=== PATIENT | male | born 1960 | race Caucasian/White ===

== ENCOUNTER 2019-04-17 14:11 | Emergency (ER) | payer OTHER, SELFPAY ==
[2019-04-17 14:11] VITALS: BP 131/91; PULSE 70; RESP 16; O2SAT 97
[2019-04-17 14:12] VITALS: BP 131/91; PULSE 76; RESP 16; TEMP 36.8; O2SAT 99
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
[2019-04-17 15:11] VITALS: BP 135/94; PULSE 60; RESP 16; O2SAT 96
== END 2019-04-17 15:19 | disposition home or self-care (01) ==
PROVIDERS: Emergency Provider Physician Assistant Medical; Family Provider Internal Medicine; PCP Internal Medicine
DX: T67.5XXA Heat exhaustion, unspecified, initial encounter (principal); X58.XXXA Exposure to other specified factors, initial encounter; Y93.89 Activity, other specified; Y92.71 Barn as the place of occurrence of the external cause; Y99.9 Unspecified external cause status
CPT/HCPCS: 99284

== ENCOUNTER → 2019-11-04 10:32 | Outpatient (CLI) | payer OTHER, SELFPAY ==
--- NOTE | 2019-11-04 10:42 | RAD_ITS ---
STUDY: X-RAY CHEST REASON FOR EXAM: Male, 59 years old. PERSISTENT COUGH X 2 WEEKS, HEMOPTYSIS TODAY, -- FEVER EARLIER TECHNIQUE: PA and lateral views of the chest. COMPARISON: Comparison is made with prior chest radiograph dated June 15, 2016. FINDINGS: There is evidence of a infiltration in the right middle lobe. Mild increased markings are seen at the left lung base. Blunting of both costophrenic angles. Healed right-sided rib fractures. Scattered calcified granulomas. Normal size heart. Normal mediastinum and margareth. Normal visualized pulmonary arteries. There is atherosclerotic calcification of the aortic arch with tortuosity. There are diffuse degenerative changes of the visualized thoracic spine. There is degenerative osteoarthritis of the bilateral shoulders. There is no demonstrated abnormality of the visualized soft tissue structures of the upper abdomen. RAD/Chest PA and Lateral IMPRESSION: Focal infiltration in the right middle lobe with blunting of both costophrenic angles. Mild increased markings at the left lung base. Follow-up is recommended. Electronically Signed: Forrest Francois, at 11:09 EDT , Service support ,
== END ==
PROVIDERS: PCP Internal Medicine; Referring Provider Internal Medicine; Visit Provider Internal Medicine
DX: R05 Cough (principal)
CPT/HCPCS: 71046

== ENCOUNTER 2019-11-04 13:31 | Inpatient (IN) | payer OTHER, SELFPAY ==
[2019-11-04] VITALS (9 sets, daily range): BP systolic 110–132; BP diastolic 74–88; PULSE 70–87; RESP 18–24; TEMP 36.6–37.7; O2SAT 92–96; BMI 28.8; BMI 29.0
--- NOTE | 2019-11-04 13:41 | EKG12_ITS ---
Test Reason : COVID Blood Pressure : / mmHG Vent. Rate : 076 BPM Atrial Rate : 076 BPM P-R Int : 168 ms QRS Dur : 104 ms QT Int : 388 ms P-R-T Axes : 029 058 033 degrees QTc Int : 436 ms Normal sinus rhythm Incomplete right bundle branch block Borderline ECG Confirmed by JAMISON RAM, ELIOT ([id number]), art editor TROY MILLIGAN ([id number]) on 11/10/2019 2:04:01 PM Referred By: FABIENNE Confirmed By:MARYANN SWIFT MD
[2019-11-04 14:09] LABS: Absolute Lymphocyte Count 0.69 X10^3/uL (0.83-4.51); Absolute Neutrophil Count 7.3 X10^3/uL (2.0-7.7); Basophil# 0.01 X10^3/uL; Basophil% 0.1 % (0-1); Eosinophil# 0.02 X10^3/uL; Eosinophils% 0.2 % (0-5); Hematocrit 45.8 % (40-54); Hemoglobin 15.9 g/dL (13.0-16.5); Lymphocyte # 0.69 X10^3/ul (4.0); Lymphocyte % 7.5 % (19-41); Mean Corp Hgb Conc 34.7 g/dL (32-36); Mean Corpuscular Hgb 30.2 pg (27.0-32.0); Mean Corpuscular Volume 87.1 fL (80-94); Mean Platelet Vol. 9.3 fl (6.2-12.0); Monocyte# 1.09 X10^3/uL; Monocyte% 11.9 % (0-10); NRBC Flagged by Analyzer 0 % (0-5); Neutrophil # 7.27 X10^3/uL (2.7-7.7); Neutrophil % 79.6 % (47-70); Platelet Count 236 K/mm3 (150-450); RBC Distribution Width CV 12.5 % (11.6-14.6); RBC Distribution Width SD 39.8 fl (35.1-43.9); Red Blood Count 5.26 M/mm3 (4.6-6.2); White Blood Count 9.1 K/mm3 (4.4-11.0)
[2019-11-04] MEDS: 0.9% Normal Saline 1,000 ML 999 ML IV (14:10)
[2019-11-04 14:16] LABS: Anion Gap 7 (5-15); BUN 14 mg/dL (7-18); BUN/Creat Ratio 14.1 RATIO (10-20); Calcium,Total 8.6 mg/dL (8.5-10.1); Chloride 97 mmol/L (98-107); EST Glomerular Filtration Rate 81 mL/min (>60); Est Glom Filt Rate - Afr Amer 98 mL/min (>60); Estimated Creatinine Clearance 85.14 ml/min; Glucose 124 mg/dL (74-106); Potassium 3.7 mmol/L (3.5-5.1); Sodium Level 133 mmol/L (136-145)
[2019-11-04 14:23] LABS: Lactic Acid 1.4 mmol/L (0.4-1.9)
--- NOTE | 2019-11-04 14:26 | ED.DCSUM_ITS ---
History of Present Illness Chief Complaint: Shortness of Breath Informant: Patient Onset: Weeks Narrative: Patient is a 59-year-old male with no known medical history presenting with 2 weeks of flulike symptoms. Patient has had fever for the past 16 days. In the office today his temperature is 100.4. Associated cough, myalgias, chest tightness and diarrhea. He is had nausea but no vomiting. He is not had any rash. Patient started coughing up blood today. The blood is nickel and quarter sized. He was seen by Dr. adam today. She ordered a chest x-ray which showed a right middle lobe infiltrate and questionable infiltrate at the base as well. He was very shallow breathing. He was 94% in the office but with ambulation dropped down to 88%. He was sent to the emergency room for further treatment and evaluation. 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 He had a likely exposure to coronavirus on October 16. He is started getting symptoms 3 days later. Past Medical History - Allergies and Home Meds Allergies/Adverse Reactions: Allergies No Known Allergies Allergy (Verified 11/04/19 13:31) Past Medical History: None Surgical History: no surgical history Lives: Spouse/ Significant Other Smoking Status: Never smoker - Family History Maternal Family History: Family History (Last Reviewed 04/27/19 @ 14:05 by Mayda Gale) Father Arthritis High cholesterol Hypertension Mother Hypertension Family History: Reports: Hypertension Paternal Family History: Family History (Last Reviewed 04/27/19 @ 14:05 by Mayda Gale) Father Arthritis High cholesterol Hypertension Mother Hypertension Family History: Reports: High Cholesterol, Hypertension Review of Systems General: Reports: Chills, Fever, Malaise. Denies: Sweats Eyes: Denies: Visual changes - bilaterally, Diplopia ENT: Denies: Rhinorrhea, Sore throat Cardiovascular: Denies: Chest pain, Palpitations Respiratory: Reports: Dyspnea, Cough, Sputum, Dyspnea on exertion Gastrointestinal: Reports: Nausea. Denies: Abdominal pain, Vomiting, Diarrhea, Melena, Hematochezia Genitourinary: Denies: Dysuria, Hematuria, Frequency Musculoskeletal: Reports: Myalgias. Denies: Back pain, Extremity Pain Skin: Denies: Rash, Wounds Neurological: Denies: Headache, Weakness, Numbness Physical Exam Vital Signs/Narrative: Vital Signs Temp Pulse Resp BP Pulse Ox 11/04/19 14:06 97.8 F 73 19 H 132/88 H 94 11/04/19 13:32 99.0 F 87 22 H 120/85 H 92 Inital Vital Signs reviewed: Yes General: Well nourished, Well developed, No Acute Distress Head: Normocephalic, Atraumatic Eyes: Perrl, EOMI ENT: Moist mucous membranes, No rhinorrhea Neck: Supple, Nontender Cardiovascular: Regular rate, Regular rhythm, No murmurs Respiratory: Chest nontender, Diminished - Right base, Decreased Air Movement, Retractions Abdomen: Soft, Nontender, Nondistended, Normal bowel sounds. Negative for: Guarding, Rebound tenderness Back: Nontender, Normal Inspection Extremities: Nontender, No edema Skin: Normal color, No rash Neurological: Alert, Oriented x3, Cranial nerves II-XII grossly intact, Normal Strength, Normal Sensation Psychological: Normal affect, Normal Mood Diagnostic/Tx/Re-eval Laboratory Data 11/04/19 11/04/19 11/04/19 13:42 13:42 13:42 WBC 9.1 RBC 5.26 Hgb 15.9 Hct 45.8 MCV 87.1 MCH 30.2 MCHC 34.7 RDW Std Deviation 39.8 RDW Coeff of Micki 12.5 Plt Count 236 MPV 9.3 Immature Gran % (Auto) 0.700 Neut % (Auto) 79.6 H Lymph % (Auto) 7.5 L Patrick % (Auto) 11.9 H Eos % (Auto) 0.2 Baso % (Auto) 0.1 Absolute Neuts (auto) 7.3 Absolute Lymphs (auto) 0.69 L Nucleated RBC % 0 Sodium 133 L Potassium 3.7 Chloride 97 L Carbon Dioxide 29.0 Anion Gap 7 BUN 14 Creatinine 1.00 Estim Creat Clear Calc 85.14 Est GFR (MDRD) Af Amer 98 Est GFR (MDRD) Non-Af 81 BUN/Creatinine Ratio 14.1 Glucose 124 H Lactic Acid 1.4 Calcium 8.6 AST ALT Troponin I < 0.015 11/04/19 13:42 WBC RBC Hgb Hct MCV MCH MCHC RDW Std Deviation RDW Coeff of Micki Plt Count MPV Immature Gran % (Auto) Neut % (Auto) Lymph % (Auto) Patrick % (Auto) Eos % (Auto) Baso % (Auto) Absolute Neuts (auto) Absolute Lymphs (auto) Nucleated RBC % Sodium Potassium Chloride Carbon Dioxide Anion Gap BUN Creatinine Estim Creat Clear Calc Est GFR (MDRD) Af Amer Est GFR (MDRD) Non-Af BUN/Creatinine Ratio Glucose Lactic Acid Calcium AST 52 H ALT 89 H Troponin I Chest x-ray performed earlier today shows focal infiltrate of the right middle lobe with blunting of both costophrenic angles. Mild increased markings at the left lung base. - Rhythm Strip Rhythm Strip: Sinus Rhythm Rate: 76 Ectopy: None - EKG Initial EKG Interpretation: Sinus Rhythm, RBBB, - - Normal sinus rhythm at a rate of 76Incomplete right bundle branch blockNormal intervalsNormal ST segmentsNormal axis - Medical Decision Making Patient is evaluated for 16 days of worsening respiratory symptoms as well as fever. Patient was seen at his PCP office today. His chest x-ray is found to be showed a right pneumonia as well as questionable early pneumonia at the left base. Patient was hypoxic down to 80% with ambulation. He has had increased work of breathing. Patient is had a possible exposure to COVID-19. Lab work is significant for lymphopenia but a normal white blood cell count. His sodium was mildly low at 133. Is possible he is a component of dehydration. He has a very mild bump in his liver enzymes but this is nonspecific. His troponin is normal. EKG is unremarkable. Chest x-rays not repeated as I am able to view the chest x-ray from earlier today. Patient is ambulated in the room and he drops down to 89%. He is quite symptomatic. Given the extent of his symptoms as well as worsening respiratory status I do think he would benefit from admission. He is placed on IV antibiotics to cover for pneumonia however I do suspect he has COVID-19, he could have a bacterial superinfection. His lactate was normal. He does not meet criteria for sepsis. Patient did have COVID-19 testing at PCP office today, results are pending. Discussed the case with admitting physician, who agrees to admission to [facility]. Patient stable at time of disposition. At this time he is not requiring supplemental oxygenation however I feel that he might deteriorate over the next 12 to 24 hours. ED Disposition - Plan for ED Patient: Disposition: [facility] Diagnosis: Pneumonia due to SARS-associated coronavirus
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
[2019-11-04] MEDS: Ceftriaxone 1 GM/50 ML BAG IV (15:48)
[2019-11-04 17:34] LABS: AST(SGOT) 52 U/L (15-37); Alanine Aminotransfer ALT/SGPT 89 U/L (16-61)
[2019-11-04] MEDS: Heparin Injection (Vial) 5,000 UNIT/ML VIAL 5000 UNIT SC (21:22)
--- NOTE | 2019-11-04 22:53 | PCM.PN.BLA ---
Progress Note Patient's PCP (Dr. Gold) called. Shared decision with PCP to get D-dimer in patient with hemoptysis; and covid suspected. If D-dimer is elevated proceed with CTPA as there is no kidney injury. Ok to wait for the [facility] in am to make further decisions on suspected covid as patient is stable on 2L nasal cannula oxygen with sat in 96% STROKE Vital Signs/Narrative: Vital Signs Temp Pulse Resp BP Pulse Ox 11/04/19 21:15 99.8 F H 79 18 117/79 92
[2019-11-04 23:58] LABS: D-Dimer Quantitative (DVT/PE) 4.84 FEU/ug/m (0.27-0.49)
--- NOTE | 2019-11-05 00:59 | PN_ITS ---
Progress Note CTPA with multiple PEs and pulmonary infarction/infiltrate. Will give the patient a one-time dose of therapeutic Lovenox. Discontinue heparin pr ophylaxis. Rounding attending physician to manage further. STROKE Vital Signs/Narrative: Vital Signs Temp Pulse Resp BP Pulse Ox 11/04/19 21:15 99.8 F H 79 18 117/79 92
[2019-11-05] MEDS: Enoxaparin 100 MG/ML Syringe SC (01:14)
[2019-11-05 09:01] LABS: ALB/GLOB Ratio 0.5 RATIO (0.9-2.4); AST(SGOT) 84 U/L (15-37); Alanine Aminotransfer ALT/SGPT 115 U/L (16-61); Albumin, Serum 2.2 g/dL (3.2-5.0); Alkaline Phosphatase 64 U/L (45-117); Anion Gap 8 (5-15); BUN 10 mg/dL (7-18); BUN/Creat Ratio 12.5 RATIO (10-20); Chloride 101 mmol/L (98-107); EST Glomerular Filtration Rate 104 mL/min (>60); Est Glom Filt Rate - Afr Amer 126 mL/min (>60); Estimated Creatinine Clearance 106.43 ml/min; Globulin 4.1 g/dL (2.2-4.2); Glucose 103 mg/dL (74-106); Potassium 3.9 mmol/L (3.5-5.1); Protein, Total 6.3 g/dL (6.4-8.2); Sodium Level 135 mmol/L (136-145)
[2019-11-05 10:00] VITALS: BP 108/77; PULSE 70; RESP 16; TEMP 37; O2SAT 92
--- NOTE | 2019-11-05 10:07 | PN_ITS ---
Patient Problems: Active and Suspected Problems (Last Updated 11/05/19 @ 10:[address] Dimas Pinzon MD) Hypoxia (Acute) Suspected COVID-19 (Acute) Viral pneumonia (Acute) Subjective: Chief complaint: Follow-up after admission for hypoxia, viral pneumonia with suspected COVID-19 infection and he was found to have a right multiple pulmonary emboli. Patient seen and examined. No acute events overnight. Today, patient is feeling better although still complaining of right pleuritic chest pain and reported hemoptysis as well. Shortness of breath remains almost the same as yesterday with minimal improvement. He has been afebrile, he is requiring 2 L of oxygen, other vital signs are stable. - Physical Exam Vitals/I&O's: Vital Signs Temp Pulse Resp BP Pulse Ox 99.8 F H 79 18 117/79 92 11/04/19 21:15 11/04/19 21:15 11/04/19 21:15 11/04/19 21:15 11/04/19 21:15 Oxygen Flow Rate (L/min) 2 Oxygen Delivery Method Nasal Cannula Weight: 213 lb 10.047 oz Body Mass Index (BMI) 29.0 Intake and Output for Last 24 Hours 11/03/19 11/04/19 11/05/19 23:59 23:59 23:59 Intake Total 1665 / 1665 Balance 1665 / 1665 General: Alert, Oriented x3, Cooperative, No apparent distress HEENT: Atraumatic, PERRLA, EOMI, Normocephalic Oral: Moist Mucosa, No Gingival or Mucosal Lesions/ Ulcerations Neck: Supple, No JVD, Negative Carotid Bruits, Trachea Midline, Thyroid Normal Size and Texture Lungs: No rhonchi, No wheeze, No rales, Diminished, - - Decreased breath sounds at the bases, otherwise clear. Cardiovascular: Regular rate, Regular Rhythm, Normal S1, Normal S2, PMI Normal Abdomen: Bowel Sounds Present, Soft, Non Tender, Non-Distended, No Hepato-splenomegaly Extremities: No clubbing, No cyanosis, No edema Skin: No rashes, No breakdown Lymphatic: No Cervical, Supraclavicular, or Inguinal Adenopathy Neurological: Cranial nerves II-XII grossly intact, Neuro grossly intact Psych/Mental Status: Normal Affect, Appropriate, Alert and oriented to time, place, person, mood and affect Microbiology Past 72 Hours 11/04/19 13:43 Mucosa - Nose Respiratory Panel (PCR) - Final Laboratory Results 11/04/19 13:42: WBC 9.1, RBC 5.26, Hgb 15.9, Hct 45.8, MCV 87.1, MCH 30.2, MCHC 34.7, RDW Std Deviation 39.8, RDW Coeff of Micki 12.5, Plt Count 236, MPV 9.3, Immature Gran % (Auto) 0.700, Neut % (Auto) 79.6 H, Lymph % (Auto) 7.5 L, Conway % (Auto) 11.9 H, Eos % (Auto) 0.2, Baso % (Auto) 0.1, Absolute Neuts (auto) 7.3, Absolute Lymphs (auto) 0.69 L, Nucleated RBC % 0 11/04/19 13:42: Sodium 133 L, Potassium 3.7, Chloride 97 L, Carbon Dioxide 29.0, Anion Gap 7, BUN 14, Creatinine 1.00, Estim Creat Clear Calc 85.14, Est GFR (MDRD) Af Amer 98, Est GFR (MDRD) Non-Af 81, BUN/Creatinine Ratio 14.1, Glucose 124 H, Calcium 8.6, Troponin I < 0.015 11/04/19 13:42: Lactic Acid 1.4 11/04/19 13:42: AST 52 H, ALT 89 H 11/04/19 23:22: D-Dimer Quant (PE/DVT) 4.84 H* 11/05/19 05:30: WBC Pending, RBC Pending, Hgb Pending, Hct Pending, MCV Pending, MCH Pending, MCHC Pending, RDW Std Deviation Pending, RDW Coeff of Micki Pending, Plt Count Pending, Neut % (Auto) Pending, Absolute Neuts (auto) Pending 11/05/19 05:30: Sodium 135 L, Potassium 3.9, Chloride 101, Carbon Dioxide 26.0, Anion Gap 8, BUN 10, Creatinine 0.80, Estim Creat Clear Calc 106.43, Est GFR (MDRD) Af Amer 126, Est GFR (MDRD) Non-Af 104, BUN/Creatinine Ratio 12.5, Glucose 103, Calcium 8.0 L, Total Bilirubin 0.70, AST 84 H, ALT 115 H, Alkaline Phosphatase 64, Total Protein 6.3 L, Albumin 2.2 L, Globulin 4.1, Al bumin/Globulin Ratio 0.5 L Clinical Impression(s) from Imaging Studies Chest CTA 11/05/19 23:59 IMPRESSION: Multiple pulmonary emboli are present on the right. Pneumonia versus pulmonary infarct in the right lower lobe. Patchy nonspecific groundglass opacities and interlobular septal thickening are present in the peripheries of both lungs. Correlate clinically for the possibility of viral pneumonia. N.B. : The above information has been verbally conveyed by Lukas Kwon MD to Maribel Ball RN, on 11/05/2019 00:50:33 (ET). Electronically Signed: Lukas Kwon MD at 0:51 EDT Tel , Service support , ADDENDUM: 11/05/19 0058 IMPRESSION: Multiple pulmonary emboli are present on the right. Pneumonia versus pulmonary infarct in the right lower lobe. Patchy nonspecific groundglass opacities and interlobular septal thickening are present in the peripheries of both lungs. Correlate clinically for the possibility of viral pneumonia. N.B. : The above information has been verbally conveyed by Lukas Kwon MD to Maribel Ball RN, on 11/05/2019 00:50:33 (ET). Electronically Signed: Lukas Kwon MD at 0:51 EDT Tel , Service support , Current Medications Acetaminophen (Tylenol) 650 mg PO Q6H PRN PRN PRN Reason: Pain Score 1-10/Temp > 100.7 F Al Hydroxide/Mg Hydroxide (Mylanta Ii) 30 ml PO Q6H PRN PRN PRN Reason: Gastric Burning Apixaban (Eliquis) 10 mg PO BID OLGA LIDIA Ceftriaxone Sodium (Rocephin) 1 gm in 50 mls @ 100 mls/hr IV Q24 [facility] Azithromycin 500 mg/ Dextrose 255 mls @ 250 mls/hr IV Q24 [facility]IDIA Sodium Chloride () 250 mls @ 15 mls/hr IV .[id number] PRN PRN Reason: Saline Flush Promethazine HCl (Phenergan) 6.25 mg IV Q6H PRN PRN PRN Reason: NAUSEA/VOMITING Psyllium Hydrophilic Mucilloid (Metamucil) 1 packet PO DAILY PRN PRN PRN Reason: Constipation Sodium Chloride () 10 - 40 ml IV UD PRN PRN Reason: SALINE FLUSH Medical Necessity - Tobacco Use Smoking Status: Current every day smoker Tobacco Use: Cigarettes Assessment/Plan All Active Problems (Last Updated 11/05/19 @ 10:[address] Dimas Pinzon MD) Hypoxia (Acute) Suspected COVID-19 (Acute) Viral pneumonia (Acute) This is a 59 years old male patient presented to the emergency room because of persistent fever for 2 weeks, chest tightness, right lateral chest discomfort with cough and body aches, found to have right lower lobe consolidation as well as groundglass opacities in the peripheries of both lungs which likely due to viral pneumonia with suspected COVID19 and he was found to have multiple right pulmonary emboli. #1 acute bilateral viral pneumonia/suspected COVID19: CTA chest reviewed. Patient is on IV Rocephin and Zithromax. Respiratory panel for viruses were negative. Blood cultures pending. He has been afebrile, blood pressure and heart rate are stable, pulse ox is 95% on 2 L. Routine blood work reviewed, was unremarkable, CBC from today is pending. COVID19 testing was sent from his PCPs office and it is pending at this time. Infectious disease consulted. Plan to continue same treatment. #2 acute right lung multiple pulmonary emboli: This was diagnosed on CTA chest that was done for elevated d-dimer. Patient has no risk factors for PE. He was given 1 dose of subcu therapeutic Lovenox. Plan to start him on Eliquis 10 mg p.o. twice daily. #3 hypoxia: Secondary to both #1 #2. He is requiring oxygen at 2 L. Stable at this time. #4 elevated LFT: Probably due to the viral syndrome. Liver transaminases are minimally elevated. Bilirubin is normal. Patient denied any right upper quadrant abdominal pain. #5 DVT prophylaxis: He will be started on Eliquis for PE treatment. This note was generated with Dragon dictation software. It may contain incorrect words, spelling, and punctuation that were not noted in checking the note before signing. Inpatient E&M: 88661 Subs Hosp L2
[2019-11-05] MEDS: Ceftriaxone 1 GM/50 ML BAG IV (10:30)
[2019-11-05] MEDS: APIXABAN 5 MG TABLET 10 MG PO ×2 (11:03→21:01)
[2019-11-05 11:10] VITALS: BP 103/70; PULSE 72; RESP 18; TEMP 36.7; O2SAT 95
[2019-11-05 11:49] LABS: Absolute Lymphocyte Count 0.95 X10^3/uL (0.83-4.51); Absolute Neutrophil Count 5.8 X10^3/uL (2.0-7.7); Basophil# 0.01 X10^3/uL; Basophil% 0.1 % (0-1); Eosinophil# 0.11 X10^3/uL; Eosinophils% 1.4 % (0-5); Hematocrit 41.6 % (40-54); Hemoglobin 14.2 g/dL (13.0-16.5); Lymphocyte # 0.95 X10^3/ul (4.0); Lymphocyte % 12.1 % (19-41); Mean Corp Hgb Conc 34.1 g/dL (32-36); Mean Corpuscular Hgb 29.9 pg (27.0-32.0); Mean Corpuscular Volume 87.6 fL (80-94); Monocyte# 0.99 X10^3/uL; Monocyte% 12.6 % (0-10); NRBC Flagged by Analyzer 0 % (0-5); Neutrophil # 5.79 X10^3/uL (2.7-7.7); Neutrophil % 73.4 % (47-70); POSITIVE MORPHOLOGY YES; Platelet Count 254 K/mm3 (150-450); RBC Distribution Width CV 12.5 % (11.6-14.6); RBC Distribution Width SD 40.5 fl (35.1-43.9); Red Blood Count 4.75 M/mm3 (4.6-6.2); White Blood Count 7.9 K/mm3 (4.4-11.0)
--- NOTE | 2019-11-05 14:29 | PCM.HP.ID ---
Problem List (1) Suspected COVID-19 Status: Acute Reason for Consult: suspected covid Consulted by: Dr. 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 Had cough, aches, mild fever for past 2 weeks. with similar symptoms, she has overall been improving. He developed new onset dyspnea, R sided chest pain, and hemoptysis. Came to ED, found to be hypoxic. CXR showed R sided infiltrate. CTPE showed ground glass changes and new R sided PE. Admitted on ceftriaxone/azithro, given lovenox. Feeling a little better this AM. Full ROS performed and neg except as noted above. - Medical History Surgical History: reviewed Allergies/Adverse Reactions: Allergies No Known Allergies Allergy (Verified 11/04/19 13:31) Home Medications: Ambulatory Orders Medication Instructions Recorded Acetaminophen [Tylenol Extra 1,000 mg PO DAILY PRN PRN 11/04/19 Strength] - Social History Tobacco Use: cigarettes Vital Signs Temp Pulse Resp BP Pulse Ox 98.1 F 72 18 103/70 95 11/05/19 11:10 11/05/19 11:10 11/05/19 11:10 11/05/19 11:10 11/05/19 11:10 Oxygen Flow Rate (L/min) 2 Oxygen Delivery Method Nasal Cannula Weight: 96.9 kg Body Mass Index (BMI) 29.0 Microbiology Past 72 Hours 11/04/19 13:43 Respiratory Panel (PCR) - Final Mucosa - Nose Laboratory Tests Past 24 Hrs 11/04/19 11/04/19 11/05/19 13:42 23:22 05:30 WBC Pending RBC Pending Hgb Pending Hct Pending MCV Pending MCH Pending MCHC Pending RDW Std Deviation Pending RDW Coeff of Micki Pending Plt Count Pending Neut % (Auto) Pending Absolute Neuts (auto) Pending D-Dimer Quant (PE/DVT) 4.84 H* Sodium Potassium Chloride Carbon Dioxide Anion Gap BUN Creatinine Estim Creat Clear Calc Est GFR (MDRD) Af Amer Est GFR (MDRD) Non-Af BUN/Creatinine Ratio Glucose Calcium Total Bilirubin AST 52 H ALT 89 H Alkaline Phosphatase Total Protein Albumin Globulin Albumin/Globulin Ratio 11/05/19 05:30 WBC RBC Hgb Hct MCV MCH MCHC RDW Std Deviation RDW Coeff of Micki Plt Count Neut % (Auto) Absolute Neuts (auto) D-Dimer Quant (PE/DVT) Sodium 135 L Potassium 3.9 Chloride 101 Carbon Dioxide 26.0 Anion Gap 8 BUN 10 Creatinine 0.80 Estim Creat Clear Calc 106.43 Est GFR (MDRD) Af Amer 126 Est GFR (MDRD) Non-Af 104 BUN/Creatinine Ratio 12.5 Glucose 103 Calcium 8.0 L Total Bilirubin 0.70 AST 84 H ALT 115 H Alkaline Phosphatase 64 Total Protein 6.3 L Albumin 2.2 L Globulin 4.1 Albumin/Globulin Ratio 0.5 L - Other Studies Radiology: [] reviewed CT images, R sided infiltrate, ground glass changes Other Studies: [] Route of nutrition/ use of supplements: [] Nutritional Intake: [] IV Site: [] Conner Catheter: [] - Physical Exam General: Alert, Oriented x3, Cooperative, No apparent distress HEENT: Atraumatic, PERRLA, EOMI Neck: Supple, No Nodes Lungs: Diminished, Rhonchi Cardiovascular: Regular rate, Regular Rhythm Abdomen: Soft, Non Tender, Non-Distended Extremities: No edema Skin: No rashes IV Site: Peripheral, without redness Musculoskeletal: No Tenderness to Palpation of Joints or Extremities Neurological: Cranial nerves II-XII grossly intact - Assessment/Plan Antibiotics: [] Assessment/Plan: [] Active and Suspected Problems (Last Updated 11/05/19 @ 10:[address] Dimas Pinzon MD) Hypoxia (Acute) Suspected COVID-19 (Acute) Viral pneumonia (Acute) suspected COVID, new R sided PEs - will check UAgs, on ceftriaxone and azithro. COVID pending. No fever here, does have some leukopenia. On RA currently. If Uags and other cxs are neg, plan will be to stop ceftriaxone and azithro. Will follow, thank you
--- NOTE | 2019-11-05 14:31 | CASEMGMT ---
"EDDIE CARLIN ASSESSMENT COVID 19 testing sent 11/03 from pt's PCP's office. Results pending. Call placed to pt's room. Introduced self and role of EDDIE CARLIN. Pt agreeable to completing assessment via phone. Pt lives with his at home who has been self-quarantining herself as well. He states has been feeling better and will be able to assist him when he returns home. They have other family members that have been helping with bringing groceries to them and can help with picking up medications and other supplies as needed. PCP: Dr Gold Specialists: Dr Jessica--states needs a knee replacement this fall. Preferred Pharmacy: [facility] in [place]. Pt aware [facility] has a retail pharmacy and new meds ordered @ discharge can be delivered to his room at discharge. States he wants to talk with his first before changing it. Insurance: [employer] | [employer] Prescription Benefit: Yes Living Will/HPOA: [facility] does not have LW or HCPOA . Pt made aware RN will bring in Social Service rac card with number to call if chooses in the future to utilize [facility] social work for advanced directive completion. Pt voices understanding. Rac card given to RNMichael, at this time to give to pt when he goes into his room. LNOK: Elizabeth Living Arrangements: Lives at home with his . Independent prior to recent illness. able to assist if needed. Transportation: can take pt home @ discharge. Denies transportation concerns. DME: Denies using any DME and denies needs. Does not have home O2. May qualify for O2 @ discharge. EDDIE CARLIN reviewed list of local DME companies and he denies preference of DME company. HHC/SNF: No history of either. Pt wishes to return home and states has no concerns with going home at time of discharge. CM to follow for home oxygen needs and any further discharge planning/needs. Pt voices no further concerns/needs at this time. Advised pt to ask for CM if any further questions/concerns/needs arise. Voices understanding. PLAN: Home w/spousal and family support. CM to follow for O2 needs @ discharge. Does not have preference of DME company Pt to go home on Eliquis. Will need Eliquis 30-day savings card. Pt instructed on savings card and use. Card not given to pt at this time d/t may want to switch to [facility]. Pt to talk with his about this first and then to let staff know what they decide. Natan ARANDAN RN CM"
[2019-11-05 14:33] LABS: Differential Indicated SCAN CRITERIA MET
[2019-11-05 14:34] LABS: Differential Comment SCANNED
[2019-11-05 17:00] VITALS: BP 114/79; PULSE 70; RESP 16; TEMP 37; O2SAT 93
[2019-11-05 20:56] VITALS: BP 112/73; PULSE 73; RESP 18; TEMP 37.7; O2SAT 94
--- NOTE | 2019-11-05 23:59 | CT_ITS ---
STUDY: CTA CHEST REASON FOR EXAM: Male, 59 years old. hypoxia, 2 week flu like symptoms, loss of smell, weakness, fever for 16 days, cough, diarrhea, chest tightness, hemoptysis RADIATION DOSAGE (If Supplied By Facility): CTDIvol = ( 17.4 ) mGy, DLP = ( 546.98 ) mGycm TECHNIQUE: The examination was performed with the intravenous administration of IV 100mL Isovue-370. Post-processing of the angiographic images was performed, with multiplanar reformation and 3D reconstruction. Individualized dose optimization techniques were used for this CT. COMPARISON: None. FINDINGS: Multiple pulmonary emboli are present on the right. Normal thoracic aorta and visualized great vessels. There is no demonstrated aortic dissection. Normal heart and pericardium. Normal mediastinum. Normal hilar regions. Normal visualized trachea and bronchi. Calcified granuloma in the right upper lobe. Right lower lobe consolidation and air bronchograms. This could be related to pneumonia and/or pulmonary infarct. Patchy nonspecific groundglass opacities and interlobular septal thickening are present in the peripheries of both lungs. Left lower lobe atelectasis. Normal pleura. Normal chest wall structures. Remote T1 spinous process fracture. Normal visualized upper abdomen. CT/CTA Chest W/WO Contrast IMPRESSION: Multiple pulmonary emboli are present on the right. Pneumonia versus pulmonary infarct in the right lower lobe. Patchy nonspecific groundglass opacities and interlobular septal thickening are present in the peripheries of both lungs. Correlate clinically for the possibility of viral pneumonia. N.B. : The above information has been verbally conveyed by Lukas Kwon MD to Maribel Ball RN, on 11/05/2019 00:50:33 (ET). Electronically Signed: Lukas Kwon MD at 0:51 EDT Tel , Service support ,
[2019-11-06 02:55] VITALS: BP 108/75; PULSE 76; RESP 20; TEMP 37.1; O2SAT 95
[2019-11-06 06:41] VITALS: O2SAT 95
--- NOTE | 2019-11-06 08:50 | PCM.PROGNOTE ---
Patient Problems: Active and Suspected Problems (Last Updated 11/05/19 @ 10:[address] Dimas Pinzon MD) Hypoxia (Acute) Suspected COVID-19 (Acute) Viral pneumonia (Acute) Subjective: Chief complaint: Follow-up after admission for hypoxia, viral pneumonia with suspected COVID-19 infection and he was found to have a right multiple pulmonary emboli. Patient seen and examined. No acute events overnight. He is still complaining of shortness of breath upon ambulation as well as hemoptysis. He mentioned that he gets more short of breath upon going to the bathroom. He has been afebrile, remains on 2 L of oxygen, blood pressure and heart rate are stable. - Physical Exam Vitals/I&O's: Vital Signs Temp Pulse Resp BP Pulse Ox 98.7 F 76 20 H 108/75 95 11/06/19 02:55 11/06/19 02:55 11/06/19 02:55 11/06/19 02:55 11/06/19 06:41 Oxygen Flow Rate (L/min) 2 Oxygen Delivery Method Nasal Cannula Weight: 213 lb 10.047 oz Body Mass Index (BMI) 29.0 Intake and Output for Last 24 Hours 11/04/19 11/05/19 11/06/19 23:59 23:59 23:59 Intake Total 1665 / 1665 905 / 905 Balance 1665 / 1665 905 / 905 General: Alert, Oriented x3, Cooperative, No apparent distress HEENT: Atraumatic, PERRLA, EOMI, Normocephalic Oral: Moist Mucosa, No Gingival or Mucosal Lesions/ Ulcerations Neck: Supple, No JVD, Negative Carotid Bruits, Trachea Midline, Thyroid Normal Size and Texture Lungs: Clear to auscultation, No rhonchi, No wheeze, No rales, Diminished, - - Decreased breath sounds at the bases, otherwise clear. Cardiovascular: Regular rate, Regular Rhythm, Normal S1, Normal S2, PMI Normal Abdomen: Bowel Sounds Present, Soft, Non Tender, Non-Distended, No Hepato-splenomegaly Extremities: No clubbing, No cyanosis, No edema Skin: No rashes, No breakdown Lymphatic: No Cervical, Supraclavicular, or Inguinal Adenopathy Neurological: Cranial nerves II-XII grossly intact, Neuro grossly intact Psych/Mental Status: Normal Affect, Appropriate, Alert and oriented to time, place, person, mood and affect Microbiology Past 72 Hours 11/05/19 13:38 Urine, Clean Catch Streptococcus pneumoniae Antigen (M - Final 11/05/19 13:38 Urine, Clean Catch Legionella Antigen - Final 11/04/19 13:43 Mucosa - Nose Respiratory Panel (PCR) - Final Laboratory Results 11/05/19 05:30: WBC 7.9, RBC 4.75, Hgb 14.2, Hct 41.6, MCV 87.6, MCH 29.9, MCHC 34.1, RDW Std Deviation 40.5, RDW Coeff of Micki 12.5, Plt Count 254, MPV 9.0, Immature Gran % (Auto) 0.400, Neut % (Auto) 73.4 H, Lymph % (Auto) 12.1 L, Bennett % (Auto) 12.6 H, Eos % (Auto) 1.4, Baso % (Auto) 0.1, Absolute Neuts (auto) 5.8, Absolute Lymphs (auto) 0.95, Nucleated RBC % 0, Differential Comment SCANNED 11/05/19 05:30: Sodium 135 L, Potassium 3.9, Chloride 101, Carbon Dioxide 26.0, Anion Gap 8, BUN 10, Creatinine 0.80, Estim Creat Clear Calc 106.43, Est GFR (MDRD) Af Amer 126, Est GFR (MDRD) Non-Af 104, BUN/Creatinine Ratio 12.5, Glucose 103, Calcium 8.0 L, Total Bilirubin 0.70, AST 84 H, ALT 115 H, Alkaline Phosphatase 64, Total Protein 6.3 L, Albumin 2.2 L, Globulin 4.1, Albumin/Globulin Ratio 0.5 L Current Medications Acetaminophen (Tylenol) 650 mg PO Q6H PRN PRN PRN Reason: Pain Score 1-10/Temp > 100.7 F Al Hydroxide/Mg Hydroxide (Mylanta Ii) 30 ml PO Q6H PRN PRN PRN Reason: Gastric Burning Apixaban (Eliquis) 10 mg PO BID [facility] Last Admin: 11/05/19 21:01 Dose: 10 mg Documented by: Ceftriaxone Sodium (Rocephin) 1 gm in 50 mls @ 100 mls/hr IV Q24 [facility] Last Infusion: 11/05/19 11:00 Dose: Infused Documented by: Azithromycin 500 mg/ Dextrose 255 mls @ 250 mls/hr IV Q24 OLGA LIDIA Last Infusion: 11/05/19 12:06 Dose: Infused Documented by: Sodium Chloride () 250 mls @ 15 mls/hr IV .[id number] PRN PRN Reason: Saline Flush Promethazine HCl (Phenergan) 6.25 mg IV Q6H PRN PRN PRN Reason: NAUSEA/VOMITING Psyllium Hydrophilic Mucilloid (Metamucil) 1 packet PO DAILY PRN PRN PRN Reason: Constipation Sodium Chloride () 10 - 40 ml IV UD PRN PRN Reason: SALINE FLUSH Medical Necessity - Tobacco Use Smoking Status: Current every day smoker Tobacco Use: Cigarettes Assessment/Plan All Active Problems (Last Updated 11/05/19 @ 10:[address] Dimas Pinzon MD) Hypoxia (Acute) Suspected COVID-19 (Acute) Viral pneumonia (Acute) This is a 59 years old male patient presented to the emergency room because of persistent fever for 2 weeks, chest tightness, right lateral chest discomfort with cough and body aches, found to have right lower lobe consolidation as well as groundglass opacities in the peripheries of both lungs which likely due to viral pneumonia with suspected COVID19 and he was found to have multiple right pulmonary emboli. #1 acute bilateral viral pneumonia/suspected COVID19: He is on IV Rocephin and Zithromax. Remained afebrile, remains on 2 L of oxygen. Still symptomatic with shortness of breath on activity and hemoptysis. Respiratory panel for viruses were negative. Pneumococcal and Legionella antigen were negative. Blood cultures pending. Liver transaminases are slightly elevated likely because of the viral illness. COVID19 testing was sent from his PCPs office and it is pending at this time. Infectious disease on the case. Plan to continue same treatment. #2 acute right lung multiple pulmonary emboli: Started on loading dose of Eliquis twice daily. This was diagnosed on CTA chest that was done for elevated d-dimer. Patient has no risk factors for PE. Plan to continue same treatment. #3 hypoxia: Secondary to both #1 #2. He remained on 2 L of oxygen but still symptomatic with exertional shortness of breath. Stable at this time. #4 elevated LFT: Probably due to the viral syndrome. Liver transaminases are minimally elevated. Bilirubin is normal. Patient denied any right upper quadrant abdominal pain. #5 DVT prophylaxis: Continue Eliquis. This note was generated with zulily dictation software. It may contain incorrect words, spelling, and punctuation that were not noted in checking the note before signing. Inpatient E&M: 27209 Subs Hosp L2
[2019-11-06 08:55] VITALS: BP 101/63; PULSE 68; RESP 18; TEMP 36.6; O2SAT 95
[2019-11-06] MEDS: Ceftriaxone 1 GM/50 ML BAG IV (09:14)
[2019-11-06] MEDS: APIXABAN 5 MG TABLET 10 MG PO ×2 (09:18→21:15)
--- NOTE | 2019-11-06 12:23 | CASEMGMT ---
EDDIE CARLIN NOTE: COVID-19 Positive. Call placed to pt's room at this time. Pt states he spoke with his re: preferred pharmacy and they prefer to have any new medications sent to [facility] in [place]. Pt aware he will be going home on Eliquis. Instructed on use of Eliquis 30-day savings card and pt informed he would need to activate the card in order for it to be applied. Pt made aware staff will bring in copy of the card with instructions on how to activate the card. Pt voices understanding. Luly, secretary to board of commissioners, and RNMichael, both made aware this information is outside of pt's room and one of them will take this information into pt when going into pt's room next. Call placed to [facility] in [place]. They were given pt's [employer] insurance/prescription card benefit information and also Eliquis 30-day savings card information. They stated they will place this information on pt's file to be applied once card has been activated and prescription has been e-scribed to them when pt is discharged. Pt made aware the card information has been provided to [facility]. Pt also made aware, if cost of Eliquis is not affordable for refills, to discuss this with his PCP. He voices understanding. Natan GUEVARA RN, CM
--- NOTE | 2019-11-06 14:23 | PCM.PN.ID ---
Patient Problems: Active and Suspected Problems (Last Updated 11/05/19 @ 10:[address] Dimas Pinzon MD) Hypoxia (Acute) Suspected COVID-19 (Acute) Viral pneumonia (Acute) Subjective: Feeling better, still some dyspnea and cough with blood. No fever. - Physical Exam Vitals/I&O's: Vital Signs Temp Pulse Resp BP Pulse Ox 97.9 F 68 18 101/63 95 11/06/19 08:55 11/06/19 08:55 11/06/19 08:55 11/06/19 08:55 11/06/19 08:55 Oxygen Flow Rate (L/min) 2 Oxygen Delivery Method Nasal Cannula Weight: 96.9 kg Body Mass Index (BMI) 29.0 Intake and Output for Last 24 Hours 11/04/19 11/05/19 11/06/19 23:59 23:59 23:59 Intake Total 1665 / 1665 905 / 905 545 / 545 Balance 1665 / 1665 905 / 905 545 / 545 General: Alert, Cooperative, No apparent distress Lungs: Clear to auscultation, Normal air movement Cardiovascular: Regular rate, Regular Rhythm Abdomen: Soft, Non Tender, Non-Distended Skin: No rashes Microbiology Past 72 Hours 11/05/19 13:38 Urine, Clean Catch Streptococcus pneumoniae Antigen (M - Final 11/05/19 13:38 Urine, Clean Catch Legionella Antigen - Final 11/04/19 13:43 Mucosa - Nose Respiratory Panel (PCR) - Final Laboratory Results 11/05/19 05:30: WBC 7.9, RBC 4.75, Hgb 14.2, Hct 41.6, MCV 87.6, MCH 29.9, MCHC 34.1, RDW Std Deviation 40.5, RDW Coeff of Micki 12.5, Plt Count 254, MPV 9.0, Immature Gran % (Auto) 0.400, Neut % (Auto) 73.4 H, Lymph % (Auto) 12.1 L, [place] % (Auto) 12.6 H, Eos % (Auto) 1.4, Baso % (Auto) 0.1, Absolute Neuts (auto) 5.8, Absolute Lymphs (auto) 0.95, Nucleated RBC % 0, Differential Comment SCANNED 11/05/19 05:30: Sodium 135 L, Potassium 3.9, Chloride 101, Carbon Dioxide 26.0, Anion Gap 8, BUN 10, Creatinine 0.80, Estim Creat Clear Calc 106.43, Est GFR (MDRD) Af Amer 126, Est GFR (MDRD) Non-Af 104, BUN/Creatinine Ratio 12.5, Glucose 103, Calcium 8.0 L, Total Bilirubin 0.70, AST 84 H, ALT 115 H, Alkaline Phosphatase 64, Total Protein 6.3 L, Albumin 2.2 L, Globulin 4.1, Albumin/Globulin Ratio 0.5 L Current Medications Acetaminophen (Tylenol) 650 mg PO Q6H PRN PRN PRN Reason: Pain Score 1-10/Temp > 100.7 F Al Hydroxide/Mg Hydroxide (Mylanta Ii) 30 ml PO Q6H PRN PRN PRN Reason: Gastric Burning Apixaban (Eliquis) 10 mg PO BID OLGA LIDIA Last Admin: 11/06/19 09:18 Dose: 10 mg Documented by: Sodium Chloride () 250 mls @ 15 mls/hr IV .[id number] PRN PRN Reason: Saline Flush Promethazine HCl (Phenergan) 6.25 mg IV Q6H PRN PRN PRN Reason: NAUSEA/VOMITING Psyllium Hydrophilic Mucilloid (Metamucil) 1 packet PO DAILY PRN PRN PRN Reason: Constipation Sodium Chloride () 10 - 40 ml IV UD PRN PRN Reason: SALINE FLUSH Medical Necessity - Tobacco Use Smoking Status: Current every day smoker Tobacco Use: Cigarettes Route of nutrition/ use of supplements: [] Nutritional Intake: [] IV Site: [] Conner Catheter: [] - Assessment/Plan Antibiotics: [] Assessment/Plan: [] Active and Suspected Problems (Last Updated 11/05/19 @ 10:[address] Dimas Pinzon MD) Hypoxia (Acute) Suspected COVID-19 (Acute) Viral pneumonia (Acute) (+) COVID, new R sided PEs - Neg UAgs. Will stop azithro/ceftriaxone. No fever here, does have some leukopenia. Overall much improved; will not start plaquenil. Ok for d/c home on 1 week quarantine. It sounds like his also has had the virus. Will follow
[2019-11-06 14:55] VITALS: BP 104/73; PULSE 70; RESP 18; TEMP 36.8; O2SAT 96
[2019-11-06 21:10] VITALS: BP 117/76; PULSE 73; RESP 18; TEMP 37.1; O2SAT 94
[2019-11-07 03:00] VITALS: BP 100/67; PULSE 65; RESP 16; TEMP 36.7; O2SAT 92
[2019-11-07 05:00] VITALS: BP 97/69; PULSE 64; RESP 18; TEMP 36.6; O2SAT 94
[2019-11-07 06:20] VITALS: BP 101/70; PULSE 69; RESP 17; TEMP 36.8; O2SAT 95
[2019-11-07 08:07] VITALS: BP 102/68; PULSE 68; RESP 18; TEMP 37; O2SAT 92
[2019-11-07] MEDS: APIXABAN 5 MG TABLET PO (09:11)
[2019-11-07 10:10] LABS: Hemoglobin 13.2 g/dL (13.0-16.5)
[2019-11-07 10:20] LABS: International Normalized Ratio 1.2; Prothrombin Time (Protime)PT. 15.5 SECONDS (11.7-14.9)
[2019-11-07 11:30] VITALS: O2SAT 96
--- NOTE | 2019-11-07 11:43 | PCM.DC ---
- Discharge Diagnoses Current Active Problems: Current Active and Chronic Problems (Last Updated 11/05/19 @ 10:[address] Dimas Pinzon MD) Hypoxia (Acute) Suspected COVID-19 (Acute) Viral pneumonia (Acute) You will use the following diet at home:: Regular Your food should be the consistency of: Regular Discharge Activity: Return to Normal Activity Weight Bearing Status: Weight bearing as tolerated Call your doctor if you observe: Fever of 101 or Higher, Shortness of breath, Dizziness, Swelling in the ankles, Chest pain, Increased palpitations (irregular heartbeat), Uncontrolled pain Additional Instructions: Quarantine for 1 week, wear the mask at all times. Isolate ur self at home, use separate bedroom and bathroom. Allergies/Adverse Reactions: Allergies No Known Allergies Allergy (Verified 11/04/19 13:31) Medications to take at Discharge Acetaminophen [Tylenol Extra Strength] 1,000 mg PO DAILY PRN PRN 11/04/19 Apixaban [Eliquis] 5 mg PO BID #90 tab 11/07/19 The following prescriptions were given: Apixaban [Eliquis] 5 mg PO BID #90 tab Transmission Status: Pending to [id number] Primary Care Physician: Michelle Gold MD [Primary Care Provider] - Please follow up with your Primary Care Physician in: 1 week. Test Results: Test results from this visit will be discussed in further detail at your follow-up appointment, if applicable.
[2019-11-07 13:00] VITALS: RESP 18; O2SAT 94
--- NOTE | 2019-11-07 14:28 | DS.PCM_ITS ---
Discharge Date and Diagnosis - Problem List Patient Problems: Active and Suspected Problems (Last Updated 11/05/19 @ 10:[address] Dimas Pinzon MD) COVID-19 (Acute) Hypoxia (Acute) Viral pneumonia (Acute) Date of Admission: 11/04/19 Date of Discharge: 11/07/19 - Primary Discharge Diagnosis Active and Suspected Problems (Last Updated 11/05/19 @ 10:[address] Dimas Pinzon MD) #1 acute bilateral viral pneumonia due to COVID19. #2 hemoptysis, attributed to pulmonary infarct. #3 multiple right lung pulmonary emboli. #4 hypoxia, resolved. Hospital Course and Treatment Imaging Results: Clinical Impression(s) from Imaging Studies Chest CTA 11/05/19 23:59 IMPRESSION: Multiple pulmonary emboli are present on the right. Pneumonia versus pulmonary infarct in the right lower lobe. Patchy nonspecific groundglass opacities and interlobular septal thickening are present in the peripheries of both lungs. Correlate clinically for the possibility of viral pneumonia. N.B. : The above information has been verbally conveyed by Lukas Kwon MD to Maribel Ball RN, on 11/05/2019 00:50:33 (ET). Electronically Signed: Lukas Kwon MD at 0:51 EDT Tel , Service support , ADDENDUM: 11/05/19 0058 IMPRESSION: Multiple pulmonary emboli are present on the right. Pneumonia versus pulmonary infarct in the right lower lobe. Patchy nonspecific groundglass opacities and interlobular septal thickening are present in the peripheries of both lungs. Correlate clinically for the possibility of viral pneumonia. N.B. : The above information has been verbally conveyed by Lukas Kwon MD to Maribel Ball RN, on 11/05/2019 00:50:33 (ET). Electronically Signed: Lukas Kwon MD at 0:51 EDT Tel , Service support , Dr. Walsh, infectious disease. Operations: None Procedures: None Summary of Care Provided: Patient seen and examined on the day of discharge and appeared to be stable to be discharged home. He continued to have hemoptysis. Shortness of breath improved. He was taken off oxygen and his pulse ox remained around 93% on room air on continuous pulse oximeter monitoring. Other vital signs are stable. He remained afebrile. The patient is a 59 year old M presented to the emergency room because of persistent fever 2 weeks with chest tightness, right lateral chest discomfort and cough and he was found to have right lower lobe consolidation and groundglass opacities in the peripheries of both lungs consistent with viral pneumonia. Patient had COVID19 testing which was sent from his PCPs office and came back positive. He was treated with IV Rocephin and Zithromax. Infectious disease consulted and recommended that there is no indication to start patient on hydroxychloroquine. CTA chest also revealed multiple right lung pulmonary emboli versus lung infarct. Patient received therapeutic Lovenox twice daily and then switched to loading dose of Eliquis. Initially, patient required oxygen up to 3 L. He remained afebrile throughout admission. His routine blood work was unremarkable. He had no leukocytosis. LFT revealed slightly elevated liver transaminases which is attributed to the viral illness. Patient continued to have hemoptysis. Eliquis was switched down to 5 mg p.o. twice daily. His hemoglobin and hematocrit remained stable. His INR was 1.2. Patient symptoms improved very slowly. On the day of discharge, he was taken off oxygen and remained on continuous pulse oximeter monitoring. His pulse ox remained at 93% on room air. Patient discharged home in a stable condition, discharged on Eliquis 5 mg p.o. twice daily, instructed to stay in quarantine for 1 week more according to infectious disease recommendations, patient instructed to wear the mask at all times, use separate bedroom and bathroom at home, recommended to follow-up with PCP in 1 week. Patient Problems: Active and Suspected Problems (Last Updated 11/05/19 @ 10:[address] Dimas Pinzon MD) COVID-19 (Acute) Hypoxia (Acute) Viral pneumonia (Acute) - Physical Exam Vitals/I&O's: Vital Signs Temp Pulse Resp BP Pulse Ox 98.6 F 68 18 102/68 94 11/07/19 08:07 11/07/19 08:07 11/07/19 13:00 11/07/19 08:07 11/07/19 13:00 Oxygen Flow Rate (L/min) 92 Oxygen Delivery Method Room Air Weight: 213 lb 10.047 oz Body Mass Index (BMI) 29.0 Intake and Output for Last 24 Hours 11/05/19 11/06/19 11/07/19 23:59 23:59 23:59 Intake Total 905 / 905 1105 / 1105 300 / 300 Balance 905 / 905 1105 / 1105 300 / 300 General: Alert, Oriented x3, Cooperative, No apparent distress HEENT: Atraumatic, PERRLA, EOMI, Normocephalic Oral: Moist Mucosa, No Gingival or Mucosal Lesions/ Ulcerations Neck: Supple, No JVD, Negative Carotid Bruits, Trachea Midline, Thyroid Normal Size and Texture Lungs: Clear to auscultation, No rhonchi, No wheeze, No rales, Diminished Cardiovascular: Regular rate, Regular Rhythm, Normal S1, Normal S2, PMI Normal Abdomen: Bowel Sounds Present, Soft, Non Tender, Non-Distended, No Hepato- splenomegaly Extremities: No clubbing, No cyanosis, No edema Skin: No rashes, No breakdown Lymphatic: No Cervical, Supraclavicular, or Inguinal Adenopathy Neurological: Cranial nerves II-XII grossly intact, Neuro grossly intact Psych/Mental Status: Normal Affect, Appropriate Microbiology Past 72 Hours 11/05/19 13:38 Urine, Clean Catch Streptococcus pneumoniae Antigen (M - Final 11/05/19 13:38 Urine, Clean Catch Legionella Antigen - Final 11/04/19 13:43 Mucosa - Nose Respiratory Panel (PCR) - Final Laboratory Results 11/07/19 09:59: Hgb 13.2, Hct 39.0 L 11/07/19 09:59: PT 15.5 H, INR 1.2 Discharge Activity: Return to Normal Activity Weight Bearing Status: Weight bearing as tolerated Call your doctor if you observe: Fever of 101 or Higher, Shortness of breath, Dizziness, Swelling in the ankles, Chest pain, Increased palpitations (irregular heartbeat), Uncontrolled pain Home Medications: Medications to take at Discharge Acetaminophen [Tylenol Extra Strength] 1,000 mg PO DAILY PRN PRN 11/04/19 Apixaban [Eliquis] 5 mg PO BID #90 tab 11/07/19 Following Prescrptions Were Given to Patient: Apixaban [Eliquis] 5 mg PO BID #90 tab Transmission Status: Received by [facility] Primary Care Physician: Michelle Gold MD [Primary Care Provider] - Please follow up with your Primary Care Physician in: 1 week. Disposition: Home Patient Condition:: Stable Medical Necessity - Tobacco Use Smoking Status: Current every day smoker Tobacco Use: Cigarettes Meaningful Use Info Meaningful Use Diagnoses (Choose all that apply): None applicable Inpatient E&M: 60586 Disch Hosp
--- NOTE | 2019-11-10 14:04 | CASEMGMT ---
EDDIE CARLIN DC PHONE CALL DC DATE: 11.07.2019 DC DISPOSITION: Home DC DIAGNOSIS: SARS COVID 2 Intro role of CM to patient at home. Pt states he does not have questions re: dc instructions. Pt states he had video visit with his PCP today, reviewed his medications and physician stated pt is to stay isolated for 7 more days. Pt is compliant with home isolation, has his medications and states he is feeling improved. Darius GUEVARA RN ACM
== END 2019-11-07 13:25 | disposition home or self-care (01) | DRG 177 ==
LOC: ED 13:55 → MS2 11-05 09:56
PROVIDERS: Hospitalist; Admitting Provider Internal Medicine; Emergency Provider Emergency Medicine; PCP Internal Medicine; Visit Provider Hospitalist
DX: U07.1 COVID-19 (principal); J12.89 Other viral pneumonia; I26.99 Other pulmonary embolism without acute cor pulmonale; R04.2 Hemoptysis; R09.02 Hypoxemia; E87.1 Hypo-osmolality and hyponatremia; E86.0 Dehydration; F17.210 Nicotine dependence, cigarettes, uncomplicated
CPT/HCPCS: 36415; 71275; 80048; 80053; 83605; 84450; 84460; 84484; 85014; 85018; 85025; 85379; 85610; 87040; 87449; 87633; 93005; 99285; J7030; Q9967; A4216

== ENCOUNTER 2020-03-14 14:00 | Outpatient (RCR) | payer OTHER, SELFPAY ==
[2019-11-04 16:56] VITALS: BMI 29.0
--- NOTE | 2020-02-26 13:58 | HP.PTEVAL ---
Patient's Visit Information LUCIANO SHELTON is a 59 year old M referred to Physical Therapy by Dr. Michelle Gold MD with a diagnosis of DDD. Date of Evaluation: 02/26/20 Physical Therapist: Aleks Lanier, DPT, OCS, CSCS - Visit Plan Frequency: 2-3x /Week Duration: 4-6 Weeks Plan: 2-3x/week for LB ext exercises adn mobs as needed.LB AROM. Postural correction and core exercise. HS and quad stretches. Progress allt o I. ES and STM may be used if painful at rest. - Subjective HNP L45 [address] Sevilla wanted to operate but did not. He worked through it. 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 In August he lifted his 91 yo father at 240 # and slowly got worse over the next 6 weeks adn it has not eased up. Iti is sciatica down back of both legs. R foot is numb from 16 yrs ago but doesn't bother him. currently am is worse and is hard to sit in chair, hard to stretch back. gets better as he is up and going. Some days he cannot bend. did get injection in L knee from [facility] adn needs L TKA(will wait til June. Had covid in October and was quarantined for 45 days and was on pain meds. Cannot take pain meds on elaquist. LBP to 10/10 bending. Also leg pain with bending and in am and if overdoes it. 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 Sleep is not a problem but painful getting up. Sleeps in a recliner comfortably. Basic ADLs are getting done. - Pain LBP and sciatica Pain Intensity (Out of 10): 0 Pain Intensity Range: 0, 10 - Objective Walks slightly hunched over but no pain today. Trasnfers, steps adn walk normal today. Good balance. LB is stiff adn moderate deficits in ext with pain central LB., SB min stiff adn no pain, flexion is good and no pain. reflexes 2/3 in patella and achilles. Sensation R foot at deficit but otherwise WNL. Strength LE 5/5 withouot myotomal abnormalities. HS adn quad min tight. Most notably stiff in LB ext. - Goals Goal 1:: Pain in am abolished Goal Time Frame: 4-6 Weeks Goal 2:: Pt have only min deficits in L/S ext adn no pain sitting up tall. Goal Time Frame: 4-6 Weeks Goal 3:: Pt feel 75% better overall with pain <2/10 at all times. Goal Time Frame: 4-6 Weeks Goal 4:: Oswestry score <5 Goal Time Frame: 4-6 Weeks - Rehabilitation Potential Physical Therapy Diagnosis: DDD and degeneration in Low back causing pain. Rehabilitation Potential: Fair - Anticipated Interventions Patient/Client Instruction: Educate patient on: Condition, Plan of Care For the Purpose of:: To decrease pain, To increase ROM, To improve muscle performance and motor function, To increase tolerance to activity/condition/position Therapeutic Exercise to Include: Strength training, Postural training, Flexibilty training, Passive ROM, Active ROM, Dynamic Lumbar Stabilization, Laure Exercises For the Purpose of:: To decrease pain, To increase ROM, To improve muscle performance and motor function, To increase tolerance to activity/condition/position, To improve ability of physical actions for home/community/work/leisure Manual Therapy Techniques to Include: Mobilization, Soft tissue mobilization For the Purpose of:: To decrease pain, To increase ROM TENS: Yes For the Purpose of:: To decrease pain Thank you for the opportunity to evaluate your patient. For Medicare and Medicare HMO plans, please review the plan of care and approve it. It will need to be FAXED BACK to us at [phone] for Medicare purposes. For Medicare only, by signing this I certify the plan of care. Please let me know if there are questions or concerns regarding this plan of care. Physician Signature: Date:
--- NOTE | 2020-03-14 14:28 | HP.PTREVAL ---
Dr. Michelle Gold MD, It has been my pleasure to treat LUCIANO SHELTON over the last 5 visits for DDD. Please see the progress note below for an update on the physical therapy plan of care! Subjective: Hurt R shoulder adn wrist adn will get an MRI for possible RCT. Tripped and fell on hose at work. Doing flexion stretch makes him worse sitting up at home. Objective/Function: Pt without significant differences in ROM or pain or function since day one. If this is going to help it will take a while and I have recommended that he contact doctor for next appropriate step(MRI) due to lack of progress despite compliance with physical therapy. Plan Plan: f/u 3 weeks to progress HEP to stadning band or d/c if not improved adn have MRI. Goals Goal 1:: Pain in am abolished Goal Time Frame: 4-6 Weeks Goal 2:: Pt have only min deficits in L/S ext adn no pain sitting up tall. Goal Time Frame: 4-6 Weeks Goal 3:: Pt feel 75% better overall with pain <2/10 at all times. Goal Time Frame: 4-6 Weeks Goal 4:: Oswestry score <5 Goal Time Frame: 4-6 Weeks Anticipated Interventions Patient/Client Instruction: Educate patient on: Condition, Plan of Care For the Purpose of:: To decrease pain, To increase ROM, To improve muscle performance and motor function, To increase tolerance to activity/condition/position Therapeutic Exercise to Include: Strength training, Postural training, Flexibilty training, Passive ROM, Active ROM, Dynamic Lumbar Stabilization, Laure Exercises For the Purpose of:: To decrease pain, To increase ROM, To improve muscle performance and motor function, To increase tolerance to activity/condition/position, To improve ability of physical actions for home/community/work/leisure Manual Therapy Techniques to Include: Mobilization, Soft tissue mobilization For the Purpose of:: To decrease pain, To increase ROM TENS: Yes For the Purpose of:: To decrease pain Please do not hesitate to contact me at [phone] by phone or if you have questions or concerns regarding this new plan of care! Sincerely, Aleks Lanier, DPT, OCS, CSCS
--- NOTE | 2020-05-12 10:04 | HP.PT.NRP ---
LUCIANO SHELTON was seen in my office for initial evaluation on 02/26/20. The following Plan of Care was established for this patient: Initial Frequency: 2-3x /Week Initial Duration: 4-6 Weeks Patient/Client Instruction: Educate patient on: Condition, Plan of Care For the Purpose of:: To decrease pain, To increase ROM, To improve muscle performance and motor function, To increase tolerance to activity/condition/position Therapeutic Exercise to Include: Strength training, Postural training, Flexibilty training, Passive ROM, Active ROM, Dynamic Lumbar Stabilization, Laure Exercises For the Purpose of:: To decrease pain, To increase ROM, To improve muscle performance and motor function, To increase tolerance to activity/condition/position, To improve ability of physical actions for home/community/work/leisure Manual Therapy Techniques to Include: Mobilization, Soft tissue mobilization For the Purpose of:: To decrease pain, To increase ROM TENS: Yes For the Purpose of:: To decrease pain This patient was last seen in our office 03/14/20. Pertinent comments regarding their Physical therapy will appear below: Pt seen 5 visits of POC and was not improving. She was to continue HEP and f/u 3 weeks later but cancelled that visit without rescheduling. at this point, it has been two months and I will discontinue due to nonattendance. At this point I will be discontinuing this patient from physical therapy. I would be happy to see this patient again in the future if found appropriate by the physician. Thank you! Aleks Lanier, DPT, OCS, CSCS
== END 2020-03-14 19:00 | disposition home or self-care (01) ==
LOC: PT 14:00
PROVIDERS: PCP Internal Medicine; Visit Provider Internal Medicine
DX: M51.36 Other intervertebral disc degeneration, lumbar region (principal)
CPT/HCPCS: 97110; 97140; 97162

== ENCOUNTER → 2020-04-06 15:33 | Outpatient (CLI) | payer OTHER, SELFPAY ==
[2019-11-04 16:56] VITALS: BMI 29.0
--- NOTE | 2020-04-06 15:42 | MRI_ITS ---
STUDY: MRI LUMBAR SPINE WITHOUT CONTRAST REASON FOR EXAM: Male, 59 years old. DDD, LOW BACK PAIN RADIATING DOWN LEGS X 9 MONTHS TECHNIQUE: Standardized fat and water weighted pulse sequences were obtained in the sagittal and axial planes. COMPARISON: None FINDINGS: T12-L1: Normal endplates. Normal disc height, hydration and morphology. Normal bilateral facet joints. Normal central canal and bilateral lateral recesses. Normal bilateral intervertebral neural foramina. Normal lumbar lordosis. Mild dextroscoliosis centered at L4. Normal conus medullaris that terminates at the L1. L1-2: Normal endplates. Normal disc height, hydration and morphology. Normal bilateral facet joints. Normal central canal and bilateral lateral recesses. Normal bilateral intervertebral neural foramina. L2-3: Moderate bilateral facet hypertrophy and ligament flavum hypertrophy. Mild broad disc protrusion produces moderate spinal stenosis with moderate bilateral lateral recess stenosis with abutment of the L3 nerve roots bilaterally and mild bilateral neural foraminal stenosis. L3-4: Moderate bilateral facet hypertrophy and ligament flavum hypertrophy. Moderate broad disc protrusion produces severe spinal stenosis with severe bilateral lateral recess stenosis with effacement of the L4 nerve roots bilaterally and moderate bilateral neural foraminal stenosis with abutment of the exiting L3 nerve roots bilaterally. L4-5: Mild bilateral facet hypertrophy and moderate ligament flavum hypertrophy. Moderate broad disc protrusion produces severe spinal stenosis with severe bilateral lateral recess stenosis with effacement of the L5 nerve roots bilaterally and moderate bilateral neural foraminal stenosis with abutment of the exiting L4 nerve roots bilaterally. L5-S1: Mild bilateral facet hypertrophy. 2 mm retrolisthesis of L5 on S1 with a mild broad disc protrusion produces mild spinal stenosis and mild bilateral neural foraminal stenosis. Normal visualized sacral ala. Normal visualized paraspinous soft tissue structures. MRI/Spine Lumbar (Routine) IMPRESSION: Mild dextro scoliosis and degenerative disc disease as described above. Electronically Signed: Timur Posey MD at 17:22 EDT Tel , Service support ,
== END ==
PROVIDERS: PCP Internal Medicine; Visit Provider Internal Medicine
DX: M51.36 Other intervertebral disc degeneration, lumbar region (principal)
CPT/HCPCS: 72148

== ENCOUNTER → 2020-06-10 13:49 | Outpatient (CLI) | payer OTHER, SELFPAY ==
[2020-06-08 13:31] VITALS: BMI 28.6
--- NOTE | 2020-06-10 13:50 | VDLE_ITS ---
Reason For Study: LLE PAIN RIGHT LEFT CFV is compressible, spontaneous, phasic, GSV is normal. competent and demonstrates normal CFV is compressible, spontaneous, phasic, augmentation. competent, and demonstrates normal Procedure augmentation. This is a venous duplex using B-mode, color FV is compressible, spontaneous, phasic, flow and spectral Doppler. competent and demonstrates normal Exam performed in department. augmentation. The exam was diagnostic. POP V is compressible, spontaneous, phasic, A preliminary report was called and/or faxed competent and demonstrates normal to Dr. Gonzales. augmentation. T/P Trunk is compressible. PTV is compressible. LT PerV is compressible. SSV is compressible. NON-vascular structure noted in pop fossa space measuring 1.69 x 1.61 cm. Interpretation Summary There is no evidence of left lower extremity deep vein thrombosis. Left great saphenous vein appears patent and compressible segmentally. Nonvascular left popliteal space 1.69 x 1.61 cm structure. Location keith suspicious for a Moses's cyst. Clinical correlation would be appropriate. Patent and compressible right common femoral vein Ordering Physician: Eugene Gonzales Referring Physician: Michelle Gold Performed By: Elin Shannon RDCS, RVT
== END ==
PROVIDERS: PCP Internal Medicine; Referring Provider Surgery; Visit Provider Surgery
DX: M79.605 Pain in left leg (principal)
CPT/HCPCS: 93971

== ENCOUNTER 2020-06-14 09:48 | Emergency (ER) | payer OTHER, SELFPAY ==
[2020-06-08 13:31] VITALS: BMI 28.6
[2020-06-14 09:49] VITALS: BP 149/94; PULSE 67; RESP 14; TEMP 36.5; O2SAT 97; BMI 29.2
--- NOTE | 2020-06-14 10:00 | ED.VISSUMM ---
- ER Visit Summary Date of Service: 06/14/20 Chief Complaint: Right index finger laceration History of Present Illness: The patient is a 60 M who presents with laceration to his right index finger that occurred this morning. Patient states he closed it in a car door. Patient describes the pain is dull. Patient states the pain and bleeding improved with pressure. Patient denies any paresthesias or weakness. Patient is right-hand dominant. Patient states his last tetanus was within the last year. Physical Examination: Vital signs are stable. Patient is afebrile. Patient is in no acute distress. Skin is warm and dry. There is a 2 cm full-thickness linear laceration over the dorsal aspect of the right index finger near the DIP joint and a 2.5 cm full-thickness linear laceration over the palmar aspect of the distal phalanx of the right index finger. There is moderate gapping of the wound margins. There are no foreign bodies visualized. There is no bony crepitance or step-off. There is full range of motion of the DIP, PIP, and MP joints of the right index finger. Sensation was intact to light touch in all digits. Capillary refill is less than 2 seconds in all digits. Emergency Department Course and Treatment: The wound was cleaned and irrigated with copious amounts of normal saline. The right index finger was anesthetized with 1% plain lidocaine via digital block. The wound on the dorsal aspect of the right index finger was closed with 2 simple interrupted #4-0 nylon sutures under sterile technique. The wound on the volar aspect of the right index finger was closed with 5 simple interrupted #4-0 nylon sutures under sterile technique. Patient tolerated the procedure well. Bacitracin dressing was applied. Patient was instructed to keep the wound clean and dry. Patient was instructed to follow-up with his primary care physician in 5 days for wound recheck and suture removal. Patient understood and was agreeable with the plan. All questions were answered. Disposition: Discharge home Impression: 1. Right index finger laceration This note was generated with [employer] dictation software. It may contain incorrect words, spelling, and punctuation that were not noted in review of the chart prior to signing ED Disposition - Plan for ED Patient: Disposition: Home or Assisted Living Diagnosis: Laceration of right index finger w/o foreign body w/o damage to nail Instructions: ED Laceration Hand Prescriptions: Cephalexin [Keflex] 500 mg PO Q6 #40 cap Transmission Status: Pending to [id number] Referrals: Michelle Gold MD [Primary Care Provider] - 5 Days for suture removal
[2020-06-14 10:07] VITALS: RESP 16
[2020-06-14] MEDS: Cephalexin 250 MG Capsule 500 MG PO (10:38)
[2020-06-14] MEDS: BACITRACIN 15 GM Tube 1 APPLIC TOPICAL (10:38)
[2020-06-14 10:45] VITALS: BP 120/67; PULSE 71; RESP 15; O2SAT 98
== END 2020-06-14 10:46 | disposition home or self-care (01) ==
LOC: ED 10:29
PROVIDERS: Emergency Provider Emergency Medicine; PCP Internal Medicine
DX: S61.210A Laceration without foreign body of right index finger without damage to nail, initial encounter (principal); W23.0XXA Caught, crushed, jammed, or pinched between moving objects, initial encounter; Y93.9 Activity, unspecified; Y92.9 Unspecified place or not applicable; Y99.9 Unspecified external cause status
CPT/HCPCS: 12002; 99284

== ENCOUNTER → 2020-06-24 14:27 | Outpatient (CLI) | payer OTHER, SELFPAY ==
[2020-06-14 09:49] VITALS: BMI 29.2
[2020-06-24 16:08] LABS: Albumin, Serum 3.4 g/dL (3.2-5.0)
== END ==
PROVIDERS: PCP Internal Medicine; Visit Provider Specialist
DX: Z01.812 Encounter for preprocedural laboratory examination (principal)
CPT/HCPCS: 36415; 82040

== ENCOUNTER 2021-04-28 06:28 | Day surgery (SDC) | payer OTHER, SELFPAY ==
[2021-04-28] VITALS (11 sets, daily range): BP systolic 96–131; BP diastolic 68–88; PULSE 51–64; RESP 16; TEMP 35.8–36.7; O2SAT 98–100; BMI 24.2
--- NOTE | 2021-04-28 | COLBX_PTH ---
PATIENT: LUCIANO SHELTON LOC: EN U#:[id number] AGE/SX: 60/M ROOM: RE04/28/[address]: Dr. Eugene Gonzales MD : 1960 BED: DIS: 04/28/2021 SPEC #: [id number] RECD: 04/28/21 13:11 STATUS: YANDY BRIGHTRicki #: [id number] JAYSON: 04/28/21 00:[address]: Eugene Gonzales DEPT: SURGICAL PATHOLOGY RECD BY: Jeff Valdes ENTERED: 04/28/21 13:11 SP TYPE: COLON BX OTHR DR: Dr. Michelle Gold MD Tissues: Transverse colon Procedures: Surgery Specimen Level IV HEADER OPERATION: Colonoscopy (MOD) PRE-OP DIAGNOSIS: Screening for intestinal cancer TISSUE SUBMITTED: Mid transverse polyps x2 snare and biopsy MICROSCOPIC DIAGNOSIS Mid transverse colon polyps x2, biopsy: Fragments of tubular adenoma. SJ:rizwana 05/01/2021 MICROSCOPIC DESCRIPTION Slides are reviewed. GROSS DESCRIPTION Received in fixative is one container labeled with the patient's name and designated mid transverse polyp x2. The specimen consists of multiple irregular fragments of light de souza soft tissue mixed with fecal material that in aggregate measure 1.5 x 0.5 x 0.1 cm. The specimen is totally submitted in one cassette. / SJ:rg 04/28/21 TC:1 CPT: 21633
--- NOTE | 2021-04-28 06:47 | HP.PCM_ITS ---
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 Is patient in pain?: No Allergies No Known Allergies Allergy (Verified 04/14/21 13:53) Medications saw palmetto 80 mg capsule 320 mg PO DAILY 04/14/21 [History Confirmed 04/14/21] [facility] Medical History Arthritis Back problem Gout History of pulmonary embolism Pulmonary embolism Sleep apnea Vertigo Surgical History Appendicitis DOUBLE CARPEL TUNNEL DOUBLE HERNIA History of appendectomy History of bilateral carpal tunnel release History of bilateral inguinal hernia repair Family History (Updated 04/14/21 @ 13:52 by Elin Story) Father Arthritis High cholesterol Hypertension Mother Hypertension Sister Arthritis Daughter Arthritis Thyroid disorder Social History current occupational status: employed current occupational exposures/hazards: Yes (Exposed to smoke, abestos, chemicals, and fumes.) Smoking Status: Former smoker second hand exposure: No alcohol intake: current details: WILL SOMETIMES HAVE A BEER BUT NOT OFTEN substance use type: does not use what type of physical activity do you participate in: other frequency: daily seatbelt use: always do you feel safe at home: Yes HPI HPI HPI: LUCIANO SHELTON, is a 60 M who presents to the office today for surgical consultation regarding a right inguinal hernia. The patient is referred by Dr. Michelle Gold. A written copy my surgical consult recommendations will return to her. He has a history of COVID-19 with pneumonia and pulmonary embolism November 2019. The patient was on anticoagulation for 6 months subsequent to his pulmonary embolism. He is not had any consequence. He states that he does not feel that he has any lingering effects from his COVID-19. He does not quite have the stamina however that he used to have. Over at least the past 6 weeks he has developed a right inguinal hernia. He is actually had to purchase a hernia belt to assist because of the discomfort. He has had an intentional 40 pound weight loss over the past months and feels overall much improved. 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 He has future upcoming back surgery scheduled Additionally patient notes that he has never had a screening colonoscopy. He does not claim any acute GI symptoms currently. In addition he commented to Dr. Gold that he has nocturia 3-4 times nightly. He was initiated just recently on saw palmetto. ROS General General: No weight change, appetite, fatigue, colon cancer, breast cancer or weakness HEENT HEENT: No difficulty swallowing, eye injury, eye surgery, swollen glands or hoarseness Endo Endocrine: No thyroid disease, diabetes mellitus, thyroid cancer, Hair loss, heat intolerance or cold intolerance Skin Skin: No rash or changing moles Breast Breast: No left breast lump, right breast lump, nipple discharge, breast pain, abnormal mammogram, abnormal US or breast enlargement Musc Musculoskeletal: Yes back problems and arthritis; No rheumatoid arthritis, gout or joint pain Cardio Cardiovascular: No murmur, pacemaker, heart disease, atrial fibrillation, high blood pressure, heart attack, heart stent, palpitations, shortness of breat with exertion or chest pain Psych Psychiatric: No depression, anxiety or hearing voices Resp Respiratory: No shortness of breath, No sleep apnea, No cough, No COPD, No asthma, No emphysema and No wheezing Gastro Gastrointestinal: No abdominal pain, No nausea or vomiting, No diarrhea, No constipation, No blood in stool, No acid reflux, No hemorrhoids, No ulcers, No gallbladder problem and No black,tarry stools Jossue Hematologic: No blood thinners, No blood disorders, No bleeding, No anemia and Yes blood clots Neuro Neurologic: No system reviewed and no additional complaints, except as documented, No as per HPI, No abnormal gait, No abnormal hearing, No abnormal movements, No abnormal speech, No behavioral changes, No burning sensations, No confusion, No convulsions, No disequilibrium, No dizziness, No localized weakness, No frequent falls, No headache(s), No lack of coordination, No loss of vision, No memory loss, Yes numbness, No other visual disturbances, No radicular pain, No restless legs, No sensory deficit, No syncope, Yes tingling, No tremor(s), No weakness and No other Exam Const General: cooperative, healthy appearing, comfortable and no acute distress Nutritional Appearance: average body habitus Orientation: alert and awake [facility] Head: normal to inspection Eyes General: appearance normal, both eyes and all related structures Neck Neck: normal visual inspection Chest Chest palpation & inspection: normal inspection of the chest Resp Effort & Inspection: normal respiratory effort Auscultation: clear to auscultation bilaterally Cardio Rate: regular rate Rhythm: regular rhythm GI Palpation: soft and no hepatosplenomegaly Auscultation: normal bowel sounds Other: Left groin appears solid. There is fibrofatty tissue of the inguinal cord but I do not demonstrate a recurrent inguinal defect. Both testicles are descended though relatively atrophic Obvious right inguinal defect this would seem to be direct. It is reducible. Musc Cervical Spine: normal cervical lordosis Skin General: no rashes or lesions noted Neuro General: patient alert and patient awake Extrem General: no calf tenderness Psych Affect: normal affect COVID (Procedure Consent) Procedure Criteria Procedure Criteria: Yes Elective The surgeon/proceduralist and patient have discussed in detail the risk of exposure to and/or potential harm posed by the COVID-19 virus with having a surgery/procedure at this time versus the risk of delaying the surgery/procedure. It is not possible to know either the risk of delaying the surgery or procedure or chance of getting an infection with perfect accuracy, but a joint decision was made between the patient and the surgeon/proceduralist to proceed at this time with the scheduled surgery/procedure as indicated on the consent form. Assessment and Plan Assessment and Plan (1) Nocturia: Status: Acute (2) Inguinal hernia of right side without obstruction or gangrene: Status: Acute (3) Screening for intestinal cancer: Status: Acute Plan - Dr. Eugene Gonzales MD: I recommended the patient a screening colonoscopy with possible biopsy or polypectomy as indicated. He is aware of the technique, benefit, risk of alternatives. As noted he has never had a screening exam. We will schedule procedure at his discretion. Regarding the patient's nocturia he has been initiated on saw palmetto. According to local pharmacy this would increase risk of postoperative bleeding. We will ask him to temporarily hold that and we will initiate him on Flomax 0.4 mg nightly Finally regarding his symptomatic right inguinal hernia. He is still very active. Hospital records revealed that Dr. Deandre Malave in 1998 had performed a laparoscopic left inguinal hernia repair. Although the patient thought he had a bilateral inguinal hernia repair I do not have dictated evidence of that. There actually 2 operative notes provided to me from that date. The surgery was performed January 13, 1999. The operative note that was dictated on that day talks about incarcerated left indirect inguinal hernia and a laparoscopic left inguinal hernia repair. Then 2 days later on January 15, 1999 Dr. Deandre Malave dictates a separate operative note suggesting exploratory laparoscopy with release of incarcerated bowel contents and laparoscopic repair of a left indirect inguinal hernia. The remainder of the dictation appears very similar. There is no evidence in either dictation of repair on the right. The right groin was inspected and was felt to be intact. He obviously has had an incision at the umbilical area. Careful entrance to the abdomen will be anticipated possibly with us on approach. He is aware of the technique, benefit, risk, alternatives. He is aware that if indeed a laparoscopic intervention of the right groin has previously been performed and I am not able to mobilize the peritoneum I would then convert to an open approach on the right at the same setting. He is understanding of this and is in agreement if this is indicated. He is aware that I would utilize a Car type repair with mesh placed externally. I very much appreciate the kind opportunity of assisting with his surgical care Copy: Dr. Michelle Gonzales M.D., F.A.C.S. Plan Details Other Medications: New: radha harrisrajivrangel give with food (meal/snack) 320 mg PO DAILY I have re-examined the patient. There are no clinical changes since date of exam. Eugene Gonzales M.D., F.A.C.S.
[2021-04-28] MEDS: Lactated Ringers 1,000 ML 100 ML IV (07:11)
[2021-04-28] MEDS: Midazolam 5 MG/ML Syringe (07:22)
--- NOTE | 2021-04-28 07:53 | OP.COLON_ITS ---
Patient Name: Paul Wellington Procedure Date: 04/28/2021 7:24 AM Date of : 1960 Age: 60 Procedure: Colonoscopy Indications: Screening for colorectal malignant neoplasm Providers: Eugene Gonzales MD Medicines: Midazolam 3.5 mg IV, Meperidine 100 mg IV Patient Profile: Last Colonoscopy: none. The patient's first colonoscopy is today. Complications: No immediate complications. Procedure: Pre-Anesthesia Assessment: - Prior to the procedure, a History and Physical was performed, and patient medications and allergies were reviewed. The patient's tolerance of previous anesthesia was also reviewed. The risks and benefits of the procedure and the sedation options and risks were discussed with the patient. All questions were answered, and informed consent was obtained. Prior Anticoagulants: The patient has taken no previous anticoagulant or antiplatelet agents. ASA Grade Assessment: II - A patient with mild systemic disease. After reviewing the risks and benefits, the patient was deemed in satisfactory condition to undergo the procedure. After I obtained informed consent, the scope was passed under direct vision. Throughout the procedure, the patient's blood pressure, pulse, and oxygen saturations were monitored continuously. The Colonoscope was introduced through the anus and advanced to the cecum, identified by appendiceal orifice and ileocecal valve. The colonoscopy was performed without difficulty. The patient tolerated the procedure well. The quality of the bowel preparation was good. The ileocecal valve and the appendiceal orifice were photographed. Moderate Sedation: Moderate (conscious) sedation was administered by the endoscopy nurse and supervised by the endoscopist. The following parameters were monitored: oxygen saturation, heart rate, blood pressure, and response to care. Total physician intraservice time was 15 minutes. Scope In: 7:31:35 AM Scope Withdrawal Time 0 hours 12 minutes 22 seconds Scope Out: 7:46:26 AM Total Procedure Duration Time 0 hours 14 minutes 51 seconds Findings: The digital rectal exam findings include non-thrombosed internal hemorrhoids, internal hemorrhoids that prolapse with straining, but spontaneously regress to the resting position (Grade II) and enlarged prostate. A 9 mm polyp was found in the mid transverse colon. The polyp was sessile. The polyp was removed with a hot snare. Resection and retrieval were complete. A 4 mm polyp was found in the mid transverse colon. The polyp was sessile. The polyp was removed with a cold biopsy forceps. Resection and retrieval were complete. Multiple diverticula were found in the sigmoid colon. Impression: - Non-thrombosed internal hemorrhoids, internal hemorrhoids that prolapse with straining, but spontaneously regress to the resting position (Grade II) and enlarged prostate found on digital rectal exam. - One 9 mm polyp in the mid transverse colon, removed with a hot snare. Resected and retrieved. - One 4 mm polyp in the mid transverse colon, removed with a cold biopsy forceps. Resected and retrieved. - Diverticulosis in the sigmoid colon. Recommendation: - Discharge patient to home. - Resume previous diet. - Continue present medications. - Repeat colonoscopy in 5 years for surveillance based on pathology results. - Telephone my office for pathology results in 1 week. Procedure Code(s): --- Professional --- 46902, Colonoscopy, flexible; with removal of tumor(s), polyp(s), or other lesion(s) by snare technique 84353, 59, Colonoscopy, flexible; with biopsy, single or multiple 79569, 59, Moderate sedation services provided by the same physician or other qualified health direct care counselor performing the diagnostic or therapeutic service that the sedation supports, requiring the presence of an independent trained observer to assist in the monitoring of the patient's level of consciousness and physiological status; initial 15 minutes of intraservice time, patient age 5 years or older Diagnosis Code(s): --- Professional --- Z12.11, Encounter for screening for malignant neoplasm of colon D12.3, Benign neoplasm of transverse colon (hepatic flexure or splenic flexure) K64.1, Second degree hemorrhoids N40.0, Benign prostatic hyperplasia without lower urinary tract symptoms K57.30, Diverticulosis of large intestine without perforation or abscess without bleeding CPT copyright 2017 [employer]. All rights reserved. The codes documented in this report are preliminary and upon business systems consultant review may be revised to meet current compliance requirements. Eugene Gonzales MD 04/28/2021 7:52:51 AM This report has been signed electronically. Number of Addenda: 0 Note Initiated On: 04/28/2021 7:24 AM
--- NOTE | 2021-04-28 07:53 | OP.CCLET_ITS ---
04/28/2021 Michelle Gold Re : Colonoscopy procedure for Paul Calderón Asif This procedure was performed on Wednesday, April 28, 2021. My impressions and recommendations are as follows: Impressions : - Non-thrombosed internal hemorrhoids, internal hemorrhoids that prolapse with straining, but spontaneously regress to the resting position (Grade II) and enlarged prostate found on digital rectal exam. - One 9 mm polyp in the mid transverse colon, removed with a hot snare. Resected and retrieved. - One 4 mm polyp in the mid transverse colon, removed with a cold biopsy forceps. Resected and retrieved. - Diverticulosis in the sigmoid colon. Recommendations : - Discharge patient to home. - Resume previous diet. - Continue present medications. - Repeat colonoscopy in 5 years for surveillance based on pathology results. - Telephone my office for pathology results in 1 week. My findings are described in the full procedure note, which is enclosed. If I can be of further assistance, please feel free to contact me at Doctor phone number(s): Work: . Sincerely, Eugene Gonzales MD 04/28/2021 7:52:51 AM This report has been signed electronically.
== END 2021-04-28 08:39 ==
LOC: EN 06:29 → AC 06:30
PROVIDERS: PCP Internal Medicine; Referring Provider Internal Medicine; Visit Provider Surgery
PROC: 0DJD8ZZ Inspection of Lower Intestinal Tract, Via Natural or Artificial Opening Endoscopic (ICD-10-PCS; CPT 45378; principal; 2021-04-28 07:25)
DX: Z12.11 Encounter for screening for malignant neoplasm of colon (principal); D12.3 Benign neoplasm of transverse colon; K57.30 Diverticulosis of large intestine without perforation or abscess without bleeding; K64.1 Second degree hemorrhoids; M10.9 Gout, unspecified; M19.90 Unspecified osteoarthritis, unspecified site; G47.30 Sleep apnea, unspecified; N40.1 Benign prostatic hyperplasia with lower urinary tract symptoms; R35.1 Nocturia; Z86.711 Personal history of pulmonary embolism; Z87.891 Personal history of nicotine dependence; Z86.16 Personal history of COVID-19
CPT/HCPCS: 45380; 45385; 88305; 99152; 99153; J7120

== ENCOUNTER 2021-05-03 06:05 | Day surgery (SDC) | payer OTHER, SELFPAY ==
--- NOTE | 2021-05-02 13:03 | EKG12_ITS ---
Test Reason : PREOP Blood Pressure : / mmHG Vent. Rate : 062 BPM Atrial Rate : 062 BPM P-R Int : 182 ms QRS Dur : 110 ms QT Int : 416 ms P-R-T Axes : 059 061 064 degrees QTc Int : 422 ms Normal sinus rhythm Normal ECG Confirmed by ASHANTI RAM, ALEM ([id number]), video tape editor DIXON VALDES ([id number]) on 05/03/2021 1:05:22 PM Referred By: Eugene Gonzales Confirmed By:ALEM BURRELL MD
[2021-05-02 14:57] LABS: Hematocrit 41.3 % (40-54); Hemoglobin 13.8 g/dL (13.0-16.5); Mean Corp Hgb Conc 33.4 g/dL (32-36); Mean Corpuscular Hgb 31.2 pg (27.0-32.0); Mean Corpuscular Volume 93.4 fL (80-94); Mean Platelet Vol. 10.4 fl (6.2-12.0); Platelet Count 216 K/mm3 (150-450); RBC Distribution Width CV 12.3 % (11.6-14.6); RBC Distribution Width SD 42.8 fl (35.1-43.9); Red Blood Count 4.42 M/mm3 (4.6-6.2); White Blood Count 4.5 K/mm3 (4.4-11.0)
[2021-05-02 15:10] LABS: Anion Gap 7 (5-15); BUN 17 mg/dL (7-18); BUN/Creat Ratio 11.8 RATIO (10-20); Calcium,Total 8.7 mg/dL (8.5-10.1); Chloride 105 mmol/L (98-107); Creatinine, Serum 1.44 mg/dL (0.70-1.30); EST Glomerular Filtration Rate 53 mL/min (>60); Est Glom Filt Rate - Afr Amer 64 mL/min (>60); Glucose 92 mg/dL (74-106); Sodium Level 141 mmol/L (136-145)
[2021-05-03] VITALS (11 sets, daily range): BP systolic 103–132; BP diastolic 62–84; PULSE 52–63; RESP 16; TEMP 36.1–36.6; O2SAT 96–100; BMI 24.6
--- NOTE | 2021-05-03 06:20 | PCM.HP.BLA ---
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 Is patient in pain?: No Allergies No Known Allergies Allergy (Verified 04/14/21 13:53) Medications saw palmetto 80 mg capsule 320 mg PO DAILY 04/14/21 [History Confirmed 04/14/21] [facility] Medical History Arthritis Back problem Gout History of pulmonary embolism Pulmonary embolism Sleep apnea Vertigo Surgical History Appendicitis DOUBLE CARPEL TUNNEL DOUBLE HERNIA History of appendectomy History of bilateral carpal tunnel release History of bilateral inguinal hernia repair Family History (Updated 04/14/21 @ 13:52 by Elin Story) Father Arthritis High cholesterol Hypertension Mother Hypertension Sister Arthritis Daughter Arthritis Thyroid disorder Social History current occupational status: employed current occupational exposures/hazards: Yes (Exposed to smoke, abestos, chemicals, and fumes.) Smoking Status: Former smoker second hand exposure: No alcohol intake: current details: WILL SOMETIMES HAVE A BEER BUT NOT OFTEN substance use type: does not use what type of physical activity do you participate in: other frequency: daily seatbelt use: always do you feel safe at home: Yes HPI HPI HPI: LUCIANO SHELTON, is a 60 M who presents to the office today for surgical consultation regarding a right inguinal hernia. The patient is referred by Dr. Michelle Gold. A written copy my surgical consult recommendations will return to her. He has a history of COVID-19 with pneumonia and pulmonary embolism November 2019. The patient was on anticoagulation for 6 months subsequent to his pulmonary embolism. He is not had any consequence. He states that he does not feel that he has any lingering effects from his COVID-19. He does not quite have the stamina however that he used to have. Over at least the past 6 weeks he has developed a right inguinal hernia. He is actually had to purchase a hernia belt to assist because of the discomfort. He has had an intentional 40 pound weight loss over the past months and feels overall much improved. 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 He has future upcoming back surgery scheduled Additionally patient notes that he has never had a screening colonoscopy. He does not claim any acute GI symptoms currently. In addition he commented to Dr. Gold that he has nocturia 3-4 times nightly. He was initiated just recently on saw palmetto. ROS General General: No weight change, appetite, fatigue, colon cancer, breast cancer or weakness HEENT HEENT: No difficulty swallowing, eye injury, eye surgery, swollen glands or hoarseness Endo Endocrine: No thyroid disease, diabetes mellitus, thyroid cancer, Hair loss, heat intolerance or cold intolerance Skin Skin: No rash or changing moles Breast Breast: No left breast lump, right breast lump, nipple discharge, breast pain, abnormal mammogram, abnormal US or breast enlargement Musc Musculoskeletal: Yes back problems and arthritis; No rheumatoid arthritis, gout or joint pain Cardio Cardiovascular: No murmur, pacemaker, heart disease, atrial fibrillation, high blood pressure, heart attack, heart stent, palpitations, shortness of breat with exertion or chest pain Psych Psychiatric: No depression, anxiety or hearing voices Resp Respiratory: No shortness of breath, No sleep apnea, No cough, No COPD, No asthma, No emphysema and No wheezing Gastro Gastrointestinal: No abdominal pain, No nausea or vomiting, No diarrhea, No constipation, No blood in stool, No acid reflux, No hemorrhoids, No ulcers, No gallbladder problem and No black,tarry stools Jossue Hematologic: No blood thinners, No blood disorders, No bleeding, No anemia and Yes blood clots Neuro Neurologic: No system reviewed and no additional complaints, except as documented, No as per HPI, No abnormal gait, No abnormal hearing, No abnormal movements, No abnormal speech, No behavioral changes, No burning sensations, No confusion, No convulsions, No disequilibrium, No dizziness, No localized weakness, No frequent falls, No headache(s), No lack of coordination, No loss of vision, No memory loss, Yes numbness, No other visual disturbances, No radicular pain, No restless legs, No sensory deficit, No syncope, Yes tingling, No tremor(s), No weakness and No other Exam Const General: cooperative, healthy appearing, comfortable and no acute distress Nutritional Appearance: average body habitus Orientation: alert and awake [facility] Head: normal to inspection Eyes General: appearance normal, both eyes and all related structures Neck Neck: normal visual inspection Chest Chest palpation & inspection: normal inspection of the chest Resp Effort & Inspection: normal respiratory effort Auscultation: clear to auscultation bilaterally Cardio Rate: regular rate Rhythm: regular rhythm GI Palpation: soft and no hepatosplenomegaly Auscultation: normal bowel sounds Other: Left groin appears solid. There is fibrofatty tissue of the inguinal cord but I do not demonstrate a recurrent inguinal defect. Both testicles are descended though relatively atrophic Obvious right inguinal defect this would seem to be direct. It is reducible. Musc Cervical Spine: normal cervical lordosis Skin General: no rashes or lesions noted Neuro General: patient alert and patient awake Extrem General: no calf tenderness Psych Affect: normal affect COVID (Procedure Consent) Procedure Criteria Procedure Criteria: Yes Elective The surgeon/proceduralist and patient have discussed in detail the risk of exposure to and/or potential harm posed by the COVID-19 virus with having a surgery/procedure at this time versus the risk of delaying the surgery/procedure. It is not possible to know either the risk of delaying the surgery or procedure or chance of getting an infection with perfect accuracy, but a joint decision was made between the patient and the surgeon/proceduralist to proceed at this time with the scheduled surgery/procedure as indicated on the consent form. Assessment and Plan Assessment and Plan (1) Nocturia: Status: Acute (2) Inguinal hernia of right side without obstruction or gangrene: Status: Acute (3) Screening for intestinal cancer: Status: Acute Plan - Dr. Eugene Gonzales MD: I recommended the patient a screening colonoscopy with possible biopsy or polypectomy as indicated. He is aware of the technique, benefit, risk of alternatives. As noted he has never had a screening exam. We will schedule procedure at his discretion. Regarding the patient's nocturia he has been initiated on saw palmetto. According to local pharmacy this would increase risk of postoperative bleeding. We will ask him to temporarily hold that and we will initiate him on Flomax 0.4 mg nightly Finally regarding his symptomatic right inguinal hernia. He is still very active. Hospital records revealed that Dr. Deandre Malave in 1998 had performed a laparoscopic left inguinal hernia repair. Although the patient thought he had a bilateral inguinal hernia repair I do not have dictated evidence of that. There actually 2 operative notes provided to me from that date. The surgery was performed January 13, 1999. The operative note that was dictated on that day talks about incarcerated left indirect inguinal hernia and a laparoscopic left inguinal hernia repair. Then 2 days later on January 15, 1999 Dr. Deandre Malave dictates a separate operative note suggesting exploratory laparoscopy with release of incarcerated bowel contents and laparoscopic repair of a left indirect inguinal hernia. The remainder of the dictation appears very similar. There is no evidence in either dictation of repair on the right. The right groin was inspected and was felt to be intact. He obviously has had an incision at the umbilical area. Careful entrance to the abdomen will be anticipated possibly with us on approach. He is aware of the technique, benefit, risk, alternatives. He is aware that if indeed a laparoscopic intervention of the right groin has previously been performed and I am not able to mobilize the peritoneum I would then convert to an open approach on the right at the same setting. He is understanding of this and is in agreement if this is indicated. He is aware that I would utilize a Car type repair with mesh placed externally. I very much appreciate the kind opportunity of assisting with his surgical care Copy: Dr. Michelle Gonzales M.D., F.A.C.S I have re-examined the patient. There are no clinical changes since date of exam. Eugene Gonzales M.D., F.A.C.S.
[2021-05-03] MEDS: Lactated Ringers 1,000 ML 100 ML IV ×4 (06:52→11:03)
--- NOTE | 2021-05-03 07:20 | EX.PCM.DISCH ---
Discharge Instructions Procedure General Surgery Diet Discharge Diet: Light diet - advance as tolerated (if you have questions about your diet instructions, please talk to you doctor.) Activity Discharge Activity: May Not Drive (for 3-5 days or while taking narcotic pain medicine.) May shower in (days): 1 Lifting Restrictions: 10 pounds Dressing / Incision Call your doctor if your incision/area has: Continuous Slow Oozing, Sudden Increased Bleeding, Increased Pain/ Swelling, Increased Redness and Foul Smelling Discharge Call your doctor if you observe: Fever of 101 or Higher Suture Line Care: Avoid Pulling/Pushing and Avoid Pinching/Bending Additional Dressing/Incision Instructions:: Change or remove dressing in 4 days. Leave steri-strips in place for 1 week. Follow Up Care Please Follow Up With: Eugene Gonzales MD When: Call [phone] to make an appointment to be seen in about 10 days. Test Results: Test results from this visit will be discussed in further detail at your follow-up appointment, if applicable. Discharge Plan Admission Attending Provider: Eugene Gonzales Primary Care Provider: Michelle Gold Discharge Orders/Prescriptions Prescriptions: No Action tamsulosin [Flomax] 0.4 mg capsule 0.4 mg PO QHS Qty: 30 RF: 0 Other Ambulatory Orders: 12 Lead EKG (Routine) Timeframe: [id number] Location: None Selected Ordered By: Dr. Eugene Gonzales
--- NOTE | 2021-05-03 07:30 | HERN_PTH ---
PATIENT: LUCIANO SHELTON [place] [facility] [place][id number] AGE/SX: 61/M ROOM: RE05/03/[address]: Dr. Eugene Gonzales MD : 1960 BED: DIS: 05/03/2021 SPEC #: [id number] RECD: 05/03/21 13:30 STATUS: YANDY DRE #: [id number] JAYSON: 05/03/21 07:[address]: Eugene Gonzales DEPT: SURGICAL PATHOLOGY RECD BY: Megha Moulton ENTERED: 05/03/21 14:24 SP TYPE: Hernia OTHR DR: Dr. Michelle Gold MD Tissues: HERNIA Procedures: Surgery Specimen Level II HEADER OPERATION: Laparoscopic inguinal hernia repair, umbilical hernia repair PRE-OP DIAGNOSIS: Right inguinal hernia TISSUE SUBMITTED: Umbilical hernia sac and contents MICROSCOPIC DIAGNOSIS Umbilical hernia sac and contents: A piece of mature adipose tissue, clinically umbilical hernia sac and contents. SJ:rizwana 05/04/2021 MICROSCOPIC DESCRIPTION Slides are reviewed. GROSS DESCRIPTION Received in fixative is one container labeled with the patient's name and designated umbilical hernia sac and contents. The specimen consists of an irregular piece of soft tissue measuring 2 x 1 x 0.5 cm. The specimen is bisected and submitted entirely in one cassette. / YESI:rizwana 05/03/21 TC:5 [facility]: [id number]
[2021-05-03] MEDS: Cefazolin 2 GM in 0.9% Normal Saline 100 ML IV (07:31)
--- NOTE | 2021-05-03 08:44 | OP.PCM_ITS ---
Problems Associated Problem List Diagnoses (1) Inguinal hernia of right side without obstruction or gangrene: (2) Umbilical hernia without obstruction or gangrene: Report of Operation Date of Procedure: 05/03/21 Pre-Operative Diagnosis: Indirect right inguinal hernia Post-Operative Diagnosis: Indirect right inguinal hernia, umbilical hernia Surgery/Procedure Performed:: Umbilical herniorrhaphy, laparoscopic right inguin al herniorrhaphy Bard 3D max extra-large right mesh. Lot number [id number],Reference #[id number] expiry date 10/30/2025 Secure strap Lot [id number], expiry date December 2021 Description of Surgical Findings:: Timeout and informed consent was obtained. 61-year-old gentleman was taken to the operating placed on the table underwent general endotracheal intubation anesthesia. Ancef 2 g were given intermittently. The abdomen sterilely prepped and draped. 0.5% Marcaine was used as a local anesthetic. Upon the procedure a total of 30 cc was used. Skin sites were preanesthetized. A supraumbilical vertical incision was created and so doing an umbilical hernia was identified. The preperitoneal tissue and sac was dissected free and a varies needle was used to gain access the abdomen was insufflated with CO2 to a pressure of 10 mmHg pressure. 10 mm trocar inserted. 10 mm laparoscope inserted. No evidence of any trocar injuries. 5 mm trochars were placed in the right left lower quadrants. Under laparoscopic guidance a ilioinguinal nerve block was performed on the right with a local anesthetic. The left groin was inspected there was adherence of the sigmoid colon to the previous remote laparoscopic left inguinal hernia repair which appeared to be intact. The peritoneum superior lateral to the internal ring on the right was incised and carried medially. The sizable indirect hernia sac was carefully dissected free. Where needed hemostasis was obtained with Hem-o-peggy clips. The sac was completely inverted. The direct indirect and femoral space identified. I then selected an extra-large right Bard 3D max mesh. The mesh was placed so as to cover the medial femoral and indirect defect. It was secured medially superiorly and laterally with secure strap. Excellent positioning was felt to been achieved. The peritoneum was then reapproximated with secure strap. Complete obliteration of the mesh was achieved. Inspection of the sac revealed that it appeared to be completely reduced peritoneum appeared to be intact repair is solid. Trochars were removed after the abdomen was allowed to deflate through the antiviral valve. Because of the umbilical hernia the umbilicus was repaired with simple sutures of 0 Nurolon. Skin edges were approximated opted for Monocryl subdermal stitches. Steri-Strips Telfa OpSite dressings applied. Spo nge and instrument and needle counts were reported to certainly be correct. Blood loss minimal. Specimens umbilical hernia sac contents. Drains none. Blood loss minimal. The patient was taken to the recovery area in satisfactory addition without apparent complication Eugene Gonzales M.D., F.A.C.S. Surgeon: Eugene Gonzales Type of Anesthesia: General
[2021-05-03] MEDS: Bupivacaine Mpf 0.5% 30 ML VIAL (09:04)
[2021-05-03] MEDS: Acetaminophen 325 MG Tablet 650 MG PO (11:01)
--- NOTE | 2021-05-03 13:48 | SUR.PHASEII ---
Dr. Gonzales updated; requests (1) to make sure patient feels comfortable with going home. Patient agrees that he does. (2) see if patient required PO nausea medication PRN at home, patient requests. This nurse called Maribel at [facility] for nausea medication to be sent to pharmacy and that to update office that patient feels ready to go home. Patient voided and VSS. Patient dealt with nausea and vomiting but after Benadryl/ Reglan patient feels much better (observation after IV meds).
== END 2021-05-03 13:59 | disposition home or self-care (01) ==
LOC: SDC 06:06 → AC 06:06
PROVIDERS: PCP Internal Medicine; Referring Provider Surgery; Visit Provider Surgery
PROC: (CPT 49650; principal; 2021-05-03 07:10)
DX: K40.90 Unilateral inguinal hernia, without obstruction or gangrene, not specified as recurrent (principal); K42.9 Umbilical hernia without obstruction or gangrene; R35.1 Nocturia; M10.9 Gout, unspecified; M19.90 Unspecified osteoarthritis, unspecified site; G47.30 Sleep apnea, unspecified; Z86.711 Personal history of pulmonary embolism; Z86.16 Personal history of COVID-19; Z87.01 Personal history of pneumonia (recurrent); Z87.891 Personal history of nicotine dependence
CPT/HCPCS: 00840; 49585; 49650; 36415; 80048; 85027; 88302; 93005; J7120; C1781; J2405

== ENCOUNTER → 2021-06-27 06:30 | Outpatient (CLI) | payer OTHER, SELFPAY ==
--- NOTE | 2021-06-27 17:53 | STRESSREP ---
Stress Test Report Exercise myocardial perfusion stress test. 61-year-old man with a history of preoperative evaluation for abnormal EKG. Resting EKG demonstrates normal sinus rhythm with a rate of 56 bpm T wave inversions noted in aVL resting blood pressure is 110/72 mmHg. The patient exercised according to regular Marek protocol for total duration of 10 minutes completing 1 minute into stage IV of the Marek protocol. The maximum heart rate attained was 125 bpm which was 79% of maximum predicted heart rate the maximum workload was 13.4 metabolic equivalents. At rest there were no ST or T wave changes noted to suggest ischemia and at peak exercise upsloping ST changes were noted with did not meet the criteria for ischemia. No clinical angina was noted the test was terminated due to leg discomfort. The peak blood pressure is 140/64 mmHg. Myocardial perfusion protocol. 11.9 mCi of technetium 99m sestamibi was injected at rest. The patient exercised according to regular Marek protocol for total duration of 10 minutes. At peak exercise 34.1 mCi of technetium 99m sestamibi was injected stress images were obtained stress and rest images were reconstructed and compared in the short axis vertical long and horizontal long axis. Gated images were also obtained per Perfusion SPECT analysis: Review of the stress images demonstrate normal uptake of tracer noted in all areas of the myocardium. The resting images similarly demonstrate normal uptake of tracer noted in all areas of the myocardium. No areas of reversibility were noted suggest ischemia and no previous infarct is noted. Gated SPECT analysis: The gated ejection fraction is noted to be 47%. Conclusion: Normal exercise myocardial perfusion stress test high workload. Low normal ejection fraction. Excellent functional capacity.
== END ==
PROVIDERS: PCP Internal Medicine; Referring Provider Internal Medicine; Visit Provider Internal Medicine
DX: R94.31 Abnormal electrocardiogram [ECG] [EKG] (principal)
CPT/HCPCS: 78452; 93017; A9500; A4216

== ENCOUNTER 2021-07-06 11:26 | Day surgery (SDC) | payer OTHER, SELFPAY ==
--- NOTE | 2021-06-21 10:54 | RAD_ITS ---
STUDY: X-RAY CHEST REASON FOR EXAM: Male, 61 years old. Preop for pelvic surgery TECHNIQUE: PA and lateral views of the chest. COMPARISON: 11/04/2019 FINDINGS: The lungs are mildly hyperexpanded with chronic interstitial changes but no superimposed acute pulmonary process. There is no demonstrated pleural abnormality. Normal size heart. Normal mediastinum and margareth. Normal visualized pulmonary arteries. Normal visualized aortic arch and descending thoracic aorta. There are diffuse degenerative changes of the visualized thoracic spine. There is degenerative osteoarthritis of the bilateral shoulders. There is no demonstrated abnormality of the visualized soft tissue structures of the upper abdomen. RAD/Chest PA and Lateral IMPRESSION: Hyperexpanded lungs without a superimposed acute pulmonary process Electronically Signed: Dayne Morrell MD at 13:15 EST , Service support ,
[2021-07-06] VITALS (7 sets, daily range): BP systolic 112–129; BP diastolic 69–86; PULSE 52–62; RESP 16–18; TEMP 35.6–36.6; O2SAT 99–100; BMI 24.5
[2021-07-06] MEDS: Lactated Ringers 1,000 ML 15 ML IV ×3 (11:40→17:45)
--- NOTE | 2021-07-06 12:38 | PCM.OPRPT ---
Problems Associated Problem List Diagnoses (1) Lumbar stenosis: Report of Operation Date of Procedure: 07/06/21 Pre-Operative Diagnosis: 1. Lumbar stenosis L3-4 with spondylosis 2. Lumbar degenerative disc disease L3-4 Post-Operative Diagnosis: 1. Lumbar stenosis L3-4 with spondylosis 2. Lumbar degenerative disc disease L3-4 Surgery/Procedure Performed:: 1. L3 bilateral laminectomies, foraminotomies, decompression of bilateral nerve roots Description of Surgical Findings:: The patient is a 61-year-old male with intractable back and leg pain. Image studies confirm the above diagnosis. He has failed conservative treatments to include medication, physical therapy, and injections. The patient opted for operative intervention understanding the risks to include, but not limited to infection, bleeding, damage to nerves arteries and veins, possibility of spinal fluid leak, continued pain, need for further surgery, deep vein thrombosis, pulmonary embolism, heart attack, risk of stroke or The patient was identified in the preoperative holding area. There he received preoperative IV antibiotics, Ancef, and was transferred to the operative suite. Once in the operative suite, after general endotracheal anesthesia was established, the patient was transferred prone on the [facility] operating table. The arms and all bony prominences were well-padded. The lumbar spine was prepped and draped in a standard fashion. Bear hugger's were not turned on until drapes were placed and sealed with Ioban. A midline incision was made and taken down to the level of the lumbodorsal fascia. The fascia was divided and subperiosteal dissection was taken down to the level of the bilateral L3-4 facet joints. Deep retractors were placed. A bone scalpel was used to perform laminectomy cuts and then a series of rongeurs and Kerrisons was used removing the spinous process and lamina of L3. Bilateral foraminotomies were performed decompressing the bilateral nerve roots. The incision was then thoroughly irrigated. Tisseel was placed over the dura as a hemostatic agent. The fascia was closed with #1 Vicryl, subcutaneous with 2-0 Vicryl, and skin with 2-0 nylon. A sterile dressing was applied with 4 x 4's, ABD and tape. Sponge instrument needle counts were correct at the end of the case. The patient was extubated and taken to the PACU without incident. RAJ Interiano was present during the duration of the case and necessary for critical parts of the case including retraction and closure Surgeon: Keven Courtney clinical research technician: None (Shawanda Barreto PA-C) Type of Anesthesia: General Estimated Blood Loss (mL): 25 Fluids Replaced: 1700 Complications none Admit VTE Documentation VTE Present on Admission: No
--- NOTE | 2021-07-06 12:39 | PCM.PN.ORT ---
Subjective Subjective The patient was seen and examined postoperatively in the PACU. He is resting comfortably. His pain is controlled. He denies any complaints including numbness tingling or weakness. Objective Data Objective Data Vital Signs: Vital Signs Temp Pulse Resp BP Pulse Ox 97.8 F 56 L 16 112/69 99 07/06/21 12:15 07/06/21 12:15 07/06/21 12:15 07/06/21 12:15 07/06/21 12:15 Oxygen Delivery Method Room Air Weight: 180 lb 12.465 oz Body Mass Index (BMI) 24.5 Physical Exam Const alert, oriented x3 and no apparent distress General Appearance: cooperative and comfortable HEENT head/scalp atraumatic Eyes EOMs intact bilaterally and conjunctivae normal Neck full ROM General: normal visual inspection Resp normal respiratory effort and normal air movement Effort and Inspection: able to speak in complete sentences Cardio regular rate and regular rhythm Peripheral Pulses: pulses 2+ throughout GI soft to palpation, non-tender and non-distended Back/Spine Back/Spine Narrative: Dressing clean dry and intact Cervical Spine: cervical ROM normal Thoracic Spine / Upper Back: normal to inspection Lumbar Spine / Lower Back: normal to inspection Extremity normal to inspection, full ROM, normal capillary refill, no clubbing, cyanosis or edema and no calf tenderness Peripheral Pulses: Yes pulses 2+ throughout Skin no rashes or lesions noted General Skin Exam: no breakdown Neuro oriented x3, CN's II-XII intact bilaterally, moves all extremities, no focal motor deficits, no sensory deficits noted and deep tendon reflexes 2+ bilaterally Motor Exam: strength 5/5 throughout and muscle tone normal throughout Assessment & Plan Assessment/Plan (1) Lumbar stenosis: PLAN: Okay to discharge home Pain medication prescription sent to pharmacy See discharge instructions Follow-up with Dr. Courtney in 3 weeks
[2021-07-06 12:56] LABS: Magnesium 2.2 mg/dL (1.6-2.6)
[2021-07-06 13:21] LABS: Bedside Glucose 90 mg/dL (70-110)
[2021-07-06] MEDS: Cefazolin 2 GM in 0.9% Normal Saline 100 ML IV (13:36)
--- NOTE | 2021-07-06 13:57 | RAD_ITS ---
STUDY: INTRAOPERATIVE FLUOROSCOPY TECHNIQUE: The examination was performed with referring physician in attendance. Under fluoroscopic observation, fluoroscopic images were obtained. Radiologist was not present for the study. Radiologist did not perform the procedure. This dictation is for documentation of the radiation dosage only. There is no interpretation of the images. TOTAL NUMBER OF IMAGES: 1 COMPARISON: None RADIATION DOSE: 18.6 mGy FLUOROSCOPY TIME: 39.3 seconds REASON FOR EXAM: L3 LAMINECTOMY DECOMPRESSSION Male, 61 years old. FINDINGS: Images of the lumbar spine. Surgical instrument pointing at the level of L4-5. RAD/Lumbar Spine 2 or 3 Views IMPRESSION: Fluoroscopic assistance images were obtained. Dictation for documentation purposes only. Electronically Signed: Romario Rivera MD at 15:11 EST , Service support ,
[2021-07-06] MEDS: THROMBIN (RECOMBINANT) 20,000 UNIT VIAL 20000 UNIT TOPICAL (14:33)
[2021-07-06] MEDS: Bupivacaine 0.25% 30 ML Vial (15:29)
== END 2021-07-06 19:17 | disposition home or self-care (01) ==
LOC: SDC 11:26 → AC 11:27
PROVIDERS: Anesthesiology; PCP Internal Medicine; Referring Provider Orthopaedic Surgery; Visit Provider Orthopaedic Surgery
PROC: (CPT 63030; principal; 2021-07-06 12:30)
DX: M48.061 Spinal stenosis, lumbar region without neurogenic claudication (principal); M47.26 Other spondylosis with radiculopathy, lumbar region; M46.96 Unspecified inflammatory spondylopathy, lumbar region; M51.36 Other intervertebral disc degeneration, lumbar region; M19.90 Unspecified osteoarthritis, unspecified site; M10.9 Gout, unspecified; G47.30 Sleep apnea, unspecified; Z86.16 Personal history of COVID-19; Z86.711 Personal history of pulmonary embolism; Z87.01 Personal history of pneumonia (recurrent); Z87.891 Personal history of nicotine dependence; Z96.652 Presence of left artificial knee joint
CPT/HCPCS: 00630; 63047; 71046; 72100; 76000; 82962; 83735; J7120; J2405

== ENCOUNTER → 2024-12-25 | Outpatient (CLI) | payer MEDICARE, SELFPAY ==
--- NOTE | 2024-12-25 17:35 | CT_ITS ---
PROCEDURE: CHEST WITHOUT CONTRAST 12/25/2024 REASON FOR EXAM: CT, THORAX; W/O CONTRAST MATERIAL; ABNORMAL XRAY, LUNG NODULE >= TECHNIQUE: Chest CT without contrast. Coronal and Sagittal reconstruction series were provided. One or more dose reduction techniques were used (e.g., Automated exposure control, adjustment of the mA and/or kV according to patient size, use of iterative reconstruction technique RADIATION DOSE SUMMARY: CTDlvol: 13.68 mGy DLP: 570.94 mGycm COMPARISON: None available FINDINGS: The central airways appear patent. Sequela of previous granulomatous disease with calcified granulomas right upper lobe for example axial 52 and 57 with calcified right hilar and mediastinal nodes. A couple of adjacent noncalcified subpleural, juxtapleural nodular densities at the minor fissure axial 75 and 74. Platelike area of scar or atelectasis posterior right lower lobe. The lungs otherwise appear clear. Thoracic aorta appears within limits on noncontrast imaging. Mild proximal LAD coronary calcification noted. No pericardial or pleural effusion. No axillary, mediastinal, hilar or subcarinal adenopathy identified. Limited images of the upper abdomen appear within limits on noncontrast imaging. Bilateral severe appearing shoulder osteoarthrosis partially imaged. Old T1 spinous process fracture. CT/Chest without Contrast IMPRESSION: Sequela of previous granulomatous disease Mild proximal LAD coronary calcification noted. Reading Location: [id number]
== END | disposition home or self-care (01) ==
LOC: CT 17:35
PROVIDERS: PCP Internal Medicine; Referring Provider Internal Medicine; Visit Provider Internal Medicine
DX: R91.1 Solitary pulmonary nodule (principal)
CPT/HCPCS: 71250

== ENCOUNTER → 2025-03-03 | Outpatient (CLI) | payer MEDICARE, SELFPAY ==
[2025-03-03 16:46] LABS: D-Dimer Quantitative (DVT/PE) 0.88 FEU/ug/m (0.27-0.49)
== END | disposition home or self-care (01) ==
LOC: LAB 14:52
PROVIDERS: PCP Internal Medicine; Referring Provider Internal Medicine; Visit Provider Internal Medicine
DX: R07.81 Pleurodynia (principal)
CPT/HCPCS: 36415; 85379

== ENCOUNTER → 2025-03-04 | Outpatient (CLI) | payer MEDICARE, SELFPAY ==
--- OUTSIDE RECORDS SUMMARY | 2025-03-03 07:02 | XMS RPT_ITS | CCD ---
Author Organization [facility] Care Team Providers Care Investment Specialist Name Role Phone Kathy Hare Unavailable GENOVEVA Torres Unavailable Unavailable GENOVEVA Torres Unavailable Unavailable Unavailable Unavailable Pancho Farias Unavailable Richard Servin Unavailable Cheryl Barnhart Unavailable Unavailable Unavailable Unavailable Frankie Calvert Unavailable [phone] Kathy Hare Primary Care Provider [phone] Eugene Gonzales Unavailable Luly Banerjee Unavailable Unavailable Tera Malave Unavailable Unavailable Sean Marina Unavailable Unavailable Kathy Hare MD Unavailable Richard Servin Unavailable Pancho Farias Unavailable Luly Banerjee LPN Unavailable Unavailable GENOVEVA Torres LPN Unavailable Unavailable Unavailable Unavailable Dr. Mino Godoy Unavailable Christian RAM , Eugene Escobedo Unavailable Frankie Calvert MD Unavailable [phone] Cheryl Barnhart Unavailable Unavailable Kathy Hare MD Unavailable Tera Malave LPN Unavailable Unavailable Leona COMMUNITY RELATIONS COORDINATOR, Kayela Unavailable Unavailable Mancobyk OSCAR, Alyx Unavailable Unavailable Kathy Hare MD Attending Unavailable Kathy Hare MD Consulting Unavailable Heather Storm LPN Unavailable Unavailable KATHY HARE Attending Unavailable KATHY HARE Primary Care Unavailable KATHY HARE Primary Care Unavailable DENNY RAI Attending Unavailable Dr. Kathy Hare MD Primary Care Provider Asif RAM, Dr. Martinez Attending Provider Asif RAM, Dr. Martinez Referring Provider Kathy Hare Referring Unavailable Kathy Hare Attending Unavailable Kathy Hare Primary Care Unavailable Medications Current Medications Medication Drug Class(es) Dates Sig (Normalized) Sig (Original) cholecalciferol 0.025 mg oral capsule (1 source) Vitamin D Start: 06-22-2021 take 1 capsule by mouth once daily Cholecalciferol (Vitamin D3) (Vitamin D3) 25 mcg (1,000 unit) Capsule Active 25 ug PO DAILY June 22, 2021 1:00am L. Acidophilus/Bifid. Animalis (Probiotic) 5 billion cell Capsule, Sprinkle (1 source) Start: 06-22-2021 take 5 capsules by mouth once daily L. Acidophilus/Bifid. Animalis (Probiotic) 5 billion cell Capsule, Sprinkle Active 1 NMA PO DAILY June 22, 2021 1:00am traMADol hydrochloride 50 mg oral tablet (1 source) Opioid Agonist Start: 07-06-2021 take 1 tablet by mouth every six hours as needed for pain Tramadol 50 mg tablet Active 50 mg PO EVERY 6 HOURS as needed for pain 01 03July 06, 2021 1:00am Completed/Discontinued Medications Medication Drug Class(es) Dates Sig (Normalized) Sig (Original) amoxicillin 500 mg oral capsule (12 sources) Penicillin-class Antibacterial Start: 06-12-2021 End: 05-04-2022 Amoxicillin 500 MG Oral Capsule 4 Capsule prior to dental procedure for 0 days Quantity: 4 {Capsule} Refills: 2 Ordered: 04-May-2022 Chase Delgadillo CMA Start : 12-Jun-2021 End : 04-May-2022 Inactive apixaban 5 mg oral tablet (20 sources) Factor Xa Inhibitor Start: 11-07-2019 End: 06-08-2020 take 1 tablet by mouth twice daily Eliquis 5 MG Oral Tablet 1 (one) Tablet bid for 0 days Quantity: 60 {Tablet} Refills: 6 Ordered: 26-May-2020 Luly Banerjee LPN Start : 24-Nov-2019 End : 26-May-2020 Inactive ascorbic acid 500 mg oral tablet (2 sources) Vitamin C take 1 tablet by mouth once daily ascorbic acid, vitamin C, (VITAMIN C) 500 mg tablet Take 500 mg by mouth once daily. 0 Active Comment on above: Take 500 mg by mouth once daily. calcium phosphate dibas/vit D3 (VITAMIN D, WITH CALCIUM, ORAL) (2 sources) calcium phosphat e dibas/vit D3 (VITAMIN D, WITH CALCIUM, ORAL) Take by mouth. 0 Active Comment on above: Take by mouth. cephalexin 500 mg oral capsule (1 source) Cephalosporin Antibacterial Start: 06-14-2020 End: 04-14-2021 take 1 capsule by mouth every six hours Cephalexin 500 MG capsule Discontinued 500 mg PO EVERY 6 HOURS June 14, 2020 1:00am April 14, 2021 1:53pm ondansetron 4 mg oral tablet (1 source) Serotonin-3 Receptor Antagonist Start: 05-03-2021 End: 05-10-2021 take 2 tablets by mouth every eight hours as needed for nausea and vomiting Ondansetron Hcl (Zofran) 4 mg tablet Discontinued 8 mg PO Q8H as needed for nausea and vomiting May 03, 2021 12:00am May 10, 2021 9:58am promethazine hydrochloride 25 mg oral tablet (20 sources) Phenothiazine Start: 11-04-2019 End: 11-09-2019 take 1 tablet by mouth every four to six hours as needed for nausea Promethazine HCl 25 MG Oral Tablet 1 (one) Tablet q 4-6 hours prn nausea for 0 days Quantity: 20 {Tablet} Refills: 0 Ordered: 09-Nov-2019 GENOVEVA Torres LPN Start : 04-Nov-2019 End : 09-Nov-2019 Inactive Problems Active Problems Problem Classification Problem Date Documented Date Episodic/Chronic Abdominal hernia (20 sources) Right inguinal hernia ; Translations: [Right inguinal hernia] Resolved: 05-04-2022 06-19-2021 Episodic Comment on above: had hernia surgery D kenneth gonzales Acute bronchitis (2 sources) Acute bronchitis, unspecified; Translations: [Acute bronchitis, unspecified] Onset: 12-08-2024 Episodic Anxiety disorders (20 sources) Acute stress disorder; Translations: [Stress reaction (Renamed from Acute reaction to stress)] Resolved: 11-24-2020 02-22-2020 Chronic Comment on above: being peraza and wor ry about rain. 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 Coronary atherosclerosis and other heart disease (2 sources) Coronary arteriosclerosis; Translations: [Coronary artery disease involving tlingit [place] ha[place] coronary artery of tling[place] heart without angina pectoris] 11-06-2022 Chronic Comment on above: recommend diet stati n low dose, asa 81 willtalk with and callCCTA 3-23 LAD 22 Disorders of lipid metabolism (20 sources) Hyperlipidemia; Translations: [Hyperlipidemia, mild] Onset: 11-01-2022 06-19-2021 Chronic Comment on above: LDL shot up. he is n ow eating 3-4 eggs every am. he will go to one yolk. he really changed his diet and now eat breakfast.talk to expert at [facility] Dr. Gonzalez. she thought eggs increased LDL and small LDL good. apo B not as bad as could be. assure no physical labor before testing. willrecheck in few months LP Pla2, hscrp, MPO consider TMAO and ADMA because can eggs increase TMAO LDL shot up. he is n ow eating 1yok and 2 eggs every am. he will go to one yolk. he really changed his diet and now eat breakfast.talk to expert at [facility] Dr. Gonzalez. she thought eggs increased LDL and small LDL good. apo B not as bad as could be. assure no physical labor before testing. willrecheck in few months LP Pla2, hscrp, MPO consider TMAO and ADMA because can eggs increase TMAO will recheck LDL shot up. he is n ow eating 1yok and 2 eggs every am. he will go to one yolk. he really changed his diet and now eat breakfast.right now LDL went down from 178 to 102 on diet alone got rid eggs and ham.stress test 06-25 was good right now LDL went d own from 178 to 110's on diet alone got rid eggs and ham.stress test 06-25 was good talk bout CCTA and bv screening Fluid and electrolyte disorders (20 sources) Dehydration; Translations: [Dehydration] Resolved: 06-15-2020 05-07-2017 Episodic Genitourinary symptoms and ill-defined conditions (1 source) Nocturia; Translations: [Nocturia] 04-14-2021 Episodic Headache; including migraine (20 sources) Tension-type headache; Translations: [Acute non intractable tension-type headache] Resolved: 10-17-2021 11-24-2020 Chronic Headache; including migraine (20 sources) Tension-type headache; Translations: [Acute non intractable tension-type headache] 05-07-2017 Episodic Headache; including migraine (20 sources) Headache; including migraine Immunizations and screening for infectious disease (20 sources) Contact with and (suspected) exposure to other viral communicable diseases; Translations: [Patient encounter status] Resolved: 10-17-2021 06-20-2020 Episodic Nausea and vomiting (20 sources) Nausea; Translations: [Nausea] Resolved: 11-24-2020 11-04-2019 Episodic Open wounds of extremities (20 sources) Laceration of finger; Translations: [Finger laceration] Resolved: 11-24-2020 06-20-2020 Episodic Osteoarthritis (20 sources) Osteoarthritis of knee; Translations: [Knee osteoarthritis] 11-10-2019 Chronic Comment on above: planning for TKA in winter. willneed IVC filter placed before. had done 06-24 he we nt back in under anesthesia to go under manipulation to get scar. had done left TKA Dr. sparrow still all the time knee cap not tract right post surgery at this point he does not want to do surgery. he can deal with it right now. Other aftercare (20 sources) Drug therapy finding; Translations: [Anticoagulated] Resolved: 11-24-2020 11-24-2020 Episodic Other aftercare (20 sources) Post-discharge follow-up; Translations: [Hospital discharge follow-up] Resolved: 11-24-2020 11-24-2020 Episodic Comment on above: 11-04-19 multiple pe's (right) bilateral pneumonia and positive Covid-19 Other aftercare (20 sources) Antibiotic prophylaxis indicated; Translations: [Prophylactic antibiotic] Resolved: 10-17-2021 06-19-2021 Episodic Other circulatory disease (20 sources) Elevated blood pressure; Translations: [Elevated blood pressure reading] Resolved: 05-04-2022 10-17-2021 Episodic Other injuries and conditions due to external causes (20 sources) Unspecified injury of muscle(s) and tendon(s) of the rotator cuff of right shoulder, subsequent encounter; Translations: [Injury of right rotator cuff] Resolved: 10-17-2021 05-26-2020 Episodic Comment on above: from fall at work. w ill need shoulder replacment at some point. from fall at work. w ill need shoulder replacment at some point. had couple injections doing okay and functioning Other injuries and conditions due to external causes (1 source) Heat exhaustion; Translations: [Heat exhaustion, unspecified, initial encounter] 04-18-2019 Episodic Other liver diseases (20 sources) Elevated liver enzymes level; Translations: [Elevated liver enzymes] Resolved: 03-28-2021 11-10-2019 Episodic Comment on above: related to covid Other lower respiratory disease (20 sources) Cough; Translations: [Cough] Resolved: 06-15-2020 11-10-2019 Episodic Other lower respiratory disease (20 sources) H/O: respiratory disease; Translations: [History of severe acute respiratory syndrome (SARS)] Resolved: 10-17-2021 05-26-2020 Episodic Comment on above: covid 4-20 Other lower respiratory disease (3 sources) Solitary pulmonary nodule; Translations: [Solitary pulmonary nodule] Onset: 12-08-2024 Episodic Other lower respiratory disease (1 source) Hypoxia; Translations: [Hypoxemia] 11-05-2019 Episodic Other male genital disorders (20 sources) Induratio penis plastica; Translations: [Peyronie disease] Resolved: 11-24-2020 02-24-2020 Chronic Other nervous system disorders (20 sources) Neuropathy; Translations: [Neuropathy] 02-22-2020 Chronic Comment on above: from disc herniation years ago. Other non-traumatic joint disorders (20 sources) Pain in unspecified joint; Translations: [Joint pain] Resolved: 10-17-2021 02-22-2020 Episodic Other non-traumatic joint disorders (20 sources) Pain of right wrist; Translations: [Right wrist pain] Resolved: 10-17-2021 11-24-2020 Episodic Comment on above: related to fall at w ork and will need surgery ligaments all toren Other nutritional; endocrine; and metabolic disorders (20 sources) Body mass index 25-29 - overweight; Translations: [BMI 29.0-29.9,adult] Resolved: 06-15-2020 11-10-2019 Chronic Other nutritional; endocrine; and metabolic disorders (20 sources) Body mass index 25-29 - overweight; Translations: [BMI 26.0-26.9,adult] Resolved: 11-24-2020 11-24-2020 Episodic Other nutritional; endocrine; and metabolic disorders (20 sources) Overweight in adulthood with body mass index of 25 or more but less than 30; Translations: [BMI 25.0-25.9,adult] Resolved: 11-24-2020 05-04-2022 Episodic Other screening for suspected conditions (not mental disorders or infectious disease) (20 sources) Imaging of thorax abnormal; Translations: [Abnormal chest xray] Resolved: 06-15-2020 06-15-2020 Chronic Comment on above: 11-04-19 focal infiltr ation in right middle lobe with blunting of both costophrenic angles. mild increased markings at lung base will need follow up Other screening for suspected conditions (not mental disorders or infectious disease) (20 sources) Laboratory test result abnormal; Translations: [Patient encounter status] Onset: 11-01-2022 Resolved: 05-04-2022 06-07-2020 Episodic Comment on above: the anticardiolipin IGM is 31. usually like to see over 40 and need two 12 weeks apart to say could have antiphospholipid syndrome willrecheck along with lupus anticoag t waves invert V1 nd V2 even with R pprogressing Pneumonia (except that caused by tuberculosis or sexually transmitted disease) (20 sources) Bilateral pneumonia; Translations: [Pneumonia caused by Human coronavirus] Resolved: 11-24-2020 11-10-2019 Episodic Comment on above: I discussed with Er doc ponce Painting- attempting to understand threshold for admission as I believe this gentleman has Covid-19 and feel he is high risk for respiratory compromise- she suggested exertional pulse ox which we performed and he quickly dropped to 88 percent which is one of their criteria for admission- so i called her back and she agreed should admit- so they aware he is coming- and he is already masked with n95- discussed with patient in detail and he agreed he is not RADHA negati ve no virus detecgted no more prolonged shedding. he is not free for patient contact. he know to still wear PPE as usual. cannot tell him at this point. in fall would like to do quantitative titers once have to see if sustain immunity Pulmonary heart disease (20 sources) Pulmonary embolism; Translations: [Multiple pulmonary emboli] Resolved: 03-28-2021 11-24-2019 Episodic Comment on above: 11-04-2019 multiple ad mitted [facility] positive Covid-19 father had DVT willneed hypercog after. done with [facility] 05-24 Dr. gonzales not recomm end filter before surgery. he had covid at time Residual codes; unclassified (1 source) Increased body mass index; Translations: [BMI 29.0-29.9,adult] 05-07-2017 Episodic Residual codes; unclassified (20 sources) Influenza-like symptoms; Translations: [Flu-like symptoms] Resolved: 06-15-2020 01-15-2020 Episodic Spondylosis; intervertebral disc disorders; other back problems (20 sources) Degeneration of lumbar or lumbosacral intervertebral disc; Translations: [Degeneration of lumbar intervertebral disc] Resolved: 11-24-2020 02-22-2020 Chronic Comment on above: disc herniation 2003 , refuse sx because of need 6 mos off. chiropactor and long time to come backreinflamed 08-24 picking dad up after fall. worse in last few months. 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 pain in legs. pain most with sit. disc herniation 2003 , refuse sx because of need 6 mos off. chiropactor and long time to come backneeds surgery from Dr. lema disc herniation 2003 , refuse sx because of need 6 mos off. chiropactor and long time to come backneeds surgery from Dr. lema plan 06-25 disc herniation 2003 , refuse sx because of need 6 mos off. chiropactor and long time to come backgreat after surgeryDr conway laminectomy 07-25 Spondylosis; intervertebral disc disorders; other back problems (1 source) Spinal stenosis of lumbar region; Translations: [Spinal stenosis, lumbar region without neurogenic claudication] 07-06-2021 Episodic Substance-related disorders (20 sources) Smoker; Translations: [Current smoker (Renamed from Smoker)] 05-07-2017 Chronic Unclassified (20 sources) Unclassified (20 sources) Current smoker (Renamed from Smoker) Unclassified (20 sources) Anticoagulated; Translations: [Drug therapy finding] Resolved: 06-07-2020 11-24-2019 Unclassified (20 sources) Multiple pulmonary emboli Unclassified (20 sources) Knee osteoarthritis Unclassified (20 sources) Elevated liver enzymes Unclassified (20 sources) Immunity status testing Unclassified (20 sources) Peyronie disease Unclassified (20 sources) Stress reaction (Renamed from Acute reaction to stress) Unclassified (20 sources) Degenerative disc disease, lumbar Unclassified (20 sources) Preprocedural examination done; Translations: [Preop examination] 05-26-2020 Comment on above: having left knee morris shayy 06-28. Unclassified (20 sources) BMI 28.0-28.9,adult Unclassified (20 sources) History of severe acute respiratory syndrome (SARS) Unclassified (20 sources) Injury of right rotator cuff, subsequent encounter Unclassified (20 sources) Right wrist pain Unclassified (20 sources) Abnormal laboratory test Unclassified (20 sources) Exposure to SARS virus Unclassified (16 sources) BMI 26.0-26.9,adult Unclassified (20 sources) BPV (benign positional vertigo), unspecified laterality Past or Other Problems Problem Classification Problem Date Documented Date Episodic/Chronic Conditions associated with dizziness or vertigo (20 sources) Conditions associated with dizziness or vertigo Coronary atherosclerosis and other heart disease (14 sources) Coronary atherosclerosis and other heart disease Other aftercare (20 sources) Post-discharge follow-up; Translations: [Hospital discharge follow-up] Resolved: 01-15-2020 01-15-2020 Comment on above: 20 multiple pe's (right) bilateral pneumonia and positive Covid-19 Other connective tissue disease (20 sources) Imaging of thorax abnormal; Translations: [Abnormal chest xray] Resolved: 06-15-2020 11-10-2019 Episodic Comment on above: 11-03-20 focal infiltr ation in right middle lobe with blunting of both costophrenic angles. mild increased markings at lung base will need follow up Other non-traumatic joint disorders (16 sources) Pain of right wrist; Translations: [Right wrist pain] 05-26-2020 Comment on above: related to fall at w ork and will need surgery ligaments all toren Pneumonia (except that caused by tuberculosis or sexually transmitted disease) (20 sources) Pneumonia (except that caused by tuberculosis or sexually transmitted disease) Unclassified (20 sources) BMI 29.0-29.9,adult Unclassified (20 sources) Hospital discharge follow-up Unclassified (20 sources) Patient encounter status; Translations: [Encounter for hepatitis C virus screening test for high risk patient] Resolved: 06-15-2020 01-15-2020 Comment on above: 02-22-20 [facility]: MOCA , Hep C negative, PSA 0.4 (01-15-20), positive antibodies to covid. needs to get colonscopy after off eliquis. Unclassified (20 sources) Abnormal chest xray Unclassified (20 sources) Flu-like symptoms Unclassified (20 sources) Screening for prostate cancer; Translations: [Screening status] Resolved: 02-22-2020 01-15-2020 Unclassified (20 sources) Annual visit for general adult medical examination without abnormal findings Unclassified (20 sources) Degenerative Disc Disease - Lumbar (722.52) Unclassified (20 sources) Colon cancer screening Unclassified (20 sources) DDD (degenerative disc disease), lumbar Unclassified (7 sources) BMI 25.0-25.9,adult Unclassified (17 sources) History of pulmonary embolism Unclassified (7 sources) Encounter for observation for suspected exposure to other biological agents ruled out (Renamed from Encounter for observation for suspected exposure to other biological agent, ruled out) Unclassified (7 sources) Abnormal EKG Unclassified (7 sources) Prophylactic antibiotic Unclassified (2 sources) Elevated blood pressure reading Unclassified (1 source) COVID-19 04-23-2022 Unclassified (1 source) DOUBLE CARPEL TUNNEL 02-24-2022 Viral infection (16 sources) Disease caused by 2019-nCoV Results Test Name Value Interpretation Reference Range Facility Chest without Contraston Chest without Contrast [facility] [address] [place], [place] [address] Chest without Contrast MR#: [id number] Acct: [id number] Name: PAUL SHELTON Rep #: [id number] : 1960 M 64 From: Eugene Adame MD PCP: Dr. Kathy Hare MD Status: REG CLI Study: Chest without Contrast Date of Exam: 12/25/24 Exam# [id number] Ordering Dr: Kathy Hare MD PROCEDURE: CHEST WITHOUT CONTRAST 12/25/2024 REASON FOR EXAM: CT, THORAX; W/O CONTRAST MATERIAL; ABNORMAL XRAY, LUNG NODULE >= TECHNIQUE: Chest CT without contrast. Coronal and Sagittal reconstruction series were provided. One or more dose reduction techniques were used (e.g., Automated exposure control, adjustment of the mA and/or kV according to patient size, use of iterative reconstruction technique RADIATION DOSE SUMMARY: CTDlvol: 13.68 mGy DLP: 570.94 mGycm COMPARISON: None available FINDINGS: The central airways appear patent. Sequela of previous granulomatous disease with calcified granulomas right upper lobe for example axial 52 and 57 with calcified right hilar and mediastinal nodes. A couple of adjacent noncalcified subpleural, juxtapleural nodular densities at the minor fissure axial 75 and 74. Platelike area of scar or atelectasis posterior right lower lobe. The lungs otherwise appear clear. Thoracic aorta appears within limits on noncontrast imaging. Mild proximal LAD coronary calcification noted. No pericardial or pleural effusion. No axillary, mediastinal, hilar or subcarinal adenopathy identified. Limited images of the upper abdomen appear within limits on noncontrast imaging. Bilateral severe appearing shoulder osteoarthrosis partially imaged. Old T1 spinous process fracture. CT/Chest without Contrast IMPRESSION: Sequela of previous granulomatous disease Mild proximal LAD coronary calcification noted. Reading Location: [facility] CC: Dr. Kathy Hare MD Shovel Engineer: Signed Normal [facility] ED Prov Noteon 12-08-2024 ED Prov Note HPI: 12/08/2024, Time: @NOWNR@ Paul Ion Shelton is a 64 y.o. male presenting to the ED for gradual onset of productive cough of green sputum, beginning last 4 days ago. The complaint has been constant, moderate in severity, and worsened by nothing. No alleviating factors. No fever chills or fatigue. No difficulty breathing ROS: Pertinent positives and negatives are stated within HPI, all other systems reviewed and are negative. PAST HISTORY Past Medical History: @[facility]@ Past Surgical History: has a past surgical history that includes Knee Replacement Partial (Unicompartmental Knee); Appendectomy; Hernia repair; and Carpal tunnel release (Bilateral). Social History: reports that he has never smoked. He has never used smokeless tobacco. He reports that he does not drink alcohol and does not use drugs. Family History: family history is not on file. The patient's home medications have been reviewed. Allergies: Patient has no known allergies. RESULTS All laboratory and radiology results have been personally reviewed by myself LABS: No results found for this or any previous visit. RADIOLOGY: Interpreted by Radiologist. XR Chest 1 View Preliminary Result No focal airspace consolidation. Indeterminate 8 mm nodularity projects over the right upper lobe. Recommend nonemergent enhanced chest CT evaluation. [employer] Workstation ID: [id number] NURSING NOTES AND VITALS REVIEWED - The nursing notes within the ED encounter and vital signs as below have been reviewed. BP 136/86 Pulse 69 Temp 99 degrees F (37.2 degrees C) (Oral) Resp 14 Ht 6' Wt 102.1 kg (225 lb) SpO2 94% BMI 30.52 kg/m Oxygen Saturation Interpretation: Normal P HYSICAL EXAM Constitutional/General: Alert and oriented x3, well appearing, non toxic in NAD Head: NC/AT Eyes: PERRL, EOMI Mouth: Oropharynx clear, handling secretions, no trismus Neck: Supple, full ROM, no meningeal signs Pulmonary: Lungs clear to auscultation bilaterally, no wheezes, rales, or rhonchi. Not in respiratory distress Cardiovascular: Regular rate and rhythm, no murmurs, gallops, or rubs. 2+ distal pulses Abdomen: Soft, non tender, non distended, Extremities: Moves all extremities x 4. Warm and well perfused Skin: warm and dry without rash Neurologic: GCS 15, Psych: Normal Affect ---- ED COURSE/MEDICAL DECISION MAKING -- Medications - No data to display Medical Decision Making: X-ray shows no evidence of pneumonia however there is a nodular density right upper lobe with recommendation to obtain nonemergent CT scan of the chest Counseling: The emergency provider has spoken with the patient and discussed today's results, in addition to providing specific details for the plan of care and counseling regarding the diagnosis and prognosis. Questions are answered at this time and they are agreeable with the plan. ------- IMPRESSION AND DISPOSITION ------- IMPRESSION 1. Acute bronchitis, unspecified organism 2. Pulmonary nodule 1 cm or greater in diameter DISPOSITION Disposition: discharged to home Patient condition is stable Summation Patient Course: Stable ED Medications administered this visit: Medications - No data to display New Prescriptions from this visit: New Prescriptions brompheniramine-pseudoePHE ine-DM 2-30-10 mg/5 mL syrup Take 5 mL by mouth 4 (four) times a day as needed . albuterol 90 mcg/actuation inhaler Inhale 2 (two) puffs every 6 (six) hours as needed for wheezing . Follow-up: Kathy Hare MD [facility] [address] In 1 week Final Impression: 1. Acute bronchitis, unspecified organism 2. Pulmonary nodule 1 cm or greater in diameter (Please note that portions of this note were completed with a voice recognition program. Efforts were made to edit the dictations but occasionally words are mis-transcribed.) Denny Rai MD 12/08/24 0959 AUTHENTICATED BY DENNY RAI, ON 12/08/2024 09:59:51 [facility] XR CHEST PA/APon 12-08-2024 XR CHEST PA/AP EXAMINATION: XR CHEST PA/AP HISTORY: ORDERING SYSTEM PROVIDED HISTORY: Cough x4 days. Hx of pneumonia. TECHNOLOGIST PROVIDED HISTORY: Illness/Other. Reason for exam: Cough x4 days. Encounter Type: Initial. Additional signs and symptoms: Hx of pneumonia. COMPARISON: None. FINDINGS: One-view chest x-ray. Mild left basilar atelectasis. 8 mm nodular density projects over the right upper lobe. No significant pleural effusions. Normal heart size. IMPRESSION: No focal airspace consolidation. Indeterminate 8 mm nodularity projects over the right upper lobe. Recommend nonemergent enhanced chest CT evaluation. /MyTime Workstation ID: [id number] Dictated by: JEANNE SHEN on SatDecember 08, 2024 9:35:43 AM EDT Transcribed by: JOHN SELF on SatDecember 08, 2024 9:41:37 AM EDT Finalized by: JEANNE SHEN on SatDecember 08, 2024 11:44:44 PM EDT [facility] Comment on above: Order Comment: Injur y/Trauma or Illness?:Illness/Other How long have you had these symptoms (acute/chronic)?:Acute Reason for exam?:cough x4 days History of cancer?:. Surgeries, chemotherapy, or radiation?:. Type of Exam?:Initial Additional signs and symptoms?:hx of pneumonia CT CARDIAC SCORINGon 023 CT CARDIAC SCORING Patient Name: PAUL SHELTON STUDY: CT CARDIAC SCORING; 11/01/2022 7:34 am INDICATION: Hyperlipidemia, unspecified. COMPARISON: None. ACCESSION NUMBER(S): [id number] ORDERING CLINICIAN: KATHY HARE TECHNIQUE: Using prospective ECG gating, CT scan of the coronary arteries was performed without intravenous contrast. Coronary calcium scoring was performed according to the method of Agatston. FINDINGS: The score and distribution of calcium in the coronary arteries is as follows: LM: 0. LAD: 22. LCx: 0. RCA: 0. Total: 22. The visualized segments of the lungs are normally expanded. The visualized mid/lower ascending thoracic aorta measures 3.4 cm in diameter. The heart is normal in size. No pericardial effusion is present. Calcified right hilar lymph nodes related to granulomatous disease. Small lipoma suspected in the left hepatic lobe. IMPRESSION: 1. Coronary artery calcium score of 22*. *Coronary artery calcium scoring may be helpful in predicting the risk for future coronary heart disease events. According to the [place] [employer] Clinical Expert Consensus Task Force, such testing provides important prognostic information in patients with more than one coronary heart disease risk factor. The coronary artery calcium score correlates with the annual risk of a non-fatal myocardial infarction or coronary heart disease . Coronary artery score Annual Risk 0-99 0.4% 100-399 1.3% >400 2.4% These three breakpoints correspond to lower, intermediate and high risk states for future coronary events. Such information should be used, along with appropriate clinical judgment, to make decisions regarding the intensity of risk factor management strategies to treat blood lipids and to modify other non-lipid coronary risk factors. Reference: [place] P et al. Circulation. 2007; 115:402-426 Electronically signed by: RIGOBERTO BHAGAT MD [facility] CBC, PLATELETS & MANUAL DIFF ([id number])Ordered By: Wind Turbine Machinist on 10-16-2022 Basophils (Bld) [#/Vol] 0.0 10*3/uL Normal 0.0-0.2 [facility]; [facility] Work Phone: Comment on above: PATIENT WAS FASTINGP ERFORMED BY: [facility] MonmouthUflxzk[address] [facility] [address] [facility] [id number] Basophils/100 WBC (Bld) 1 % Normal [facility]; [facility] Work Phone: Comment on above: PATIENT WAS FASTINGP ERFORMED BY: EDSON [facility] Jdvfrk3[address] RoadD[address] [place] [id number] Eosinophils (Bld) [#/Vol] 0.2 10*3/uL Normal 0.0-0.4 [facility]; [facility] Work Phone: Comment on above: PATIENT WAS FASTINGP ERFORMED BY: [facility] Jexhed4[address] RoadDublin [place] [id number] Eosinophils/100 WBC (Bld) 5 % Normal [facility]; [facility] Work Phone: Comment on above: PATIENT WAS FASTINGP ERFORMED BY: [facility] Qmywan25[address] RoadDublin [place] [id number] Erythrocyte distribution width (RBC) [Ratio] 12.2 % Normal 11.6-15.4 [facility]; [facility] Work Phone: Comment on above: PATIENT WAS FASTINGP ERFORMED BY: [facility] Idqtom4086 [address] RoadDublin [place] [id number] Hematocrit (Bld) [Volume fraction] 44.5 % Normal 37.5-51.0 [facility]; [facility] Work Phone: Comment on above: PATIENT WAS FASTINGP ERFORMED BY: [facility] Fzdnnl4461 [address] RoadD[address] [place] [id number] Hemoglobin (Bld) [Mass/Vol] 15.4 g/dL Normal 13.0-17.7 [facility]; [facility] Work Phone: Comment on above: PATIENT WAS FASTINGP ERFORMED BY: CB [facility] Wsshhe6495 [address] RoadD[address] [place] [id number] Immature granulocytes (Bld) [#/Vol] 0.0 10*3/uL Normal 0.0-0.1 [facility]; [facility] Work Phone: Comment on above: PATIENT WAS FASTINGP ERFORMED BY: CB [facility] Hblhke450[address] RoadDublin [place] [id number] Immature granulocytes/100 WBC (Bld) 0 % Normal [facility]; [facility] Work Phone: Comment on above: PATIENT WAS FASTINGP ERFORMED BY: [facility] Tuwunk80[address] [place] [id number] Lymphocytes (Bld) [#/Vol] 0.9 10*3/uL Normal 0.7-3.1 [facility]; [facility] Work Phone: Comment on above: PATIENT WAS FASTINGP ERFORMED BY: CB [facility] Vzwsjm9008 [address] RoadD[address] [place] [id number] Lymphocytes/100 WBC (Bld) 28 % Normal [facility]; [facility] Work Phone: Comment on above: PATIENT WAS FASTINGP ERFORMED BY: [facility] Mfzzjk7023 [address] RoadD[address] [place] [id number] MCH (RBC) [Entitic mass] 30.7 pg Normal 26.6-33.0 [facility]; [facility] Work Phone: Comment on above: PATIENT WAS FASTINGP ERFORMED BY: [facility] Bykgqc4548 [address] RoadD[address] [place] [id number] MCHC (RBC) [Mass/Vol] 34.6 g/dL Normal 31.5-35.7 [facility]; [facility] Work Phone: Comment on above: PATIENT WAS FASTINGP ERFORMED BY: [facility] Zombnz4148 [address] RoadD[address] [place] [id number] MCV (RBC) [Entitic vol] 89 fL Normal 79-97 [facility]; [facility] Work Phone: Comment on above: PATIENT WAS FASTINGP ERFORMED BY: [facility] Tctfez4694 [address] RoadD[address] [place] [id number] Monocytes (Bld) [#/Vol] 0.4 10*3/uL Normal 0.1-0.9 [facility]; [facility] Work Phone: Comment on above: PATIENT WAS FASTINGP ERFORMED BY: [facility] Bnxpzq0377 [address] RoadD[address] [place] [id number] Monocytes/100 WBC (Bld) 11 % Normal [facility]; [facility] Work Phone: Comment on above: PATIENT WAS FASTINGP ERFORMED BY: EDSON Lab[facility] Fumfpt50[address] RoadDublin [place] [id number] Neutrophils (Bld) [#/Vol] 1.8 10*3/uL Normal 1.4-7.0 [facility]; [facility] Work Phone: Comment on above: PATIENT WAS FASTINGP ERFORMED BY: EDSON [facility] Iwgkfm1809 [address] RoadD[address] [place] [id number] Neutrophils/100 WBC (Bld) 55 % Normal [facility]; [facility] Work Phone: Comment on above: PATIENT WAS FASTINGP ERFORMED BY: EDSON Lab[facility] Xiaroc3490 [address] RoadD[address] [place] [id number] Platelets (Bld) [#/Vol] 210 10*3/uL Normal 150-450 [facility]; [facility] Work Phone: Comment on above: PATIENT WAS FASTINGP ERFORMED BY: EDSON [facility] Fdupeo37[address] RoadD[address] [place] [id number] RBC (Bld) [#/Vol] 5.01 10*6/uL Normal 4.14-5.80 [facility]; [facility] Work Phone: Comment on above: PATIENT WAS FASTINGP ERFORMED BY: EDSON Labcotoot[facility] Vqziph0841 [address] RoadDublin [place] [id number] WBC (Bld) [#/Vol] 3.3 10*3/uL Abnormal 3.4-10.8 [facility]; [facility] Work Phone: Comment on above: PATIENT WAS FASTINGP ERFORMED BY: EDSON [facility] Gobesg7655 [address] RoadDublin [place] [id number] HEPATIC FUNCTION PANEL (8007 6)Ordered By: Wind Turbine Machinist on 10-16-2022 Bilirubin.direct [Mass/Vol] 0.20 mg/dL Normal 0.00-0.40 [facility]; [facility] Work Phone: Comment on above: PATIENT WAS FASTINGP ERFORMED BY: EDSON [facility] Vnufde5[address] RoadDublin [place] [id number] LIPID PANEL (45988)Ordered B y: Wind Turbine Machinist on 10-16-2022 Cholesterol [Mass/Vol] 193 mg/dL Normal 100-199 [facility]; [facility] Work Phone: Comment on above: PATIENT WAS FASTINGP ERFORMED BY: EDSON Labcot[facility] MasseyBnhbbv5534 [address] Roadblin [place] [id number] Cholesterol in HDL [Mass/Vol] 70 mg/dL Normal [facility]; [facility] Work Phone: Comment on above: PATIENT WAS FASTINGP ERFORMED BY: EDSON Labcot[facility] MasseyDwgbtn5904 [address] Roadblin [place] [id number] Triglyceride [Mass/Vol] 44 mg/dL Normal 0-149 [facility]; [facility] Work Phone: Comment on above: PATIENT WAS FASTINGP ERFORMED BY: EDSON Labamelie MasseyTkxerx7638 Up [facility] [place] [id number] LIPID PANEL (61659) 8 mg/dL Normal 5-40 Compr ehensive Internal Medicine; [facility] Work Phone: Comment on above: PATIENT WAS FASTINGP ERFORMED BY: EDSON [facility] Ylkwao0053 [address] RoadD[address] [place] [id number] LIPID PANEL (84841) 115 mg/dL Abnormal 0-99 Compr ehensive [facility]; [facility] Work Phone: Comment on above: PATIENT WAS FASTINGP ERFORMED BY: EDSON Lab[facility] Czxpin0362 Up [facility]bl[facility] [place] [id number] LIPID PANEL (98223) 1.6 {ratio} Normal 0.0-3.6 Comp [facility]erensive [facility]; [facility] Work Phone: Comment on above: LDL/HDL Ratio Men Wo men 1/2 Avg.Risk 1.0 1.5 Avg.Risk 3.6 3.2 2X Avg.Risk 6.2 5.0 3X Avg.Risk 8.0 6.1 PATIENT WAS FASTINGP ERFORMED BY: EDSON [facility] Hbccfl1525 Up [facility] [id number] METABOLIC PANEL, COMPREHENSI VE (25403)Ordered By: Wind Turbine Machinist on 10-16-2022 Albumin [Mass/Vol] 4.2 g/dL Normal 3.8-4.8 [facility]; [facility] Work Phone: Comment on above: PATIENT WAS FASTINGP ERFORMED BY: [facility] Yargch3884 Up [facility] [place] [id number] Albumin/Globulin [Mass ratio] 1.5 {ratio} Normal 1.2-2.2 [facility]; [facility] Work Phone: Comment on above: PATIENT WAS FASTINGP ERFORMED BY: EDSON [facility] Icrtre6712 Up [facility] [place] [id number] ALP [Catalytic activity/Vol] 85 U/L Normal 44-121 [facility]; [facility] Work Phone: Comment on above: PATIENT WAS FASTINGP ERFORMED BY: [facility]UP [facility]6370 Up [facility] [id number] ALT [Catalytic activity/Vol] 11 U/L Normal 0-44 [facility]; [facility] Work Phone: Comment on above: PATIENT WAS FASTINGP ERFORMED BY: Labdanelle Fkyxkb2263 Up [facility] [place] [id number] AST [Catalytic activity/Vol] 18 U/L Normal 0-40 [facility]; [facility] Work Phone: Comment on above: PATIENT WAS FASTINGP ERFORMED BY: [facility] Amhocf6520 Up [facility] [place] [id number] Bilirubin [Mass/Vol] 0.7 mg/dL Normal 0.0-1.2 [facility]; [facility] Work Phone: Comment on above: PATIENT WAS FASTINGP ERFORMED BY: [facility] Zcrtvq6128 Up [facility] [place] [id number] Calcium [Mass/Vol] 9.4 mg/dL Normal 8.6-10.2 [facility]; [facility] Work Phone: Comment on above: PATIENT WAS FASTINGP ERFORMED BY: EDSON [facility] Ipcmjv4641 [address] RoadDublin [place] [id number] Chloride [Moles/Vol] 100 mmol/L Normal 96-106 Comp rehensive Internal Medicine; [facility] Work Phone: Comment on above: PATIENT WAS FASTINGP ERFORMED BY: CB [facility] Ggwuoh7800 [address] RoadDublin [place] [id number] CO2 [Moles/Vol] 26 mmol/L Normal 20-29 Comprehen [facility]; [facility] Work Phone: Comment on above: PATIENT WAS FASTINGP ERFORMED BY: EDSON [facility] Npqjzx2750 [address] RoadDublin [place] [id number] Creatinine [Mass/Vol] 1.12 mg/dL Normal 0.76-1.27 [facility]; [facility] Work Phone: Comment on above: PATIENT WAS FASTINGP ERFORMED BY: EDSON [facility] Zigdko4573 [address]bl[address] [place] [id number] GFR/1.73 sq M.predicted among non-blacks MDRD (S/P/Bld) [Vol rate/Area] 73 mL/min/{1.73_m2} Normal Comprehensiv e [facility]; [facility] Work Phone: Comment on above: PATIENT WAS FASTINGP ERFORMED BY: EDSON [facility] Ntzmfl1555 [address] RoadDuin [place] [id number] Globulin (S) [Mass/Vol] 2.8 g/dL Normal 1.5-4.5 [facility]; [facility] Work Phone: Comment on above: PATIENT WAS FASTINGP ERFORMED BY: CB [facility] Agyaul4334 [address] RoadDublin [place] [id number] Glucose [Mass/Vol] 88 mg/dL Normal 70-99 Compre [facility] Internal [facility]; [facility] Work Phone: Comment on above: PATIENT WAS FASTINGP ERFORMED BY: EDSON [facility] Guhywh0898 [address] RoadD[address] [place] [id number] Potassium [Moles/Vol] 4.5 mmol/L Normal 3.5-5.2 [facility]; [facility] Work Phone: Comment on above: PATIENT WAS FASTINGP ERFORMED BY: EDSON [facility] Gmvmog0231 [address] RoadD[address] [place] [id number] Protein [Mass/Vol] 7.0 g/dL Normal 6.0-8.5 [facility]; [facility] Work Phone: Comment on above: PATIENT WAS FASTINGP ERFORMED BY: CB [facility] Bliolq8453 [address] RoadDublin [place] [id number] Sodium [Moles/Vol] 139 mmol/L Normal 134-144 [facility]; [facility] Work Phone: Comment on above: PATIENT WAS FASTINGP ERFORMED BY: EDSON [facility] Umohci8610 [address] RoadDublin [place] [id number] Urea nitrogen [Mass/Vol] 21 mg/dL Normal 8-27 [facility]; [facility] Work Phone: Comment on above: PATIENT WAS FASTINGP ERFORMED BY: EDSON [facility] Renoah4[address] RoadD[address] [place] [id number] Urea nitrogen/Creatinine [Mass ratio] 19 mg/mg Normal 10-24 [facility]; [facility] Work Phone: Comment on above: PATIENT WAS FASTINGP ERFORMED BY: [facility] Lklccs5254 Up [facility] MichiganD[facility] [place] [id number] MICROALBUMINOrdered By: Syst em Unit Clerk on 10-16-2022 Albumin DL <= 20 mg/L (U) [Mass/Vol] 3.4 ug/mL Normal Comprehensiv e [facility]; [facility] Work Phone: Comment on above: PATIENT WAS FASTINGP ERFORMED BY: [facility] Nnzmch4474 [address] RoadDublin [place] [id number] Albumin/Creatinine (U) [Mass ratio] 3 {mg/g_creat} Normal 0-29 [facility]; [facility] Work Phone: Comment on above: Normal: 0 - 29 Moder ately increased: 30 - 300 Severely increased: >300 PATIENT WAS FASTINGP ERFORMED BY: EDSON [employer] Bkyvvr5877 [facility] [id number] Creatinine (U) [Mass/Vol] 134.2 mg/dL Normal [facility]; [facility] Work Phone: Comment on above: PATIENT WAS FASTINGP ERFORMED BY: [employer] Otzyzy5495 [facility] [id number] PSA (Medicare - G0103) (8415 3)Ordered By: Wind Turbine Machinist on 04-27-2022 Prostate specific Ag [Mass/Vol] 0.5 ng/mL Normal 0.0-4.0 [facility]; [facility] Work Phone: Comment on above: [employer] ECLIA methodol ogy. .According to the [place] [employer], Serum PSA shoulddecrease and remain at undetectable levels after radicalprostatectomy. The AUA defines biochemical recurrence as an initialPSA value 0.2 ng/mL or greater followed by a subsequent confirmatoryPSA value 0.2 ng/mL or greater.Values obtained with different assay methods or kits cannot be usedinterchangeably. Results cannot be interpreted as absolute evidenceof the presence or absence of malignant disease. PATIENT NOT FASTINGP ERFORMED BY: EDSON [employer] Sroxqj8463 [facility] [id number] Information: NURSE DRAW MICROALBUMINOrdered By: Syst em Unit Clerk on 10-17-2021 Albumin DL <= 20 mg/L (U) [Mass/Vol] mg/dL Normal Comprehensiv e [facility]; [facility] Work Phone: Comment on above: Verified by repeat analysis PATIENT NOT FASTINGP ERFORMED BY: [employer] Tkgohv9102 [facility] [id number] Albumin/Creatinine (U) [Mass ratio] <3 Normal 0-29 [facility]; [facility] Work Phone: Comment on above: Normal: 0 - 29 Moder ately increased: 30 - 300 Severely increased: >300 PATIENT NOT FASTINGP ERFORMED BY: [employer] Oxqjhe3892 Up [facility] [id number] Creatinine (U) [Mass/Vol] 102.4 mg/dL Normal [facility]; [facility] Work Phone: Comment on above: PATIENT NOT FASTINGP ERFORMED BY: EDSON [facility] Bxhexl[address] [facility] [address] [facility] [id number] LIPID PANEL (27965)Ordered B y: Wind Turbine Machinist on 06-19-2021 Cholesterol [Mass/Vol] 236 mg/dL Abnormal 100-199 [facility]; [facility] Work Phone: Comment on above: Test(s) 990928-VZZA- CoV-2 Semi-Quant Total Ab; 140297-KNNQ-JoD-8 [facility] not been FDA cleared or approved. This test hasbeen authorized by FDA under an Emergency Use Authorization(EUA). This test is only authorized for the duration of thedeclaration that circumstances exist justifying the authorizationof emergency use of in vitro diagnostics for detection and/ordiagnosis of COVID-19 under Section 564(b)(1) of the Act, 21U.S.C. 360bbb-3(b)(1), unless the authorization is terminated orrevoked sooner. This test has been authorized only for detectingthe presence of antibodies against SARS-CoV-2, not for any otherviruses or pathogens.PATIENT WAS FASTINGPERFORMED BY: [facility] Xmbhih[address] [facility] [id number] Cholesterol in HDL [Mass/Vol] 74 mg/dL Normal [facility]; [facility] Work Phone: Comment on above: Test(s) 664743-MYVP- CoV-2 Semi-Quant Total Ab; 385364-ZTOY-PqY-9 [facility] not been FDA cleared or approved. This test hasbeen authorized by FDA under an Emergency Use Authorization(EUA). This test is only authorized for the duration of thedeclaration that circumstances exist justifying the authorizationof emergency use of in vitro diagnostics for detection and/ordiagnosis of COVID-19 under Section 564(b)(1) of the Act, 21U.S.C. 360bbb-3(b)(1), unless the authorization is terminated orrevoked sooner. This test has been authorized only for detectingthe presence of antibodies against SARS-CoV-2, not for any otherviruses or pathogens.PATIENT WAS FASTINGPERFORMED BY: [facility] [id number] Triglyceride [Mass/Vol] 56 mg/dL Normal 0-149 [facility]; [facility] Work Phone: Comment on above: Test(s) 179719-WYMJ- CoV-2 Semi-Quant Total Ab; 633058-CBSK-MnH-8 [facility] [employer] not been FDA cleared or approved. This test hasbeen authorized by FDA under an Emergency Use Authorization(EUA). This test is only authorized for the duration of thedeclaration that circumstances exist justifying the authorizationof emergency use of in vitro diagnostics for detection and/ordiagnosis of COVID-19 under Section 564(b)(1) of the Act, 21U.S.C. 360bbb-3(b)(1), unless the authorization is terminated orrevoked sooner. This test has been authorized only for detectingthe presence of antibodies against SARS-CoV-2, not for any otherviruses or pathogens.PATIENT WAS FASTINGPERFORMED BY: [facility] [id number] LIPID PANEL (77559) 9 mg/dL Normal 5-40 [facility]; [facility] Work Phone: Comment on above: Test(s) 041270-XEVA- CoV-2 Semi-Quant Total Ab; 667888-GVED-EnR-9 [facility] not been FDA cleared or approved. This test hasbeen authorized by FDA under an Emergency Use Authorization(EUA). This test is only authorized for the duration of thedeclaration that circumstances exist justifying the authorizationof emergency use of in vitro diagnostics for detection and/ordiagnosis of COVID-19 under Section 564(b)(1) of the Act, 21U.S.C. 360bbb-3(b)(1), unless the authorization is terminated orrevoked sooner. This test has been authorized only for detectingthe presence of antibodies against SARS-CoV-2, not for any otherviruses or pathogens.PATIENT WAS FASTINGPERFORMED BY: Unitrio TechnologyAleda E. L[facility] [facility] [id number] LIPID PANEL (57509) 153 mg/dL Abnormal 0-99 [facility] ehensive Internal Medicine; [facility] Work Phone: Comment on above: Test(s) 260134-FZFZ- CoV-2 Semi-Quant Total Ab; 345613-IHZR-OjZ-7 [facility] Interphas not been FDA cleared or approved. This test hasbeen authorized by FDA under an Emergency Use Authorization(EUA). This test is only authorized for the duration of thedeclaration that circumstances exist justifying the authorizationof emergency use of in vitro diagnostics for detection and/ordiagnosis of COVID-19 under Section 564(b)(1) of the Act, 21U.S.C. 360bbb-3(b)(1), unless the authorization is terminated orrevoked sooner. This test has been authorized only for detectingthe presence of antibodies against SARS-CoV-2, not for any otherviruses or pathogens.PATIENT WAS FASTINGPERFORMED BY: Unitrio TechnologyAleda E. Lutz [facility] [id number] LIPID PANEL (94444) 2.1 {ratio} Normal 0.0-3.6 [facility]; [facility] Work Phone: Comment on above: LDL/HDL Ratio Men Wo men 1/2 Avg.Risk 1.0 1.5 Avg.Risk 3.6 3.2 2X Avg.Risk 6.2 5.0 3X Avg.Risk 8.0 6.1 Test(s) 072611-JFXR- CoV-2 Semi-Quant Total Ab; 759205-XAVR-PtG-7 [facility] not been FDA cleared or approved. This test hasbeen authorized by FDA under an Emergency Use Authorization(EUA). This test is only authorized for the duration of thedeclaration that circumstances exist justifying the authorizationof emergency use of in vitro diagnostics for detection and/ordiagnosis of COVID-19 under Section 564(b)(1) of the Act, 21U.S.C. 360bbb-3(b)(1), unless the authorization is terminated orrevoked sooner. This test has been authorized only for detectingthe presence of antibodies against SARS-CoV-2, not for any otherviruses or pathogens.PATIENT WAS FASTINGPERFORMED BY: [facility] [id number] METABOLIC PANEL, COMPREHENSI VE (61212)Ordered By: Wind Turbine Machinist on 06-19-2021 Albumin [Mass/Vol] 3.9 g/dL Normal 3.8-4.8 [facility]; [facility] Work Phone: Comment on above: Test(s) 375709-BPVF- CoV-2 Semi-Quant Total Ab; 941979-BSOH-ZjE-8 [facility] not been FDA cleared or approved. This test hasbeen authorized by FDA under an Emergency Use Authorization(EUA). This test is only authorized for the duration of thedeclaration that circumstances exist justifying the authorizationof emergency use of in vitro diagnostics for detection and/ordiagnosis of COVID-19 under Section 564(b)(1) of the Act, 21U.S.C. 360bbb-3(b)(1), unless the authorization is terminated orrevoked sooner. This test has been authorized only for detectingthe presence of antibodies against SARS-CoV-2, not for any otherviruses or pathogens.PATIENT WAS FASTINGPERFORMED BY: [facility] [id number] Albumin/Globulin [Mass ratio] 1.5 {ratio} Normal 1.2-2.2 [facility]; [facility] Work Phone: Comment on above: Test(s) 357098-HBNI- CoV-2 Semi-Quant Total Ab; 667605-HERT-CuZ-5 [facility] not been FDA cleared or approved. This test hasbeen authorized by FDA under an Emergency Use Authorization(EUA). This test is only authorized for the duration of thedeclaration that circumstances exist justifying the authorizationof emergency use of in vitro diagnostics for detection and/ordiagnosis of COVID-19 under Section 564(b)(1) of the Act, 21U.S.C. 360bbb-3(b)(1), unless the authorization is terminated orrevoked sooner. This test has been authorized only for detectingthe presence of antibodies against SARS-CoV-2, not for any otherviruses or pathogens.PATIENT WAS FASTINGPERFORMED BY: [facility] [place] [id number] ALP [Catalytic activity/Vol] 76 U/L Normal 44-121 [facility]; [facility] Work Phone: Comment on above: Please note refere nce interval change Test(s) 211267-UIJH- CoV-2 Semi-Quant Total Ab; 861229-HTBE-IfD-7 [facility] not been FDA cleared or approved. This test hasbeen authorized by FDA under an Emergency Use Authorization(EUA). This test is only authorized for the duration of thedeclaration that circumstances exist justifying the authorizationof emergency use of in vitro diagnostics for detection and/ordiagnosis of COVID-19 under Section 564(b)(1) of the Act, 21U.S.C. 360bbb-3(b)(1), unless the authorization is terminated orrevoked sooner. This test has been authorized only for detectingthe presence of antibodies against SARS-CoV-2, not for any otherviruses or pathogens.PATIENT WAS FASTINGPERFORMED BY: [facility] [id number] ALT [Catalytic activity/Vol] 18 U/L Normal 0-44 [facility]; [facility] Work Phone: Comment on above: Test(s) 401366-FEHA- CoV-2 Semi-Quant Total Ab; 293338-IJHT-KpE-7 [facility] not been FDA cleared or approved. This test hasbeen authorized by FDA under an Emergency Use Authorization(EUA). This test is only authorized for the duration of thedeclaration that circumstances exist justifying the authorizationof emergency use of in vitro diagnostics for detection and/ordiagnosis of COVID-19 under Section 564(b)(1) of the Act, 21U.S.C. 360bbb-3(b)(1), unless the authorization is terminated orrevoked sooner. This test has been authorized only for detectingthe presence of antibodies against SARS-CoV-2, not for any otherviruses or pathogens.PATIENT WAS FASTINGPERFORMED BY: [facility] [id number] AST [Catalytic activity/Vol] 17 U/L Normal 0-40 [facility]; [facility] Work Phone: Comment on above: Test(s) 560568-YYME- CoV-2 Semi-Quant Total Ab; 929873-RLYF-RzR-5 [facility] not been FDA cleared or approved. This test hasbeen authorized by FDA under an Emergency Use Authorization(EUA). This test is only authorized for the duration of thedeclaration that circumstances exist justifying the authorizationof emergency use of in vitro diagnostics for detection and/ordiagnosis of COVID-19 under Section 564(b)(1) of the Act, 21U.S.C. 360bbb-3(b)(1), unless the authorization is terminated orrevoked sooner. This test has been authorized only for detectingthe presence of antibodies against SARS-CoV-2, not for any otherviruses or pathogens.PATIENT WAS FASTINGPERFORMED BY: [facility] [id number] Bilirubin [Mass/Vol] 0.5 mg/dL Normal 0.0-1.2 [facility]; [facility] Work Phone: Comment on above: Test(s) 514349-CBJV- CoV-2 Semi-Quant Total Ab; 876512-GVHW-HuU-7 [facility] not been FDA cleared or approved. This test hasbeen authorized by FDA under an Emergency Use Authorization(EUA). This test is only authorized for the duration of thedeclaration that circumstances exist justifying the authorizationof emergency use of in vitro diagnostics for detection and/ordiagnosis of COVID-19 under Section 564(b)(1) of the Act, 21U.S.C. 360bbb-3(b)(1), unless the authorization is terminated orrevoked sooner. This test has been authorized only for detectingthe presence of antibodies against SARS-CoV-2, not for any otherviruses or pathogens.PATIENT WAS FASTINGPERFORMED BY: [facility] [id number] Calcium [Mass/Vol] 9.3 mg/dL Normal 8.6-10.2 [facility]; [facility] Work Phone: Comment on above: Test(s) 662270-NQWZ- CoV-2 Semi-Quant Total Ab; 877902-URYJ-VuV-8 [facility] not been FDA cleared or approved. This test hasbeen authorized by FDA under an Emergency Use Authorization(EUA). This test is only authorized for the duration of thedeclaration that circumstances exist justifying the authorizationof emergency use of in vitro diagnostics for detection and/ordiagnosis of COVID-19 under Section 564(b)(1) of the Act, 21U.S.C. 360bbb-3(b)(1), unless the authorization is terminated orrevoked sooner. This test has been authorized only for detectingthe presence of antibodies against SARS-CoV-2, not for any otherviruses or pathogens.PATIENT WAS FASTINGPERFORMED BY: [facility] [id number] Chloride [Moles/Vol] 106 mmol/L Normal 96-106 [facility]; [facility] Work Phone: Comment on above: Test(s) 279949-EAWI- CoV-2 Semi-Quant Total Ab; 619124-WYYO-JtF-9 [facility] not been FDA cleared or approved. This test hasbeen authorized by FDA under an Emergency Use Authorization(EUA). This test is only authorized for the duration of thedeclaration that circumstances exist justifying the authorizationof emergency use of in vitro diagnostics for detection and/ordiagnosis of COVID-19 under Section 564(b)(1) of the Act, 21U.S.C. 360bbb-3(b)(1), unless the authorization is terminated orrevoked sooner. This test has been authorized only for detectingthe presence of antibodies against SARS-CoV-2, not for any otherviruses or pathogens.PATIENT WAS FASTINGPERFORMED BY: [facility] TechnologyAled[facility] [id number] CO2 [Moles/Vol] 26 mmol/L Normal 20-29 [facility]; [facility] Work Phone: Comment on above: Test(s) 979991-AHBW- CoV-2 Semi-Quant Total Ab; 515490-JXIY-KoU-6 [facility] not been FDA cleared or approved. This test hasbeen authorized by [facility] under an Emergency Use Authorization(EUA). This test is only authorized for the duration of thedeclaration that circumstances exist justifying the authorizationof emergency use of in vitro diagnostics for detection and/ordiagnosis of COVID-19 under Section 564(b)(1) of the Act, 21U.S.C. 360bbb-3(b)(1), unless the authorization is terminated orrevoked sooner. This test has been authorized only for detectingthe presence of antibodies against SARS-CoV-2, not for any otherviruses or pathogens.PATIENT WAS FASTINGPERFORMED BY: [facility] [id number] Creatinine [Mass/Vol] 1.11 mg/dL Normal 0.76-1.27 [facility]; [facility] Work Phone: Comment on above: Test(s) 126678-CBNW- CoV-2 Semi-Quant Total Ab; 490376-FAIZ-SbP-6 [facility] not been FDA cleared or approved. This test hasbeen authorized by [facility] under an Emergency Use Authorization(EUA). This test is only authorized for the duration of thedeclaration that circumstances exist justifying the authorizationof emergency use of in vitro diagnostics for detection and/ordiagnosis of COVID-19 under Section 564(b)(1) of the Act, 21U.S.C. 360bbb-3(b)(1), unless the authorization is terminated orrevoked sooner. This test has been authorized only for detectingthe presence of antibodies against SARS-CoV-2, not for any otherviruses or pathogens.PATIENT WAS FASTINGPERFORMED BY: [facility] [id number] GFR/1.73 sq M.predicted among blacks CKD-EPI (S/P/Bld) [Vol rate/Area] 81 mL/min/1.73 Normal [facility]; [facility] Work Phone: Comment on above: In accordance with recommendations from the NKF-ASN Task force, [facility] is in the process of updating its eGFR calculation to the 2020 CKD-EPI creatinine equation that estimates kidney function without a race variable. Test(s) 720431-VHLL- CoV-2 Semi-Quant Total Ab; 889954-MYOH-ZbT-1 [facility] not been FDA cleared or approved. This test hasbeen authorized by FDA under an Emergency Use Authorization(EUA). This test is only authorized for the duration of thedeclaration that circumstances exist justifying the authorizationof emergency use of in vitro diagnostics for detection and/ordiagnosis of COVID-19 under Section 564(b)(1) of the Act, 21U.S.C. 360bbb-3(b)(1), unless the authorization is terminated orrevoked sooner. This test has been authorized only for detectingthe presence of antibodies against SARS-CoV-2, not for any otherviruses or pathogens.PATIENT WAS FASTINGPERFORMED BY: [facility] [id number] GFR/1.73 sq M.predicted among non-blacks CKD-EPI (S/P/Bld) [Vol rate/Area] 70 mL/min/1.73 Normal [facility]; [facility] Work Phone: Comment on above: Test(s) 575641-BFJS- CoV-2 Semi-Quant Total Ab; 582677-OVRS-HbY-5 [facility] not been FDA cleared or approved. This test hasbeen authorized by FDA under an Emergency Use Authorization(EUA). This test is only authorized for the duration of thedeclaration that circumstances exist justifying the authorizationof emergency use of in vitro diagnostics for detection and/ordiagnosis of COVID-19 under Section 564(b)(1) of the Act, 21U.S.C. 360bbb-3(b)(1), unless the authorization is terminated orrevoked sooner. This test has been authorized only for detectingthe presence of antibodies against SARS-CoV-2, not for any otherviruses or pathogens.PATIENT WAS FASTINGPERFORMED BY: [facility] [place] [id number] Globulin (S) [Mass/Vol] 2.6 g/dL Normal 1.5-4.5 [facility]; [facility] Work Phone: Comment on above: Test(s) 779559-XWCZ- CoV-2 Semi-Quant Total Ab; 935755-ZAEP-YzY-8 [facility] not been FDA cleared or approved. This test hasbeen authorized by FDA under an Emergency Use Authorization(EUA). This test is only authorized for the duration of thedeclaration that circumstances exist justifying the authorizationof emergency use of in vitro diagnostics for detection and/ordiagnosis of COVID-19 under Section 564(b)(1) of the Act, 21U.S.C. 360bbb-3(b)(1), unless the authorization is terminated orrevoked sooner. This test has been authorized only for detectingthe presence of antibodies against SARS-CoV-2, not for any otherviruses or pathogens.PATIENT WAS FASTINGPERFORMED BY: [facility] [id number] Glucose [Mass/Vol] 98 mg/dL Normal 65-99 [facility]; [facility] Work Phone: Comment on above: Test(s) 412265-YCNR- CoV-2 Semi-Quant Total Ab; 926490-PYKZ-XvT-1 [facility] not been FDA cleared or approved. This test hasbeen authorized by FDA under an Emergency Use Authorization(EUA). This test is only authorized for the duration of thedeclaration that circumstances exist justifying the authorizationof emergency use of in vitro diagnostics for detection and/ordiagnosis of COVID-19 under Section 564(b)(1) of the Act, 21U.S.C. 360bbb-3(b)(1), unless the authorization is terminated orrevoked sooner. This test has been authorized only for detectingthe presence of antibodies against SARS-CoV-2, not for any otherviruses or pathogens.PATIENT WAS FASTINGPERFORMED BY: [facility] [place] [id number] Potassium [Moles/Vol] 4.8 mmol/L Normal 3.5-5.2 [facility]; [facility] Work Phone: Comment on above: Test(s) 076474-KNAP- CoV-2 Semi-Quant Total Ab; 462529-FRJE-SfS-2 [facility] not been FDA cleared or approved. This test hasbeen authorized by FDA under an Emergency Use Authorization(EUA). This test is only authorized for the duration of thedeclaration that circumstances exist justifying the authorizationof emergency use of in vitro diagnostics for detection and/ordiagnosis of COVID-19 under Section 564(b)(1) of the Act, 21U.S.C. 360bbb-3(b)(1), unless the authorization is terminated orrevoked sooner. This test has been authorized only for detectingthe presence of antibodies against SARS-CoV-2, not for any otherviruses or pathogens.PATIENT WAS FASTINGPERFORMED BY: [facility] [id number] Protein [Mass/Vol] 6.5 g/dL Normal 6.0-8.5 [facility]; [facility] Work Phone: Comment on above: Test(s) 748241-DHSF- CoV-2 Semi-Quant Total Ab; 714224-VNLI-UpQ-3 [facility] not been FDA cleared or approved. This test hasbeen authorized by FDA under an Emergency Use Authorization(EUA). This test is only authorized for the duration of thedeclaration that circumstances exist justifying the authorizationof emergency use of in vitro diagnostics for detection and/ordiagnosis of COVID-19 under Section 564(b)(1) of the Act, 21U.S.C. 360bbb-3(b)(1), unless the authorization is terminated orrevoked sooner. This test has been authorized only for detectingthe presence of antibodies against SARS-CoV-2, not for any otherviruses or pathogens.PATIENT WAS FASTINGPERFORMED BY: [facility] [id number] Sodium [Moles/Vol] 141 mmol/L Normal 134-144 [facility]; [facility] Work Phone: Comment on above: Test(s) 494693-GCRK- CoV-2 Semi-Quant Total Ab; 037534-TARY-CfU-3 [facility] not been FDA cleared or approved. This test hasbeen authorized by FDA under an Emergency Use Authorization(EUA). This test is only authorized for the duration of thedeclaration that circumstances exist justifying the authorizationof emergency use of in vitro diagnostics for detection and/ordiagnosis of COVID-19 under Section 564(b)(1) of the Act, 21U.S.C. 360bbb-3(b)(1), unless the authorization is terminated orrevoked sooner. This test has been authorized only for detectingthe presence of antibodies against SARS-CoV-2, not for any otherviruses or pathogens.PATIENT WAS FASTINGPERFORMED BY: [facility] [id number] Urea nitrogen [Mass/Vol] 20 mg/dL Normal 8-27 [facility]; [facility] Work Phone: Comment on above: Test(s) 126548-TGMY- CoV-2 Semi-Quant Total Ab; 662341-OCDV-JhT-5 [facility] not been FDA cleared or approved. This test hasbeen authorized by FDA under an Emergency Use Authorization(EUA). This test is only authorized for the duration of thedeclaration that circumstances exist justifying the authorizationof emergency use of in vitro diagnostics for detection and/ordiagnosis of COVID-19 under Section 564(b)(1) of the Act, 21U.S.C. 360bbb-3(b)(1), unless the authorization is terminated orrevoked sooner. This test has been authorized only for detectingthe presence of antibodies against SARS-CoV-2, not for any otherviruses or pathogens.PATIENT WAS FASTINGPERFORMED BY: [facility] [id number] Urea nitrogen/Creatinine [Mass ratio] 18 mg/mg Normal 10-24 [facility]; [facility] Work Phone: Comment on above: Test(s) 651217-EDVG- CoV-2 Semi-Quant Total Ab; 286829-OYOR-XlE-9 [facility] not been FDA cleared or approved. This test hasbeen authorized by FDA under an Emergency Use Authorization(EUA). This test is only authorized for the duration of thedeclaration that circumstances exist justifying the authorizationof emergency use of in vitro diagnostics for detection and/ordiagnosis of COVID-19 under Section 564(b)(1) of the Act, 21U.S.C. 360bbb-3(b)(1), unless the authorization is terminated orrevoked sooner. This test has been authorized only for detectingthe presence of antibodies against SARS-CoV-2, not for any otherviruses or pathogens.PATIENT WAS FASTINGPERFORMED BY: [facility] [id number] SARS-CoV-2 Semi-Quantitative Total Antibody, Hilton (02292)Ordered By: Wind Turbine Machinist on 06-19-2021 SARS-CoV-2 Semi-Quantitative Total Antibody, Hilton (71667) Positive Normal [facility]; [facility] Work Phone: Comment on above: [employer] Anti-S ARS-CoV-2 S Test(s) 385061-MJJI- CoV-2 Semi-Quant Total Ab; 264308-LCOH-CaB-0 [facility] not been FDA cleared or approved. This test hasbeen authorized by FDA under an Emergency Use Authorization(EUA). This test is only authorized for the duration of thedeclaration that circumstances exist justifying the authorizationof emergency use of in vitro diagnostics for detection and/ordiagnosis of COVID-19 under Section 564(b)(1) of the Act, 21U.S.C. 360bbb-3(b)(1), unless the authorization is terminated orrevoked sooner. This test has been authorized only for detectingthe presence of antibodies against SARS-CoV-2, not for any otherviruses or pathogens.PATIENT WAS FASTINGPERFORMED BY: [facility] [id number] SARS-CoV-2 Semi-Quantitative Total Antibody, Hilton (65047) >2500.0 Normal [facility]; [facility] Work Phone: Comment on above: Antibodies against t he SARS-CoV-2 spike protein receptor bindingdomain (RBD) were detected. It is yet undetermined what level ofantibody to SARS-CoV-2 spike protein correlates to immunity againstdeveloping symptomatic SARS-CoV-2 disease. Studies are underway tomeasure the quantitative levels of specific SARS-CoV-2 antibodiesfollowing vaccination. Such studies will provide valuable insightsinto the correlation between protection from vaccination andantibody levels. Test(s) 879179-WYSO- CoV-2 Semi-Quant Total Ab; 427671-KOGI-GdJ-2 [facility] not been FDA cleared or approved. This test hasbeen authorized by FDA under an Emergency Use Authorization(EUA). This test is only authorized for the duration of thedeclaration that circumstances exist justifying the authorizationof emergency use of in vitro diagnostics for detection and/ordiagnosis of COVID-19 under Section 564(b)(1) of the Act, 21U.S.C. 360bbb-3(b)(1), unless the authorization is terminated orrevoked sooner. This test has been authorized only for detectingthe presence of antibodies against SARS-CoV-2, not for any otherviruses or pathogens.PATIENT WAS FASTINGPERFORMED BY: [facility] [address] [id number] [facility] DAVID Telephone (HEMAWS) -- PAUL SHELTON ([id number]) 1960 Date Time Provider Department 04/27/21 REJIMINO During your visit today, we recorded the following information about you: Mino Godoy DO 04/27/2021 2:21 PM Signed Can let him know the laboratory testing here shows that his risk for DVT is average. Anticardiolipin antibody lower titer than what was previously observed when Dr. Hare ordered the testing. He may proceed with inguinal hernia repair surgery. Please fax a copy of this note and the results of the lupus anticoagulant test to both Drs. Gonzales and Asif. Mino Godoy DO Eulalia Palacio LPN 04/27/2021 2:40 PM Signed Pt notified and lab results faxed. Eulalia Palacio LPN Allergies As of Date: 04/27/2021 (No Known Allergies) Date Reviewed: 04/24/2021 Reviewed by: Saniya Ziegler LPN - Fully Assessed Reason for Visit: Results [95] Prescriptions as of 04/27/2021 - tamsulosin (FLOMAX) 0.4 mg Take 0.4 mg by mouth once daily. - ascorbic acid, vitamin C, (VITAMIN C) 500 mg tablet Take 500 mg by mouth once daily. - calcium phosphate dibas/vit D3 (VITAMIN D, WITH CALCIUM, ORAL) Take by mouth. Problem List As Of Date: 04/27/2021 (None) Encounter Status:Closed by EULALIA PALACIO LPN on 04/27/21 Normal [facility] APTT Incub Mix Ad Onon 04-24 aPTT Coag (Bld) [Time] 32.1 s Normal <33.2 [facility] Comment on above: Performed By: #### P TTADD, LUPUSP #### [facility] [address] [place], [place] [address] aPTT Coag (Bld) [Time] 33.1 s Normal <35.0 [facility] Comment on above: Performed By: #### P TTADD, LUPUSP #### [facility] [address] [place], [place] [address] B2 GPI IgG and IgMon 09-20-2 021 Beta2 Glycoprot IgM 16 [facility] Normal <20 [facility] Comment on above: Result Comment: < 20 [facility] Negative 20-80 [facility] Low Positive > 80 [facility] High Positive These results were obtained with the [employer] QUANTA Lite B2 GPI IgM RAVINDRA. B2 GPI IgM values obtained with different manufacturers' assay methods may not be used interchangeably. The magnitude of the reported IgM levels cannot be correlated to an endpoint titer. Performed By: #### B 2GPGM #### [facility] [address] [place], [place] [address] CNOVSPon 04-24-2021 CNOVSP Visit (SP) Office (H EMAWS) -- PAUL SHELTON ([id number]) 1960 Date Time Provider Department 04/24/21 11:10 AM MINO GODOY During your visit today, we recorded the following information about you: Temperature Pulse Blood pressure Weight 97.6 degrees 62/minute 113/72 83.5 kg Height 1.775 m Saniya Ziegler LPN 04/24/2021 11:44 AM Signed New patient. DX abnormal anticardiolipin level. Saniya Godoy DO 04/24/2021 1:09 PM Signed Patient referred by Dr. Hare for my opinion and recommendations regarding a patient with persistent anticardiolipin antibody and h/o PE. The impression and plan will be communicated by way of the shared electronic record or faxed under separate cover letter. HPI: The patient is a 60 yo male with a PMH signficant for hyperlipidemia, pulmonary emboli, right knee osteoarthritis status post replacement and anticardiolipin antibody. Patient was admitted to [facility] in November 2019 for COVID-19 infection with pneumonia and pulmonary emboli. He was actively smoking up until the time of his admission and evidently smoked for several months afterward. He was discharged on apixaban. Anticoagulation was stopped about 6 months later. At that time he underwent hypercoagulation testing. Beta-2 glycoprotein antibody, IgM was negative. Beta-2 glycoprotein antibody, IgG was negative. Protein S total was 82% protein S free was 144% and protein S functional was 82%. Antithrombin activity was 82%. Antithrombin antigen was 72%. Anticardiolipin antibody IgG was less than 9 but anticardiolipin antibody IgM was 31 indicating low to medium positive titer. Protein C antigen was 91% protein C function was 117%. Factor V Leiden was negative. Prothrombin gene mutation was negative. Patient then underwent left total knee replacement on 06/28/2020 with standard DVT prophylaxis. He has not had lower extremity swelling or edema. He endorses he quit smoking at the time he had Covid in November 2019. He is not short of breath at rest or with exertion. He has been making an effort to lose weight and has lost about 40 pounds since the time of Covid. The only lingering symptom he has is morning cough with some clear sputum production. No unusual bleeding or unexplained bruising. Repeat anticardiolipin antibody testing on 03/28/2021 revealed the IgG titer to be 23 and the IgM titer to be 20. Sex: Male. Smoker: Smoked up until 11/2019 when had Covid. Smoked several cigarettes a week for about 15-20 years previously. BMI: . Family h/o VTE: Father--DVTs when older. Family h/o atherosclerotic disease: PGF--Stroke age 74. Family h/o cancer: None known. Hypercoagulation labs: See above. Up to date on age and gender appropriate cancer screening studies: Hasn't had screening colonosocpy. Has PSA checked. Transient risk factors: Covid pneumonia. PMH, medications and allergies personally reviewed by me today. Any changes documented in appropriate section. ROS: Constitutional: Denies episodes of fever and night sweats. Neuro: Denies KOVACS, vertigo, dizziness and imbalance. HEENT: No recent change in voice, vision or hearing. Resp: Denies wheeze and hemoptysis. CVS: Denies exertional chest pain, PND, orthopnea and LE edema. GI: Denies dysgeusia. Denies symptoms of stomatitis. Denies dysphagia and odynophagia. Denies reflux, n/v, change in bowel habits and abdominal pain. : Denies dysuria or gross hematuria. No symptoms of bladder outlet obstruction. Endo: Denies hot flashes. Denies polyuria and polydipsia. Denies heat and cold intolerance. Musculoskeletal: Lumbar degenerative disease of L2, 3 and 4 with bilateral sciatica. Derm: Denies rash. Denies jaundice and diffuse pruritis. Heme: See above. Psych: Normal mood. PHYSICAL EXAM: Vitals: Blood pressure 113/72, pulse 62, temperature 36.4 ?C (97.6 ?F), temperature source Temporal, height 177.5 cm (5' 9.88), weight 83.5 kg (184 lb). Well-appearing and in no acute distress. EYES: Sclerae are anicteric bilaterally. LYMPHATIC: There is no palpable cervical, supraclavicular or axillary adenopathy. RESPIRATORY: Inspiratory breath sounds are of normal intensity in all arteaga. No rales, wheezes or rhonchi. CARDIOVASCULAR: Rhythm is regular. Mild varicosities. ABDOMEN: The abdomen is nondistended. No organomegaly. No tenderness. Extremities: No swelling or edema. SKIN: No jaundice or rash. No petechiae. NEUROLOGIC: cardiopulmonary technologist II-XII are grossly intact. No focal motor weakness. ASSESSMENT/PLAN: (I26.94) Multiple subsegmental pulmonary emboli without acute cor pulmonale (HCC) (primary encounter diagnosis) (R76.0) Anticardiolipin antibody positive Assessment: -The patient is a 60-year-old male who developed multiple pulmonary emboli in November 2019 when he had COVID-19 infection was hospitalized for Covid p (more content not included)... Normal [facility] Lupus Anticoag Panelon 04-24 aPTT Coag (Bld) [Time] 30.2 s Normal 23.0-32.4 [facility] Comment on above: Result Comment: Unfr actionated Heparin Therapeutic Ranges: Standard Heparin Nomogram: 53 to 78 seconds (anti-Xa level of 0.3 to 0.7 U/ml) Low Dose/ACS Nomogram: 49 to 67 seconds (anti-Xa level of 0.2 to 0.5 U/ml) Stroke Treatment Nomogram: 49 to 67 seconds (anti-Xa level of 0.2 to 0.5 U/ml) Note: The APTT therapeutic range has been determined for the current lot of laboratory APTT reagent in use throughout the [facility]. Performed By: #### P TTADD, LUPUSP #### [place] [id number] [place] [phone] aPTT Coag (Bld) [Time] 36.1 s High 24.0-35.1 [facility] Comment on above: Performed By: #### P TTADD, LUPUSP #### [place] [phone] Beta2 Glycoprot IgG <9 Normal <20 [facility] Comment on above: Result Comment: < 20 SGU Negative 20-80 SGU Low Positive > 80 SGU High Positive These results were obtained with the [email or web address] Lite B2 GPI IgG RAVINDRA. B2 GPI IgG values obtained with different manufacturers' assay methods may not be used interchangeably. The magnitude of the reported IgG levels cannot be correlated to an endpoint titer. Performed By: #### P TTADD, LUPUSP #### [place] [phone] Performed By: #### B 2GPGM #### [phone] Beta2 Glycoprot IgM 17 SMU Normal <20 [facility] Comment on above: Result Comment: < 20 SMU Negative 20-80 SMU Low Positive > 80 SMU High Positive These results were obtained with the [email or web address] Lite B2 GPI IgM RAVINDRA. B2 GPI IgM values obtained with different manufacturers' assay methods may not be used interchangeably. The magnitude of the reported IgM levels cannot be correlated to an endpoint titer. Performed By: #### P TTADD, LUPUSP #### [place] [phone] IgA Cardiolipin Ab. <9.0 Normal <12.0 [facility] Comment on above: Result Comment: Nega tive: <12.0 APL Indeterminate: 12.0-20.0 APL Positive: >20.0 APL The following results were obtained with an Inova QUANTA Lite ANDREI IgA III RAVINDRA. Cardiolipin IgA values obtained with different manufacturers' assay methods may not be used interchangeably. The magnitude of the reported IgA levels cannot be correlated to an endpoint titer. Performed By: #### P TTADD, LUPUSP #### [place] [address] IgG Cardiolipin Ab. <9.0 Normal <15.0 [facility] Comment on above: Result Comment: Nega tive: <15.0 GPL Indeterminate: 15.0-20.0 GPL Positive: >20.0 GP The following results were obtained with the Inova QUANTA Lite ANDREI IgG III RAVINDRA. Cardiolipin IgG values obtained with the different manufacturers' assay methods may not be used interchangeably. The magnitude of the reported IgG levels cannot be correlated to an endpoint titer. Performed By: #### P TTADD, LUPUSP #### [place] [address] IgM Cardiolipin Ab. 19.1 MPL High <12.5 [facility] Comment on above: Result Comment: Nega tive: <12.5 MP Indeterminate: 12.5-20.0 MPL Positive: >20.0 MPL The following results were obtained with the Inova QUANTA Lite ANDREI IgM III RAVINDRA. Cardiolipin IgM values obtained with different manufacturers' assay methods may not be used interchangeably. The magnitude of the reported IgM levels cannot be correlated to an endpoint titer. Performed By: #### P TTADD, LUPUSP #### [place] [address] Interpretation (NOTE) Normal [facility] Comment on above: Result Comment: Perf orming Pathologist: Marcia Mccoy Interpretation: Abnormal - see comment below. SIGNIFICANT FINDINGS: 1. Slightly elevated APTT screen (see interpretation) 2. Lupus anticoagulant: NEGATIVE Laboratory testing was performed to evaluate the presence of a lupus anticoagulant and antiphospholipid antibodies. Both the PT and APTT results are normal. However, the Lupus anticoagulant-sensitive APTT screen was slightly elevated. The etiology for the slightly prolonged APTT screen is not clear based on the results of the assays performed. If further evaluation of the cause of the prolonged APTT screen is desired, suggest ordering factors VIII, IX, XI, XII, von Willebrand antigen and ristocetin cofactor. The thrombin time and anti-Xa screen were normal. No heparin, anti-Xa or direct thrombin inhibitor drug effect is present. LUPUS ANTICOAGULANT STUDIES: There is no evidence for a lupus anticoagulant or other coagulation inhibitor at this time. ANTIPHOSPHOLIPID ANTIBODY STUDIES: One or more of the anticardiolipin antibody titers were minimally elevated. These findings are of doubtful clinical significance. Both the IgG and IgM Beta-2 Glycoprotein I antibody titers were negative. THE FOLLOWING TESTS WERE ADDED AND ARE REPORTED SEPARATELY: APTT mixing study, Hexagonal phase phospholipid neutralization, DRVVT and PNP. Performed By: #### P TTADD, LUPUSP #### [facility] [address] [place], [place] [address] PT INR 1.1 Normal 0.9-1.3 [facility] Comment on above: Result Comment: [place] min K Antagonist (VKA) Therapeutic Range: INR 2 to 3 (Target INR of 2.5) Note: For patients treated with VKA drugs, such as warfarin, the [place] [employer] 2012 Guideline recommends a therapeutic INR range of 2 to 3 (target INR of 2.5). This recommendation includes high-risk patients with antiphospholipid syndrome with previous arterial or venous thromboembolism, current-generation mechanical or bioprosthetic aortic heart valve replacement. Note: Patients with mechanical aortic valve replacement and additional risk factors for thromboembolic events (atrial fibrillation, previous thromboembolism, LV dysfunction, hypercoagulable conditions) or an older generation mechanical AVR (i.e., ball in-Cage) or any mechanical MVR should have a INR therapeutic range of 2.5 to 3.5 (target INR of 3). Ean GH, et al. Chest 2012, 141:7S-47S Lg RA, et al. [facility] 2017, 70: 252-289 Performed By: #### P TTADD, LUPUSP #### [facility] [address] [place], [place] [address] PT Sec 11.5 sec Normal 9.7-13.0 [facility] Comment on above: Performed By: #### P TTADD, LUPUSP #### [facility] [address] [place], [place] [address] Thrombin Time 17.1 sec Normal <18.6 [facility] Comment on above: Performed By: #### P TTADD, LUPUSP #### [facility] [address] [place], [place] [address] CNPCarmina 04-18-2021 CNPN Telephone (HEMAWS) -- PAUL SHELTON ([id number]) 1960 Date Time Provider Department 04/18/21 MINO GODOY During your visit today, we recorded the following information about you: Breanne Kern 04/18/2021 8:43 AM Signed New pt ref received. Dx: Abnormal anticardiolipin level Ref: Dr. Kathy Hare Insurance: [employer] File given to Dr. Godoy for review. Breanne Kern Allergies As of Date: 04/18/2021 (No Known Allergies) Date Reviewed: 05/17/2020 Reviewed by: Cecil Lema - Fully Assessed Reason for Visit: New Patient [172] Prescriptions as of 04/20/2021 - ascorbic acid, vitamin C, (VITAMIN C) 500 mg tablet Take 500 mg by mouth once daily. - calcium phosphate dibas/vit D3 (VITAMIN D, WITH CALCIUM, ORAL) Take by mouth. Problem List As Of Date: 04/18/2021 (None) Encounter Status:Closed by BREANNE KERN on 04/20/21 Normal [facility] ANTICARDIOLIPIN IgG/IgM 1618 02 ([id number])Ordered By: Wind Turbine Machinist on 03-28-2021 Cardiolipin IgG IA Qn (S) 23 {GPL_U/mL} Abnormal 0-14 [facility]; [facility] Work Phone: Comment on above: Negative: <15 Indete rminate: 15 - 20 Low-Med Positive: >20 - 80 High Positive: >80 now; PATIENT NOT FAS TINGPERFORMED BY: E[facility] [place] [id number] Cardiolipin IgM IA Qn (S) 20 {MPL_U/mL} Abnormal 0-12 [facility]; [facility] Work Phone: Comment on above: Negative: <13 Indete rminate: 13 - 20 Low-Med Positive: >20 - 80 High Positive: >80 now; PATIENT NOT FAS TINGPERFORMED BY: [facility] [place] [id number] CBC WITH MANUAL DIFF ([id number]) Ordered By: Wind Turbine Machinist on 03-14-2021 Basophils (Bld) [#/Vol] 0.0 10*3/uL Normal 0.0-0.2 [facility]; [facility] Work Phone: Comment on above: PATIENT WAS FASTINGP ERFORMED BY: [facility] [place] [id number] Information: NURSE DRAW Basophils/100 WBC (Bld) 1 % Normal [facility]; [facility] Work Phone: Comment on above: PATIENT WAS FASTINGP ERFORMED BY: [facility] [place] [id number] Information: NURSE DRAW Eosinophils (Bld) [#/Vol] 0.2 10*3/uL Normal 0.0-0.4 [facility]; [facility] Work Phone: Comment on above: PATIENT WAS FASTINGP ERFORMED BY: [facility] [place] [id number] Information: NURSE DRAW Eosinophils/100 WBC (Bld) 5 % Normal [facility]; [facility] Work Phone: Comment on above: PATIENT WAS FASTINGP ERFORMED BY: [facility] [place] [id number] Information: NURSE DRAW Erythrocyte distribution width (RBC) [Ratio] 12.1 % Normal 11.6-15.4 [facility]; [facility] Work Phone: Comment on above: PATIENT WAS FASTINGP ERFORMED BY: EDSON Masseylin[address] [place] [id number] Information: NURSE DRAW Hematocrit (Bld) [Volume fraction] 45.3 % Normal 37.5-51.0 [facility]; [facility] Work Phone: Comment on above: PATIENT WAS FASTINGP ERFORMED BY: Yamile[address] [id number] Information: NURSE DRAW Hemoglobin (Bld) [Mass/Vol] 15.0 g/dL Normal 13.0-17.7 [facility]; [facility] Work Phone: Comment on above: PATIENT WAS FASTINGP ERFORMED BY: [address] [id number] Information: NURSE DRAW Immature granulocytes (Bld) [#/Vol] 0.0 10*3/uL Normal 0.0-0.1 [facility]; [facility] Work Phone: Comment on above: PATIENT WAS FASTINGP ERFORMED BY: EDSON Ceja N[address] [id number] Information: NURSE DRAW Immature granulocytes/100 WBC (Bld) 0 % Normal [facility]; [facility] Work Phone: Comment on above: PATIENT WAS FASTINGP ERFORMED BY: [address] [id number] Information: NURSE DRAW Lymphocytes (Bld) [#/Vol] 1.1 10*3/uL Normal 0.7-3.1 [facility]; [facility] Work Phone: Comment on above: PATIENT WAS FASTINGP ERFORMED BY: [address] [id number] Information: NURSE DRAW Lymphocytes/100 WBC (Bld) 31 % Normal [facility]; [facility] Work Phone: Comment on above: PATIENT WAS FASTINGP ERFORMED BY: EDSON YamileAmelie [address] [place] [id number] Information: NURSE DRAW MCH (RBC) [Entitic mass] 31.8 pg Normal 26.6-33.0 [facility]; [facility] Work Phone: Comment on above: PATIENT WAS FASTINGP ERFORMED BY: EDSON Ceja Nqbcmc[address] [id number] Information: NURSE DRAW MCHC (RBC) [Mass/Vol] 33.1 g/dL Normal 31.5-35.7 [facility]; [facility] Work Phone: Comment on above: PATIENT WAS FASTINGP ERFORMED BY: EDSON YamileAmelie MasseyBwakec27[address] [id number] Information: NURSE DRAW MCV (RBC) [Entitic vol] 96 fL Normal 79-97 [facility]; [facility] Work Phone: Comment on above: PATIENT WAS FASTINGP ERFORMED BY: EDSON Massey[address] [id number] Information: NURSE DRAW Monocytes (Bld) [#/Vol] 0.4 10*3/uL Normal 0.1-0.9 [facility]; [facility] Work Phone: Comment on above: PATIENT WAS FASTINGP ERFORMED BY: EDSON Massey[address] [id number] Information: NURSE DRAW Monocytes/100 WBC (Bld) 11 % Normal [facility]; [facility] Work Phone: Comment on above: PATIENT WAS FASTINGP ERFORMED BY: EDSON [facility] [address] [id number] Information: NURSE DRAW Neutrophils (Bld) [#/Vol] 1.8 10*3/uL Normal 1.4-7.0 [facility]; [facility] Work Phone: Comment on above: PATIENT WAS FASTINGP ERFORMED BY: CB [facility] D[address]isv[address] [place] [id number] Information: NURSE DRAW Neutrophils/100 WBC (Bld) 52 % Normal [facility]; [facility] Work Phone: Comment on above: PATIENT WAS FASTINGP ERFORMED BY: EDSON Odell[address] [id number] Information: NURSE DRAW Platelets (Bld) [#/Vol] 207 10*3/uL Normal 150-450 [facility]; [facility] Work Phone: Comment on above: PATIENT WAS FASTINGP ERFORMED BY: EDSON Ceja K[address]ncz[address] [id number] Information: NURSE DRAW RBC (Bld) [#/Vol] 4.71 10*6/uL Normal 4.14-5.80 [facility]; [facility] Work Phone: Comment on above: PATIENT WAS FASTINGP ERFORMED BY: EDSON Adan Odell[address] [id number] Information: NURSE DRAW WBC (Bld) [#/Vol] 3.5 10*3/uL Normal 3.4-10.8 [facility]; [facility] Work Phone: Comment on above: PATIENT WAS FASTINGP ERFORMED BY: EDSON Marcialtootie [address] [id number] Information: NURSE DRAW Metabolic Panel, Comprehi charo ([id number])Ordered By: Wind Turbine Machinist on 03-14-2021 Albumin [Mass/Vol] 4.1 g/dL Normal 3.8-4.8 [facility]; [facility] Work Phone: Comment on above: PATIENT WAS FASTINGP ERFORMED BY: EDSON Marcialtootie Nhfciy[address] [place] [id number]; fu 8-24 db Albumin/Globulin [Mass ratio] 1.7 {ratio} Normal 1.2-2.2 [facility]; [facility] Work Phone: Comment on above: PATIENT WAS FASTINGP ERFORMED BY: CB [facility] Odzlsy[address] RoadD[address] [place] [id number]; fu 8-24 db ALP [Catalytic activity/Vol] 73 U/L Normal 48-121 [facility]; [facility] Work Phone: Comment on above: PATIENT WAS FASTINGP ERFORMED BY: CB [facility] Hartjr[address] RoadDublin [place] [id number]; fu 8-24 db ALT [Catalytic activity/Vol] 13 U/L Normal 0-44 [facility]; [facility] Work Phone: Comment on above: PATIENT WAS FASTINGP ERFORMED BY: CB [facility] Cthfin[address] RoadD[address] [place] [id number]; fu 8-24 db AST [Catalytic activity/Vol] 15 U/L Normal 0-40 [facility]; [facility] Work Phone: Comment on above: PATIENT WAS FASTINGP ERFORMED BY: CB [facility] Dtfbvp85[address] RoadD[address] [place] [id number]; fu 8-24 db Bilirubin [Mass/Vol] 0.6 mg/dL Normal 0.0-1.2 [facility]; [facility] Work Phone: Comment on above: PATIENT WAS FASTINGP ERFORMED BY: [facility] Sowugn[address] RoadDublin [place] [id number]; fu 8-24 db Calcium [Mass/Vol] 9.2 mg/dL Normal 8.6-10.2 [facility]; [facility] Work Phone: Comment on above: PATIENT WAS FASTINGP ERFORMED BY: CB [facility] Qjstmn[address] RoadDublin [place] [id number]; fu 8-24 db Chloride [Moles/Vol] 105 mmol/L Normal 96-106 [facility]; [facility] Work Phone: Comment on above: PATIENT WAS FASTINGP ERFORMED BY: CB [facility] Kdwxqs3[address] RoadD[address] [place] [id number]; fu 8-24 db CO2 [Moles/Vol] 25 mmol/L Normal 20-29 [facility]; [facility] Work Phone: Comment on above: PATIENT WAS FASTINGP ERFORMED BY: [facility] Nkecky[address] [facility] [id number]; fu 8-24 db Creatinine [Mass/Vol] 0.98 mg/dL Normal 0.76-1.27 [facility]; [facility] Work Phone: Comment on above: PATIENT WAS FASTINGP ERFORMED BY: [facility] Rvcjib[address] [place] [id number]; fu 8-24 db GFR/1.73 sq M.predicted among blacks CKD-EPI (S/P/Bld) [Vol rate/Area] 95 mL/min/1.73 Normal [facility]; [facility] Work Phone: Comment on above: [facility] currently reports eGFR in compliance with the current recommendations of the National Kidney Foundation. [facility] will update reporting as new guidelines are published from the NKF-ASN Task force. PATIENT WAS FASTINGP ERFORMED BY: [facility] Ffmebg[address] [id number]; fu 8-24 db GFR/1.73 sq M.predicted among non-blacks CKD-EPI (S/P/Bld) [Vol rate/Area] 82 mL/min/1.73 Normal [facility]; [facility] Work Phone: Comment on above: PATIENT WAS FASTINGP ERFORMED BY: [facility] I[address]ptcg[address] [place] [id number]; fu 8-24 db Globulin (S) [Mass/Vol] 2.4 g/dL Normal 1.5-4.5 [facility]; [facility] Work Phone: Comment on above: PATIENT WAS FASTINGP ERFORMED BY: [facility] Keqzhr[address] [facility] [id number]; fu 8-24 db Glucose [Mass/Vol] 97 mg/dL Normal 65-99 [facility]; [facility] Work Phone: Comment on above: PATIENT WAS FASTINGP ERFORMED BY: CB [facility] Tanpzo[address] [place] [id number]; fu 8-24 db Potassium [Moles/Vol] 4.6 mmol/L Normal 3.5-5.2 [facility]; [facility] Work Phone: Comment on above: PATIENT WAS FASTINGP ERFORMED BY: CB [facility] Qjsatr[address] [place] [id number]; fu 8-24 db Protein [Mass/Vol] 6.5 g/dL Normal 6.0-8.5 [facility]; [facility] Work Phone: Comment on above: PATIENT WAS FASTINGP ERFORMED BY: CB [facility] Awbimx[address] Road[address] [place] [id number]; fu 8-24 db Sodium [Moles/Vol] 141 mmol/L Normal 134-144 [facility]; [facility] Work Phone: Comment on above: PATIENT WAS FASTINGP ERFORMED BY: CB [facility] Yehrjg[address] [place] [id number]; fu 8-24 db Urea nitrogen [Mass/Vol] 17 mg/dL Normal 8-27 [facility]; [facility] Work Phone: Comment on above: PATIENT WAS FASTINGP ERFORMED BY: CB [facility] Ptnamv[address] [place] [id number]; fu 8-24 db Urea nitrogen/Creatinine [Mass ratio] 17 mg/mg Normal 10-24 [facility]; [facility] Work Phone: Comment on above: PATIENT WAS FASTINGP ERFORMED BY: CB [facility] Agkfec[address] Road[address] [place] [id number]; fu 8-24 db PSA (Prostate Specific Antig en), Screening ([id number])Ordered By: Wind Turbine Machinist on 03-14-2021 Prostate specific Ag [Mass/Vol] 0.6 ng/mL Normal 0.0-4.0 [facility]; [facility] Work Phone: Comment on above: Velasquez ECLIA methodol ogy. .According to the [place] [employer], Serum PSA shoulddecrease and remain at undetectable levels after radicalprostatectomy. The AUA defines biochemical recurrence as an initialPSA value 0.2 ng/mL or greater followed by a subsequent confirmatoryPSA value 0.2 ng/mL or greater.Values obtained with different assay methods or kits cannot be usedinterchangeably. Results cannot be interpreted as absolute evidenceof the presence or absence of malignant disease. PATIENT WAS FASTINGP ERFORMED BY: CB [facility] [id number] Up RoadDublin [place] [id number] URINALYSIS ([id number])Ordered By : Wind Turbine Machinist on 03-14-2021 Appearance (U) Clear Normal [facility]; [facility] Work Phone: Comment on above: PATIENT WAS FASTINGP ERFORMED BY: CB [facility] [id number] Up RoadDublin [place] [id number] Bilirubin Ql (U) Negative Normal Comprehe [facility]; [facility] Work Phone: Comment on above: PATIENT WAS FASTINGP ERFORMED BY: CB [facility] [id number] Up RoadDublin [place] [id number] Color (U) Yellow Normal [facility]; [facility] Work Phone: Comment on above: PATIENT WAS FASTINGP ERFORMED BY: CB [facility] [id number] Up RoadDublin [place] [id number] Glucose Ql (U) Negative Normal [facility]; [facility] Work Phone: Comment on above: PATIENT WAS FASTINGP ERFORMED BY: CB [facility] Eosqcs2442 Up RoadDublin [place] [id number] Hemoglobin Ql (U) Negative Normal Compreh [facility]; [facility] Work Phone: Comment on above: PATIENT WAS FASTINGP ERFORMED BY: CB [facility] [id number] Up RoadDublin [place] [id number] Ketones Ql (U) Negative Normal [facility]; [facility] Work Phone: Comment on above: PATIENT WAS FASTINGP ERFORMED BY: EDSON Odell6370 Up RoadDublin [place] [id number] Leukocyte esterase Test strip Ql (U) Negative Normal [facility]; [facility] Work Phone: Comment on above: PATIENT WAS FASTINGP ERFORMED BY: EDSON Odell6[address] Up RoadDublin [place] [id number] Microscopic observation LM Nom (Urine sed) MICNIP Normal [facility]; [facility] Work Phone: Comment on above: Microscopic not emeli cated and not performed. PATIENT WAS FASTINGP ERFORMED BY: EDSON LabAmelie MasseyQkqurw8285 Up RoadDublin [place] [id number] Nitrite Ql (U) Negative Normal [facility]; [facility] Work Phone: Comment on above: PATIENT WAS FASTINGP ERFORMED BY: EDSON Odell6[address] Up [facility] [place] [id number] pH (U) 6.0 [pH] Normal 5.0-7.5 [facility]; [facility] Work Phone: Comment on above: PATIENT WAS FASTINGP ERFORMED BY: EDSON Masseylin6370 Up RoadFormerly [facility] Carein [place] [id number] Protein Ql (U) Negative Normal [facility]; [facility] Work Phone: Comment on above: PATIENT WAS FASTINGP ERFORMED BY: EDSON Odell[address] [facility] [id number] Specific gravity (U) [Rel density] 1.016 1 Normal 1.005-1.03 0 [facility]; [facility] Work Phone: Comment on above: PATIENT WAS FASTINGP ERFORMED BY: EDSON Masseylin6370 Up [facility] [id number] Urobilinogen (U) [Mass/Vol] 0.2 mg/dL Normal 0.2-1.0 [facility]; [facility] Work Phone: Comment on above: PATIENT WAS FASTINGP ERFORMED BY: EDSON Masseylin[address] [facility] [id number] .GFRon 06-30-2020 GFR 91 ml/min/1.73sqm Normal [facility] ([place]) Comment on above: Result Comment: GFR Population mean for , Non- Americans Ages 20-29 = 116 mL/min/1.73 sq.m. Ages 30-39 = 107 mL/min/1.73 sq.m. Ages 40-49 = 99 mL/min/1.73 sq.m. Ages 50-59 = 93 mL/min/1.73 sq.m. Ages 60-69 = 85 mL/min/1.73 sq.m. Ages 70+ = 75 mL/min/1.73 sq.m. Chronic Kidney Disease: Less than 60 mL/min/1.73 square meters End Stage Renal Disease: Less than 15 mL/min/1.73 square meters Performed By: #### B MP, GFR #### Aaliyah [address] [address] GFR Non- 75 ml/min/1.73sqm Normal [facility] ([place]) Comment on above: Result Comment: GFR Population mean for , Non- Americans Ages 20-29 = 116 mL/min/1.73 sq.m. Ages 30-39 = 107 mL/min/1.73 sq.m. Ages 40-49 = 99 mL/min/1.73 sq.m. Ages 50-59 = 93 mL/min/1.73 sq.m. Ages 60-69 = 85 mL/min/1.73 sq.m. Ages 70+ = 75 mL/min/1.73 sq.m. Chronic Kidney Disease: Less than 60 mL/min/1.73 square meters End Stage Renal Disease: Less than 15 mL/min/1.73 square meters Performed By: #### B MP, GFR #### Aaliyah [address] [address] BMPon 06-30-2020 Calcium [Mass/Vol] 8.5 mg/dL Normal 8.4-10.2 [facility] ([place]) Comment on above: Performed By: #### B MP, GFR #### [address] [address] Chloride [Moles/Vol] 104 mmol/L Normal 98-107 [facility] ([place]) Comment on above: Performed By: #### B MP, GFR #### [address] [address] CO2 [Moles/Vol] 27 mmol/L Normal 23-31 [facility] ([place]) Comment on above: Performed By: #### B MP, GFR #### [address] [address] Creatinine [Mass/Vol] 1.01 mg/dL Normal 0.70-1.30 [facility] ([place]) Comment on above: Performed By: #### B MP, GFR #### [address] [address] Electrolyte Balance 5.0 mEq/L Normal [facility] ([place]) Comment on above: Performed By: #### B MP, GFR #### [address] [address] Glucose [Mass/Vol] 113 mg/dL Normal 80-115 [facility] ([place]) Comment on above: Performed By: #### B MP, GFR #### [address] [address] Potassium [Moles/Vol] 4.4 mmol/L Normal 3.5-5.1 [facility] ([place]) Comment on above: Performed By: #### B MP, GFR #### [address] [address] Sodium [Moles/Vol] 136 mmol/L Normal 136-145 [facility] ([place]) Comment on above: Performed By: #### B MP, GFR #### [address] [address] Urea nitrogen [Mass/Vol] 24 mg/dL High 7-18 [facility] ([place]) Comment on above: Performed By: #### B MP, GFR #### [address] [address] Urea nitrogen/Creatinine [Mass ratio] 24 ratio Normal 7-27 [facility] ([place]) Comment on above: Performed By: #### B MP, GFR #### [address] [address] .Auto Diffon 06-29-2020 Ammonia (P) [Mass/Vol] 0.80 10 3/mcL Normal 0.15-1.00 [facility] ([place]) Comment on above: Performed By: #### C BC, BMP, ANEU, ADIFF, GFR #### [address] [address] Basophils (Bld) [#/Vol] 0.00 10 3/mcL Normal 0.00-0.19 [facility] ([place]) Comment on above: Performed By: #### C BC, BMP, ANEU, ADIFF, GFR #### [address] [address] Basophils/100 WBC (Bld) 0.1 % Normal 0.0-2.5 [facility] ([place]) Comment on above: Performed By: #### C BC, BMP, ANEU, ADIFF, GFR #### [address] [address] Eosinophils (Bld) [#/Vol] 0.00 10 3/mcL Normal 0.00-0.40 [facility] ([place]) Comment on above: Performed By: #### C BC, BMP, ANEU, ADIFF, GFR #### [address] [address] Eosinophils/100 WBC (Bld) 0.0 % Normal 0.0-7.0 [facility] ([place]) Comment on above: Performed By: #### C BC, BMP, ANEU, ADIFF, GFR #### [address] [address] Lymphocytes (Bld) [#/Vol] 0.90 10 3/mcL Normal 0.77-3.85 [facility] ([place]) Comment on above: Performed By: #### C BC, BMP, ANEU, ADIFF, GFR #### [address] [address] Lymphocytes/100 WBC (Bld) 9.3 % Low 10.0-50.0 [facility] ([place]) Comment on above: Performed By: #### C BC, BMP, ANEU, ADIFF, GFR #### [address] [address] Monocytes/100 WBC (Bld) 8.0 % Normal 1.7-13.0 [facility] ([place]) Comment on above: Performed By: #### C BC, BMP, ANEU, ADIFF, GFR #### [address] [address] Neutrophils/100 WBC (Bld) 82.6 % High 37.0-80.0 [facility] ([place]) Comment on above: Performed By: #### C BC, BMP, ANEU, ADIFF, GFR #### [address] [address] .NEUABSon 06-29-2020 Neutrophils (Bld) [#/Vol] 8.30 10 3/mcL High 2.85-6.16 [facility] ([place]) Comment on above: Performed By: #### C BC, BMP, ANEU, ADIFF, GFR #### [address] [address] CBCon 06-29-2020 Erythrocyte distribution width (RBC) [Ratio] 13.2 % Normal 11.5-14.5 [facility] ([place]) Comment on above: Performed By: #### C BC, BMP, ANEU, ADIFF, GFR #### [address] [address] Hematocrit (Bld) [Volume fraction] 38.5 % Low 42.0-52.0 [facility] ([place]) Comment on above: Performed By: #### C BC, BMP, ANEU, ADIFF, GFR #### [address] [address] Hemoglobin (Bld) [Mass/Vol] 13.2 G/dL Low 14.0-18.0 [facility] ([place]) Comment on above: Performed By: #### C BC, BMP, ANEU, ADIFF, GFR #### [address] [address] MCH (RBC) [Entitic mass] 32.2 pg High 27.0-31.2 [facility] ([place]) Comment on above: Performed By: #### C BC, BMP, ANEU, ADIFF, GFR #### [address] [address] MCHC (RBC) [Mass/Vol] 34.4 G/dL Normal 31.8-35.4 [facility] ([place]) Comment on above: Performed By: #### C BC, BMP, ANEU, ADIFF, GFR #### [address] [address] MCV (RBC) [Entitic vol] 93.6 fL Normal 80.0-94.0 [facility] ([place]) Comment on above: Performed By: #### C BC, BMP, ANEU, ADIFF, GFR #### [address] [address] Platelet mean volume (Bld) [Entitic vol] 8.1 fL Normal 7.4-10.4 [facility] ([place]) Comment on above: Performed By: #### C BC, BMP, ANEU, ADIFF, GFR #### [address] [address] Platelets (Bld) [#/Vol] 165 10 3/mcL Normal 130-400 [facility] ([place]) Comment on above: Performed By: #### C BC, BMP, ANEU, ADIFF, GFR #### [address] [address] RBC (Bld) [#/Vol] 4.11 10 6/mcL Normal 4.04-6.13 [facility] ([place]) Comment on above: Performed By: #### C BC, BMP, ANEU, ADIFF, GFR #### [address] [address] WBC (Bld) [#/Vol] 10.00 10 3/mcL Normal 4.60-10.80 [facility] ([place]) Comment on above: Performed By: #### C BC, BMP, ANEU, ADIFF, GFR #### Aaliy[address] [address] XR KNEE 1 OR 2 VIEWS LEFTon 06-28-2020 XR KNEE 1 OR 2 VIEWS LEFT ORIGINAL XR KNEE 1 OR 2 VIEWS LEFT CLINICAL STATEMENT: Status Post Arthroplasty. COMPARISON: None FINDINGS: There are skin meron at the operative site and there is some soft tissue and joint air from the procedure. The prosthetic components are well seated and there is no adjacent fracture identified. IMPRESSION: Expected postoperative findings. Interpreted By: Jose Ervin MD Preliminary Report By: Jose Ervin MD Electronically Signed By: Jose Ervin MD Dictated Date: 06/28/2020 1:57:58 PM Prelim Date: 06/28/2020 1:57:58 PM Sign Date: 06/28/2020 1:58:28 PM Ordering Provider:Raphael Jessica [facility] ([place]) 2019 Novel Coronavirus (COVI D-19), RADHA ([id number])Ordered By: Wind Turbine Machinist on 06-20-20202018 Novel Coronavirus (COVID-19), RADHA ([id number]) Not Detected Normal [facility] Work Phone: Comment on above: This nucleic acid am plification test was developed and its performancecharacteristics determined by [employer]. Nucleic acidamplification tests include PCR and TMA. This test has not been FDAcleared or approved. This test has been authorized by FDA under anEmergency Use Authorization (EUA). This test is only authorized forthe duration of time the declaration that circumstances existjustifying the authorization of the emergency use of in vitrodiagnostic tests for detection of SARS-CoV-2 virus and/or diagnosisof COVID-19 infection under section 564(b)(1) of the Act, 21 U.S.C.360bbb-3(b) (1), unless the authorization is terminated or revokedsooner.When diagnostic testing is negative, the possibility of a falsenegative result should be considered in the context of a patient'srecent exposures and the presence of clinical signs and symptomsconsistent with COVID-19. An individual without symptoms of COVID-19and who is not shedding SARS-CoV-2 virus would expect to have anegative (not detected) result in this assay. PATIENT NOT FASTINGP ERFORMED BY: [employer]m3595 [facility] [id number] 2018 Novel Coronavirus (COVID-19), RADHA ([id number]) Not detected Normal [facility]; [facility] Work Phone: Comment on above: This nucleic acid am plification test was developed and its performancecharacteristics determined by [employer]. Nucleic acidamplification tests include PCR and TMA. This test has not been FDAcleared or approved. This test has been authorized by FDA under anEmergency Use Authorization (EUA). This test is only authorized forthe duration of time the declaration that circumstances existjustifying the authorization of the emergency use of in vitrodiagnostic tests for detection of SARS-CoV-2 virus and/or diagnosisof COVID-19 infection under section 564(b)(1) of the Act, 21 U.S.C.360bbb-3(b) (1), unless the authorization is terminated or revokedsooner.When diagnostic testing is negative, the possibility of a falsenegative result should be considered in the context of a patient'srecent exposures and the presence of clinical signs and symptomsconsistent with COVID-19. An individual without symptoms of COVID-19and who is not shedding SARS-CoV-2 virus would expect to have anegative (not detected) result in this assay. PATIENT NOT FASTINGP ERFORMED BY: [id number] [facility] [id number] CT KNEE W/O CONTRAST LEFTon 06-14-2020 CT KNEE W/O CONTRAST LEFT ORIGINAL CT of the LEFT knee without contrast Technique: Axial images of the knee are obtained with sagittal and coronal reconstructions. Limited axial imaging is also performed through the ipsilateral hip and ankle joints. This exam was performed according to our departmental dose-optimization program which includes automated exposure control, adjustment of the mA and/or kVp according to patient size and/or use of iterative reconstruction technique where applicable. COMPARISON: None Indication: VARUS DEFORMITY NOT ELSEWHERE CLASSIFIED LEFT KNEE, chronic knee pain Findings: Medial compartment: Moderate marginal spurring, subchondral sclerosis and cystic changes with moderate to severe compartment narrowing. Lateral compartment: Large marginal osteophytes with subchondral sclerosis but no compartment narrowing. Patellofemoral compartment: Patellofemoral marginal spurring and subchondral sclerosis. No obvious high-grade chondromalacia. Other: There is small joint effusion. Small medial popliteal cyst with a 1 cm calcific loose body within it. No other intra-articular loose body is seen. There is a small amount of fluid extending from the inferior aspect of the popliteal cyst and surrounding the anterior medial and posterior aspect of the medial gastrocnemius. This may be related to popliteal cyst rupture. Hip: Limited axial images through the hip joint. Mild osteoarthritis of the hip. Ankle: Limited axial images of the ankle are also obtained. No aggressive lesions are seen at the ankle. IMPRESSION: 1. Tricompartment osteoarthritis. 2. Small joint effusion and small medial popliteal cyst with a 1 cm ossific loose body in the popliteal cyst. Suspect popliteal cyst rupture dissecting into the posterior medial lower leg and around the medial gastrocnemius as described. Interpreted By: Last Go MD Preliminary Report By: Last Go MD Electronically Signed By: Last Go MD Dictated Date: 06/14/2020 3:09:56 PM Prelim Date: 06/14/2020 3:09:56 PM Sign Date: 06/14/2020 3:16:22 PM Ordering Provider:Raphael Scott [facility] ([place]) .Auto Diffon 06-13-2020 Ammonia (P) [Mass/Vol] 0.80 10 3/mcL Normal 0.15-1.00 [facility] ([place]) Comment on above: Performed By: #### A SARAH, CBC, ADIFF #### [address] [address] Basophils (Bld) [#/Vol] 0.00 10 3/mcL Normal 0.00-0.19 [facility] ([place]) Comment on above: Performed By: #### A SARAH, CBC, ADIFF #### [id number] [place], [place] [address] Basophils/100 WBC (Bld) 0.2 % Normal 0.0-2.5 [facility] ([place]) Comment on above: Performed By: #### A SARAH, CBC, ADIFF #### [address] [address] Eosinophils (Bld) [#/Vol] 0.00 10 3/mcL Normal 0.00-0.40 [facility] ([place]) Comment on above: Performed By: #### A SARAH, CBC, ADIFF #### [address] [address] Eosinophils/100 WBC (Bld) 0.6 % Normal 0.0-7.0 [facility] ([place]) Comment on above: Performed By: #### A SARAH, CBC, ADIFF #### [address] [address] Lymphocytes (Bld) [#/Vol] 1.40 10 3/mcL Normal 0.77-3.85 [facility] ([place]) Comment on above: Performed By: #### A SARAH, CBC, ADIFF #### [address] [address] Lymphocytes/100 WBC (Bld) 21.9 % Normal 10.0-50.0 [facility] ([place]) Comment on above: Performed By: #### A SARAH, CBC, ADIFF #### [address] [address] Monocytes/100 WBC (Bld) 12.5 % Normal 1.7-13.0 [facility] ([place]) Comment on above: Performed By: #### A SARAH, CBC, ADIFF #### [address] [address] Neutrophils/100 WBC (Bld) 64.8 % Normal 37.0-80.0 [facility] ([place]) Comment on above: Performed By: #### A SARAH, CBC, ADIFF #### [address] [address] .GFRon 06-13-2020 GFR 105 ml/min/1.73sqm Normal [facility] ([place]) Comment on above: Result Comment: GFR Population mean for , Non- Americans Ages 20-29 = 116 mL/min/1.73 sq.m. Ages 30-39 = 107 mL/min/1.73 sq.m. Ages 40-49 = 99 mL/min/1.73 sq.m. Ages 50-59 = 93 mL/min/1.73 sq.m. Ages 60-69 = 85 mL/min/1.73 sq.m. Ages 70+ = 75 mL/min/1.73 sq.m. Chronic Kidney Disease: Less than 60 mL/min/1.73 square meters End Stage Renal Disease: Less than 15 mL/min/1.73 square meters Performed By: #### B MP, GFR #### [address] [address] GFR Non- 87 ml/min/1.73sqm Normal [facility] ([place]) Comment on above: Result Comment: GFR Population mean for , Non- Americans Ages 20-29 = 116 mL/min/1.73 sq.m. Ages 30-39 = 107 mL/min/1.73 sq.m. Ages 40-49 = 99 mL/min/1.73 sq.m. Ages 50-59 = 93 mL/min/1.73 sq.m. Ages 60-69 = 85 mL/min/1.73 sq.m. Ages 70+ = 75 mL/min/1.73 sq.m. Chronic Kidney Disease: Less than 60 mL/min/1.73 square meters End Stage Renal Disease: Less than 15 mL/min/1.73 square meters Performed By: #### B MP, GFR #### [address] [address] .NEUABSon 06-13-2020 Neutrophils (Bld) [#/Vol] 4.10 10 3/mcL Normal 2.85-6.16 [facility] ([place]) Comment on above: Performed By: #### A SARAH, CBC, ADIFF #### [address] [address] BMPon 06-13-2020 Calcium [Mass/Vol] 8.6 mg/dL Normal 8.4-10.2 [facility] ([place]) Comment on above: Performed By: #### B MP, GFR #### [address] [address] Chloride [Moles/Vol] 104 mmol/L Normal 98-107 [facility] ([place]) Comment on above: Performed By: #### B MP, GFR #### [address] [address] CO2 [Moles/Vol] 25 mmol/L Normal 23-31 [facility] ([place]) Comment on above: Performed By: #### B MP, GFR #### [address] [address] Creatinine [Mass/Vol] 0.89 mg/dL Normal 0.70-1.30 [facility] ([place]) Comment on above: Performed By: #### B MP, GFR #### [address] [address] Electrolyte Balance 10.0 mEq/L Normal [facility] ([place]) Comment on above: Performed By: #### B MP, GFR #### [address] [address] Glucose [Mass/Vol] 75 mg/dL Low 80-115 [facility] ([place]) Comment on above: Performed By: #### B MP, GFR #### [address] [address] Potassium [Moles/Vol] 4.2 mmol/L Normal 3.5-5.1 [facility] ([place]) Comment on above: Performed By: #### B MP, GFR #### [address] [address] Sodium [Moles/Vol] 139 mmol/L Normal 136-145 [facility] ([place]) Comment on above: Performed By: #### B MP, GFR #### [address] [address] Urea nitrogen [Mass/Vol] 25 mg/dL High 7-18 [facility] ([place]) Comment on above: Performed By: #### B MP, GFR #### [address] [address] Urea nitrogen/Creatinine [Mass ratio] 28 ratio High 7-27 [facility] ([place]) Comment on above: Performed By: #### B MP, GFR #### [address] [address] CBCon 06-13-2020 Erythrocyte distribution width (RBC) [Ratio] 13.5 % Normal 11.5-14.5 [facility] ([place]) Comment on above: Performed By: #### A SARAH, CBC, ADIFF #### [address] [address] Hematocrit (Bld) [Volume fraction] 44.5 % Normal 42.0-52.0 [facility] ([place]) Comment on above: Performed By: #### A SARAH, CBC, ADIFF #### [address] [address] Hemoglobin (Bld) [Mass/Vol] 15.2 G/dL Normal 14.0-18.0 [facility] ([place]) Comment on above: Performed By: #### A SARAH, CBC, ADIFF #### [address] [address] MCH (RBC) [Entitic mass] 32.0 pg High 27.0-31.2 [facility] ([place]) Comment on above: Performed By: #### A SARAH, CBC, ADIFF #### [address] [address] MCHC (RBC) [Mass/Vol] 34.2 G/dL Normal 31.8-35.4 [facility] ([place]) Comment on above: Performed By: #### A SARAH, CBC, ADIFF #### [address] [address] MCV (RBC) [Entitic vol] 93.7 fL Normal 80.0-94.0 [facility] ([place]) Comment on above: Performed By: #### A SARAH, CBC, ADIFF #### [address] [address] Platelet mean volume (Bld) [Entitic vol] 8.7 fL Normal 7.4-10.4 [facility] ([place]) Comment on above: Performed By: #### A SARAH, CBC, ADIFF #### [address] [address] Platelets (Bld) [#/Vol] 195 10 3/mcL Normal 130-400 [facility] ([place]) Comment on above: Performed By: #### A SARAH, CBC, ADIFF #### [address] [address] RBC (Bld) [#/Vol] 4.75 10 6/mcL Normal 4.04-6.13 [facility] ([place]) Comment on above: Performed By: #### A SARAH, CBC, ADIFF #### [address] [address] WBC (Bld) [#/Vol] 6.30 10 3/mcL Normal 4.60-10.80 [facility] ([place]) Comment on above: Performed By: #### A SARAH, CBC, ADIFF #### [address] [address] ANTICARDIOLIPIN IgG/IgM 1618 02 ([id number])Ordered By: Wind Turbine Machinist on 05-26-2020 Cardiolipin IgG IA Qn (S) <9 Normal 0-14 [facility] Work Phone: Comment on above: Negative: <15 Indete rminate: 15 - 20 Low-Med Positive: >20 - 80 High Positive: >80 PATIENT NOT FASTINGP ERFORMED BY: BN [facility] [id number] [facility] [id number] BY: CB [facility] [id number] [facility] [id number] BY: TG [facility] [id number] [facility] [id number] Cardiolipin IgM IA Qn (S) 31 {MPL_U/mL} Abnormal 0-12 [facility] Work Phone: Comment on above: Negative: <13 Indete rminate: 13 - 20 Low-Med Positive: >20 - 80 High Positive: >80 PATIENT NOT FASTINGP ERFORMED BY: [employer] [address] [id number] BY: EDSON makemojiSpecialty Hospital at MonmouthYanamf9017 [facility] Mer[facility] Hospitalblin [place] [id number] BY: [employer] [id number] [facility] [id number] ANTITHROMBIN III ACTIVTY ([id number])Ordered By: Wind Turbine Machinist on 05-26-2020 Antithrombin actual/normal Chromogenic method (PPP) [Rel catalytic activity/Vol] 82 % Normal 75-135 [facility] Work Phone: Comment on above: Direct Xa inhibitor anticoagulants such as rivaroxaban, apixaban andedoxaban will lead to spuriously elevated antithrombin activitylevels possibly masking a deficiency. PATIENT NOT FASTINGP ERFORMED BY: [employer] [address] [id number] BY: EDSON [employer] Rfyhng2661 [address] Automation[place] [id number] BY: [employer] [id number] [facility] [id number] Antithrombin Ag IA Qn (PPP) 72 % Normal 72-124 [facility] Work Phone: Comment on above: This test was develo ped and its performance characteristicsdetermined by [employer]. It has not been cleared or approvedby the Food and Drug Administration. PATIENT NOT FASTINGP ERFORMED BY: [employer] [address] [id number] BY: [employer] [id number] Up RoadDublin [place] [id number] BY: [employer] [id number] [facility] [id number] BETA-2 GLYCOPROT I AB [id number] ([id number])Ordered By: Wind Turbine Machinist on 05-26-2020 Beta 2 glycoprotein 1 IgA Qn (S) <9 Normal 0-25 [facility] Work Phone: Comment on above: The reference interv al reflects a 3SD or 99th percentile interval,which is thought to represent a potentially clinically significantresult in accordance with the International Consensus Statement onthe classification criteria for definitive antiphospholipid syndrome(APS). J Thromb Haem 2006;4:295-306. PATIENT NOT FASTINGP ERFORMED BY: BN [facility] Oznswbjqxw6587 [facility] [id number] BY: CB [facility] Wnrrhf7[address] [facility] [id number] BY: TG [facility] RWN4136 Ervin DriveRKALEIDA HEALTH [id number] Beta 2 glycoprotein 1 IgG Qn (S) <9 Normal 0-20 [facility] Work Phone: Comment on above: The reference interv al reflects a 3SD or 99th percentile interval,which is thought to represent a potentially clinically significantresult in accordance with the International Consensus Statement onthe classification criteria for definitive antiphospholipid syndrome(APS). J Thromb Haem 2006;4:295-306. PATIENT NOT FASTINGP ERFORMED BY: [employer] [facility] [address] [place] [address] [id number] BY: CB [facility] Ewbcgm47[address] [facility] [id number] BY: TG [facility] [id number] [facility] [id number] Beta 2 glycoprotein 1 IgM Qn (S) <9 Normal 0-32 [facility] Work Phone: Comment on above: The reference interv al reflects a 3SD or 99th percentile interval,which is thought to represent a potentially clinically significantresult in accordance with the International Consensus Statement onthe classification criteria for definitive antiphospholipid syndrome(APS). J Thromb Haem 2006;4:295-306. PATIENT NOT FASTINGP ERFORMED BY: BN [facility] Uxsutvcwos[address] [place] [address] [id number] BY: CB [facility] Oxqmbl9970 Up [facility] [id number] BY: [facility] HIJ6837 [address] [facility] [id number] Factor 2 (Prothrombin) Gene Mutation (77649)Ordered By: Wind Turbine Machinist on 05-26-2020 F2 gene targeted mutation analysis [employer] Nom (Bld/Tiss) FIING2 Normal [facility] Work Phone: Comment on above: NEGATIVENo mutation identified. .Comment:A point mutation ([id number]) in the factor II (prothrombin) gene is thesecond most common cause of inherited thrombophilia. The incidence ofthis mutation in the [place] population is about 2% and in theAfrican [place] population it is approximately 0.5%. This mutation israre in the and population. Being heterozygousfor a prothrombin mutation increases the risk for developing venousthrombosis about 2 to 3 times above the general population risk. Beinghomozygous for the prothrombin gene mutation increases the relativerisk for venous thrombosis further, although it is not yet known howmuch further the risk is increased. In women heterozygous for theprothrombin gene mutation, the use of estrogen containing oralcontraceptives increases the relative risk of venous thrombosis about16 times and the risk of developing cerebral thrombosis is alsosignificantly increased. In the prothrombin gene mutationincreases risk for venous thrombosis and may increase risk forstillbirth, placental abruption, pre-eclampsia and growthrestriction. If the patient possesses two or more congenital oracquired thrombophilic risk factors, the risk for thrombosis may riseto more than the sum of the risk ratios for the individual mutations.This assay detects only the prothrombin L66750O mutation and doesnot measure genetic abnormalities elsewhere in the genome. Otherthrombotic risk factors may be pursued through systematic clinicallaboratory analysis. These factors include the R506Q (Leiden)mutation in the Factor V gene, plasma homocysteine levels, as wellas testing for deficiencies of antithrombin III, protein C andprotein S.Genetic Counselors are available for health care providersto discuss results at [phone] ([phone]). .Methodology:DNA analysis of the Factor II gene was performed by PCRamplification followed by restriction analysis. Thediagnostic sensitivity is >99% for both. All the tests mustbe combined with clinical information for the most accurateinterpretation. Molecular-based testing is highly accurate,but as in any laboratory test, diagnostic errors may occur. .This test was developed and its performance characteristicsdetermined by [employer]. It has not been cleared or approvedby the Food and Drug Administration. .Fabricet SR, et al. Blood. 1996; 88:4699-4676.Sanjay LEGGETT. Circulation. 2004; 110:e15-e18.Abner I, et al. Arterioscler Thromb Vasc Biol. 1999;19:700-703. .Sean Fisher, PhD, Ramses Rojas, PhD, John Maria M.S., PhD, Jose Giles, PhD, Elvi Kitchen, PhD, Adrian Garcia, PhD, FAC PATIENT NOT FASTINGP ERFORMED BY: BN [facility] Hcmxzdpzxz9123 [facility] [id number] BY: CB [facility] Zegpyb060[address] [facility] [id number] BY: TG [facility] [id number] [facility] [id number] Factor V Leiden (85246)Order ed By: Wind Turbine Machinist on 05-26-2020 F5 gene targeted mutation analysis [employer] Nom (Bld/Tiss) FVNEG3 Normal [facility] Work Phone: Comment on above: Result: Negative (no mutation found) .Factor V Leiden is a specific mutation (R506Q) in the factorV gene that is associated with an increased risk of venousthrombosis. Factor V Leiden is more resistant toinactivation by activated protein C. As a result, factor Vpersists in the circulation leading to a mild hyper-coagulable state. The Leiden mutation accounts for 90% -95% of APC resistance. Factor V Leiden has been reported inpatients with deep vein thrombosis, pulmonary embolus,central retinal vein occlusion, cerebral sinus thrombosisand hepatic vein thrombosis. Other risk factors to beconsidered in the workup for venous thrombosis include btsZ85721V mutation in the factor II (prothrombin) gene,protein S and C deficiency, and antithrombin deficiencies.Anticardiolipin antibody and lupus anticoagulant analysismay be appropriate for certain patients, as well ashomocysteine levels. .Contact your local [facility] for information on how to orderadditional testing if desired. .Genetic counselors are available for health care providers to discuss results at [phone] ([phone]). .Methodology:DNA analysis of the Factor V gene was performed by allele-specificPCR. The diagnostic sensitivity and specificity is >99% for both.Molecular-based testing is highly accurate, but as in any laboratorytest, diagnostic errors may occur. All test results must be combinedwith clinical information for the most accurate interpretation. .This test was developed and its performance characteristics determinedby [employer]. It has not been cleared or approved by the Food and DrugAdministration. .References:Rafa Miller (1995). Clin Lab Med 16:169-186. .Sean Fisher, PhD, Ramses Rojas, PhD, John Maria M.S., PhD, Jose Giles, PhD, Elvi Kitchen, PhD, TOMASAPaul Garcia PhD, [facility] PATIENT NOT FASTINGP ERFORMED BY: mak[employer]ji[address] [id number] BY: Unitrio TechnologyAleda E. Lutz [facility] Center[address] [facility] [id number] BY: makemojiUNM Psychiatric CenterXSX5748 [facility] [id number] Homocysteine, Plasma (41917) Ordered By: Wind Turbine Machinist on 05-26-2020 Homocysteine [Moles/Vol] 10.4 umol/L Normal 0.0-17.2 [facility] Work Phone: Comment on above: PATIENT NOT FASTINGP ERFORMED BY: makemoji[address] [id number] BY: makemojiSpecialty Hospital at MonmouthPxwsuh85[address] [facility] [id number] BY: [employer] BTC2437 [facility] [id number] MTHFR (58796)Ordered By: Layer 4 Communicationss tem Unit Clerk on 05-26-2020 MTHFR gene targeted mutation analysis [employer] Nom (Bld/Tiss) MFRNEG Normal [facility] Work Phone: Comment on above: Result: NEGATIVE (No mutation identified) .Interpretation: .The MTHFR C677T and M8778K variants were not identified. While theindividual does not possess either of these factors, other riskfactors may be detected through systematic clinical laboratoryanalysis. Hyperhomocysteinemia may occur due to mutations in enzymesother than MTHFR that are involved in homocysteine metabolism, orarise due to acquired factors such as folate, vitamin B6 or lzsermeQ07 deficiency. Therefore, this individual's MTHFR result does notguarantee a normal homocysteine level. In the evaluation of vascularand obstetric risk, consider measuring fasting homocysteine. .This test was developed and its performance characteristicsdetermined by [employer]. It has not been cleared or approved bythe Food and Drug Administration. .References:Gissell LD, Jimy Q. Am J Epidemiol 2000; 151(9):862-877.Harsh MM, Nancy BRADLEY. Arch Pathol Lab Med 2007; 131(6):872-884.Frosst P et al. Leila Valentina 1995; 10(1):111-113.Marysolkey SE et al. Valentina Med 2013; 15(2):153-156.Cheli C et al. Obstet Gynecol 2011; 118(3):730-740.Stefano B et al. Eur J Epidemiol 2013; 28(8):621-647. .Sean Fisher, PhD, Ramses Rojas, PhD, [facility]AN[facility]ILLEW. Isabella Gómez, PhD, Jose Giles, PhD, Elvi Kitchen, PhD, Adrian Garcia, PhD, [facility] all these hypercoag labs in may; PATIENT NOT FASTINGPERFORMED BY: [employer] [address] [id number] BY: EDSON [employer] Zdgldk[address] [facility] [id number] BY: [employer] PJC5729 [facility] [id number] Protein C Profile (18870)Ord ered By: Wind Turbine Machinist on 05-26-2020 Protein C actual/normal Coag (PPP) [Relative time] 117 % Normal 73-180 [facility] Work Phone: Comment on above: PATIENT NOT FASTINGP ERFORMED BY: [employer] [address] [id number] BY: [employer] [facility] [id number] BY: MARCELL [facility] 5komoot QSV8999 [address] [id number] Protein C Ag actual/normal IA (PPP) [Relative mass conc] 91 % Normal 60-150 [facility] Work Phone: Comment on above: PATIENT NOT FASTINGP ERFORMED BY: makemoji[address] [id number] BY: EDSON makemojiSpecialty Hospital at MonmouthRjucvr42[address] [facility] [id number] BY: MARCELL [employer] DSG9452 [facility] [id number] Protein S Profile (33456)Ord ered By: Wind Turbine Machinist on 05-26-2020 Protein S actual/normal Coag (PPP) [Relative time] 82 % Normal 63-140 [facility] Work Phone: Comment on above: Protein S activity m ay be falsely increased (masking an abnormal, lowresult) in patients receiving direct Xa inhibitor (e.g., rivaroxaban,apixaban, edoxaban) or a direct thrombin inhibitor (e.g., dabigatran)anticoagulant treatment due to assay interference by these drugs. PATIENT NOT FASTINGP ERFORMED BY: makemoji[address] [id number] BY: EDSON makemojiSpecialty Hospital at MonmouthRvmddx0[address] [facility] [id number] BY: MARCELL [employer] JFJ8423 [facility] [id number] Protein S Ag actual/normal IA (PPP) [Relative mass conc] 82 % Normal 60-150 [facility] Work Phone: Comment on above: This test was develo ped and its performance characteristicsdetermined by [employer]. It has not been cleared or approvedby the Food and Drug Administration. PATIENT NOT FASTINGP ERFORMED BY: makemoji[address] [id number] BY: [employer] Hyvkuu35[address] [facility] [id number] BY: TG [employer] FSE1692 F[facility] ElKALEIDA [facility] [id number] Protein S Free Ag actual/normal IA (PPP) [Relative mass conc] 144 % Normal 57-157 [facility] Work Phone: Comment on above: This test was develo ped and its performance characteristicsdetermined by [employer]. It has not been cleared or approvedby the Food and Drug Administration. PATIENT NOT FASTINGP ERFORMED BY: LabMaria [place] [address] [facility] [id number] BY: LabAleda E. Lutz [facility] Center[address] [facility] [id number] BY: TG Labkomoot BBO0751 [place] [id number] SARS-CoV-2 Antibody, IgGOrde red By: Wind Turbine Machinist on 05-26-2020 SARS-CoV-2 Antibody, IgG Positive Abnormal [facility] Work Phone: Comment on above: Results suggest rece nt or prior infection with SARS-CoV-2. Correlationwith epidemiologic risk factors and other clinical and laboratoryfindings is recommended. Serologic results should not be used as thesole basis to diagnose or exclude recent SARS-CoV-2 infection. Falsepositive results infrequently occur due to prior infection with otherhuman Coronaviruses.This assay was performed using the Knight SARS-CoV-2 IgG assay. today; Test(s) 51433 9-UKRP-EmT-2 Antibody, IgGhas not been FDA cleared or approved. This test hasbeen authorized by FDA under an Emergency Use Authorization(EUA). This test is only authorized for the duration of thedeclaration that circumstances exist justifying the authorizationof emergency use of in vitro diagnostics for detection and/ordiagnosis of COVID-19 under Section 564(b)(1) of the Act, 21U.S.C. 360bbb-3(b)(1), unless the authorization is terminated orrevoked sooner. This test has been authorized only for detectingthe presence of antibodies against SARS-CoV-2, not for any otherviruses or pathogens.PATIENT NOT FASTINGPERFORMED BY: LabAleda E. Lutz [facility] Center[address] [facility] [id number] SARS-CoV-2 Antibody, IgG Positive Abnormal [facility]; [facility] Work Phone: Comment on above: Results suggest rece nt or prior infection with SARS-CoV-2. Correlationwith epidemiologic risk factors and other clinical and laboratoryfindings is recommended. Serologic results should not be used as thesole basis to diagnose or exclude recent SARS-CoV-2 infection. Falsepositive results infrequently occur due to prior infection with otherhuman Coronaviruses.This assay was performed using the Knight SARS-CoV-2 IgG assay. today; Test(s) 37980 5-WDHC-VuA-2 Antibody, IgGhas not been FDA cleared or approved. This test hasbeen authorized by FDA under an Emergency Use Authorization(EUA). This test is only authorized for the duration of thedeclaration that circumstances exist justifying the authorizationof emergency use of in vitro diagnostics for detection and/ordiagnosis of COVID-19 under Section 564(b)(1) of the Act, 21U.S.C. 360bbb-3(b)(1), unless the authorization is terminated orrevoked sooner. This test has been authorized only for detectingthe presence of antibodies against SARS-CoV-2, not for any otherviruses or pathogens.PATIENT NOT FASTINGPERFORMED BY: [facility] [facility] [id number] OVon 05-17-2020 OV Office Visit (KIMBERLEYK ) -- PAUL SHELTON ([id number]) 1960 M Date Time Provider Department 05/17/20 9:45 AM CECIL LEMA During your visit today, we recorded the following information about you: Temperature Pulse Respiration Blood pressure 98.1 degrees 64/minute 16/minute 121/87 Weight Height 95.7 kg 1.829 m Cecil Lema MD 05/17/2020 9:30 AM Signed NEUROSURGERY CONSULT NOTE Cecil Lema MD Date of visit: May 17, 2020 Patient Name: Mr.Joseph Ion Shelton Date of : 1960 Current Age: [age] year old Sex: male MRN/E# [id number] Chief Complaint: Patient presents with: New Patient HISTORY OF PRESENT ILLNESS : The patient is a 60 year old, right handed male who is referred by Dr. Hare for neurosurgical evaluation. Mr. Shelton presents to the office today as a new patient with imaging for evaluation of low back pain. He states that about 15 years ago he was diagnosed with a lumbar disc herniation and disc bulges, however, proceeded conservatively a did well until about 10 months ago. He states he began to experience worsening low back pain after caring for his father and helping to lift him. He describes low back pain into bilateral lower extremities, posteriorly to the mid calf, slightly worse on the left than the right. He states his pain is worse upon waking AND bending, and improves with movement. He has completed a course of physical therapy without significant improvement of his symptoms. Of note, he states he is having his left knee replaced next month in [place]. He presents today for evaluation and plan of care. Symptoms: low back pain into bilateral lower extremities PREVIOUS CONSERVATIVE TREATMENTS: Physical therapy PREVIOUS SURGERY: None PAIN EVALUATION 05/17/2020 0849 Pain Level: 6 Pain Location: Back-Lower lower back and bilateral leg pain Description: Aching;Stabbing;Stabbing/N ot Incision Duration Units: Months Frequency: Intermittent Intervention: Medication PAST MEDICAL HISTORY Diagnosis Date - Blood clot in vein - COVID-22 October 2019- fully recovered - Pulmonary embolism (HCC) October 2019 PAST SURGICAL HISTORY Procedure Laterality Date - APPENDECTOMY - CARPAL TUNNEL - HERNIA REPAIR HX FAMILY HISTORY Problem Relation Age of Onset - Hypertension Mother - Heart disease Father ALLERGIES No Known Allergies Current Outpatient Medications Medication Sig Dispense Refill - ascorbic acid, vitamin C, (VITAMIN C) 500 mg tablet Take 500 mg by mouth once daily. - calcium phosphate dibas/vit D3 (VITAMIN D, WITH CALCIUM, ORAL) Take by mouth. No current facility-administered medications for this visit. REVIEW OF SYSTEMS Review of Systems Constitutional: Negative for chills, diaphoresis and fever. HENT: Negative for congestion, ear pain and sinus pressure. Eyes: Negative for discharge and redness. Respiratory: Negative for cough, shortness of breath and wheezing. Cardiovascular: Negative for chest pain, palpitations and leg swelling. Gastrointestinal: Negative for constipation, diarrhea and nausea. Endocrine: Negative for cold intolerance and heat intolerance. Genitourinary: Negative for difficulty urinating, frequency and urgency. Musculoskeletal: Positive for back pain and gait problem. Negative for neck pain. Skin: Negative for rash and wound. Allergic/Immunologic: Negative for environmental allergies and food allergies. Neurological: Negative for dizziness, weakness and numbness. Hematological: Does not bruise/bleed easily. Psychiatric/Behavioral: Negative for agitation. The patient is not nervous/anxious. OBJECTIVE: BP 121/87 Pulse 64 Temp 98.1 Resp 16 Ht 6' 0 (1.83m) Wt 211 lb (95.7kg) SpO2 97% BMI 28.61 kg/(m2). Physical Exam Constitutional: He is oriented to person, place, and time and well-developed, well-nourished, and in no distress. HENT: Head: Normocephalic and atraumatic. Right Ear: External ear normal. Left Ear: External ear normal. Eyes: Conjunctivae are normal. Neck: Normal range of motion. Pulmonary/Chest: Effort normal. Musculoskeletal: Normal range of motion. Neurological: He is alert and oriented to person, place, and time. Gait normal. Skin: Skin is warm and dry. Psychiatric: Mood and affect normal. Neurological Exam Mental Status Alert. Gait Normal gait. Motor Normal muscle bulk throughout. Normal muscle tone. Right Left Hip flexion 5 5 Knee flexion 5 5 Knee extension 5 5 Plantarflexion 5 5 Dorsiflexion 5 5 Negative bilateral straight leg raise Sensory Sensation is intact to light touch, pinprick, vibration and proprioception in all four extremities. Data Review IMAGING STUDIES: MRI LUMBAR SPINE 04/06/2020 There is widespread degenerative disc disease causing moderate to severe stenosis starting at L2-3 and extending to L5-S1. Personal review of medical records: I reviewed with the patient, history, physical exam, the images and the chart. 1. Lumbar degenerative disc disease The patient is a very pleasant 60-year-old male who presents for evaluation of low back pain and bilateral lower extremity symptoms suggestive of neurogenic claudication. I reviewed a MRI of the lumbar spine and he has definite evidence of moderate to severe stenosis related to degenerative disc disease and spondylosis. I told him he will likely require surgical treatment. He needs to undergo plain radiographs of the lumbar spine with flexion and extension views. He will follow up with me upon completion of these imaging studies. There is also bit of a dilemma with regard to scheduling his surgery as he is also scheduled to have a replacement toward the end of June. I told him to check with his orthopedic surgeon regarding the timing of a second operation pertaining to his lumbar spine. I told him that from my standpoint, if he were to have surgery for his lumbar spine, he would need to wait approximately 6 weeks before he could proceed with a left total knee replacement. All of his questions been addressed in great detail. - XR LUMBAR MOTION 4V AP/LAT/ FLEX/EXT; Future Cecil Lema MD This note was partially generated using [employer] voice recognition system, and there may be some incorrect words, spellings, and punctuation that were not noted in checking the note before saving. Referring Provider: KATHY HARE [[id number]] Allergies As of Date: 05/17/2020 (No Known Allergies) Date Reviewed: 05/17/2020 Reviewed by: Cecil Lema - Fully Assessed Reason for Visit: New Patient [172] Primary Visit Diagnosis:Lumbar degenerative disc disease [M51.36] Order(s):XR LUMBAR MOTION 4V AP/LAT/ FLEX/EXT [[id number]] Order #: [id number] FUTURE Prescriptions as of 05/17/2020 Sig: ASCORBIC ACID (VITAMIN C) 500* Take 500 mg by mouth once trey* VITAMIN D (WITH CALCIUM) ORAL Take by mouth. Problem List As Of Date: 05/17/2020 (None) Letter Text Encounter Status:Closed by CECIL LEMA MD on 05/17/20 [facility] PROGRESSon 05-17-2020 PROGRESS HNO ID: [id number] Author: Cecil Lema Service: ? Author Type: Physician Type: Progress Notes Filed: 05/17/2020 9:30 AM Note Text: NEUROSURGERY CONSULT NOTE Cecil Lema MD Date of visit: May 17, 2020 Patient Name: Mr.Joseph Ion Shelton Date of : 1960 Current Age: [age] year old Sex: male MRN/E# [id number] Chief Complaint: Patient presents with: New Patient HISTORY OF PRESENT ILLNESS : The patient is a 60 year old, right handed male who is referred by Dr. Hare for neurosurgical evaluation. Mr. Shelton presents to the office today as a new patient with imaging for evaluation of low back pain. He states that about 15 years ago he was diagnosed with a lumbar disc herniation and disc bulges, however, proceeded conservatively a did well until about 10 months ago. He states he began to experience worsening low back pain after caring for his father and helping to lift him. He describes low back pain into bilateral lower extremities, posteriorly to the mid calf, slightly worse on the left than the right. He states his pain is worse upon waking AND bending, and improves with movement. He has completed a course of physical therapy without significant improvement of his symptoms. Of note, he states he is having his left knee replaced next month in [place]. He presents today for evaluation and plan of care. Symptoms: low back pain into bilateral lower extremities PREVIOUS CONSERVATIVE TREATMENTS: Physical therapy PREVIOUS SURGERY: None PAIN EVALUATION 05/17/2020 0849 Pain Level: 6 Pain Location: Back-Lower lower back and bilateral leg pain Description: Aching;Stabbing;Stabbing/N ot Incision Duration Units: Months Frequency: Intermittent Intervention: Medication PAST MEDICAL HISTORY Diagnosis Date - Blood clot in vein - COVID-22 October 2019- fully recovered - Pulmonary embolism (HCC) October 2019 PAST SURGICAL HISTORY Procedure Laterality Date - APPENDECTOMY - CARPAL TUNNEL - HERNIA REPAIR HX FAMILY HISTORY Problem Relation Age of Onset - Hypertension Mother - Heart disease Father ALLERGIES No Known Allergies Current Outpatient Medications Medication Sig Dispense Refill - ascorbic acid, vitamin C, (VITAMIN C) 500 mg tablet Take 500 mg by mouth once daily. - calcium phosphate dibas/vit D3 (VITAMIN D, WITH CALCIUM, ORAL) Take by mouth. No current facility-administered medications for this visit. REVIEW OF SYSTEMS Review of Systems Constitutional: Negative for chills, diaphoresis and fever. HENT: Negative for congestion, ear pain and sinus pressure. Eyes: Negative for discharge and redness. Respiratory: Negative for cough, shortness of breath and wheezing. Cardiovascular: Negative for chest pain, palpitations and leg swelling. Gastrointestinal: Negative for constipation, diarrhea and nausea. Endocrine: Negative for cold intolerance and heat intolerance. Genitourinary: Negative for difficulty urinating, frequency and urgency. Musculoskeletal: Positive for back pain and gait problem. Negative for neck pain. Skin: Negative for rash and wound. Allergic/Immunologic: Negative for environmental allergies and food allergies. Neurological: Negative for dizziness, weakness and numbness. Hematological: Does not bruise/bleed easily. Psychiatric/Behavioral: Negative for agitation. The patient is not nervous/anxious. OBJECTIVE: BP 121/87 Pulse 64 Temp 98.1 Resp 16 Ht 6' 0 (1.83m) Wt 211 lb (95.7kg) SpO2 97% BMI 28.61 kg/(m2). Physical Exam Constitutional: He is oriented to person, place, and time and well-developed, well-nourished, and in no distress. HENT: Head: Normocephalic and atraumatic. Right Ear: External ear normal. Left Ear: External ear normal. Eyes: Conjunctivae are normal. Neck: Normal range of motion. Pulmonary/Chest: Effort normal. Musculoskeletal: Normal range of motion. Neurological: He is alert and oriented to person, place, and time. Gait normal. Skin: Skin is warm and dry. Psychiatric: Mood and affect normal. Neurological Exam Mental Status Alert. Gait Normal gait. Motor Normal muscle bulk throughout. Normal muscle tone. Right Left Hip flexion 5 5 Knee flexion 5 5 Knee extension 5 5 Plantarflexion 5 5 Dorsiflexion 5 5 Negative bilateral straight leg raise Sensory Sensation is intact to light touch, pinprick, vibration and proprioception in all four extremities. Data Review IMAGING STUDIES: MRI LUMBAR SPINE 04/06/2020 There is widespread degenerative disc disease causing moderate to severe stenosis starting at L2-3 and extending to L5-S1. Personal review of medical records: I reviewed with the patient, history, physical exam, the images and the chart. 1. Lumbar degenerative disc disease The patient is a very pleasant 60-year-old male who presents for evaluation of low back pain and bilateral lower extremity symptoms suggestive of neurogenic claudication. I reviewed a MRI of the lumbar spine and he has definite evidence of moderate to severe stenosis related to degenerative disc disease and spondylosis. I told him he will likely require surgical treatment. He needs to undergo plain radiographs of the lumbar spine with flexion and extension views. He will follow up with me upon completion of these imaging studies. There is also bit of a dilemma with regard to scheduling his surgery as he is also scheduled to have a replacement toward the end of June. I told him to check with his orthopedic surgeon regarding the timing of a second operation pertaining to his lumbar spine. I told him that from my standpoint, if he were to have surgery for his lumbar spine, he would need to wait approximately 6 weeks before he could proceed with a left total knee replacement. All of his questions been addressed in great detail. - XR LUMBAR MOTION 4V AP/LAT/ FLEX/EXT; Future Cecil Lema MD This note was partially generated using [employer] voice recognition system, and there may be some incorrect words, spellings, and punctuation that were not noted in checking the note before saving. Normal [facility] PROGRESS HNO ID: [id number] Author: aMry (Rt) Harriet Key Service: Radiology Author Type: Nursery Laborer Type: Progress Notes Filed: 05/17/2020 9:39 AM Note Text: Radiology Service Progress Note PATIENT NAME: Paul Shelton DATE OF SERVICE: May 17, 2020 TIME: 9:39 AM PATIENT IDENTITY VERIFICATION COMPLETED USING TWO (2) IDENTIFIERS: Name and Date of confirmed by patient verbally. FALL SCREENING: Has the patient had 2 falls in the last year or 1 fall with injury or currently using an Ambulatory Assistive Device (Walker, Cane, Wheelchair, Crutches, etc.)? No PATIENT GENDER DATA: Male PATIENT RELEVANT IMPLANT DATA REVIEWED: Not Applicable RADIOLOGY DEPARTMENT: General X-ray: Exam(s) Completed: Spine X-Ray(s): Lumbar AP / LAT / L5-S1 / FLEX-EXT PERIPHERAL IV DATA: Not applicable SIGNED BY: RT Melissa May 17, 2020 9:39 AM Normal [facility] XR LUMBAR 4V AP/LAT/ FLEX/EX Ton 05-17-2020 XR LUMBAR 4V AP/LAT/ FLEX/EXT Final Report DATE OF EXAM: May 17 2020 9:41AM A1X 5231 - XR LUMBAR 4V AP/LAT/ FLEX/EXT / PROCEDURE REASON: Lumbar degenerative disc disease Physician Interpretation Clinical information: Lumbar degenerative disc disease AP, lateral, and flexion-extension views of the lumbar spine were obtained. Mild lower lumbar dextroscoliosis. No fracture is identified. Minimal grade 1 anterolisthesis of L2 with respect to L3 and L3 with respect to L4. No instability on flexion and extension views. Vertebral body heights are maintained. Disc space narrowing at L4-5 and L5-S1 with vacuum disc phenomenon. Multilevel spurring. Facet hypertrophy of the lower lumbar spine. No lytic or blastic lesions are seen. IMPRESSION: Degenerative changes with no acute abnormality. Shovel Engineer: NAVI Transcribe Date/Time: May 18 2020 3:26P Dictated by : MIRTHA CARDOZA MD This examination was interpreted and the report reviewed and electronically signed by: MIRTHA CARDOZA MD on May 18 2020 3:27PM [facility] CNPBanner 03-02-2020 CNPN Telephone (AKURFL) -- PAUL SHELTON ([id number]) 1960 M Date Time Provider Department 03/02/20 PANCHO FARIAS During your visit today, we recorded the following information about you: Shannon Bautista 03/02/2020 1:52 PM Signed Faxed referral to Urology From Dr Kathy Hare To Dr Farias Dx Peyronie's disease New pt Paperwork shows [employer] insurance- if this is true, will need to get authorization before scheduling appt. Left voice message @ 1:37pm. Shannon Bautista Allergies As of Date: 03/02/2020 (Not on File) Date Reviewed: Never Reviewed Reason for Visit: Faxed referral to Urology [Other] Problem List As Of Date: 03/02/2020 (None) Encounter Status:Closed by SHANNON BAUTISTA on 03/02/20 Normal [facility] AYANA (ANTINUCLEAR ANTIBODY) ( [id number])Ordered By: Wind Turbine Machinist on 02-22-2020 Nuclear Ab Ql (S) Negative Normal Compre[facility] Internal Medicine Work Phone: Comment on above: all labs sent to Dr Agudelo; PATIENT NOT FASTINGPERFORMED BY: CB [facility] Bmfemd[address] [facility] [id number] BY: BN [facility] [address] [id number] Nuclear Ab Ql (S) Negative Normal Compre[facility] ens[facility] Internal Medicine Work Phone: Comment on above: all labs sent to Dr Agudelo; PATIENT NOT FASTINGPERFORMED BY: [facility] Lsmxac9169 Up [facility] [id number] BY: makemoji[address] [id number] C-REACTIVE PROTEIN ([id number])Or dered By: Wind Turbine Machinist on 02-22-2020 CRP [Mass/Vol] mg/L Normal 0-10 [facility] Work Phone: Comment on above: PATIENT NOT FASTINGP ERFORMED BY: [facility] Lab[facility] Wrazsw[address] [facility] [id number] BY: makemoji[address] [id number] CRP [Mass/Vol] mg/L Normal 0-10 [facility] [place] Work Phone: Comment on above: PATIENT NOT FASTINGP ERFORMED BY: [facility] Iemlur[address] [facility] [id number] BY: makemoji[address] [id number] CCP ANTIBODY ([id number])Ordered By: Wind Turbine Machinist on 02-22-2020 Cyclic citrullinated peptide IgA+IgG IA Qn 12 {units} Normal 0-19 [facility] Work Phone: Comment on above: Negative <20 Weak po sitive 20 - 39 Moderate positive 40 - 59 Strong positive >59 PATIENT NOT FASTINGP ERFORMED BY: [facility] Ppasdx050[address] [facility] [id number] BY: makemoji[address] [id number] Lyme Disease Antibody W/ Ref omero ([id number])Ordered By: Wind Turbine Machinist on 02-22-2020 B. burgdorferi IgG+IgM Qn (S) {index_val} Normal 0.00-0.90 [facility] Work Phone: Comment on above: Negative <0.91 Equiv ocal 0.91 - 1.09 Positive >1.09 PATIENT NOT FASTINGP ERFORMED BY: EDSON [facility] Hsxpaz5428 Up [facility] [id number] BY: makemoji[address] [id number] B. burgdorferi IgG+IgM Qn (S) {index_val} Normal 0.00-0.90 [facility] Internal Medicine Work Phone: Comment on above: Negative <0.91 Equiv ocal 0.91 - 1.09 Positive >1.09 PATIENT NOT FASTINGP ERFORMED BY: EDSON [facility] Upkvuo[address] [facility] [id number] BY: makemoji[address] [id number] RHEUMATOID FACTOR-QUANT (343 44)Ordered By: Wind Turbine Machinist on 02-22-2020 Rheumatoid factor Qn 10.2 {IU/mL} Normal 0.0-13.9 [facility] Internal Medicine Work Phone: Comment on above: PATIENT NOT FASTINGP ERFORMED BY: EDSON [facility] Vdguzz[address] [facility] [id number] BY: makemoji[address] [id number] Rheumatoid factor Qn 10.2 [IU]/mL Normal 0.0-13.9 [facility] Internal Medicine Work Phone: Comment on above: PATIENT NOT FASTINGP ERFORMED BY: [facility] Cfwzdw90[address] [facility] [id number] BY: [address] [id number] SED RATE ERYTHROCYTE ([id number]) Ordered By: Wind Turbine Machinist on 02-22-2020 ESR (Bld) [Velocity] 8 mm/h Normal 0-30 [facility] Work Phone: Comment on above: PATIENT NOT FASTINGP ERFORMED BY: [facility] Igukiv[address] [facility] [id number] BY: BN [facility] [id number] TSH ([id number])Ordered By: wedgiese m Unit Clerk on 02-22-2020 TSH Qn 1.830 {uIU/mL} Normal 0.450-4.50 0 [facility] Work Phone: Comment on above: PATIENT NOT FASTINGP ERFORMED BY: [employer]uvs70 [facility] [id number] BY: [employer] [address] [id number] URIC ACID BLOOD ([id number])Order ed By: Wind Turbine Machinist on 02-22-2020 Urate [Mass/Vol] 5.3 mg/dL Normal 3.7-8.6 Comprehe nsive Internal Medicine Work Phone: Comment on above: Therapeutic target f or gout patients: <6.0 PATIENT NOT FASTINGP ERFORMED BY: [employer]uv[employer]70 [facility] [id number] BY: [employer] [address] [id number] HEPATITIS C ANTIBODY ([id number]) Ordered By: Wind Turbine Machinist on 01-29-2020 HCV Ab Signal/Cutoff IA [Rel units/Vol] 0.1 {s/co_ratio} Normal 0.0-0.9 Comprehensiv e Internal Medicine Work Phone: Comment on above: Negative: < 0.8 Inde terminate: 0.8 - 0.9 Positive: > 0.9 . The CDC recommends that a positive HCV antibody result be followed up with a HCV Nucleic Acid Amplification test (562677). PATIENT NOT FASTINGP ERFORMED BY: ITS KOOL6370 [facility] [id number] PSA (Prostate Specific Antig en), Screening (21215)Ordered By: Wind Turbine Machinist on 01-29-2020 Prostate specific Ag [Mass/Vol] 0.4 ng/mL Normal 0.0-4.0 [facility] Work Phone: Comment on above: Velasquez ECLIA methodol ogy. .According to the [place] [employer], Serum PSA shoulddecrease and remain at undetectable levels after radicalprostatectomy. The AUA defines biochemical recurrence as an initialPSA value 0.2 ng/mL or greater followed by a subsequent confirmatoryPSA value 0.2 ng/mL or greater.Values obtained with different assay methods or kits cannot be usedinterchangeably. Results cannot be interpreted as absolute evidenceof the presence or absence of malignant disease. PATIENT NOT FASTINGP ERFORMED BY: [facility] Blqvot[address] [facility] [id number] SARS-CoV-2 Antibody, IgGOrde red By: Wind Turbine Machinist on 01-29-2020 SARS-CoV-2 Antibody, IgG Positive Abnormal [facility] Work Phone: Comment on above: Results suggest rece nt or prior infection with SARS-CoV-2. Correlationwith epidemiologic risk factors and other clinical and laboratoryfindings is recommended. Serologic results should not be used as thesole basis to diagnose or exclude recent SARS-CoV-2 infection. Falsepositive results infrequently occur due to prior infection with otherhuman Coronaviruses.This assay was performed using the Knight SARS-CoV-2 IgG assay. Test(s) 082670-FLBX- CoV-2 Antibody, IgGhas not been FDA cleared or approved. This test hasbeen authorized by FDA under an Emergency Use Authorization(EUA). This test is only authorized for the duration of thedeclaration that circumstances exist justifying the authorizationof emergency use of in vitro diagnostics for detection and/ordiagnosis of COVID-19 under Section 564(b)(1) of the Act, 21U.S.C. 360bbb-3(b)(1), unless the authorization is terminated orrevoked sooner. This test has been authorized only for detectingthe presence of antibodies against SARS-CoV-2, not for any otherviruses or pathogens.PATIENT NOT FASTINGPERFORMED BY: [facility] Dxokca[address] [facility] [id number] SARS-CoV-2 Antibody, IgG Positive Abnormal [facility] Work Phone: Comment on above: Results suggest rece nt or prior infection with SARS-CoV-2. Correlationwith epidemiologic risk factors and other clinical and laboratoryfindings is recommended. Serologic results should not be used as thesole basis to diagnose or exclude recent SARS-CoV-2 infection. Falsepositive results infrequently occur due to prior infection with otherhuman Coronaviruses.This assay was performed using the Knight SARS-CoV-2 IgG assay. Test(s) 853046-VYDV- CoV-2 Antibody, IgGhas not been FDA cleared or approved. This test hasbeen authorized by FDA under an Emergency Use Authorization(EUA). This test is only authorized for the duration of thedeclaration that circumstances exist justifying the authorizationof emergency use of in vitro diagnostics for detection and/ordiagnosis of COVID-19 under Section 564(b)(1) of the Act, 21U.S.C. 360bbb-3(b)(1), unless the authorization is terminated orrevoked sooner. This test has been authorized only for detectingthe presence of antibodies against SARS-CoV-2, not for any otherviruses or pathogens.PATIENT NOT FASTINGPERFORMED BY: [facility] [facility] [id number] 2018 Novel Coronavirus (COVI D-19), RADHA (48628)Ordered By: Wind Turbine Machinist on 12-11-20192018 Novel Coronavirus (COVID-19), RADHA (62574) Not Detected Normal [facility] Work Phone: Comment on above: This test was develo ped and its performance characteristics determinedby [employer]. This test has not been FDA cleared orapproved. This test has been authorized by FDA under an Emergency UseAuthorization (EUA). This test is only authorized for the duration oftime the declaration that circumstances exist justifying theauthorization of the emergency use of in vitro diagnostic tests fordetection of SARS-CoV-2 virus and/or diagnosis of COVID-19 infectionunder section 564(b)(1) of the Act, 21 U.S.C. 360bbb-3(b)(1), unlessthe authorization is terminated or revoked sooner.When diagnostic testing is negative, the possibility of a falsenegative result should be considered in the context of a patient'srecent exposures and the presence of clinical signs and symptomsconsistent with COVID-19. An individual without symptoms of COVID-19and who is not shedding SARS-CoV-2 virus would expect to have anegative (not detected) result in this assay. in 2 weeks; PATIENT NOT FASTINGPERFORMED BY: [employer] Uoualpznld0785 [place] [id number] 2018 Novel Coronavirus (COVID-19), RADHA (51387) Not detected Normal [facility] Work Phone: Comment on above: This test was develo ped and its performance characteristics determinedby [employer]. This test has not been FDA cleared orapproved. This test has been authorized by FDA under an Emergency UseAuthorization (EUA). This test is only authorized for the duration oftime the declaration that circumstances exist justifying theauthorization of the emergency use of in vitro diagnostic tests fordetection of SARS-CoV-2 virus and/or diagnosis of COVID-19 infectionunder section 564(b)(1) of the Act, 21 U.S.C. 360bbb-3(b)(1), unlessthe authorization is terminated or revoked sooner.When diagnostic testing is negative, the possibility of a falsenegative result should be considered in the context of a patient'srecent exposures and the presence of clinical signs and symptomsconsistent with COVID-19. An individual without symptoms of COVID-19and who is not shedding SARS-CoV-2 virus would expect to have anegative (not detected) result in this assay. in 2 weeks; PATIENT NOT FASTINGPERFORMED BY: [employer] Kezlteelmq5959 [place] [id number] 2018 Novel Coronavirus (COVI D-19), RADHA (76193)Ordered By: Wind Turbine Machinist on 11-27-2019 2019 Novel Coronavirus (COVID-19), RADHA (28971) Detected Abnormal [facility] Work Phone: Comment on above: This test was develo ped and its performance characteristics determinedby [employer]. This test has not been FDA cleared orapproved. This test has been authorized by FDA under an Emergency UseAuthorization (EUA). This test has been validated in accordance withthe FDA's Guidance Document (Policy for Diagnostics Testing inLaboratories Certified to Perform High Complexity Testing under CLIAprior to Emergency Use Authorization for Coronavirus Disease-2019during the Public Health Emergency) issued on October 03, 2019.FDA independent review of this validation is pending. This test isonly authorized for the duration of time the declaration thatcircumstances exist justifying the authorization of the emergency useof in vitro diagnostic tests for detection of SARS-CoV-2 virus and/ordiagnosis of COVID-19 infection under section 564(b)(1) of the Act, 21U.S.C. 360bbb-3(b)(1), unless the authorization is terminated orrevoked sooner. Test(s) SARS-CoV-2, RADHA called to EMELY RENDON on 11/29/2019 at 10:46 ESTPATIENT NOT FASTINGPERFORMED BY: [facility] [place] [id number] Information: NASAL 2019 Novel Coronavirus (COVID-19), RADHA (50027) Detected Abnormal [facility] Work Phone: Comment on above: This test was develo ped and its performance characteristics determinedby [employer]. This test has not been FDA cleared orapproved. This test has been authorized by FDA under an Emergency UseAuthorization (EUA). This test has been validated in accordance withthe FDA's Guidance Document (Policy for Diagnostics Testing inLaboratories Certified to Perform High Complexity Testing under CLIAprior to Emergency Use Authorization for Coronavirus Disease-2019during the Public Health Emergency) issued on October 03, 2019.FDA independent review of this validation is pending. This test isonly authorized for the duration of time the declaration thatcircumstances exist justifying the authorization of the emergency useof in vitro diagnostic tests for detection of SARS-CoV-2 virus and/ordiagnosis of COVID-19 infection under section 564(b)(1) of the Act, 21U.S.C. 360bbb-3(b)(1), unless the authorization is terminated orrevoked sooner. Test(s) SARS-CoV-2, RADHA called to EMELY RENDON on 11/29/2019 at 10:46 ESTPATIENT NOT FASTINGPERFORMED BY: [facility] Mdutdjmzpb6314 Leena MENDOZA [id number] Information: NASAL 2019 Novel Coronavirus (COVI D-19), RADHA ([id number])Ordered By: Wind Turbine Machinist on 11-04-2019 SARS-CoV-2 (COVID-19) Ab IA Ql Detected Abnormal Comprehensiv e Internal Medicine Work Phone: Comment on above: Testing was performe d using the quirino(R) SARS-CoV-2 test.This test was developed and its performance characteristics determinedby [employer]. This test has not been FDA cleared orapproved. This test has been authorized by FDA under an Emergency UseAuthorization (EUA). This test is only authorized for the duration oftime the declaration that circumstances exist justifying theauthorization of the emergency use of in vitro diagnostic tests fordetection of SARS-CoV-2 virus and/or diagnosis of COVID-19 infectionunder section 564(b)(1) of the Act, 21 U.S.C. 360bbb-3(b)(1), unlessthe authorization is terminated or revoked sooner. PATIENT NOT FASTINGP ERFORMED BY: [address] [id number] Information: NASAL 2019 Novel Coronavirus (COVID-19), RADHA (69901) Detected Abnormal [facility] Work Phone: Comment on above: Testing was performe d using the quirino(R) SARS-CoV-2 test.This test was developed and its performance characteristics determinedby [employer]. This test has not been FDA cleared orapproved. This test has been authorized by FDA under an Emergency UseAuthorization (EUA). This test is only authorized for the duration oftime the declaration that circumstances exist justifying theauthorization of the emergency use of in vitro diagnostic tests fordetection of SARS-CoV-2 virus and/or diagnosis of COVID-19 infectionunder section 564(b)(1) of the Act, 21 U.S.C. 360bbb-3(b)(1), unlessthe authorization is terminated or revoked sooner. PATIENT NOT FASTINGP ERFORMED BY: [facility] [facility] [id number] Information: NASAL Inhouse FLU A+B DIRECT AG, ( RAPID) ([id number])Ordered By: Elizabeth Jefferson on 11-04-2019 FLUAV+FLUBV Ag Ql (Unsp spec) Negative Normal [facility] Work Phone: FLUAV+FLUBV Ag Ql (Unsp spec) Negative Normal [facility] Work Phone: Metabolic Panel, Basic (4375 2)Ordered By: Wind Turbine Machinist on 05-07-2017 Calcium [Mass/Vol] 9.5 mg/dL Normal 8.7-10.2 [facility] Internal Medicine Work Phone: Comment on above: PATIENT NOT FASTINGP ERFORMED BY: [facility] TechnologyCoSpecialty Hospital at MonmouthAiyaoj[address] [facility] [id number] Information: [id number], [id number] Chloride [Moles/Vol] 102 mmol/L Normal 96-106 Comp rehensive Internal Medicine Work Phone: Comment on above: PATIENT NOT FASTINGP ERFORMED BY: [facility] Cffktd[address] [facility] [id number] Information: [id number], [id number] CO2 [Moles/Vol] 23 mmol/L Normal 18-29 Com[facility] Internal [facility] Work Phone: Comment on above: PATIENT NOT FASTINGP ERFORMED BY: [facility] Gtkpib[address] [facility] [id number] Information: [id number], [id number] Creatinine [Mass/Vol] 0.97 mg/dL Normal 0.76-1.27 [facility] Work Phone: Comment on above: PATIENT NOT FASTINGP ERFORMED BY: makemoji Nbvhev[address] [facility] [id number] Information: [id number], [id number] GFR/1.73 sq M predicted among blacks CKD-EPI (S/P/Bld) [Vol rate/Area] 98 mL/min/1.73 Normal [facility] Work Phone: Comment on above: PATIENT NOT FASTINGP ERFORMED BY: EDSON [facility] Raikjd[address] [facility] [id number] Information: D06118, 330400 GFR/1.73 sq M predicted among non-blacks CKD-EPI (S/P/Bld) [Vol rate/Area] 85 mL/min/1.73 Normal [facility] Work Phone: Comment on above: PATIENT NOT FASTINGP ERFORMED BY: EDSON [facility] Gvawnp[address] [facility] [id number] Information: R82315, 835349 Glucose [Mass/Vol] 96 mg/dL Normal 65-99 [facility] Internal Medicine Work Phone: Comment on above: PATIENT NOT FASTINGP ERFORMED BY: Marcial Nemmja[address] [facility] [id number] Information: N97056, 267218 Potassium [Moles/Vol] 4.7 mmol/L Normal 3.5-5.2 [facility] Work Phone: Comment on above: PATIENT NOT FASTINGP ERFORMED BY: EDSON Ceja Shpqqa[address] [facility] [id number] Information: D27784, [id number] Sodium [Moles/Vol] 140 mmol/L Normal 134-144 [facility] Internal Medicine Work Phone: Comment on above: PATIENT NOT FASTINGP ERFORMED BY: EDSON [facility] Dckdsm[address] [facility] [id number] Information: Z99557, 113868 Urea nitrogen [Mass/Vol] 17 mg/dL Normal 6-24 [facility] Work Phone: Comment on above: PATIENT NOT FASTINGP ERFORMED BY: EDSON [facility] [id number] [facility] [id number] Information: [id number] Urea nitrogen/Creatinine [Mass ratio] 18 mg/mg Normal 9-20 [facility] Work Phone: Comment on above: PATIENT NOT FASTINGP ERFORMED BY: [id number] [facility] [id number] Information: [id number], [id number] Vital Signs Date Time Vital Sign Value Performing Clinician Facility 10-29-2022 08:04-0400 Body height 182.88 cm Heather Storm LPN [facility]; [facility] Work Phone: 10-29-2022 08:04-0400 Body mass index (BMI) [Ratio] 26.9 kg/m2 Heather Storm LPN [facility]; [facility] Work Phone: 10-29-2022 08:04-0400 Body surface area Derived from formula 2.12 m2 Heather Storm LPN [facility]; [facility] Work Phone: 10-29-2022 08:04-0400 Body temperature 97.6 [degF] Heather Storm LPN [facility]; [facility] Work Phone: 10-29-2022 08:04-0400 Body weight 89.98 kg Heather Storm LPN [facility]; [facility] Work Phone: 10-29-2022 08:04-0400 Diastolic blood pressure 70 mm[Hg] Heather Storm LPN [facility]; [facility] Work Phone: Comment on above: Patient Position: Sitting; Cuff Location : Left Arm; Cuff Size: Standard 10-29-2022 08:04-0400 Heart rate 55 /min Heather Storm LPN [facility]; [facility] Work Phone: Comment on above: Pattern: Regular 10-29-2022 08:04-0400 Respiratory rate 16 /min Heather Storm LPN [facility]; [facility] Work Phone: Comment on above: Pattern: Unlabored 10-29-2022 08:04-0400 SaO2% (BldA) [Mass fraction] 98 % Heather Storm LPN [facility]; [facility] Work Phone: Comment on above: Room air 10-29-2022 08:04-0400 Systolic blood pressure 122 mm[Hg] Heather Storm LPN [facility]; [facility] Work Phone: Comment on above: Patient Position: Sitting; Cuff Location : Left Arm; Cuff Size: Standard 05-04-2022 10:18-0400 Body height 182.88 cm [facility]; [facility] Work Phone: 05-04-2022 10:18-0400 Body mass index (BMI) [Ratio] 26.51 kg/m2 [facility]; [facility] Work Phone: 05-04-2022 10:18-0400 Body surface area Derived from formula 2.11 m2 [facility]; [facility] Work Phone: 05-04-2022 10:18-0400 Body temperature 97.1 [degF] [facility]; [facility] Work Phone: 05-04-2022 10:18-0400 Body weight 88.68 kg [facility]; [facility] Work Phone: 05-04-2022 10:18-0400 Diastolic blood pressure 80 mm[Hg] [facility]; [facility] Work Phone: Comment on above: Patient Position: Sitting; Cuff Location : Left Arm; Cuff Size: Standard 05-04-2022 10:18-0400 Heart rate 56 /min [facility]; [facility] Work Phone: Comment on above: Pattern: Regular 05-04-2022 10:18-0400 Respiratory rate 16 /min [facility]; [facility] Work Phone: Comment on above: Pattern: Unlabored 05-04-2022 10:18-0400 SaO2% (BldA) [Mass fraction] 97 % [facility]; [facility] Work Phone: Comment on above: Room air 05-04-2022 10:18-0400 Systolic blood pressure 116 mm[Hg] Chase Gironoliver MOORE [facility]; [facility] Work Phone: Comment on above: Patient Position: Sitting; Cuff Location : Left Arm; Cuff Size: Standard 06-19-2021 07:35-0500 Body height 182.88 cm GENOVEVA Torres LPN [facility]; [facility] Work Phone: 06-19-2021 07:35-0500 Body mass index (BMI) [Ratio] 24.68 kg/m2 GENOVEVA Torres LPN [facility]; [facility] Work Phone: 06-19-2021 07:35-0500 Body surface area Derived from formula 2.05 m2 GENOVEVA Torres LPN [facility]; [facility] Work Phone: 06-19-2021 07:35-0500 Body temperature 97.9 [degF] GENOVEVA Torres LPN [facility]; [facility] Work Phone: Comment on above: Method: Temporal 06-19-2021 07:35-0500 Body weight 82.56 kg GENOVEVA Torres LPN [facility]; [facility] Work Phone: 06-19-2021 07:35-0500 Diastolic blood pressure 76 mm[Hg] GENOVEVA Torres LPN [facility]; [facility] Work Phone: Comment on above: Patient Position: Sitting; Cuff Location : Left Arm; Cuff Size: Large 06-19-2021 07:35-0500 Heart rate 60 /min GENOVEVA Torres LPN [facility]; [facility] Work Phone: Comment on above: Pattern: Regular 06-19-2021 07:35-0500 Respiratory rate 18 /min GENOVEVA Torres LPN [facility]; [facility] Work Phone: Comment on above: Pattern: Unlabored 06-19-2021 07:35-0500 SaO2% (BldA) [Mass fraction] 100 % GENOVEVA Torres LPN [facility]; [facility] Work Phone: Comment on above: Room air 06-19-2021 07:35-0500 Systolic blood pressure 112 mm[Hg] GENOVEVAMARE Torres ESTRELLITA [facility]; [facility] Work Phone: Comment on above: Patient Position: Sitting; Cuff Location : Left Arm; Cuff Size: Large 03-28-2021 07:52-0400 Body height 182.88 cm GENOVEVA Torres LPN [facility]; [facility] Work Phone: 03-28-2021 07:52-0400 Body mass index (BMI) [Ratio] 24.41 kg/m2 GENOVEVA Torres LPN [facility]; [facility] Work Phone: 03-28-2021 07:52-0400 Body surface area Derived from formula 2.04 m2 GENOVEVA Torres LPN [facility]; [facility] Work Phone: 03-28-2021 07:52-0400 Body temperature 97.9 [degF] GENOVEVA Torres LPN [facility]; [facility] Work Phone: Comment on above: Method: Temporal 03-28-2021 07:52-0400 Body weight 81.65 kg GENOVEVA Torres LPN [facility]; [facility] Work Phone: 03-28-2021 07:52-0400 Diastolic blood pressure 74 mm[Hg] GENOVEVA Torres LPN [facility]; [facility] Work Phone: Comment on above: Patient Position: Sitting; Cuff Location : Left Arm; Cuff Size: Standard 03-28-2021 07:52-0400 Heart rate 70 /min GENOVEVA Torres LPN [facility]; [facility] Work Phone: Comment on above: Pattern: Regular 03-28-2021 07:52-0400 Respiratory rate 18 /min GENOVEVA Torres LPN [facility]; [facility] Work Phone: Comment on above: Pattern: Unlabored 03-28-2021 07:52-0400 SaO2% (BldA) [Mass fraction] 99 % GENOVEVA Torres LPN [facility]; [facility] Work Phone: Comment on above: Room air 03-28-2021 07:52-0400 Systolic blood pressure 114 mm[Hg] GENOVEVA Torres ESTRELLITA [facility]; [facility] Work Phone: Comment on above: Patient Position: Sitting; Cuff Location : Left Arm; Cuff Size: Standard 11-24-2020 08:41-0400 Body height 182.88 cm GENOVEVA Torres ESTRELLITA [facility]; [facility] Work Phone: 11-24-2020 08:41-0400 Body mass index (BMI) [Ratio] 26.45 kg/m2 GENOVEVA Torres ESTRELLITA [facility]; [facility] Work Phone: 11-24-2020 08:41-0400 Body surface area Derived from formula 2.11 m2 GENOVEVAMARE Torres LPN [facility]; [facility] Work Phone: 11-24-2020 08:41-0400 Body temperature 97.9 [degF] GENOVEVA Torres ESTRELLITA [facility]; [facility] Work Phone: Comment on above: Method: Temporal 11-24-2020 08:41-0400 Body weight 88.45 kg GENOVEVA Torres ESTRELLITA [facility]; [facility] Work Phone: 11-24-2020 08:41-0400 Diastolic blood pressure 78 mm[Hg] GENOVEVA Torres ESTRELLITA [facility]; [facility] Work Phone: Comment on above: Patient Position: Sitting; Cuff Location : Left Arm; Cuff Size: Standard 11-24-2020 08:41-0400 Heart rate 74 /min GENOVEVA Torres ESTRELLITA [facility]; [facility] Work Phone: Comment on above: Pattern: Regular 11-24-2020 08:41-0400 Respiratory rate 20 /min GENOVEVA Torres ESTRELLITA [facility]; [facility] Work Phone: Comment on above: Pattern: Unlabored 11-24-2020 08:41-0400 SaO2% (BldA) [Mass fraction] 98 % GENOVEVA Torres [employer] [facility]; [facility] Work Phone: Comment on above: Room air 11-24-2020 08:41-0400 Systolic blood pressure 120 mm[Hg] GENOVEVA Torres [facility]; [facility] Work Phone: Comment on above: Patient Position: Sitting; Cuff Location : Left Arm; Cuff Size: Standard 05-26-2020 08:45-0400 BMI (Body Mass Index) 28.62 kg/m2 Luly Chriss [facility] Work Phone: 05-26-2020 08:45-0400 Body Temperature 97 [degF] [facility] Work Phone: Comment on above: Method: Thermal Scan 05-26-2020 08:45-0400 Body weight 95.73 kg [facility] Work Phone: 05-26-2020 08:45-0400 BP Diastolic 78 mm[Hg] [facility] Work Phone: Comment on above: Patient Position: Sitting; Cuff Location : Left Arm; Cuff Size: Standard 05-26-2020 08:45-0400 BP Systolic 138 mm[Hg] [facility] Work Phone: Comment on above: Patient Position: Sitting; Cuff Location : Left Arm; Cuff Size: Standard 05-26-2020 08:45-0400 BSA (Body Surface Area) 2.18 m2 Luly Chriss [facility] Work Phone: 05-26-2020 08:45-0400 Height 182.88 cm [facility] Work Phone: 05-26-2020 08:45-0400 Pulse (Heart Rate) 99 /min [facility] Work Phone: Comment on above: Pattern: Regular 05-26-2020 08:45-0400 Pulse Oximetry 98 % Kathy Hare [facility] Work Phone: Comment on above: Room air 05-26-2020 08:45-0400 Respiratory Rate 16 /min Luly Banerjee [facility] Work Phone: Comment on above: Pattern: Unlabored 05-26-2020 08:45-0400 SaO2% (BldA) [Mass fraction] 98 % Luly Banerjee [facility]; [facility] Work Phone: Comment on above: Room air 05-17-2020 08:50-0400 Body Temperature 98.1 [degF] [facility] Cli jim 05-17-2020 08:50-0400 Body weight 95.71 kg [facility] Clin ic 05-17-2020 08:50-0400 BP Diastolic 87 mm[Hg] [facility] 05-17-2020 08:50-0400 BP Systolic 121 mm[Hg] [facility] 05-17-2020 08:50-0400 Height 182.9 cm [facility] Clin ic 05-17-2020 08:50-0400 Pulse (Heart Rate) 64 /min [facility] C linic 05-17-2020 08:50-0400 Pulse Oximetry 97 % [facility] Clin ic 05-17-2020 08:50-0400 Respiratory Rate 16 /min [facility] Cli jim 02-22-2020 07:40-0400 BMI (Body Mass Index) 28.62 kg/m2 GENOVEVA Torres [facility] Work Phone: 02-22-2020 07:40-0400 Body weight 95.73 kg GENOVEVA Jay [facility] Work Phone: 02-22-2020 07:40-0400 BSA (Body Surface Area) 2.18 m2 GENOVEVA Torres [facility] Work Phone: 02-22-2020 07:40-0400 Height 182.88 cm GENOVEVAMARE Torres [facility] Work Phone: 11-24-2019 13:55-0400 Pulse (Heart Rate) 82 /min Kathy Hare MD Work Phone: [facility] Work Phone: Comment on above: Pattern: Regular 11-24-2019 13:55-0400 Pulse Oximetry 95 % Kathy Hare [facility] Work Phone: Comment on above: Room air 11-24-2019 13:55-0400 SaO2% (BldA) [Mass fraction] 95 % Kathy Hare MD Work Phone: [facility] Work Phone: Comment on above: Room air 11-04-2019 12:37-0400 BMI (Body Mass Index) 29.16 kg/m2 GENOVEVA Torres LPN [facility] Work Phone: Comment on above: weight was reported per patient did not want to weigh him with covid-19 sx. 11-04-2019 12:37-0400 Body Temperature 100.6 [degF] GENOVEVA Torres LPN [facility] Work Phone: Comment on above: Method: Oral weight was reported per patient did not want to weigh him with covid-19 sx. 11-04-2019 12:37-0400 Body weight 97.52 kg GENOVEVA Torres LPN [facility] Work Phone: Comment on above: weight was reported per patient did not want to weigh him with covid-19 sx. 11-04-2019 12:37-0400 BP Diastolic 95 mm[Hg] GENOVEVA Torres LPN [facility] Work Phone: Comment on above: Patient Position: Sitting; Cuff Location : Left Arm; Cuff Size: Standard weight was reported per patient did not want to weigh him with covid-19 sx. 11-04-2019 12:37-0400 BP Systolic 129 mm[Hg] GENOVEVA Torres LPN [facility] Work Phone: Comment on above: Patient Position: Sitting; Cuff Location : Left Arm; Cuff Size: Standard weight was reported per patient did not want to weigh him with covid-19 sx. 11-04-2019 12:37-0400 BSA (Body Surface Area) 2.2 m2 GENOVEVA Torres LPN [facility] Work Phone: Comment on above: weight was reported per patient did not want to weigh him with covid-19 sx. 11-04-2019 12:37-0400 Height 182.88 cm GENOVEVA Torres LPN [facility] Work Phone: Comment on above: weight was reported per patient did not want to weigh him with covid-19 sx. 11-04-2019 12:37-0400 Pulse (Heart Rate) 102 /min GENOVEVA Torres LPN [facility] Work Phone: Comment on above: Pattern: Regular weight was reported per patient did not want to weigh him with covid-19 sx. 11-04-2019 12:37-0400 Pulse Oximetry 95 % Kathy Hare [facility] Work Phone: Comment on above: Room air weight was reported per patient did not want to weigh him with covid-19 sx. 11-04-2019 12:37-0400 Respiratory Rate 22 /min GENOVEVA Torres LPN [facility] Work Phone: Comment on above: Pattern: Unlabored weight was reported per patient did not want to weigh him with covid-19 sx. 11-04-2019 12:37-0400 SaO2% (BldA) [Mass fraction] 95 % GENOVEVA Torres LPN [facility] Work Phone: Comment on above: Room air weight was reported per patient did not want to weigh him with covid-19 sx. 05-07-2017 12:55-0400 BP Diastolic 70 mm[Hg] GENOVEVA Torres LPN [facility] Work Phone: Comment on above: Patient Position: Standing; Cuff Locatio n: Left Arm; Cuff Size: Standard 05-07-2017 12:55-0400 BP Systolic 104 mm[Hg] GENOVEVA Torres LPN [facility] Work Phone: Comment on above: Patient Position: Standing; Cuff Locatio n: Left Arm; Cuff Size: Standard 05-07-2017 12:55-0400 Pulse (Heart Rate) 74 /min GENOVEVA Torres LPN [facility] Work Phone: Comment on above: Pattern: Regular 05-07-2017 12:55-0400 BP Diastolic 80 mm[Hg] GENOVEVA Torres LPN [facility] Work Phone: Comment on above: Patient Position: Sitting; Cuff Location : Left Arm; Cuff Size: Standard 05-07-2017 12:55-0400 BP Systolic 120 mm[Hg] GENOVEVA Torres LPN [facility] Work Phone: Comment on above: Patient Position: Sitting; Cuff Location : Left Arm; Cuff Size: Standard 05-07-2017 12:55-0400 Pulse (Heart Rate) 72 /min [facility] Work Phone: Comment on above: Pattern: Regular 05-07-2017 12:53-0400 BMI (Body Mass Index) 29.16 kg/m2 GENOVEVA Torres LPN [facility] Work Phone: 05-07-2017 12:53-0400 Body Temperature 97.9 [degF] GENOVEVA Torres LPN [facility] Work Phone: Comment on above: Method: Temporal 05-07-2017 12:53-0400 Body weight 97.52 kg GENOVEVA Torres LPN [facility] Work Phone: 05-07-2017 12:53-0400 BP Diastolic 80 mm[Hg] GENOVEVA Torres LPN [facility] Work Phone: Comment on above: Patient Position: Supine; Cuff Location: Left Arm; Cuff Size: Standard 05-07-2017 12:53-0400 BP Systolic 120 mm[Hg] GENOVEVA Torres LPN [facility] Work Phone: Comment on above: Patient Position: Supine; Cuff Location: Left Arm; Cuff Size: Standard 05-07-2017 12:53-0400 BSA (Body Surface Area) 2.2 m2 GENOVEVA Torres LPN [facility] Work Phone: 05-07-2017 12:53-0400 Height 182.88 cm GENOVEVA Torres LPN [facility] Work Phone: 05-07-2017 12:53-0400 Pulse (Heart Rate) 68 /min GENOVEVA Torres LPN [facility] [place] [facility] Work Phone: Comment on above: Pattern: Regular 05-07-2017 12:53-0400 Pulse Oximetry 98 % Kathy Hare [facility] Work Phone: Comment on above: Room air 05-07-2017 12:53-0400 Respiratory Rate 18 /min GENOVEVA Jay HARO [facility] Work Phone: Comment on above: Pattern: Unlabored 05-07-2017 12:53-0400 SaO2% (BldA) [Mass fraction] 98 % GENOVEVA Torres ESTRELLITA [facility] Work Phone: Comment on above: Room air Encounters Encounter Date Encounter Type Care Provider Facility Start: 12-25-2024 End: 12-25-[address] Kathy Hare MD Work Phone: [facility] Work Phone: Start: 12-25-2024 End: 12-25-[address] Kathy Hare MD -Cat Scan [facility] Work Phone: Start: 12-25-2024 End: 12-25-2024 ambulatory Kathy Hare Facility:[facility] Start: 12-08-2024 End: 12-08-2024 Emergency department patient visit KATHY HARE [facility] Start: 11-06-2022 End: 11-06-2022 Phone Encounter Kathy Hare MD Work Phone: [facility] Start: 11-01-2022 ambulatory KATHY HARE Fac ility:[id number] Start: 10-29-2022 End: 10-29-2022 Office outpatient visit 25 minutes Kathy Hare MD Work Phone: [facility] Start: 10-29-2022 End: 10-29-2022 Patient encounter procedure Kathy Hare MD Work Phone: [facility]; [facility] Work Phone: Comment on above: 03-28-21 [facility] 30 Cogn[facility] 77 Hep C negative, PSA 8-21 positive antibodies to covid. [id number] polyp repeat 5 yearsbike in am to loosen knee. Start: 10-16-2022 ambulatory Kathy Hare MD [facility] Start: 10-16-2022 End: 10-16-2022 Phone Encounter Kathy Hare MD Work Phone: [facility] Start: 05-04-2022 End: 05-06-2022 Patient encounter procedure Kahty Hare MD Work Phone: [facility]; [facility] Work Phone: Comment on above: 03-28-21 [facility]A Cognivue 77 Hep C negative, PSA 8-21 positive antibodies to covid. [id number] polyp repeat 5 years Start: 05-04-2022 Review Kathy Escobedo Work Phone: [facility] Start: 04-17-2022 End: 04-17-2022 Lab Order Kathy Hare MD Work Phone: [facility] Start: 10-17-2021 End: 10-17-2021 Office outpatient visit 15 minutes Kathy Hare MD Work Phone: [facility] Start: 10-17-2021 End: 10-17-2021 Office outpatient visit 10 minutes Kathy Hare MD Work Phone: [facility] Start: 10-17-2021 End: 10-17-2021 Patient encounter procedure Kathy Hare MD Work Phone: [facility]; [facility] Work Phone: Comment on above: 03-28-21 [facility]A Cogn[facility]ue 77 Hep C negative, PSA 8-21 positive antibodies to covid. [id number] polyp repeat 5 years Start: 10-17-2021 End: 10-17-2021 Preprocedural examination done Kathy Hare MD Work Phone: [facility]; [facility] Work Phone: Comment on above: he has tolerate surg elba in recent past.06-19-21 L 3-4 Laminectomy decompression 12- Start: 06-19-2021 End: 06-19-2021 Office outpatient visit 15 minutes Kathy Hare MD Work Phone: [facility] Start: 06-19-2021 End: 06-19-2021 Preprocedural examination done Kathy Hare MD Work Phone: [facility] Start: 06-12-2021 End: 06-12-2021 Phone Encounter Kathy Hare MD Work Phone: [facility] Start: 04-17-2021 End: 04-17-2021 Phone Encounter Kathy Hare MD Work Phone: [facility] Start: 03-28-2021 End: 04-09-2021 Office outpatient visit 10 minutes Kathy Hare MD Work Phone: [facility] Start: 03-28-2021 End: 04-09-2021 Patient encounter procedure Kathy Hare MD Work Phone: [facility] Start: 03-28-2021 End: 04-09-2021 Preprocedural examination done Kathy Hare MD Work Phone: [facility] Start: 03-13-2021 End: 03-13-2021 Lab Order Kathy Hare MD Work Phone: [facility] Start: 11-24-2020 End: 11-28-2020 Periodic preventive med est patient 18-39 yrs Kathy Hare MD Work Phone: [facility] Start: 11-24-2020 End: 11-28-2020 Preprocedural examination done Kathy Hare MD Work Phone: [facility]; [facility] Work Phone: Comment on above: having left knee morris shayy 06-28-20 and plan back surgery 06-25. at this point Dr. gonzales not feel needs filter because PE related to covid. Start: 11-24-2020 Review Kathy Escobedo Work Phone: [facility] Start: 09-21-2020 End: 09-21-2020 Phone Encounter Kathy Hare [facility] Start: 06-27-2020 Review Kathy Hare [facility] Start: 06-20-2020 End: 06-28-2020 Office outpatient visit 15 minutes Kathy Hare [facility] Start: 06-20-2020 Review Kathy Hare [facility] Start: 06-07-2020 End: 07-12-2020 Office outpatient visit 10 minutes Kathy Hare [facility] Start: 06-07-2020 Review Kathy Hare [facility] Start: 05-26-2020 End: 05-26-2020 Office outpatient visit 10 minutes Kathy Hare [facility] Start: 05-26-2020 End: 05-26-2020 Patient encounter status Kathy Hare MD Work Phone: [facility] Start: 05-26-2020 End: 05-26-2020 Preprocedural examination done Kathy Hare MD Work Phone: [facility] Start: 05-17-2020 End: 05-17-2020 Subsequent hospital visit by physician Kemar Person [employer] [facility] Comment on above: Lumbar degenerative disc disease [M51.36] Start: 05-17-2020 End: 05-17-2020 Patient encounter procedure Cecil [place] Work Phone: [facility] Comment on above: Lumbar degenerative disc disease (Primary Dx) Start: 04-29-2020 End: 04-29-2020 Patient encounter procedure External Provider [facility] Start: 04-29-2020 Results Only External Provider [facility] Start: 04-14-2020 End: 04-14-2020 Office outpatient visit 10 minutes Kathy Hare [facility] Start: 03-24-2020 End: 03-24-2020 Phone Encounter Kathy Pulliam [employer] De[employer] Repairer [facility] Start: 03-11-2020 End: 03-16-2020 Periodic preventive med est patient 18-39 yrs Kathy Hare [facility] Start: 02-24-2020 End: 02-24-2020 Office outpatient visit 15 minutes Kathy Hare [facility] Start: 02-22-2020 End: 02-23-2020 Office outpatient visit 15 minutes Kathy Hare [facility] Start: 02-22-2020 End: 02-23-2020 Patient encounter procedure Kathy Hare MD Work Phone: [facility] Start: 02-22-2020 End: 02-23-2020 Patient encounter status Kathy Hare MD Work Phone: [facility] Start: 01-15-2020 End: 01-15-2020 Lab Order Kathy Hare [facility] Start: 01-15-2020 End: 01-15-2020 Patient encounter status Kathy Hare MD Work Phone: [facility] Start: 12-14-2019 End: 12-14-2019 Office outpatient visit 15 minutes Kathy Hare [facility] Start: 12-09-2019 [facility] Start: 11-30-2019 End: 11-30-2019 Periodic preventive med est patient 18-39 yrs Kathy Hare [facility] Start: 11-24-2019 End: 11-24-2019 Periodic preventive med est patient 18-39 yrs Kathy Hare [facility] Start: 11-10-2019 End: 11-10-2019 Office outpatient visit 10 minutes Kathy Hare [facility] Start: 11-09-2019 End: 11-09-2019 Phone Encounter Kathy Hare [facility] Start: 11-04-2019 End: 11-04-2019 Office outpatient visit 15 minutes Kathy Hare [facility] Start: 11-04-2019 End: 11-04-2019 Phone Encounter Kathy Hare [facility] Start: 05-07-2017 End: 05-09-2017 Office outpatient visit 15 minutes Kathy Hare [facility] Patient encounter procedure Luly Banerjee LPN [facility]; [facility] Work Phone: Comment on above: 02-22-20 [facility] , Hep C negative, PSA 0.4 (6), positive antibodies to covid. needs to get colonscopy after off eliquis. Patient encounter procedure GENOVEVA Torres LPN [facility]; [facility] Work Phone: Comment on above: 02-22-20 [facility] /, Hep C negative, PSA 0.4 (01-15-20), positive antibodies to covid. needs to get colonscopy after off eliquis. Patient encounter procedure GENOVEVA Torres SUPERVISOR FRONT [facility]; [facility] Work Phone: Comment on above: 03-28-21 [facility]: MOCA 30 Cogn[facility]ue 77 Hep C negative, PSA 8- positive antibodies to covid. [id number] poylp repeat 5 years Patient encounter procedure Kathy Hare MD Work Phone: [facility] Work Phone: Comment on above: 02-22-20 [facility]: [facility]OC[facility] , Hep C negative, PSA 0.4 (01-15-20), positive antibodies to covid. needs to get colonscopy after off eliquis. End: 11-24-2020 Patient encounter status GENOVEVA Torres SUPERVISOR FRONT [facility]; [facility] Work Phone: Patient encounter status Kathy Hare MD Work Phone: [facility] Work Phone: Preprocedural examination done aKthy Haer MD Work Phone: [facility]; [facility] Work Phone: Comment on above: he has tolerate surg elba in recent past.06-19-21 L 3-4 Laminectomy decompression 12-2 Procedures Date Procedure Procedure Detail Performing Clinician Start: 12-25-2024 CT of chest without contrast Dr. Kathy Hare MD Work Phone: Start: 07-06-2021 End: 07-06-2021 Lumbar Spine 2 or 3 Views Comments: See Note; NOTES: [facility] Imaging Services [address] [place] [address] Lumbar Spine 2 or 3 Views MR#: [id number] Acct: [id number] Name: PAUL SHELTON Rep #: [id number] : 1960 M 61 From: Romario Escobedo PCP: Dr. Kathy Hare MD Status: [facility] Study: Lumbar Spine 2 or 3 Views Date of Exam: Exam# [id number] Ordering Dr: Keven Conway DO STUDY: INTRAOPERATIVE FLUOROSCOPY TECHNIQUE: The examination was performed with referring physician in attendance. Under fluoroscopic observation, fluoroscopic images were obtained. Radiologist was not present for the study. Radiologist did not perform the procedure. This dictation is for documentation of the radiation dosage only. There is no interpretation of the images. TOTAL NUMBER OF IMAGES: 1 COMPARISON: None RADIATION DOSE: 18.6 mGy FLUOROSCOPY TIME: 39.3 seconds REASON FOR EXAM: L3 LAMINECTOMY DECOMPRESSSION Male, 61 years old. FINDINGS: Images of the lumbar spine. Surgical instrument pointing at the level of L4-5. RAD/Lumbar Spine 2 or 3 Views IMPRESSION: Fluoroscopic assistance images were obtained. Dictation for documentation purposes only. Electronically Signed: Romario Rivera MD at 15:11 EST , Service support , CC: Dr. Kathy Hare MD; Dr. Keven Conway DO Shovel Engineer: Signed Kathy Hare MD Work Phone: Start: 07-06-2021 End: 07-06-2021 Operative Report Comments: See Note; NOTES: [facility] Medical Records Department [address] [place] [address] Operative Report 07/06/21 1238 MR#: [id number] Acct: [id number] Name: PAUL SHELTON Rep #: [id number] : 1960 61 From: Keven Conway DO PCP: Dr. Kathy Hare MD Status[place] [place]: [place] [address] Problems Associated Problem List Diagnoses (1) Lumbar stenosis: Report of Operation Date of Procedure: 07/06/21 Pre-Operative Diagnosis: 1. Lumbar stenosis L3-4 with spondylosis 2. Lumbar degenerative disc disease L3-4 Post-Operative Diagnosis: 1. Lumbar stenosis L3-4 with spondylosis 2. Lumbar degenerative disc disease L3-4 Surgery/Procedure Performed:: 1. L3 bilateral laminectomies, foraminotomies, decompression of bilateral nerve roots Description of Surgical Findings:: The patient is a 61-year-old male with intractable back and leg pain. Image studies confirm the above diagnosis. He has failed conservative treatments to include medication, physical therapy, and injections. The patient opted for operative intervention understanding the risks to include, but not limited to infection, bleeding, damage to nerves arteries and veins, possibility of spinal fluid leak, continued pain, need for further surgery, deep vein thrombosis, pulmonary embolism, heart attack, risk of stroke or The patient was identified in the preoperative holding area. There he received preoperative IV antibiotics, Ancef, and was transferred to the operative suite. Once in the operative suite, after general endotracheal anesthesia was established, the patient was transferred prone on the [place] operating table. The arms and all bony prominences were well-padded. The lumbar spine was prepped and draped in a standard fashion. Bear hugger's were not turned on until drapes were placed and sealed with Ioban. A midline incision was made and taken down to the level of the lumbodorsal fascia. The fascia was divided and subperiosteal dissection was taken down to the level of the bilateral L3-4 facet joints. Deep retractors were placed. A bone scalpel was used to perform laminectomy cuts and then a series of rongeurs and Kerrisons was used removing the spinous process and lamina of L3. Bilateral foraminotomies were performed decompressing the bilateral nerve roots. The incision was then thoroughly irrigated. Tisseel was placed over the dura as a hemostatic agent. The fascia was closed with #1 Vicryl, subcutaneous with 2-0 Vicryl, and skin with 2-0 nylon. A sterile dressing was applied with 4 x 4's, ABD and tape. Sponge instrument needle counts were correct at the end of the case. The patient was extubated and taken to the PACU without incident. Shawanda Barreto PAC was present during the duration of the case and necessary for critical parts of the case including retraction and closure Surgeon: Keven Conway clin nurse spec: None (Shawanda Barreto PA-C) Type of Anesthesia: General Estimated Blood Loss (mL): 25 Fluids Replaced: 1700 Complications none Admit VTE Documentation VTE Present on Admission: No 07/06/21 1545 <Electronically signed by Keven Conway DO> Cosigner Signature (if applicable): CC: Dr. Kathy Hare MD; Dr. Keven Conway DO Signed Kathy Hare MD Work Phone: Start: 06-27-2021 End: 06-27-2021 Stress Report Comments: See Note; NOTES: [facility] [address] [place] [address] MR#: [id number] Acct: [id number] Name: PAUL SHELTNO Rep #: [id number] : 1960 61 From: Eder Tucker MD Primary Care: Dr. Kathy Hare MD Status: REG CLI Referring Dr: Kathy Hare MD Sex: M C Stress Test Report Exercise myocardial perfusion stress test. 61-year-old man with a history of preoperative evaluation for abnormal EKG. Resting EKG demonstrates normal sinus rhythm with a rate of 56 bpm T wave inversions noted in aVL resting blood pressure is 110/72 mmHg. The patient exercised according to regular Marek protocol for total duration of 10 minutes completing 1 minute into stage IV of the Marek protocol. The maximum heart rate attained was 125 bpm which was 79% of maximum predicted heart rate the maximum workload was 13.4 metabolic equivalents. At rest there were no ST or T wave changes noted to suggest ischemia and at peak exercise upsloping ST changes were noted with did not meet the criteria for ischemia. No clinical angina was noted the test was terminated due to leg discomfort. The peak blood pressure is 140/64 mmHg. Myocardial perfusion protocol. 11.9 mCi of technetium 99m sestamibi was injected at rest. The patient exercised according to regular Marek protocol for total duration of 10 minutes. At peak exercise 34.1 mCi of technetium 99m sestamibi was injected stress images were obtained stress and rest images were reconstructed and compared in the short axis vertical long and horizontal long axis. Gated images were also obtained per Perfusion SPECT analysis: Review of the stress images demonstrate normal uptake of tracer noted in all areas of the myocardium. The resting images similarly demonstrate normal uptake of tracer noted in all areas of the myocardium. No areas of reversibility were noted suggest ischemia and no previous infarct is noted. Gated SPECT analysis: The gated ejection fraction is noted to be 47%. Conclusion: Normal exercise myocardial perfusion stress test high workload. Low normal ejection fraction. Excellent functional capacity. 06/27/211755 <Electronically signed by Eder Tucker MD> Date Eder Tucker MD CC: Dr. Kathy Hare MD Date Dictated: 06/27/211752 Date Transcribed: 06/27/211752 Shovel Engineer: [place] Signed Kathy Hare MD Work Phone: Start: 06-21-2021 End: 06-21-2021 Chest PA and Lateral Comments: See Note; NOTES: [facility] Imaging Services [address] [place] [address] Chest PA and Lateral MR#: [id number] Acct: [id number] Name: PAUL SHELTON Rep #: [id number] : 1960 M 61 From: Ronny Morrell MD PCP: Dr. Kathy Hare MD Status: [facility] Study: Chest PA and Lateral Date of Exam: 06/21/21 Exam# [id number] Ordering Dr: Keven Conway DO STUDY: X-RAY CHEST REASON FOR EXAM: Male, 61 years old. Preop for pelvic surgery TECHNIQUE: PA and lateral views of the chest. COMPARISON: 11/04/2019 FINDINGS: The lungs are mildly hyperexpanded with chronic interstitial changes but no superimposed acute pulmonary process. There is no demonstrated pleural abnormality. Normal size heart. Normal mediastinum and margareth. Normal visualized pulmonary arteries. Normal visualized aortic arch and descending thoracic aorta. There are diffuse degenerative changes of the visualized thoracic spine. There is degenerative osteoarthritis of the bilateral shoulders. There is no demonstrated abnormality of the visualized soft tissue structures of the upper abdomen. RAD/Chest PA and Lateral IMPRESSION: Hyperexpanded lungs without a superimposed acute pulmonary process Electronically Signed: Dayne Morrell MD at 13:15 EST , Service support , CC: Dr. Kathy Hare MD; Dr. Keven Conway DO Shovel Engineer: Signed Kathy Hare MD Work Phone: Start: 05-10-2021 End: 05-10-2021 Surgery Visit Report Comments: See Note; NOTES: [facility] [address] [place] [address] OFFICE VISIT Date of Service: 05/10/21 MR#: [id number] Acct: [id number] Name: PAUL SHELTON Rep #: [id number] : 1960 Provider: Dr. Eugene castillo MD Age/Sex: 61/M Location: [facility] Status: Signed Intake Intake Visit Reasons: POST OP INGUINAL HERNIA 05/03 Chief Complaint: Possible right inguinal hernia Allergies No Known Allergies Allergy (Verified 05/10/21 09:57) Medications tamsulosin 0.4 mg capsule 0.4 mg PO QHS #30 cap 04/14/21 [Rx Confirmed 05/10/21] Subjective Details: 61-year-old gentleman. He returns status post an umbilical herniorrhaphy and laparoscopic right inguinal herniorrhaphy that I performed for him on May 03, 2021. An extra-large Bard 3D max mesh was used. The umbilicus was repaired with 0 Nurolon. He has a history of COVID-19 with pneumonia and pulmonary embolus November 2019. Because of urinary retention we initiated him on Flomax 0.4 mg nightly. He had had a remote laparoscopic left inguinal hernia repair performed by Dr. Deandre Malave 1998. 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 The patient feels that he is making good progress at this time. He was initiated on Flomax preoperatively as noted. Objective Details: Laparoscopic sites clean dry healing well. Right groin feels solid. There is some soft tissue cord swelling noted. I do not detect a recurrent defect. Mild ecchymosis at the base of the scrotum Coding Level of Care Code Global Post Op Diagnoses Umbilical hernia without obstruction or gangrene K42.9 Inguinal hernia of right side without obstruction or gangrene K40.90 [facility] Medical History (Updated 05/03/21 @ 08:[address] Eugene Gonzales MD) Arthritis Arthritis Back pain Back problem Gout History of edema History of pain when walking History of pulmonary embolism Leg cramps Non-smoker Pulmonary embolism Sleep apnea Vertigo Surgical History (Updated 05/01/21 @ 15:43 by Tish Condon) Appendicitis DOUBLE CARPEL TUNNEL History of appendectomy History of bilateral carpal tunnel release History of left knee replacement Hx of colonoscopy Hx of inguinal hernia surgery Family History (Updated 04/14/21 @ 13:52 by Elin Story) Father Arthritis High cholesterol Hypertension Mother Hypertension Sister Arthritis Daughter Arthritis Thyroid disorder Social History current occupational status: employed current occupational exposures/hazards: Yes (Exposed to smoke, abestos, chemicals, and fumes.) Smoking Status: Never smoker second hand exposure: No alcohol intake: current details: WILL SOMETIMES HAVE A BEER BUT NOT OFTEN substance use type: does not use what type of physical activity do you participate in: other frequency: daily seatbelt use: always do you feel safe at home: Yes Assessment and Plan (No Qualifiers) Assessment and Plan (1) Umbilical hernia without obstruction or gangrene: Status: Acute (2) Inguinal hernia of right side without obstruction or gangrene: Status: Acute Plan - Dr. Eugene Gonzales MD: The patient seems to be doing well from his suture repair of the small umbilical hernia and laparoscopic right inguinal herniorrhaphy with an extra-large Bard 3D max mesh. He does have a slight amount of right groin cord swelling. 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 If his right cord swelling does not resolve within 4 to 6 weeks he is invited to recontact us and return for follow-up appointment. He has been given strict limitation instructions. I appreciate the opportunity of assisting with surgical care Copy: Dr. Kathy Gonzales M.D., F.A.C.S. 05/10/21 1019 <Electronically signed by Eugene Gonzales MD> Date Eugene Gonzales MD Cosigner Signature: Date (if applicable) CC: MD Kathy Cooney MD Work Phone: Start: 05-03-2021 End: 05-03-2021 Operative Report Comments: See Note; NOTES: [facility] Medical Records Department [address] [place] [address] Operative Report 05/03/21 0844 MR#: [id number] Acct: [id number] Name: PAUL SHELTON Rep #: [id number] : 1960 61 From: Eugene Gonzales MD PCP: Dr. Kathy Hare MD Status:[facility] Location: [place] [address] Problems Associated Problem List Diagnoses (1) Inguinal hernia of right side without obstruction or gangrene: (2) Umbilical hernia without obstruction or gangrene: Report of Operation Date of Procedure: 05/03/21 Pre-Operative Diagnosis: Indirect right inguinal hernia Post-Operative Diagnosis: Indirect right inguinal hernia, umbilical hernia Surgery/Procedure Performed:: Umbilical herniorrhaphy, laparoscopic right inguinal herniorrhaphy Bard 3D max extra-large right mesh. Lot number [id number],Reference #[id number] expiry date 10/30/2025 Secure strap Lot [id number], expiry date December 2021 Description of Surgical Findings:: Timeout and informed consent was obtained. 61-year-old gentleman was taken to the operating placed on the table underwent general endotracheal intubation anesthesia. Ancef 2 g were given intermittently. The abdomen sterilely prepped and draped. 0.5% Marcaine was used as a local anesthetic. Upon the procedure a total of 30 cc was used. Skin sites were preanesthetized. A supraumbilical vertical incision was created and so doing an umbilical hernia was identified. The preperitoneal tissue and sac was dissected free and a varies needle was used to gain access the abdomen was insufflated with CO2 to a pressure of 10 mmHg pressure. 10 mm trocar inserted. 10 mm laparoscope inserted. No evidence of any trocar injuries. 5 mm trochars were placed in the right left lower quadrants. Under laparoscopic guidance a ilioinguinal nerve block was performed on the right with a local anesthetic. The left groin was inspected there was adherence of the sigmoid colon to the previous remote laparoscopic left inguinal hernia repair which appeared to be intact. The peritoneum superior lateral to the internal ring on the right was incised and carried medially. The sizable indirect hernia sac was carefully dissected free. Where needed hemostasis was obtained with Hem-o-peggy clips. The sac was completely inverted. The direct indirect and femoral space identified. I then selected an extra-large right Bard 3D max mesh. The mesh was placed so as to cover the medial femoral and indirect defect. It was secured medially superiorly and laterally with secure strap. Excellent positioning was felt to been achieved. The peritoneum was then reapproximated with secure strap. Complete obliteration of the mesh was achieved. Inspection of the sac revealed that it appeared to be completely reduced peritoneum appeared to be intact repair is solid. Trochars were removed after the abdomen was allowed to deflate through the antiviral valve. Because of the umbilical hernia the umbilicus was repaired with simple sutures of 0 Nurolon. Skin edges were approximated opted for Monocryl subdermal stitches. Steri-Strips Telfa OpSite dressings applied. Sponge and instrument and needle counts were reported to certainly be correct. Blood loss minimal. Specimens umbilical hernia sac contents. Drains none. Blood loss minimal. The patient was taken to the recovery area in satisfactory addition without apparent complication Eugene Gonzales M.D., F.A.C.S. Surgeon: Cebul,Eugene D Type of Anesthesia: General 05/03/21 1049 <Electronically signed by Eugene Gonzales MD> Cosigner Signature (if applicable): CC: Dr. Kathy Hare MD; Dr. Eugene Gonzales MD Signed Kathy Hare MD Work Phone: Start: 05-03-2021 End: 05-03-2021 Discharge Instruction Comments: See Note; NOTES: [facility] Medical Records Department [address] [place] [address] Instructions for Home/Discharge Instructions 05/03/21719 MR#: [id number] Acct: [id number] Name: PUAL SHELTON Rep #: [id number] : 1960 61 From: Eugene Gonzales MD PCP: Dr. Kathy Hare MD Status:[facility] Discharge Instructions Procedure General Surgery Diet Discharge Diet: Light diet - advance as tolerated (if you have questions about your diet instructions, please talk to you doctor.) Activity Discharge Activity: May Not Drive (for 3-5 days or while taking narcotic pain medicine.) May shower in (days): 1 Lifting Restrictions: 10 pounds Dressing / Incision Call your doctor if your incision/area has: Continuous Slow Oozing, Sudden Increased Bleeding, Increased Pain/ Swelling, Increased Redness and Foul Smelling Discharge Call your doctor if you observe: Fever of 101 or Higher Suture Line Care: Avoid Pulling/Pushing and Avoid Pinching/Bending Additional Dressing/Incision Instructions:: Change or remove dressing in 4 days. Leave steri-strips in place for 1 week. Follow Up Care Please Follow Up With: Eugene Gonzales MD When: Call [phone] to make an appointment to be seen in about 10 days. Test Results: Test results from this visit will be discussed in further detail at your follow-up appointment, if applicable. Discharge Plan Admission Attending Provider: Eugene Gonzales Primary Care Provider: Kathy Hare Discharge Orders/Prescriptions Prescriptions: No Action tamsulosin [Flomax] 0.4 mg capsule 0.4 mg PO QHS Qty: 30 RF: 0 Other Ambulatory Orders: 12 Lead EKG (Routine) Timeframe: [id number] Location: None Selected Ordered By: Dr. Eugene Gonzales 05/03/21719<Electronically signed by Eugene Goznales MD>Eugene Gonzales MD CC: Dr. Kathy Hare MD Signed Kathy Hare MD Work Phone: Start: 05-03-2021 End: 05-03-2021 History and Physical Exam Comments: See Note; NOTES: [facility] Medical Records Department [address] [place] [address] History Physical Exam 05/03/21619 MR#: [id number] Acct: [id number] Name: PAUL SHELTON Rep #: [id number] : 1960 61 From: Eugene Gonzales MD PCP: Dr. Kathy Hare MD Status:[facility] Location: [place] [address] History and Physical Date of Admission: 05/03/21 Visit Reasons: INGUINAL HERNIA Chief Complaint: Possible right inguinal hernia Career Coordinator Required: No Is patient in pain?: No Allergies No Known Allergies Allergy (Verified 04/14/21 13:53) Medications saw palmetto 80 mg capsule 320 mg PO DAILY 04/14/21 [History Confirmed 04/14/21] PFSH Medical History Arthritis Back problem Gout History of pulmonary embolism Pulmonary embolism Sleep apnea Vertigo Surgical History Appendicitis DOUBLE CARPEL TUNNEL DOUBLE HERNIA History of appendectomy History of bilateral carpal tunnel release History of bilateral inguinal hernia repair Family History (Updated 04/14/21 @ 13:52 by Elin Story) Father Arthritis High cholesterol Hypertension Mother Hypertension Sister Arthritis Daughter Arthritis Thyroid disorder Social History current occupational status: employed current occupational exposures/hazards: Yes (Exposed to smoke, abestos, chemicals, and fumes.) Smoking Status: Former smoker second hand exposure: No alcohol intake: current details: WILL SOMETIMES HAVE A BEER BUT NOT OFTEN substance use type: does not use what type of physical activity do you participate in: other frequency: daily seatbelt use: always do you feel safe at home: Yes HPI HPI HPI: PAUL SHELTON is a 60 M who presents to the office today for surgical consultation regarding a right inguinal hernia. The patient is referred by Dr. Kathy Hare. A written copy my surgical consult recommendations will return to her. He has a history of COVID-19 with pneumonia and pulmonary embolism November 2019. The patient was on anticoagulation for 6 months subsequent to his pulmonary embolism. He is not had any consequence. He states that he does not feel that he has any lingering effects from his COVID-19. He does not quite have the stamina however that he used to have. Over at least the past 6 weeks he has developed a right inguinal hernia. He is actually had to purchase a hernia belt to assist because of the discomfort. He has had an intentional 40 pound weight loss over the past months and feels overall much improved. 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 He has future upcoming back surgery scheduled Additionally patient notes that he has never had a screening colonoscopy. He does not claim any acute GI symptoms currently. In addition he commented to Dr. Hare that he has nocturia 3-4 times nightly. He was initiated just recently on saw palmetto. ROS General General: No weight change, appetite, fatigue, colon cancer, breast cancer or weakness HEENT HEENT: No difficulty swallowing, eye injury, eye surgery, swollen glands or hoarseness Endo Endocrine: No thyroid disease, diabetes mellitus, thyroid cancer, Hair loss, heat intolerance or cold intolerance Skin Skin: No rash or changing moles Breast Breast: No left breast lump, right breast lump, nipple discharge, breast pain, abnormal mammogram, abnormal US or breast enlargement Musc Musculoskeletal: Yes back problems and arthritis; No rheumatoid arthritis, gout or joint pain Cardio Cardiovascular: No murmur, pacemaker, heart disease, atrial fibrillation, high blood pressure, heart attack, heart stent, palpitations, shortness of breat with exertion or chest pain Psych Psychiatric: No depression, anxiety or hearing voices Resp Respiratory: No shortness of breath, No sleep apnea, No cough, No COPD, No asthma, No emphysema and No wheezing Gastro Gastrointestinal: No abdominal pain, No nausea or vomiting, No diarrhea, No constipation, No blood in stool, No acid reflux, No hemorrhoids, No ulcers, No gallbladder problem and No black,tarry stools Jossue Hematologic: No blood thinners, No blood disorders, No bleeding, No anemia and Yes blood clots Neuro Neurologic: No system reviewed and no additional complaints, except as documented, No as per HPI, No abnormal gait, No abnormal hearing, No abnormal movements, No abnormal speech, No behavioral changes, No burning sensations, No confusion, No convulsions, No disequilibrium, No dizziness, No localized weakness, No frequent falls, No headache(s), No lack of coordination, No loss of vision, No memory loss, Yes numbness, No other visual disturbances, No radicular pain, No restless legs, No sensory deficit, No syncope, Yes tingling, No tremor(s), No weakness and No other Exam Const General: cooperative, healthy appearing, comfortable and no acute distress Nutritional Appearance: average body habitus Orientation: alert and awake HENID Head: normal to inspection Eyes General: appearance normal, both eyes and all related structures Neck Neck: normal visual inspection Chest Chest palpation inspection: normal inspection of the chest Resp Effort Inspection: normal respiratory effort Auscultation: clear to auscultation bilaterally Cardio Rate: regular rate Rhythm: regular rhythm GI Palpation: soft and no hepatosplenomegaly Auscultation: normal bowel sounds Other: Left groin appears solid. There is fibrofatty tissue of the inguinal cord but I do not demonstrate a recurrent inguinal defect. Both testicles are descended though relatively atrophic Obvious right inguinal defect this would seem to be direct. It is reducible. Musc Cervical Spine: normal cervical lordosis Skin General: no rashes or lesions noted Neuro General: patient alert and patient awake Extrem General: no calf tenderness Psych Affect: normal affect COVID (Procedure Consent) Procedure Criteria Procedure Criteria: Yes Elective The surgeon/proceduralist and patient have discussed in detail the risk of exposure to and/or potential harm posed by the COVID-19 virus with having a surgery/procedure at this time versus the risk of delaying the surgery/procedure. It is not possible to know either the risk of delaying the surgery or procedure or chance of getting an infection with perfect accuracy, but a joint decision was made between the patient and the surgeon/proceduralist to proceed at this time with the scheduled surgery/procedure as indicated on the consent form. Assessment and Plan Assessment and Plan (1) Nocturia: Status: Acute (2) Inguinal hernia of right side without obstruction or gangrene: Status: Acute (3) Screening for intestinal cancer: Status: Acute Plan - Dr. Eugene Gonzales MD: I recommended the patient a screening colonoscopy with possible biopsy or polypectomy as indicated. He is aware of the technique, benefit, risk of alternatives. As noted he has never had a screening exam. We will schedule procedure at his discretion. Regarding the patient's nocturia he has been initiated on saw palmetto. According to local pharmacy this would increase risk of postoperative bleeding. We will ask him to temporarily hold that and we will initiate him on Flomax 0.4 mg nightly Finally regarding his symptomatic right inguinal hernia. He is still very active. Hospital records revealed that Dr. Deandre Malave in 1998 had performed a laparoscopic left inguinal hernia repair. Although the patient thought he had a bilateral inguinal hernia repair I do not have dictated evidence of that. There actually 2 operative notes provided to me from that date. The surgery was performed January 13, 1999. The operative note that was dictated on that day talks about incarcerated left indirect inguinal hernia and a laparoscopic left inguinal hernia repair. Then 2 days later on January 15, 1999 Dr. Deandre Malave dictates a separate operative note suggesting exploratory laparoscopy with release of incarcerated bowel contents and laparoscopic repair of a left indirect inguinal hernia. The remainder of the dictation appears very similar. There is no evidence in either dictation of repair on the right. The right groin was inspected and was felt to be intact. He obviously has had an incision at the umbilical area. Careful entrance to the abdomen will be anticipated possibly with us on approach. He is aware of the technique, benefit, risk, alternatives. He is aware that if indeed a laparoscopic intervention of the right groin has previously been performed and I am not able to mobilize the peritoneum I would then convert to an open approach on the right at the same setting. He is understanding of this and is in agreement if this is indicated. He is aware that I would utilize a Car type repair with mesh placed externally. I very much appreciate the kind opportunity of assisting with his surgical care Copy: Dr. Kathy Gonzales M.D., F.A.C.S I have re-examined the patient. There are no clinical changes since date of exam. Eugene Gonzales M.D., F.A.C.S. 05/03/21 0620 <Electronically signed by Eugene Gonzales MD> Cosigner Signature (if applicable): CC: Dr. Kathy Hare MD; Dr. Eugene Gonzales MD Signed Kathy Hare MD Work Phone: Start: 05-02-2021 End: 05-03-2021 12 Lead EKG Comments: See Note; NOTES: [facility] Cardiovascular Services [address] [place] [address] 12 Lead EKG 05/02/21 1307 MR#: [id number] Acct: [id number] Name: PAUL SHELTON Rep #: [id number] : 1960 61 From: Mino Bedolla MD Attending Dr: Dr. Eugene Gonzales MD Status: [facility] Ordering Dr: Eugene Gonzales MD Date: 05/02/21 Location: Sex: M C Admitted: Test Reason : PREOP Blood Pressure : / mmHG Vent. Rate : 062 BPM Atrial Rate : 062 BPM P-R Int : 182 ms QRS Dur : 110 ms QT Int : 416 ms P-R-T Axes : 059 061 064 degrees QTc Int : 422 ms Normal sinus rhythm Normal ECG Confirmed by ASHANTI RAM, MINO ([id number]), editor map DIXON VALDES ([id number]) on 05/03/2021 1:05:22 PM Referred By: Eugene Gonzales Confirmed By:MINO BEDOLLA MD 05/03/21 1305 Date Mino Bedolla MD CC: Dr. Kathy Hare MD; Dr. Eugene Gonzales MD Signed Kathy Hare MD Work Phone: Start: 04-28-2021 End: 04-28-2021 Colonoscopy Report Comments: See Note; NOTES: [facility] Medical Records Department [address] [place] [address] Colonoscopy Report MR#: [id number] Acct: [id number] Name: PAUL SHELTON Rep #: [id number] : 1960 60 From: Eugene Gonzales MD PCP: Dr. Kathy Hare MD [place] [place] Patient Name: Paul Shelton Procedure Date: 04/28/2021 7:24 AM Date of : 1960 Age: 60 Procedure: Colonoscopy Indications: Screening for colorectal malignant neoplasm Providers: Eugene Gonzales MD Medicines: Midazolam 3.5 mg IV, Meperidine 100 mg IV Patient Profile: Last Colonoscopy: none. The patient's first colonoscopy is today. Complications: No immediate complications. Procedure: Pre-Anesthesia Assessment: - Prior to the procedure, a History and Physical was performed, and patient medications and allergies were reviewed. The patient's tolerance of previous anesthesia was also reviewed. The risks and benefits of the procedure and the sedation options and risks were discussed with the patient. All questions were answered, and informed consent was obtained. Prior Anticoagulants: The patient has taken no previous anticoagulant or antiplatelet agents. ASA Grade Assessment: II - A patient with mild systemic disease. After reviewing the risks and benefits, the patient was deemed in satisfactory condition to undergo the procedure. After I obtained informed consent, the scope was passed under direct vision. Throughout the procedure, the patient's blood pressure, pulse, and oxygen saturations were monitored continuously. The Colonoscope was introduced through the anus and advanced to the cecum, identified by appendiceal orifice and ileocecal valve. The colonoscopy was performed without difficulty. The patient tolerated the procedure well. The quality of the bowel preparation was good. The ileocecal valve and the appendiceal orifice were photographed. Moderate Sedation: Moderate (conscious) sedation was administered by the endoscopy nurse and supervised by the endoscopist. The following parameters were monitored: oxygen saturation, heart rate, blood pressure, and response to care. Total physician intraservice time was 15 minutes. Scope In: 7:31:35 AM Scope Withdrawal Time 0 hours 12 minutes 22 seconds Scope Out: 7:46:26 AM Total Procedure Duration Time 0 hours 14 minutes 51 seconds Findings: The digital rectal exam findings include non-thrombosed internal hemorrhoids, internal hemorrhoids that prolapse with straining, but spontaneously regress to the resting position (Grade II) and enlarged prostate. A 9 mm polyp was found in the mid transverse colon. The polyp was sessile. The polyp was removed with a hot snare. Resection and retrieval were complete. A 4 mm polyp was found in the mid transverse colon. The polyp was sessile. The polyp was removed with a cold biopsy forceps. Resection and retrieval were complete. Multiple diverticula were found in the sigmoid colon. Impression: - Non-thrombosed internal hemorrhoids, internal hemorrhoids that prolapse with straining, but spontaneously regress to the resting position (Grade II) and enlarged prostate found on digital rectal exam. - One 9 mm polyp in the mid transverse colon, removed with a hot snare. Resected and retrieved. - One 4 mm polyp in the mid transverse colon, removed with a cold biopsy forceps. Resected and retrieved. - Diverticulosis in the sigmoid colon. Recommendation: - Discharge patient to home. - Resume previous diet. - Continue present medications. - Repeat colonoscopy in 5 years for surveillance based on pathology results. - Telephone my office for pathology results in 1 week. Procedure Code(s): --- Professional --- 39651, Colonoscopy, flexible; with removal of tumor(s), polyp(s), or other lesion(s) by snare technique 58319, 59, Colonoscopy, flexible; with biopsy, single or multiple 46003, 59, Moderate sedation services provided by the same physician or other qualified health home health care case manager performing the diagnostic or therapeutic service that the sedation supports, requiring the presence of an independent trained observer to assist in the monitoring of the patient's level of consciousness and physiological status; initial 15 minutes of intraservice time, patient age 5 years or older Diagnosis Code(s): --- Professional --- Z12.11, Encounter for screening for malignant neoplasm of colon D12.3, Benign neoplasm of transverse colon (hepatic flexure or splenic flexure) K64.1, Second degree hemorrhoids N40.0, Benign prostatic hyperplasia without lower urinary tract symptoms K57.30, Diverticulosis of large intestine without perforation or abscess without bleeding CPT copyright 2017 [employer]. All rights reserved. The codes documented in this report are preliminary and upon laborer operator review may be revised to meet current compliance requirements. Eugene Gonzales MD 04/28/2021 7:52:51 AM This report has been signed electronically. Number of Addenda: 0 Note Initiated On: 04/28/2021 7:24 AM 04/28/21 0753 Date Eugene Gonzales MD Cosigner Signature: Date (if indicated) CC: Dr. Kathy Hare MD; Dr. Eugene Gonzales MD Date Dictated: 04/28/21723 Date Transcribed: Shovel Engineer: RDRic Signed Kathy Hare MD Work Phone: Start: 04-28-2021 End: 04-28-2021 History and Physical Exam Comments: See Note; NOTES: [facility] Medical Records Department [address] [place] [address] History Physical Exam 04/28/21 0647 MR#: [id number] Acct: [id number] Name: PAUL SHELTON Rep #: [id number] : 1960 60 From: Eugene Gonzales MD PCP: Dr. Kathy Hare MD Status:[facility] Location: [place] [address] History and Physical Date of Admission: 04/28/21 Intake Visit Reasons: INGUINAL HERNIA Chief Complaint: Possible right inguinal hernia Career Coordinator Required: No Is patient in pain?: No Allergies No Known Allergies Allergy (Verified 04/14/21 13:53) Medications saw palmetto 80 mg capsule 320 mg PO DAILY 04/14/21 [History Confirmed 04/14/21] [facility] Medical History Arthritis Back problem Gout History of pulmonary embolism Pulmonary embolism Sleep apnea Vertigo Surgical History Appendicitis DOUBLE CARPEL TUNNEL DOUBLE HERNIA History of appendectomy History of bilateral carpal tunnel release History of bilateral inguinal hernia repair Family History (Updated 04/14/21 @ 13:52 by Elin Story) Father Arthritis High cholesterol Hypertension Mother Hypertension Sister Arthritis Daughter Arthritis Thyroid disorder Social History current occupational status: employed current occupational exposures/hazards: Yes (Exposed to smoke, abestos, chemicals, and fumes.) Smoking Status: Former smoker second hand exposure: No alcohol intake: current details: WILL SOMETIMES HAVE A BEER BUT NOT OFTEN substance use type: does not use what type of physical activity do you participate in: other frequency: daily seatbelt use: always do you feel safe at home: Yes HPI HPI HPI: PAUL SHELTON, is a 60 M who presents to the office today for surgical consultation regarding a right inguinal hernia. The patient is referred by Dr. Kathy Hare. A written copy my surgical consult recommendations will return to her. He has a history of COVID-19 with pneumonia and pulmonary embolism November 2019. The patient was on anticoagulation for 6 months subsequent to his pulmonary embolism. He is not had any consequence. He states that he does not feel that he has any lingering effects from his COVID-19. He does not quite have the stamina however that he used to have. Over at least the past 6 weeks he has developed a right inguinal hernia. He is actually had to purchase a hernia belt to assist because of the discomfort. He has had an intentional 40 pound weight loss over the past months and feels overall much improved. 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 He has future upcoming back surgery scheduled Additionally patient notes that he has never had a screening colonoscopy. He does not claim any acute GI symptoms currently. In addition he commented to Dr. Hare that he has nocturia 3-4 times nightly. He was initiated just recently on saw palmetto. ROS General General: No weight change, appetite, fatigue, colon cancer, breast cancer or weakness HEENT HEENT: No difficulty swallowing, eye injury, eye surgery, swollen glands or hoarseness Endo Endocrine: No thyroid disease, diabetes mellitus, thyroid cancer, Hair loss, heat intolerance or cold intolerance Skin Skin: No rash or changing moles Breast Breast: No left breast lump, right breast lump, nipple discharge, breast pain, abnormal mammogram, abnormal US or breast enlargement Musc Musculoskeletal: Yes back problems and arthritis; No rheumatoid arthritis, gout or joint pain Cardio Cardiovascular: No murmur, pacemaker, heart disease, atrial fibrillation, high blood pressure, heart attack, heart stent, palpitations, shortness of breat with exertion or chest pain Psych Psychiatric: No depression, anxiety or hearing voices Resp Respiratory: No shortness of breath, No sleep apnea, No cough, No COPD, No asthma, No emphysema and No wheezing Gastro Gastrointestinal: No abdominal pain, No nausea or vomiting, No diarrhea, No constipation, No blood in stool, No acid reflux, No hemorrhoids, No ulcers, No gallbladder problem and No black,tarry stools Jossue Hematologic: No blood thinners, No blood disorders, No bleeding, No anemia and Yes blood clots Neuro Neurologic: No system reviewed and no additional complaints, except as documented, No as per HPI, No abnormal gait, No abnormal hearing, No abnormal movements, No abnormal speech, No behavioral changes, No burning sensations, No confusion, No convulsions, No disequilibrium, No dizziness, No localized weakness, No frequent falls, No headache(s), No lack of coordination, No loss of vision, No memory loss, Yes numbness, No other visual disturbances, No radicular pain, No restless legs, No sensory deficit, No syncope, Yes tingling, No tremor(s), No weakness and No other Exam Const General: cooperative, healthy appearing, comfortable and no acute distress Nutritional Appearance: average body habitus Orientation: alert and awake [facility] Head: normal to inspection Eyes General: appearance normal, both eyes and all related structures Neck Neck: normal visual inspection Chest Chest palpation inspection: normal inspection of the chest Resp Effort Inspection: normal respiratory effort Auscultation: clear to auscultation bilaterally Cardio Rate: regular rate Rhythm: regular rhythm GI Palpation: soft and no hepatosplenomegaly Auscultation: normal bowel sounds Other: Left groin appears solid. There is fibrofatty tissue of the inguinal cord but I do not demonstrate a recurrent inguinal defect. Both testicles are descended though relatively atrophic Obvious right inguinal defect this would seem to be direct. It is reducible. Musc Cervical Spine: normal cervical lordosis Skin General: no rashes or lesions noted Neuro General: patient alert and patient awake Extrem General: no calf tenderness Psych Affect: normal affect COVID (Procedure Consent) Procedure Criteria Procedure Criteria: Yes Elective The surgeon/proceduralist and patient have discussed in detail the risk of exposure to and/or potential harm posed by the COVID-19 virus with having a surgery/procedure at this time versus the risk of delaying the surgery/procedure. It is not possible to know either the risk of delaying the surgery or procedure or chance of getting an infection with perfect accuracy, but a joint decision was made between the patient and the surgeon/proceduralist to proceed at this time with the scheduled surgery/procedure as indicated on the consent form. Assessment and Plan Assessment and Plan (1) Nocturia: Status: Acute (2) Inguinal hernia of right side without obstruction or gangrene: Status: Acute (3) Screening for intestinal cancer: Status: Acute Plan - Dr. Eugene Gonzales MD: I recommended the patient a screening colonoscopy with possible biopsy or polypectomy as indicated. He is aware of the technique, benefit, risk of alternatives. As noted he has never had a screening exam. We will schedule procedure at his discretion. Regarding the patient's nocturia he has been initiated on saw palmetto. According to local pharmacy this would increase risk of postoperative bleeding. We will ask him to temporarily hold that and we will initiate him on Flomax 0.4 mg nightly Finally regarding his symptomatic right inguinal hernia. He is still very active. Hospital records revealed that Dr. Deandre Malave in 1998 had performed a laparoscopic left inguinal hernia repair. Although the patient thought he had a bilateral inguinal hernia repair I do not have dictated evidence of that. There actually 2 operative notes provided to me from that date. The surgery was performed January 13, 1999. The operative note that was dictated on that day talks about incarcerated left indirect inguinal hernia and a laparoscopic left inguinal hernia repair. Then 2 days later on January 15, 1999 Dr. Deandre Malave dictates a separate operative note suggesting exploratory laparoscopy with release of incarcerated bowel contents and laparoscopic repair of a left indirect inguinal hernia. The remainder of the dictation appears very similar. There is no evidence in either dictation of repair on the right. The right groin was inspected and was felt to be intact. He obviously has had an incision at the umbilical area. Careful entrance to the abdomen will be anticipated possibly with us on approach. He is aware of the technique, benefit, risk, alternatives. He is aware that if indeed a laparoscopic intervention of the right groin has previously been performed and I am not able to mobilize the peritoneum I would then convert to an open approach on the right at the same setting. He is understanding of this and is in agreement if this is indicated. He is aware that I would utilize a Car type repair with mesh placed externally. I very much appreciate the kind opportunity of assisting with his surgical care Copy: Dr. Kathy Gonzales M.D., F.A.C.S. Plan Details Other Medications: New: saw palmetto give with food (meal/snack) 320 mg PO DAILY I have re-examined the patient. There are no clinical changes since date of exam. Eugene Gonzales M.D., DipakS. 04/28/21 0648 <Electronically signed by Eugene Gonzales MD> Cosigner Signature (if applicable): CC: Dr. Kathy Hare MD; Dr. Eugene Gonzales MD Signed Kathy Hare MD Work Phone: Start: 04-14-2021 End: 04-14-2021 Surgery Visit Report Comments: See Note; NOTES: [facility] [address] [place] [address]. [address] [place] [address] OFFICE VISIT Date of Service: 04/14/21 MR#: [id number] Acct: [id number] Name: PAUL SHELTON Rep #: [id number] : 1960 Provider: Dr. Eugene castillo MD Age/Sex: 60/M Location: [facility] Status: Signed Intake Vital Signs 04/14/21 13:52 Height 6 ft Weight: 180 lb BMI 24.4 BP 119/78 Blood Pressure Location Rt brachial Position Sitting Respiration 18 Pulse 62 Pulse Source Monitor Temp 97.5 F L Temp Source Temporal Pulse Oximetry (%) 98 Oxygen Delivery Method room air Intake Visit Reasons: INGUINAL HERNIA Chief Complaint: Possible right inguinal hernia Career Coordinator Required: No Is patient in pain?: No Allergies No Known Allergies Allergy (Verified 04/14/21 13:53) Medications saw palmetto 80 mg capsule 320 mg PO DAILY 04/14/21 [History Confirmed 04/14/21] [facility] Medical History Arthritis Back problem Gout History of pulmonary embolism Pulmonary embolism Sleep apnea Vertigo Surgical History Appendicitis DOUBLE CARPEL TUNNEL DOUBLE HERNIA History of appendectomy History of bilateral carpal tunnel release History of bilateral inguinal hernia repair Family History (Updated 04/14/21 @ 13:52 by Elin Story) Father Arthritis High cholesterol Hypertension Mother Hypertension Sister Arthritis Daughter Arthritis Thyroid disorder Social History current occupational status: employed current occupational exposures/hazards: Yes (Exposed to smoke, abestos, chemicals, and fumes.) Smoking Status: Former smoker second hand exposure: No alcohol intake: current details: WILL SOMETIMES HAVE A BEER BUT NOT OFTEN substance use type: does not use what type of physical activity do you participate in: other frequency: daily seatbelt use: always do you feel safe at home: Yes HPI HPI HPI: PAUL SHELTON, is a 60 M who presents to the office today for surgical consultation regarding a right inguinal hernia. The patient is referred by Dr. Kathy Hare. A written copy my surgical consult recommendations will return to her. He has a history of COVID-19 with pneumonia and pulmonary embolism November 2019. The patient was on anticoagulation for 6 months subsequent to his pulmonary embolism. He is not had any consequence. He states that he does not feel that he has any lingering effects from his COVID-19. He does not quite have the stamina however that he used to have. Over at least the past 6 weeks he has developed a right inguinal hernia. He is actually had to purchase a hernia belt to assist because of the discomfort. He has had an intentional 40 pound weight loss over the past months and feels overall much improved. 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 He has future upcoming back surgery scheduled Additionally patient notes that he has never had a screening colonoscopy. He does not claim any acute GI symptoms currently. In addition he commented to Dr. Hare that he has nocturia 3-4 times nightly. He was initiated just recently on saw palmetto. ROS General General: No weight change, appetite, fatigue, colon cancer, breast cancer or weakness HEENT HEENT: No difficulty swallowing, eye injury, eye surgery, swollen glands or hoarseness Endo Endocrine: No thyroid disease, diabetes mellitus, thyroid cancer, Hair loss, heat intolerance or cold intolerance Skin Skin: No rash or changing moles Breast Breast: No left breast lump, right breast lump, nipple discharge, breast pain, abnormal mammogram, abnormal US or breast enlargement Musc Musculoskeletal: Yes back problems and arthritis; No rheumatoid arthritis, gout or joint pain Cardio Cardiovascular: No murmur, pacemaker, heart disease, atrial fibrillation, high blood pressure, heart attack, heart stent, palpitations, shortness of breat with exertion or chest pain Psych Psychiatric: No depression, anxiety or hearing voices Resp Respiratory: No shortness of breath, No sleep apnea, No cough, No COPD, No asthma, No emphysema and No wheezing Gastro Gastrointestinal: No abdominal pain, No nausea or vomiting, No diarrhea, No constipation, No blood in stool, No acid reflux, No hemorrhoids, No ulcers, No gallbladder problem and No black,tarry stools Jossue Hematologic: No blood thinners, No blood disorders, No bleeding, No anemia and Yes blood clots Neuro Neurologic: No system reviewed and no additional complaints, except as documented, No as per HPI, No abnormal gait, No abnormal hearing, No abnormal movements, No abnormal speech, No behavioral changes, No burning sensations, No confusion, No convulsions, No disequilibrium, No dizziness, No localized weakness, No frequent falls, No headache(s), No lack of coordination, No loss of vision, No memory loss, Yes numbness, No other visual disturbances, No radicular pain, No restless legs, No sensory deficit, No syncope, Yes tingling, No tremor(s), No weakness and No other Exam Const General: cooperative, healthy appearing, comfortable and no acute distress Nutritional Appearance: average body habitus Orientation: alert and awake [facility] Head: normal to inspection Eyes General: appearance normal, both eyes and all related structures Neck Neck: normal visual inspection Chest Chest palpation inspection: normal inspection of the chest Resp Effort Inspection: normal respiratory effort Auscultation: clear to auscultation bilaterally Cardio Rate: regular rate Rhythm: regular rhythm GI Palpation: soft and no hepatosplenomegaly Auscultation: normal bowel sounds Other: Left groin appears solid. There is fibrofatty tissue of the inguinal cord but I do not demonstrate a recurrent inguinal defect. Both testicles are descended though relatively atrophic Obvious right inguinal defect this would seem to be direct. It is reducible. Musc Cervical Spine: normal cervical lordosis Skin General: no rashes or lesions noted Neuro General: patient alert and patient awake Extrem General: no calf tenderness Psych Affect: normal affect COVID (Procedure Consent) Procedure Criteria Procedure Criteria: Yes Elective The surgeon/proceduralist and patient have discussed in detail the risk of exposure to and/or potential harm posed by the COVID-19 virus with having a surgery/procedure at this time versus the risk of??? delaying the surgery/procedure. It is not possible to know either the risk of delaying the surgery or procedure or chance of getting an infection with perfect accuracy, but a joint decision was made between the patient and the surgeon/proceduralist ???to proceed at this time with the scheduled surgery/procedure as indicated on the consent form. Assessment and Plan Assessment and Plan (1) Nocturia: Status: Acute (2) Inguinal hernia of right side without obstruction or gangrene: Status: Acute (3) Screening for intestinal cancer: Status: Acute Plan - Dr. Eugene Gonzales MD: I recommended the patient a screening colonoscopy with possible biopsy or polypectomy as indicated. He is aware of the technique, benefit, risk of alternatives. As noted he has never had a screening exam. We will schedule procedure at his discretion. Regarding the patient's nocturia he has been initiated on saw palmetto. According to local pharmacy this would increase risk of postoperative bleeding. We will ask him to temporarily hold that and we will initiate him on Flomax 0.4 mg nightly Finally regarding his symptomatic right inguinal hernia. He is still very active. Hospital records revealed that Dr. Deandre Malave in 1998 had performed a laparoscopic left inguinal hernia repair. Although the patient thought he had a bilateral inguinal hernia repair I do not have dictated evidence of that. There actually 2 operative notes provided to me from that date. The surgery was performed January 13, 1999. The operative note that was dictated on that day talks about incarcerated left indirect inguinal hernia and a laparoscopic left inguinal hernia repair. Then 2 days later on January 15, 1999 Dr. Deandre Malave dictates a separate operative note suggesting exploratory laparoscopy with release of incarcerated bowel contents and laparoscopic repair of a left indirect inguinal hernia. The remainder of the dictation appears very similar. There is no evidence in either dictation of repair on the right. The right groin was inspected and was felt to be intact. He obviously has had an incision at the umbilical area. Careful entrance to the abdomen will be anticipated possibly with us on approach. He is aware of the technique, benefit, risk, alternatives. He is aware that if indeed a laparoscopic intervention of the right groin has previously been performed and I am not able to mobilize the peritoneum I would then convert to an open approach on the right at the same setting. He is understanding of this and is in agreement if this is indicated. He is aware that I would utilize a Car type repair with mesh placed externally. I very much appreciate the kind opportunity of assisting with his surgical care Copy: Dr. Kathy Gonzales M.D., F.A.C.S. Plan Details Other Medications: New: radha paredes give with food (meal/snack) 320 mg PO DAILY Coding Level of Care Code 18441 Diagnoses Nocturia R35.1 Inguinal hernia of right side without obstruction or gangrene K40.90 Screening for intestinal cancer Z12.10 04/14/21 1411 <Electronically signed by Eugene Gonzales MD> Date Eugene Gonzales MD Cosigner Signature: Date (if applicable) CC: MD Kathy Cooney MD Work Phone: Start: 06-14-2020 End: 06-14-2020 Emergency Department Summary Comments: See Note; NOTES: [facility] Medical Records Department [address] [place] [address] Emergency Department Summary 06/14/20 MR#: [id number] Acct: [id number] Name: PAUL SHELTON Rep #: [id number] : 1960 60 From: Aleks Tovar DO PCP: Dr. Kathy Hare MD Status:DEP ER - ER Visit Summary Date of Service: 06/14/20 Chief Complaint: Right index finger laceration History of Present Illness: The patient is a 60 M who presents with laceration to his right index finger that occurred this morning. Patient states he closed it in a car door. Patient describes the pain is dull. Patient states the pain and bleeding improved with pressure. Patient denies any paresthesias or weakness. Patient is right-hand dominant. Patient states his last tetanus was within the last year. Physical Examination: Vital signs are stable. Patient is afebrile. Patient is in no acute distress. Skin is warm and dry. There is a 2 cm full-thickness linear laceration over the dorsal aspect of the right index finger near the DIP joint and a 2.5 cm full-thickness linear laceration over the palmar aspect of the distal phalanx of the right index finger. There is moderate gapping of the wound margins. There are no foreign bodies visualized. There is no bony crepitance or step- off. There is full range of motion of the DIP, PIP, and MP joints of the right index finger. Sensation was intact to light touch in all digits. Capillary refill is less than 2 seconds in all digits. Emergency Department Course and Treatment: The wound was cleaned and irrigated with copious amounts of normal saline. The right index finger was anesthetized with 1% plain lidocaine via digital block. The wound on the dorsal aspect of the right index finger was closed with 2 simple interrupted #4-0 nylon sutures under sterile technique. The wound on the volar aspect of the right index finger was closed with 5 simple interrupted #4-0 nylon sutures under sterile technique. Patient tolerated the procedure well. Bacitracin dressing was applied. Patient was instructed to keep the wound clean and dry. Patient was instructed to follow-up with his primary care physician in 5 days for wound recheck and suture removal. Patient understood and was agreeable with the plan. All questions were answered. Disposition: Discharge home Impression: 1. Right index finger laceration This note was generated with [employer] dictation software. It may contain incorrect words, spelling, and punctuation that were not noted in review of the chart prior to signing ED Disposition - Plan for ED Patient: Disposition: Home or Assisted Living Diagnosis: Laceration of right index finger w/o foreign body w/o damage to nail Instructions: ED Laceration Hand Prescriptions: Cephalexin [Keflex] 500 mg PO Q6 #40 cap Transmission Status: Pending to [facility] Referrals: Kathy Hare MD [Primary Care Provider] - 5 Days for suture removal What to do if you have Problems For any increased pain, shortness of breath, bleeding, nausea or vomiting, chest pain, or any unexpected problems, contact your Primary Care Provider. Call [facility] ([phone]) or report to the closest Emergency Room. Call 911 if necessary. 06/14/20 1740 <Electronically signed by Aleks Tovar DO> Date Aleks Tovar DO Cosigner Signature (If Indicated): Date CC: MD Kathy Cooney Start: 06-10-2020 End: 06-10-2020 Venous Duplex US, Unilateral Comments: See Note; NOTES: [facility] [address] [place] [address] Venous Duplex US, Unilateral 06/10/20 1355 MR#: [id number] Acct: [id number] Name: PAUL SHELTON Rep #: [id number] : 1960 60 From: Eugene Gonzales MD Attending Dr: Dr. Eugene Gonzales MD Status: RE G CLI Ordering Dr: Eugene Gonzales MD Date: 06/10/20 Location: [facility] Sex: M C Admitted: Reason For Study: LLE PAIN RIGHT LEFT CFV is compressible, spontaneous, phasic, GSV is normal. competent and demonstrates normal CFV is compressible, spontaneous, phasic, augmentation. competent, and demonstrates normal Procedure augmentation. This is a venous duplex using B-mode, color FV is compressible, spontaneous, phasic, flow and spectral Doppler. competent and demonstrates normal Exam performed in department. augmentation. The exam was diagnostic. POP V is compressible, spontaneous, phasic, A preliminary report was called and/or faxed competent and demonstrates normal to Dr. Gonzales. augmentation. T/P Trunk is compressible. PTV is compressible. LT PerV is compressible. SSV is compressible. NON-vascular structure noted in pop fossa space measuring 1.69 x 1.61 cm. Interpretation Summary There is no evidence of left lower extremity deep vein thrombosis. Left great saphenous vein appears patent and compressible segmentally. Nonvascular left popliteal space 1.69 x 1.61 cm structure. Location keith suspicious for a Moses's cyst. Clinical correlation would be appropriate. Patent and compressible right common femoral vein _ Ordering Physician: Eugene Gonzales Referring Physician: Kathy Hare Performed By: Elin Shannon RDCS, RVT 06/10/20 1439 Date Eugene Gonzales MD CC: Dr. Kathy Hare MD; Dr. Eugene Gonzales MD Date Dictated: 06/10/20 1355 Date Transcribed: 06/10/20 1439 Shovel Engineer: Dihsa Hare Start: 06-08-2020 End: 06-08-2020 Surgery Visit Report Comments: See Note; NOTES: [facility] [address] [place] [address]. [address] [place] [address] OFFICE VISIT Date of Service: 06/08/20 MR#: [id number] Acct: [id number] Name: PAUL SHELTON Rep #: [id number] : 1960 Provider: Dr. Eugene castillo MD Age/Sex: 60/M Location: [email or web address] Status: Signed with Addenda ADDENDUM by Dr. Eugene Gonzales MD on 06/08/20 at 1430 Addendum entered and electronically signed by Eugene Gonzales MD 06/08/20 14:30: [facility] from May 26, 2020. Beta-2 glycoprotein 1 antibody/IgM less than 9 normal Antithrombin III, Func/immunologic 82 normal. Antithrombin antigen 72 normal Anticardiolipin antibody, IgM/M n Qn less than 9 normal Anticardiolipin antibody, IgM, Qn 31 high with normal being 0-12. This is considered low to medium positive Protein C antigen 91 normal Protein C functional 117 normal Factor V Leiden negative normal Factor II DNA negative Homocysteine 10.4 normal Protein S total 82 normal Protein S free 144 normal Protein S functional 82 normal Beta-2 glycoprotein 1 antibody, IgG less than 9 normal Beta-2 glycoprotein 1 antibody, IgA less than 9 normal Eugene Gonzales M.D., F.A.C.S. Intake Chief Complaint: IVC filter Allergies No Known Allergies Allergy (Verified 06/08/20 13:32) Medications Acetaminophen [Tylenol Extra Strength] 1,000 mg PO DAILY PRN PRN 11/04/19 [History Confirmed 06/08/20] Assessment Plan Problems 1. History of pulmonary embolism Z86.711 Plan - Dr. Eugene Gonzales MD 60-year-old gentleman with a history of pulmonary embolism however this had a distinct eliciting event as he had COVID-19 at that time. He states he did not have venous duplex imaging of his lower extremities at that time. He is concurrently complaining of left calf pain. I recommend that we obtain left lower extremity venous duplex imaging to exclude a current DVT. I have proposed for him to initiate utilizing bilateral lower extremity support hose 20 to 30 mm gradient. Hopefully he will be able to utilize sequential venous compression devices involving the right lower extremity during his procedure. My understanding is that he will be initiated on Xarelto on postoperative day 1. I have had a discussion with Ricardo Chavez PA-C and I am recommending that the patient initiate a low-dose aspirin therapy 81 mg daily now. My understanding is that usually this type of medication is stopped 5 days preoperatively and I have offered consideration for holding it 2 days preoperatively instead. We will try to obtain results of his hypercoagulation profile. The patient has additionally been encouraged not to return to cigarette smoking and he has been congratulated that he ceased He has additionally been encouraged to initiate ankle exercises and early mobilization postoperatively. I do not believe that a retrievable inferior vena cava filter is indicated at this time. Close postoperative evaluation of the patient with attention to leg complaints or pulmonary complaints would certainly be warranted particularly based upon the patient's history. I believe however that medical maximization of his care would be quite pertinent and preventive in this incidence. I appreciate the opportunity of assisting with his surgical care Copy: Dr. Kathy Hare and Dr. Raphael Jessica and VISHNU Toure M.D., F.A.C.S. Orders Orders: Venous Duplex US, Unilateral Today M79.605 06/08/20 1431 <Electronically signed by Eugene Gonzales MD> Date Eugene Gonzales MD cc: VISHNU Chavez; Dr. Kathy Hare MD; Dr. Raphael Jessica MD * Signed Intake Vital Signs 06/08/20 Height 6 ft 06/08/20 Weight: 211 lb 6 oz 06/08/20 BP 131/89 H 06/08/20 Blood Pressure Location Rt brachial 06/08/20 Position Sitting 06/08/20 Respiration 20 H 06/08/20 Pulse 69 06/08/20 Pulse Source NIBP 06/08/20 Temp 97.7 F L 06/08/20 Temp Source Temporal 06/08/20 Pulse Oximetry (%) 97 06/08/20 Oxygen Delivery Method room air Intake Visit Reasons: Discuss Filter Chief Complaint: IVC filter Career Coordinator Required: No Is patient in pain?: No Allergies No Known Allergies Allergy (Verified 06/08/20 13:32) Medications Acetaminophen [Tylenol Extra Strength] 1,000 mg PO DAILY PRN PRN 11/04/19 [History Confirmed 06/08/20] [facility] Medical History (Updated 06/08/20 @ 14:[address] Eugene Gonzales MD) History of pulmonary embolism (Acute) Arthritis (Acute) Back problem (Acute) Gout (Acute) Pulmonary embolism (Acute) Sleep apnea (Acute) Vertigo (Acute) Surgical History (Updated 06/08/20 @ 13:27 by Margaret Fernandez) Appendicitis (Acute) DOUBLE CARPEL TUNNEL (Acute) DOUBLE HERNIA (Acute) History of appendectomy (Acute) History of bilateral carpal tunnel release (Acute) History of bilateral inguinal hernia repair (Acute) Family History (Updated 06/08/20 @ 13:30 by Margaret Fernandez) Father Arthritis High cholesterol Hypertension Mother Hypertension Social History (Updated 06/08/20 @ 14:[address] Eugene Gonzales MD) current occupational status: employed current occupational exposures/hazards: Yes (Exposed to smoke, abestos, chemicals, and fumes.) Smoking Status: Current every day smoker second hand exposure: No alcohol intake: current details: WILL SOMETIMES HAVE A BEER BUT NOT OFTEN substance use type: does not use what type of physical activity do you participate in: other frequency: daily seatbelt use: always do you feel safe at home: Yes HPI HPI HPI: PAUL SHELTON, is a 60 M who presents to the office today for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 evaluation open wound right ring finger Career Coordinator Required: No Accompanied by: Is patient in pain?: No Allergies No Known Allergies Allergy (Verified 07/02/17 19:11) Medications Cefadroxil Hydrate [Duricef] 1 g PO Q12H #28 cap 07/02/17 [Rx] PFSH Medical History Open wound of right ring finger without damage to nail (Acute) Arthritis (Acute) Back problem (Acute) Vertigo (Acute) Surgical History Appendicitis (Acute) DOUBLE CARPEL TUNNEL (Acute) DOUBLE HERNIA (Acute) Family History Father Arthritis High cholesterol Hypertension Mother Hypertension Social History Smoking Status: Never smoker second hand exposure: No alcohol intake: current details: WILL SOMETIMES HAVE A BEER BUT NOT OFTEN substance use type: does not use what type of physical activity do you participate in: other frequency: daily seatbelt use: always do you feel safe at home: Yes HPI evaluation open wound right ring finger: Details: 57-year-old gentleman who is right-hand dominant was moving concrete slabs at the end of June when he lost his hide cleaner in his right ring fingertip pain between a couple of the concrete slabs. There was pain and bleeding at the scene. He went to the emergency room for evaluation. This was on July 02, 2017. X-ray was obtained which showed no fracture. There was some soft tissue loss and some skin loss on the volar surface. The wound was cleansed and he underwent suture repair of this complex open wound on the volar surface of his right ring finger. There was enough soft tissue coverage over the bone. A tip splint was applied. Patient was sent home on cefadroxil antibiotics. Patient does have some discomfort in his right ring finger. There is some numbness at the tip of his finger which is to be expected because of the nature of the injury and the amount of swelling present. He presents at this time for further evaluation and treatment. PAST MEDICAL HISTORY Arthritis. Back pain. Vertigo. Inguinal hernia. Carpal tunnel syndrome. Appendicitis. PAST SURGICAL HISTORY Appendectomy. Bilateral inguinal hernia repair. Bilateral carpal tunnel surgery. MEDICATIONS Cefadroxil. ALLERGIES None. SOCIAL HISTORY Patient does not smoke. Patient drinks alcohol occasionally. FAMILY HISTORY Arthritis. Hypertension. High cholesterol. REVIEW OF SYSTEMS General-denies fever, fatigue, weight loss. ENT-denies nasal congestion or sore throat. Eyes-denies eye pain. Denies glaucoma. Denies cataracts. Endocrine-denies excessive thirst or urination. Skin-complex healing open wound volar surface right ring finger tip. Musculoskeletal-has joint pain, joint stiffness, back pain. Denies weakness of muscles and joints. Has some arthritis. Neurologic-denies headaches. Has some numbness at the right ring fingertip. Cardiovascular-denies chest pain. Denies fatigue. Denies lightheadedness. Denies shortness of breath with exertion. Psychiatric-denies anxiety. Denies depression. Respiratory-denies shortness of breath. Denies chronic cough. Gastrointestinal-denies nausea, vomiting, diarrhea, and constipation. Hematologic-denies abnormal bruising. Denies bleeding. Genitourinary-denies urinary frequency. Denies hematuria. PHYSICAL EXAMINATION General-alert and oriented in no acute distress. HEENT-pupils equal round reactive to light. Extraocular muscles intact. Throat is clear. Neck-supple and nontender. No cervical adenopathy. Lungs-clear to auscultation. Heart-regular rate and rhythm. Extremities-full range of motion of the lower extremities left upper extremity. Patient is right-hand dominant. On the right upper extremity on the ring finger on the volar surface is some swelling. There is a V-shaped laceration with nylon suture repair. The length of the V-shaped laceration is 3 cm. The radial aspect of the laceration is 2 cm and the ulnar aspect is 1 cm. There is a rawness with exposed subcutaneous tissue. No evidence of exposed bone. No evidence of injury to the nailbed. No evidence of subungual hematoma. Swelling is noted at the right ring fingertip. Some tenderness to palpation is noted. Fingers are warm with good capillary refill. Thumb opposition is intact. Patient can flex and extend the ring finger at the DIP joint. Can flex and extend the ring finger at the PIP joint and MP joint. Can flex the rest of his fingers bilaterally at the IP joints and MP joints. Radial pulses are palpable. No axillary adenopathy noted. Neuro-cranial nerves II through XII grossly intact. IMPRESSION 3 cm open wound volar aspect right ring finger tip. PLAN X-ray was reviewed. Discussed with the patient that this complex wound should continue to heal with local wound care and antibiotic therapy. He will continue his cefadroxil antibiotics until completed. He will continue his tip splint when active. When not active he can remove the splint and The tip of the finger to help desensitize the pain. He is not to start doing this for a few more days until more healing has occurred. After which time he can also massage the healing scar on a daily basis to help soften up the scar as well this will help with lymphatic drainage as well. Encourage range of motion exercises to minimize stiffness. For the raw surface area of the fingertip, he will apply antibiotic ointment daily. He will follow-up in 2 weeks for suture removal. Because of the nature of this injury, the patient is at increased risk for developing osteomyelitis in the tip of his finger. If suspected, he would need an MRI. If present, then that will require operative debridement in the future. With the presence of osteomyelitis, we will probably have to shorten the finger with a tip amputation. When I see him in 2 weeks to remove the sutures, I may continue his cefadroxil antibiotics as well to minimize developing osteomyelitis. Patient was informed of the risks and complications of the procedure including alternatives to surgery. These were discussed with him personally. He voices understanding and wishes to proceed with the current plan of continued wound care and antibiotic therapy to allow healing and minimize need for surgery. Some of the risks that were discussed included but were not inclusive of failure to diagnose including symptom relief, pain, infection, numbness, stiffness, loss of digit, RSD, need for further surgery, contracture, and wound healing problems. Assessment AND Plan Problems 1. Open wound of right ring finger without damage to nail S61.204A 08/19/17 1621 <Electronically signed by Jim Maciel MD> Date Jim Maciel MD [facility] Signature: Date (if applicable) CC: Kathy Hare Start: 07-02-2017 End: 07-03-2017 Emergency Department Summary Comments: See Note; NOTES: [facility] Medical Records Department [address] [place] [address] Emergency Department Summary 07/02/17 2208 MR#: [id number] Acct: [id number] Name: PAUL SHELTON Rep #: [id number] : 1960 57 From: Jose Johnson MD PCP: Kathy Hare MD Status: DEP ER - ER Visit Summary Date of Service: 07/02/17 Chief Complaint: Injury to fingertip History of Present Illness: The patient is a 57 M who is right-hand dominant presents with injury to his right fourth finger. Patient was moving concrete slabs. He lost his hide cleaner, and his fourth fingertip got pinned between the 2 slabs. It actually tore off the tip of his fingers on the glove. He had immediate pain and bleeding. His last tetanus was less than 5 years ago. The patient is otherwise healthy and takes no daily medication. He denies any other injury. He did try some compress with little relief. Physical Examination: Patient does have macerated tip of the right fourth finger on the palmar aspect. The nail is intact without subungual hematoma. Cap refill is less than 2 seconds. Two-point examination is preserved. Flexion and extension is preserved. Test Results: Shows no fracture Emergency Department Course and Treatment: She does have significant soft tissue injury of the distal tip of the finger. However, there is enough for good bone coverage. A digital block was performed piperocaine. The wound was irrigated with 250 cc of normal saline and cleaned with Shur-Clens. The wound was reapproximated with 11 simple 6-0 interrupted suture with good tissue coverage. The patient tolerated this without issue. Bacitracin dressing was applied. There was no visible bone, but given the amount of soft tissue injury along the bony tip, the patient will be started on Keflex. I will give him referral to plastic surgery for wound reevaluation. He was counseled on concerning symptoms and reasons to return. The patient is comfortable with this plan of care. He will follow-up for wound reevaluation or return here if he cannot be seen. Treatment Plan: [] Disposition: Discharged Impression: 2 cm stellate laceration of the right fourth finger with repair This note was generated with Dexmoation software. It may contain incorrect words, spelling, and punctuation that were not noted in review of the chart prior to signing ED Disposition - Plan for ED Patient: Chief Complaint: Laceration Instructions: ED Crush Injury Finger No Fx Prescriptions: Cefadroxil Hydrate [Duricef] 1 g PO Q12H #28 capsule Referrals: Jim Maciel MD [STAFF PHYSICIAN] - What to do if you have Problems For any increased pain, shortness of breath, bleeding, nausea or vomiting, chest pain, or any unexpected problems, contact your Primary Care Provider. Call [facility] ([phone]) or report to the closest Emergency Room. Call 911 if necessary. 07/02/17 0248 <Electronically signed by Jose Johnson MD> Date Jose Johnson MD Cosigner Signature (If Indicated): Date CC: Kathy Hare Start: 05-08-2017 End: 05-09-2017 Brain W/WO Contrast Comments: See Note; NOTES: [facility] Imaging Services [address] [place] [address] Brain W/WO Contrast MR#: [id number] Acct: [id number] Name: PAUL SHELTON Rep #: [id number] : 1960 M 57 From: Lukas Kwon MD PCP: Kathy Hare MD Status: REG CLI Study: Brain W/WO Contrast Date of Exam: 05/08/17 Exam# [id number] Ordering Dr: Kathy Hare MD STUDY: MRI BRAIN WITH AND WITHOUT CONTRAST REASON FOR EXAM: Male, 57 years old. Headaches and dizziness TECHNIQUE: Standardized multiplanar fat and water weighted pulse sequences were obtained. 10 ml of Gadavist contrast material was administered intravenously for the contrast portion of the examination. COMPARISON: None. FINDINGS: Normal size of the ventricles and extra-axial spaces for the patient's age. Normal white matter tracts of the supratentorial brain. Normal bilateral basal ganglia. Normal thalami. There is no extra-axial fluid accumulation. Normal flow voids within the major intracranial circulation suggesting patency by spin echo criteria. Normal venous enhancement. There is no enhancing intra-axial or extra-axial abnormality. Normal sella turcica, pituitary gland, infundibular stalk, optic chiasm and hypothalamus. Normal tectal plate and pineal gland. Normal midbrain, luana and medulla. Normal cerebellum. Normal basal cisterns. Normal bilateral temporal bones. Normal bilateral internal auditory canals. No demonstrated orbital abnormality, within the constraints of a routine brain study. 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 Normal calvarium and skull base. Normal visualized soft tissue structures. There are degenerative changes of the anterior atlantoaxial articulation. MRI/Brain W/WO Contrast IMPRESSION: No MRI evidence of focal brain pathology. 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 Electronically Signed: Lukas Kwon MD at 3:58 EDT Tel , Service support , CC: Kathy Hare MD Shovel Engineer: Signed Kathy Hare Work Phone: Arthrp kne condyle&p latu medial&lat compartments GENOVEVA Jay Comment on above: 06-28-2020 Dr. Jessica Arthrp kne condyle&p latu medial&lat compartments GENOVEVA Torres LPN Comment on above: 06-28-2020 Dr. Jessica Arthrp kne condyle&p latu medial&lat compartments GENOVEVA Torres LPN Comment on above: 06-28-2020 Dr. Jessica Arthrp kne condyle&p latu medial&lat compartments Kathy Hare MD Work Phone: Comment on above: 06-28-2020 Dr. Jessica Arthrp kne condyle&p latu medial&lat compartments Brigidabeverly Delgadillo COMMUNITY RELATIONS COORDINATOR Comment on above: 06-28-2020 Dr. Jessica Arthrp kne condyle&p latu medial&lat compartments Heather Storm LPN Comment on above: 06-28-2020 Dr. Jessica Laboratory test resu lt abnormal Abnormal laboratory test Kathy Hare MD Work Phone: Comment on above: the anticardiolipin IGM is 31. usually l columba to see over 40 and need two 12 weeks apart to say could have antiphospholipid syndrome willrecheck along with lupus anticoag Laboratory test resu lt abnormal Abnormal laboratory test Kathy Hare MD Work Phone: Comment on above: the anticardiolipin IGM is 31. usually l columba to see over 40 and need two 12 weeks apart to say could have antiphospholipid syndrome willrecheck along with lupus anticoag End: 10-17-2021 Laboratory test result abnormal Abnormal laboratory test Kathy Hare MD Work Phone: Comment on above: the anticardiolipin IGM is 31. usually l columba to see over 40 and need two 12 weeks apart to say could have antiphospholipid syndrome willrecheck along with lupus anticoagrecheck from Dr. godoy was normal and he is average risk of DVT Laboratory test resu lt abnormal Abnormal laboratory test Kathy Hare MD Work Phone: Laboratory test resu lt abnormal Abnormal laboratory test Kathy Hare MD Work Phone: Laboratory test resu lt abnormal Abnormal laboratory test Kathy Hare MD Work Phone: Laboratory test resu lt abnormal Abnormal laboratory test Kathy Hare MD Work Phone: Laminectomy Kathy Hare MD Work Phone: Comment on above: L2-3 Dr Conway 07-25 Laminectomy Chase Delgadillo COMMUNITY RELATIONS COORDINATOR Comment on above: L2-3 Dr Conway 07-25 Laminectomy Heather Lombardo PN Comment on above: L2-3 Dr Conway 07-25 Manipulation knee israel int under general anesthesia GENOVEVA Torres Comment on above: left 09-06-2020 Dr. Jessica (he failed to p rogress appropriately following surgery with physical therapy, and limited range of motion) Manipulation knee israel int under general anesthesia GENOVEVA Torres LPN Comment on above: left 09-06-2020 Dr. Jessica (he failed to p rogress appropriately following surgery with physical therapy, and limited range of motion) Manipulation knee israel int under general anesthesia GENOVEVA Torres LPN Comment on above: left 09-06-2020 Dr. Jessica (he failed to p rogress appropriately following surgery with physical therapy, and limited range of motion) Manipulation knee israel int under general anesthesia Kathy Hare MD Work Phone: Comment on above: left 09-06-2020 Dr. Jessica (he failed to p rogress appropriately following surgery with physical therapy, and limited range of motion) Manipulation knee israel int under general anesthesia Chase Delgadillo [facility] Comment on above: left 09-06-2020 Dr. Jessica (he failed to p rogress appropriately following surgery with physical therapy, and limited range of motion) Manipulation knee israel int under general anesthesia Heather Storm LPN Comment on above: left 09-06-2020 Dr. Jessica (he failed to p rogress appropriately following surgery with physical therapy, and limited range of motion) Unilateral repair of inguinal hernia Kathy Hare MD Work Phone: Comment on above: Dr Gonzales 04-25 Unilateral repair of inguinal hernia Chase Delgadillo [facility] Comment on above: Dr Gonzales 04-25 Unilateral repair of inguinal hernia Heather Storm LPN Comment on above: Dr Gonzales 04-25 Plan of Treatment Date Care Activity Detail Author Start: 10-29-2022 Procedure Education Eprescribed prescriptions (G8553) [facility]; [facility] Work Phone: Start: 10-16-2022 CBC, PLATELETS & MANUAL DIFF (40245) CBC, PLATELETS & MANUAL DIFF (20578) [facility]; [facility] Work Phone: Start: 10-16-2022 Comprehensive metabolic panel METABOLIC PANEL, COMPREHENSIVE (53122) [facility]; [facility] Work Phone: Start: 10-16-2022 Hepatic function panel HEPATIC FUNCTION PANEL (66466) [facility]; [facility] Work Phone: Start: 10-16-2022 Lipid panel LIPID PANEL (69961) [facility]; [facility] Work Phone: Start: 10-16-2022 Urine albumin quantitative MICROALBUMIN: CREATININE RATIO (47529) AND (70397) [facility]; [facility] Work Phone: Start: 05-04-2022 Procedure Education Eprescribed prescriptions (G8553) [facility]; [facility] Work Phone: Start: 05-04-2022 Lipid panel LIPID PANEL (69650) [facility]; [facility] Work Phone: Start: 05-04-2022 Hepatic function panel HEPATIC FUNCTION PANEL (41202) [facility]; [facility] Work Phone: Start: 10-17-2021 Urine albumin quantitative MICROALBUMIN: CREATININE RATIO (06135) AND (19680) [facility]; [facility] Work Phone: Start: 10-17-2021 Comprehensive metabolic panel METABOLIC PANEL, COMPREHENSIVE (02995) [facility]; [facility] Work Phone: Start: 10-17-2021 Lipid panel LIPID PANEL (26917) [facility]; [facility] Work Phone: Start: 03-28-2021 Comprehensive metabolic panel METABOLIC PANEL, COMPREHENSIVE (77908) [facility]; [facility] Work Phone: Start: 03-28-2021 Lipoprotein direct measurement ldl cholesterol LDL CHOLESTEROL-DIRECT (54872) [facility]; [facility] Work Phone: Comment on above: in three months (approximately) Start: 06-20-2020 Iaadiadoo influenza 2019 Novel Coronavirus (COVID-19), RADHA (30943) [facility] Work Phone: Start: 06-07-2020 Jay viper venom time diluted LUPUS ANTICOAG COMP 550983 (43302) [facility] Work Phone: Start: 06-07-2020 Beta 2 glycoprotein i antibody each Antiphospholipid atb (62129) [facility] Work Phone: Start: 05-26-2020 Procedure Education Eprescribed prescriptions (G5109) [facility] Work Phone: Start: 05-26-2020 SARS-CoV-2 Antibody, IgG SARS-CoV-2 Antibody, IgG [facility] Work Phone: Comment on above: today Start: 05-26-2020 Blood count complete auto&auto difrntl wbc CBC W/AUTO DIFF WBC (29547) [facility] Work Phone: Start: 05-26-2020 Comprehensive metabolic panel METABOLIC PANEL, COMPREHENSIVE (35714) [facility] Work Phone: Start: 04-05-2020 Influenza vaccination INFLUENZA (#1) [facility] Start: 02-22-2020 Provider Instructions for Treatment Knee Injections [facility] Work Phone: Start: 02-22-2020 Molecule nucleic ampli, each MTHFR (28177) [facility] Work Phone: Comment on above: all these hypercoag labs in may Start: 02-22-2020 Cardiolipin antibody each ig class ANTICARDIOLIPIN IgG/IgM 246252 (97928) [facility] Work Phone: Start: 02-22-2020 Clotting inhibitors protein s total Protein S Profile (62571) [facility] Work Phone: Start: 02-22-2020 Clotting inhibitors protein c antigen Protein C Profile (98032) [facility] Work Phone: Start: 02-22-2020 Protein [Mass/Vol] [facility] Work Phone: Start: 02-22-2020 Assay of homocysteine Homocysteine, Plasma (27887) [facility] Work Phone: Start: 02-22-2020 Beta 2 glycoprotein i antibody each [facility] Work Phone: Start: 02-22-2020 Clotting inhibitrs antithrombn iii antigen assay ANTICOAG ANTTHROMB III & ASSAY (42139) [facility] Work Phone: Start: 02-22-2020 Clotting inhibitors antithrombin iii activity ANTITHROMBIN III ACTIVTY (95202) [facility] Work Phone: Start: 02-22-2020 Molecule isolate nucleic Factor 2 (Prothrombin) Gene Mutation (35032) [facility] Work Phone: Start: 02-22-2020 Molecule gel electrophor Factor V Leiden (21810) [facility] Work Phone: Start: 11-10-2019 Blood count manual cell count each CBC with auto diff (61483) [facility] Work Phone: Start: 11-10-2019 Comprehensive metabolic panel METABOLIC PANEL, COMPREHENSIVE (02851) [facility] Work Phone: Start: 2013 PROSTATE CANCER SCREENING DISCUSSION PROSTATE CANCER SCREENING DISCUSSION [facility] Start: 2008 SHINGRIX VACCINE (1 of 2) SHINGRIX VACCINE (1 of 2) [facility] Start: 2008 Tuberculosis screening COLORECTAL CANCER SCREENING,SEE MODIFIER [facility] Start: 2003 DIABETES SCREEN DIABETES SCREEN [facility] Start: 1993 LIPID SCREEN LIPID SCREEN [facility] Start: 1977 Urine microalbumin profile DTAP,TDAP,TD (1 - Tdap) [facility] Start: 1976 HEPATITIS C SCREENING HEPATITIS C SCREENING [facility] Start: 1976 HIV SCREENING HIV SCREENING [facility] Radex spine lumbosacral minimum 4 views XR LUMBAR MOTION 4V AP/LAT/ FLEX/EXT Radiology Routine Lumbar degenerative disc disease 05/17/2020 9:41 AM EDT [facility] Work Phone: [facility] Work Phone: [facility] Work Phone: [facility] Work Phone: [facility] Work Phone[facility] Work Phone: [facility] Work Phone: [facility] Work Phone: [facility] Work Phone: [facility] Work Phone: [facility] Work Phone: Immunizations Immunization Date Immunization Notes Care Provider [facility] 08-04-2020 COVID-19 (Moderna) Kathy farley MD Work Phone: [facility]; [facility] Work Phone: 07-05-2020 COVID-19 (Moderna) Kathy farley MD Work Phone: [facility]; [facility] Work Phone: 05-05-[address] Kathy Hare MD Work Phone: [facility] Payers Date Payer Category Payer Self-pay 2024 Medicare [id number] 2019 Unknown [employer] [id number] 2019-Present PPO [id number] 2017 Unknown [id number] 2016 Unknown [id number] 1960 Unknown [id number] 1960 Unknown [id number] 1960 Unknown [id number] Unknown [employer] Unknown [id number] Unknown MED [employer] TPA [id number] Unknown [id number] Social History Date Type Detail Facility Alcohol Use: Alcohol Use: [facility] Work Phone: Caffeine Use Caffeine Use [facility] Work Phone: Comment on above: 2-3 cups qd Current Work/Study Status: Current Work/Study Status: [facility] Work Phone: 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 Exercise History: Exercise History: [facility] Work Phone: [facility] Comment on above: Tobacco Use: Tobacco Use: [facility] Work Phone: Comment on above: rarely rarely 1-2 cigs a we ek social smoker Sex Assigned At Not on file [facility] Exposure to SARS-CoV -2 (event) Not sure [facility] Start: 05-17-2020 End: 06-22-2021 Tobacco smoking status NHIS Never smoker [facility] Start: 05-17-2020 Tobacco use and exposure Never used [facility] Start: 05-17-2020 Alcohol intake Current drinke r of alcohol (finding) [facility] Start: 05-17-2020 History SDOH Alcohol Frequency 2 [facility] Alcohol Use: Alcohol Use: [facility] Work Phone: Current Work/Study Status: Current Work/Study Status: [facility] Work Phone: Comment on above: [employer]. 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 Exercise History: Exercise History: [facility]pr [facility] Work Phone: Living Situation: Living Situation: [facility]pr [facility] Work Phone: Comment on above: Tobacco Use: Tobacco Use: [facility] Work Phone: Comment on above: rarely 1-2 cigs a we ek social smoker Start: 11-04-2019 Alcohol Alcohol [facility] Start: 11-04-2019 Lives Lives [facility] Start: 11-04-2019 Tobacco Use Tobacco Use [facility] Start: 1960 Sex Assigned At Male W [facility] Medical Equipment Procedure Code Equipment Code Equipment Origin al Text Equipment Identifier Dates MESH,3DMAX RIGHT XL [id number] FDA Start: 05-03-2021 TACKER,SECURE STRAP FDA Start : 05-03-2021 Ligation clip, synthetic polymer, non-bioabsorbable ([id number] FDA Start: 05-03-2021 SEALANT,FLOSEAL HEMOSTATIC 5ML FDA Start: 07-06-2021 SEALANT,TISSEEL 2ML FDA Start : 07-06-2021 Clinical Notes 04-24-2021 to 12-26-2024 Note Date & Type Note Facility 12-26-2024 Radiology Diagnostic study note [facility] Imaging Services [address], [place] [address] Chest without Contrast MR#: [id number] Acct: [id number] Name: PAUL SHELTON Rep #: [id number] : 1960 M 64 From: Narciso Adame MD PCP: Dr. Kathy Hare MD Status: REG C CELESTE Study:Chest without Contrast Date of Exam: 12/25/24 Exam# [id number] Ordering Dr: Kathy Hare MD PROCEDURE: CHEST WITHOUT CONTRAST 12/25/2024 REASON FOR EXAM: CT, THORAX; W/O CONTRAST MATERIAL; ABNORMAL XRAY, LUNG NODULE >= TECHNIQUE: Chest CT without contrast. Coronal and Sagittal reconstruction series were provided. One or more dose reduction techniques were used (e.g., Automated exposure control, adjustment of the mA and/or kV according to patient size, use of iterative reconstruction technique RADIATION DOSE SUMMARY: CTDlvol: 13.68 mGy DLP: 570.94 mGycm COMPARISON: None available FINDINGS: The central airways appear patent. Sequela of previous granulomatous disease with calcified granulomas right upper lobe for example axial 52 and 57 with calcified right hilar and mediastinal nodes. A couple of adjacent noncalcified subpleural, juxtapleural nodular densities at the minor fissure axial 75 and 74. Platelike area of scar or atelectasis posterior right lower lobe. The lungs otherwise appear clear. Thoracic aorta appears within limits on noncontrast imaging. Mild proximal LAD coronary calcification noted. No pericardial or pleural effusion. No axillary, mediastinal, hilar or subcarinal adenopathy identified. Limited images of the upper abdomen appear within limits on noncontrast imaging. Bilateral severe appearing shoulder osteoarthrosis partially imaged. Old T1 spinous process fracture. CT/Chest without Contrast IMPRESSION: Sequela of previous granulomatous disease Mild proximal LAD coronary calcification noted. Reading Location: [id number] CC: Dr. 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 Author Type: Physician Type: Progress Notes Filed: 04/24/2021 1:09 PM Note Text: Patient referred by Dr. Hare for my opinion and recommendations regarding a patient with persistent anticardiolipin antibody and h/o PE. The impression and plan will be communicated by way of the shared electronic record or faxed under separate cover letter. HPI: The patient is a 60 yo male with a PMH signficant for hyperlipidemia, pulmonary emboli, right knee osteoarthritis status post replacement and anticardiolipin antibody. Patient was admitted to [facility] in November 2019 for COVID-19 infection with pneumonia and pulmonary emboli. He was actively smoking up until the time of his admission and evidently smoked for several months afterward. He was discharged on apixaban. Anticoagulation was stopped about 6 months later. At that time he underwent hypercoagulation testing. Beta-2 glycoprotein antibody, IgM was negative. Beta-2 glycoprotein antibody, IgG was negative. Protein S total was 82% protein S free was 144% and protein S functional was 82%. Antithrombin activity was 82%. Antithrombin antigen was 72%. Anticardiolipin antibody IgG was less than 9 but anticardiolipin antibody IgM was 31 indicating low to medium positive titer. Protein C antigen was 91% protein C function was 117%. Factor V Leiden was negative. Prothrombin gene mutation was negative. Patient then underwent left total knee replacement on 06/28/2020 with standard DVT prophylaxis. He has not had lower extremity swelling or edema. He endorses he quit smoking at the time he had Covid in November 2019. He is not short of breath at rest or with exertion. He has been making an effort to lose weight and has lost about 40 pounds since the time of Covid. The only lingering symptom he has is morning cough with some clear sputum production. No unusual bleeding or unexplained bruising. Repeat anticardiolipin antibody testing on 03/28/2021 revealed the IgG titer to be 23 and the IgM titer to be 20. Sex: Male. Smoker: Smoked up until 11/2019 when had Covid. Smoked several cigarettes a week for about 15-20 years previously. BMI: . Family h/o VTE: Father--DVTs when older. Family h/o atherosclerotic disease: PGF--Stroke age 74. Family h/o cancer: None known. Hypercoagulation labs: See above. Up to date on age and gender appropriate cancer screening studies: Hasn't had screening colonosocpy. Has PSA checked. Transient risk factors: Covid pneumonia. PMH, medications and allergies personally reviewed by me today. Any changes documented in appropriate section. ROS: Constitutional: Denies episodes of fever and night sweats. Neuro: Denies KOVACS, vertigo, dizziness and imbalance. HEENT: No recent change in voice, vision or hearing. Resp: Denies wheeze and hemoptysis. CVS: Denies exertional chest pain, PND, orthopnea and LE edema. GI: Denies dysgeusia. Denies symptoms of stomatitis. Denies dysphagia and odynophagia. Denies reflux, n/v, change in bowel habits and abdominal pain. : Denies dysuria or gross hematuria. No symptoms of bladder outlet obstruction. Endo: Denies hot flashes. Denies polyuria and polydipsia. Denies heat and cold intolerance. Musculoskeletal: Lumbar degenerative disease of L2, 3 and 4 with bilateral sciatica. Derm: Denies rash. Denies jaundice and diffuse pruritis. Heme: See above. Psych: Normal mood. PHYSICAL EXAM: Vitals: Blood pressure 113/72, pulse 62, temperature 36.4 ?C (97.6 ?F), temperature source Temporal, height 177.5 cm (5' 9.88), weight 83.5 kg (184 lb). Well-appearing and in no acute distress. EYES: Sclerae are anicteric bilaterally. LYMPHATIC: There is no palpable cervical, supraclavicular or axillary adenopathy. RESPIRATORY: Inspiratory breath sounds are of normal intensity in all arteaga. No rales, wheezes or rhonchi. CARDIOVASCULAR: Rhythm is regular. Mild varicosities. ABDOMEN: The abdomen is nondistended. No organomegaly. No tenderness. Extremities: No swelling or edema. SKIN: No jaundice or rash. No petechiae. NEUROLOGIC: cardiopulmonary technologist II-XII are grossly intact. No focal motor weakness. ASSESSMENT/PLAN: (I26.94) Multiple subsegmental pulmonary emboli without acute cor pulmonale (HCC) (primary encounter diagnosis) (R76.0) Anticardiolipin antibody positive Assessment: -The patient is a 60-year-old male who developed multiple pulmonary emboli in November 2019 when he had COVID-19 infection was hospitalized for Covid pneumonia. He was on anticoagulation for approximately 6 months following. At that time anticoagulation was stopped and hypercoagulation labs were obtained indicating low level positive titer for anticardiolipin antibody IgM. He underwent knee replacement surgery with standard DVT prophylaxis measures. He is currently off anticoagulation. He is due for screening colonoscopy this Saturday and inguin (more content not included)... [facility] Evaluation note No assessment inform ation available [facility] Work Phone: Instructions Name Patient Instructions Indication:Degenerative disc disease, lumbar Start: 1 Instruction Type:Provider Instructions for Treatment How to Access Health Information Online using Patient Portal and [employer] Indication:Degenerative disc disease, lumbar Start: 1 Instruction Type:Patient Education How to access health information online Indication:Current smoker (Renamed from Smoker) Start: 0 Instruction Type:Patient Education How to access health information online - Detail Indication:Current smoker (Renamed from Smoker) Start: Instruction Type:Patient Education Patient Instructions Indication:Current smoker (Renamed from Smoker) Start: Instruction Type:Provider Instructions for Treatment How to access health information online Indication:Annual visit for general adult medical examination without abnormal findings Start: Instruction Type:Patient Education How to access health information online - Detail Indication:Annual visit for general adult medical examination without abnormal findings Start: Instruction Type:Patient Education Patient Instructions Indication:Annual visit for general adult medical examination without abnormal findings Start: Instruction Type:Provider Instructions for Treatment How to access health information online Indication:Hospital discharge follow-up Start:10-Nov-2019 Instruction Type:Patient Education How to access health information online - Detail Indication:Hospital discharge follow-up Start:10-Nov-2019 Instruction Type:Patient Education Patient Instructions Indication:Hospital discharge follow-up Start:10-Nov-2019 Instruction Type:Provider Instructions for Treatment How to access health information online Indication:Flu-like symptoms Start:04-Nov-2019 Instruction Type:Patient Education How to access health information online - Detail Indication:Flu-like symptoms Start:04-Nov-2019 Instruction Type:Patient Education Patient Instructions Indication:Flu-like symptoms Start:04-Nov-2019 Instruction Type:Provider Instructions for Treatment How to access health information online Indication:BPV (benign positional vertigo), unspecified laterality Start:07-May-2017 Instruction Type:Patient Education How to access health information online - Detail Indication:BPV (benign positional vertigo), unspecified laterality Start:07-May-2017 Instruction Type:Patient Education Patient Instructions Indication:BPV (benign positional vertigo), unspecified laterality Start:07-May-2017 Instruction Type:Provider Instructions for Treatment [facility]; [facility] Work Phone: Instructions* Name Dates Details Patient Instructions Indication:Degenerative disc disease, lumbar Start:24-Nov-2020 Instruction Type:Provider Instructions for Treatment How to Access Health Informa tion Online using Patient Portal and [employer] Apps Indication:Degenerative disc disease, lumbar Start:24-Nov-2020 Instruction Type:Patient Education How to access health informa tion online Indication:Current smoker (Renamed from Smoker) Start:26-May-2020 Instruction Type:Patient Education How to access health informa tion online - Detail Indication:Current smoker (Renamed from Smoker) Start:26-May-2020 Instruction Type:Patient Education Patient Instructions Indication:Current smoker (Renamed from Smoker) Start:26-May-2020 Instruction Type:Provider Instructions for Treatment How to access health informa tion online Indication:Annual visit for general adult medical examination without abnormal findings Start:22-Feb-2020 Instruction Type:Patient Education How to access health informa tion online - Detail Indication:Annual visit for general adult medical examination without abnormal findings Start:22-Feb-2020 Instruction Type:Patient Education Patient Instructions Indication:Annual visit for general adult medical examination without abnormal findings Start:22-Feb-2020 Instruction Type:Provider Instructions for Treatment How to access health informa tion online Indication:Hospital discharge follow-up Start:10-Nov-2019 Instruction Type:Patient Education How to access health informa tion online - Detail Indication:Hospital discharge follow-up Start:10-Nov-2019 Instruction Type:Patient Education Patient Instructions Indication:Hospital discharge follow-up Start:10-Nov-2019 Instruction Type:Provider Instructions for Treatment How to access health informa tion online Indication:Flu-like symptoms Start:04-Nov-2019 Instruction Type:Patient Education How to access health informa tion online - Detail Indication:Flu-like symptoms Start:04-Nov-2019 Instruction Type:Patient Education Patient Instructions Indication:Flu-like symptoms Start:04-Nov-2019 Instruction Type:Provider Instructions for Treatment How to access health informa tion online Indication:BPV (benign positional vertigo), unspecified laterality Start:07-May-2017 Instruction Type:Patient Education How to access health informa tion online - Detail Indication:BPV (benign positional vertigo), unspecified laterality Start:07-May-2017 Instruction Type:Patient Education Patient Instructions Indication:BPV (benign positional vertigo), unspecified laterality Start:07-May-2017 Instruction Type:Provider Instructions for Treatment [facility]; [facility] Work Phone: Instructions* Name Dates Details Patient Instructions Indication:Preop examination Start:19-Jun-2021 Instruction Type:Provider Instructions for Treatment How to Access Health Informa tion Online using Patient Portal and [employer] Apps Indication:Preop examination Start:19-Jun-2021 Instruction Type:Patient Education Patient Instructions Indication:Annual visit for general adult medical examination without abnormal findings Start:28-Mar-2021 Instruction Type:Provider Instructions for Treatment How to Access Health Informa tion Online using Patient Portal and [employer] Apps Indication:Annual visit for general adult medical examination without abnormal findings Start:28-Mar-2021 Instruction Type:Patient Education Patient Instructions Indication:Degenerative disc disease, lumbar Start:24-Nov-2020 Instruction Type:Provider Instructions for Treatment How to Access Health Informa tion Online using Patient Portal and [employer] Indication:Degenerative disc disease, lumbar Start:24-Nov-2020 Instruction Type:Patient Education How to access health informa tion online Indication:Current smoker (Renamed from Smoker) Start:26-May-2020 Instruction Type:Patient Education How to access health informa tion online - Detail Indication:Current smoker (Renamed from Smoker) Start:26-May-2020 Instruction Type:Patient Education Patient Instructions Indication:Current smoker (Renamed from Smoker) Start:26-May-2020 Instruction Type:Provider Instructions for Treatment How to access health informa tion online Indication:Annual visit for general adult medical examination without abnormal findings Start:22-Feb-2020 Instruction Type:Patient Education How to access health informa tion online - Detail Indication:Annual visit for general adult medical examination without abnormal findings Start:22-Feb-2020 Instruction Type:Patient Education Patient Instructions Indication:Annual visit for general adult medical examination without abnormal findings Start:22-Feb-2020 Instruction Type:Provider Instructions for Treatment How to access health informa tion online Indication:Hospital discharge follow-up Start:10-Nov-2019 Instruction Type:Patient Education How to access health informa tion online - Detail Indication:Hospital discharge follow-up Start:10-Nov-2019 Instruction Type:Patient Education Patient Instructions Indication:Hospital discharge follow-up Start:10-Nov-2019 Instruction Type:Provider Instructions for Treatment How to access health informa tion online Indication:Flu-like symptoms Start:04-Nov-2019 Instruction Type:Patient Education How to access health informa tion online - Detail Indication:Flu-like symptoms Start:04-Nov-2019 Instruction Type:Patient Education Patient Instructions Indication:Flu-like symptoms Start:04-Nov-2019 Instruction Type:Provider Instructions for Treatment How to access health informa tion online Indication:BPV (benign positional vertigo), unspecified laterality Start:07-May-2017 Instruction Type:Patient Education How to access health informa tion online - Detail Indication:BPV (benign positional vertigo), unspecified laterality Start:07-May-2017 Instruction Type:Patient Education Patient Instructions Indication:BPV (benign positional vertigo), unspecified laterality Start:07-May-2017 Instruction Type:Provider Instructions for Treatment [facility]; [facility] Work Phone: Instructions* Name Dates Details How to access health informa tion online Indication:Annual visit for general adult medical examination without abnormal findings Start:22-Feb-2020 Instruction Type:Patient Education How to access health informa tion online - Detail Indication:Annual visit for general adult medical examination without abnormal findings Start:22-Feb-2020 Instruction Type:Patient Education Patient Instructions Indication:Annual visit for general adult medical examination without abnormal findings Start:22-Feb-2020 Instruction Type:Provider Instructions for Treatment How to access health informa tion online Indication:Hospital discharge follow-up Start:10-Nov-2019 Instruction Type:Patient Education How to access health informa tion online - Detail Indication:Hospital discharge follow-up Start:10-Nov-2019 Instruction Type:Patient Education Patient Instructions Indication:Hospital discharge follow-up Start:10-Nov-2019 Instruction Type:Provider Instructions for Treatment How to access health informa tion online Indication:Flu-like symptoms Start:04-Nov-2019 Instruction Type:Patient Education How to access health informa tion online - Detail Indication:Flu-like symptoms Start:04-Nov-2019 Instruction Type:Patient Education Patient Instructions Indication:Flu-like symptoms Start:04-Nov-2019 Instruction Type:Provider Instructions for Treatment How to access health informa tion online Indication:BPV (benign positional vertigo), unspecified laterality Start:07-May-2017 Instruction Type:Patient Education How to access health informa tion online - Detail Indication:BPV (benign positional vertigo), unspecified laterality Start:07-May-2017 Instruction Type:Patient Education Patient Instructions Indication:BPV (benign positional vertigo), unspecified laterality Start:07-May-2017 Instruction Type:Provider Instructions for Treatment [facility] Work Phone: Instructions* Name Dates Details Patient Instructions Indication:Preop examination Start:19-Jun-2021 Instruction Type:Provider Instructions for Treatment How to Access Health Informa tion Online using Patient Portal and [employer] Apps Indication:Preop examination Start:19-Jun-2021 Instruction Type:Patient Education Patient Instructions Indication:Annual visit for general adult medical examination without abnormal findings Start:28-Mar-2021 Instruction Type:Provider Instructions for Treatment How to Access Health Informa tion Online using Patient Portal and [employer] Apps Indication:Annual visit for general adult medical examination without abnormal findings Start:28-Mar-2021 Instruction Type:Patient Education Patient Instructions Indication:Degenerative disc disease, lumbar Start:24-Nov-2020 Instruction Type:Provider Instructions for Treatment How to Access Health Informa tion Online using Patient Portal and [employer] Indication:Degenerative disc disease, lumbar Start:24-Nov-2020 Instruction Type:Patient Education How to access health informa tion online Indication:Current smoker (Renamed from Smoker) Start:26-May-2020 Instruction Type:Patient Education How to access health informa tion online - Detail Indication:Current smoker (Renamed from Smoker) Start:26-May-2020 Instruction Type:Patient Education Patient Instructions Indication:Current smoker (Renamed from Smoker) Start:26-May-2020 Instruction Type:Provider Instructions for Treatment How to access health informa tion online Indication:Annual visit for general adult medical examination without abnormal findings Start:22-Feb-2020 Instruction Type:Patient Education How to access health informa tion online - Detail Indication:Annual visit for general adult medical examination without abnormal findings Start:22-Feb-2020 Instruction Type:Patient Education Patient Instructions Indication:Annual visit for general adult medical examination without abnormal findings Start:22-Feb-2020 Instruction Type:Provider Instructions for Treatment How to access health informa tion online Indication:Hospital discharge follow-up Start:10-Nov-2019 Instruction Type:Patient Education How to access health informa tion online - Detail Indication:Hospital discharge follow-up Start:10-Nov-2019 Instruction Type:Patient Education Patient Instructions Indication:Hospital discharge follow-up Start:10-Nov-2019 Instruction Type:Provider Instructions for Treatment How to access health informa tion online Indication:Flu-like symptoms Start:04-Nov-2019 Instruction Type:Patient Education How to access health informa tion online - Detail Indication:Flu-like symptoms Start:04-Nov-2019 Instruction Type:Patient Education Patient Instructions Indication:Flu-like symptoms Start:04-Nov-2019 Instruction Type:Provider Instructions for Treatment How to access health informa tion online Indication:BPV (benign positional vertigo), unspecified laterality Start:07-May-2017 Instruction Type:Patient Education How to access health informa tion online - Detail Indication:BPV (benign positional vertigo), unspecified laterality Start:07-May-2017 Instruction Type:Patient Education Patient Instructions Indication:BPV (benign positional vertigo), unspecified laterality Start:07-May-2017 Instruction Type:Provider Instructions for Treatment [facility]; [facility] Work Phone: Instructions* Name Dates Details Patient Instructions Indication:Preop examination Start:19-Jun-2021 Instruction Type:Provider Instructions for Treatment How to Access Health Informa tion Online using Patient Portal and [employer] Indication:Preop examination Start:19-Jun-2021 Instruction Type:Patient Education Patient Instructions Indication:Annual visit for general adult medical examination without abnormal findings Start:28-Mar-2021 Instruction Type:Provider Instructions for Treatment How to Access Health Informa tion Online using Patient Portal and [employer] Indication:Annual visit for general adult medical examination without abnormal findings Start:28-Mar-2021 Instruction Type:Patient Education Patient Instructions Indication:Degenerative disc disease, lumbar Start:24-Nov-2020 Instruction Type:Provider Instructions for Treatment How to Access Health Informa tion Online using Patient Portal and [employer] Indication:Degenerative disc disease, lumbar Start:24-Nov-2020 Instruction Type:Patient Education How to access health informa tion online Indication:Current smoker (Renamed from Smoker) Start:26-May-2020 Instruction Type:Patient Education How to access health informa tion online - Detail Indication:Current smoker (Renamed from Smoker) Start:26-May-2020 Instruction Type:Patient Education Patient Instructions Indication:Current smoker (Renamed from Smoker) Start:26-May-2020 Instruction Type:Provider Instructions for Treatment How to access health informa tion online Indication:Annual visit for general adult medical examination without abnormal findings Start:22-Feb-2020 Instruction Type:Patient Education How to access health informa tion online - Detail Indication:Annual visit for general adult medical examination without abnormal findings Start:22-Feb-2020 Instruction Type:Patient Education Patient Instructions Indication:Annual visit for general adult medical examination without abnormal findings Start:22-Feb-2020 Instruction Type:Provider Instructions for Treatment How to access health informa tion online Indication:Hospital discharge follow-up Start:10-Nov-2019 Instruction Type:Patient Education How to access health informa tion online - Detail Indication:Hospital discharge follow-up Start:10-Nov-2019 Instruction Type:Patient Education Patient Instructions Indication:Hospital discharge follow-up Start:10-Nov-2019 Instruction Type:Provider Instructions for Treatment How to access health informa tion online Indication:Flu-like symptoms Start:04-Nov-2019 Instruction Type:Patient Education How to access health informa tion online - Detail Indication:Flu-like symptoms Start:04-Nov-2019 Instruction Type:Patient Education Patient Instructions Indication:Flu-like symptoms Start:04-Nov-2019 Instruction Type:Provider Instructions for Treatment How to access health informa tion online Indication:BPV (benign positional vertigo), unspecified laterality Start:07-May-2017 Instruction Type:Patient Education How to access health informa tion online - Detail Indication:BPV (benign positional vertigo), unspecified laterality Start:07-May-2017 Instruction Type:Patient Education Patient Instructions Indication:BPV (benign positional vertigo), unspecified laterality Start:07-May-2017 Instruction Type:Provider Instructions for Treatment [facility]; [facility] Work Phone: Instructions* Name Dates Details Patient Instructions Indication:BMI 26.0-26.9,adult Start:04-May-2022 Instruction Type:Provider Instructions for Treatment How to Access Health Informa tion Online using Patient Portal and [employer] Indication:BMI 26.0-26.9,adult Start:04-May-2022 Instruction Type:Patient Education Patient Instructions Indication:Preop examination Start:19-Jun-2021 Instruction Type:Provider Instructions for Treatment How to Access Health Informa tion Online using Patient Portal and [employer] Indication:Preop examination Start:19-Jun-2021 Instruction Type:Patient Education Patient Instructions Indication:Annual visit for general adult medical examination without abnormal findings Start:28-Mar-2021 Instruction Type:Provider Instructions for Treatment How to Access Health Informa tion Online using Patient Portal and [employer] Indication:Annual visit for general adult medical examination without abnormal findings Start:28-Mar-2021 Instruction Type:Patient Education Patient Instructions Indication:Degenerative disc disease, lumbar Start:24-Nov-2020 Instruction Type:Provider Instructions for Treatment How to Access Health Informa tion Online using Patient Portal and [employer] Indication:Degenerative disc disease, lumbar Start:24-Nov-2020 Instruction Type:Patient Education How to access health informa tion online Indication:Current smoker (Renamed from Smoker) Start:26-May-2020 Instruction Type:Patient Education How to access health informa tion online - Detail Indication:Current smoker (Renamed from Smoker) Start:26-May-2020 Instruction Type:Patient Education Patient Instructions Indication:Current smoker (Renamed from Smoker) Start:26-May-2020 Instruction Type:Provider Instructions for Treatment How to access health informa tion online Indication:Annual visit for general adult medical examination without abnormal findings Start:22-Feb-2020 Instruction Type:Patient Education How to access health informa tion online - Detail Indication:Annual visit for general adult medical examination without abnormal findings Start:22-Feb-2020 Instruction Type:Patient Education Patient Instructions Indication:Annual visit for general adult medical examination without abnormal findings Start:22-Feb-2020 Instruction Type:Provider Instructions for Treatment How to access health informa tion online Indication:Hospital discharge follow-up Start:10-Nov-2019 Instruction Type:Patient Education How to access health informa tion online - Detail Indication:Hospital discharge follow-up Start:10-Nov-2019 Instruction Type:Patient Education Patient Instructions Indication:Hospital discharge follow-up Start:10-Nov-2019 Instruction Type:Provider Instructions for Treatment How to access health informa tion online Indication:Flu-like symptoms Start:04-Nov-2019 Instruction Type:Patient Education How to access health informa tion online - Detail Indication:Flu-like symptoms Start:04-Nov-2019 Instruction Type:Patient Education Patient Instructions Indication:Flu-like symptoms Start:04-Nov-2019 Instruction Type:Provider Instructions for Treatment How to access health informa tion online Indication:BPV (benign positional vertigo), unspecified laterality Start:07-May-2017 Instruction Type:Patient Education How to access health informa tion online - Detail Indication:BPV (benign positional vertigo), unspecified laterality Start:07-May-2017 Instruction Type:Patient Education Patient Instructions Indication:BPV (benign positional vertigo), unspecified laterality Start:07-May-2017 Instruction Type:Provider Instructions for Treatment [facility] Work Phone: Instructions* Name Dates Details Patient Instructions Indication:BMI 26.0-26.9,adult Start:04-May-2022 Instruction Type:Provider Instructions for Treatment How to Access Health Informa tion Online using Patient Portal and [employer] Apps Indication:BMI 26.0-26.9,adult Start:04-May-2022 Instruction Type:Patient Education Patient Instructions Indication:Preop examination Start:19-Jun-2021 Instruction Type:Provider Instructions for Treatment How to Access Health Informa tion Online using Patient Portal and [employer] Apps Indication:Preop examination Start:19-Jun-2021 Instruction Type:Patient Education Patient Instructions Indication:Annual visit for general adult medical examination without abnormal findings Start:28-Mar-2021 Instruction Type:Provider Instructions for Treatment How to Access Health Informa tion Online using Patient Portal and [employer] Apps Indication:Annual visit for general adult medical examination without abnormal findings Start:28-Mar-2021 Instruction Type:Patient Education Patient Instructions Indication:Degenerative disc disease, lumbar Start:24-Nov-2020 Instruction Type:Provider Instructions for Treatment How to Access Health Informa tion Online using Patient Portal and [employer] Apps Indication:Degenerative disc disease, lumbar Start:24-Nov-2020 Instruction Type:Patient Education How to access health informa tion online Indication:Current smoker (Renamed from Smoker) Start:26-May-2020 Instruction Type:Patient Education How to access health informa tion online - Detail Indication:Current smoker (Renamed from Smoker) Start:26-May-2020 Instruction Type:Patient Education Patient Instructions Indication:Current smoker (Renamed from Smoker) Start:26-May-2020 Instruction Type:Provider Instructions for Treatment How to access health informa tion online Indication:Annual visit for general adult medical examination without abnormal findings Start:22-Feb-2020 Instruction Type:Patient Education How to access health informa tion online - Detail Indication:Annual visit for general adult medical examination without abnormal findings Start:22-Feb-2020 Instruction Type:Patient Education Patient Instructions Indication:Annual visit for general adult medical examination without abnormal findings Start:22-Feb-2020 Instruction Type:Provider Instructions for Treatment How to access health informa tion online Indication:Hospital discharge follow-up Start:10-Nov-2019 Instruction Type:Patient Education How to access health informa tion online - Detail Indication:Hospital discharge follow-up Start:10-Nov-2019 Instruction Type:Patient Education Patient Instructions Indication:Hospital discharge follow-up Start:10-Nov-2019 Instruction Type:Provider Instructions for Treatment How to access health informa tion online Indication:Flu-like symptoms Start:04-Nov-2019 Instruction Type:Patient Education How to access health informa tion online - Detail Indication:Flu-like symptoms Start:04-Nov-2019 Instruction Type:Patient Education Patient Instructions Indication:Flu-like symptoms Start:04-Nov-2019 Instruction Type:Provider Instructions for Treatment How to access health informa tion online Indication:BPV (benign positional vertigo), unspecified laterality Start:07-May-2017 Instruction Type:Patient Education How to access health informa tion online - Detail Indication:BPV (benign positional vertigo), unspecified laterality Start:07-May-2017 Instruction Type:Patient Education Patient Instructions Indication:BPV (benign positional vertigo), unspecified laterality Start:07-May-2017 Instruction Type:Provider Instructions for Treatment [facility]; [facility] Work Phone: Instructions* Name Dates Details Patient Instructions Indication:BMI 26.0-26.9,adult Start:04-May-2022 Instruction Type:Provider Instructions for Treatment How to Access Health Informa tion Online using Patient Portal and [employer] Apps Indication:BMI 26.0-26.9,adult Start:04-May-2022 Instruction Type:Patient Education Patient Instructions Indication:Preop examination Start:19-Jun-2021 Instruction Type:Provider Instructions for Treatment How to Access Health Informa tion Online using Patient Portal and [employer] Apps Indication:Preop examination Start:19-Jun-2021 Instruction Type:Patient Education Patient Instructions Indication:Annual visit for general adult medical examination without abnormal findings Start:28-Mar-2021 Instruction Type:Provider Instructions for Treatment How to Access Health Informa tion Online using Patient Portal and [employer] Apps Indication:Annual visit for general adult medical examination without abnormal findings Start:28-Mar-2021 Instruction Type:Patient Education Patient Instructions Indication:Degenerative disc disease, lumbar Start:24-Nov-2020 Instruction Type:Provider Instructions for Treatment How to Access Health Informa tion Online using Patient Portal and [employer] Indication:Degenerative disc disease, lumbar Start:24-Nov-2020 Instruction Type:Patient Education How to access health informa tion online Indication:Current smoker (Renamed from Smoker) Start:26-May-2020 Instruction Type:Patient Education How to access health informa tion online - Detail Indication:Current smoker (Renamed from Smoker) Start:26-May-2020 Instruction Type:Patient Education Patient Instructions Indication:Current smoker (Renamed from Smoker) Start:26-May-2020 Instruction Type:Provider Instructions for Treatment How to access health informa tion online Indication:Annual visit for general adult medical examination without abnormal findings Start:22-Feb-2020 Instruction Type:Patient Education How to access health informa tion online - Detail Indication:Annual visit for general adult medical examination without abnormal findings Start:22-Feb-2020 Instruction Type:Patient Education Patient Instructions Indication:Annual visit for general adult medical examination without abnormal findings Start:22-Feb-2020 Instruction Type:Provider Instructions for Treatment How to access health informa tion online Indication:Hospital discharge follow-up Start:10-Nov-2019 Instruction Type:Patient Education How to access health informa tion online - Detail Indication:Hospital discharge follow-up Start:10-Nov-2019 Instruction Type:Patient Education Patient Instructions Indication:Hospital discharge follow-up Start:10-Nov-2019 Instruction Type:Provider Instructions for Treatment How to access health informa tion online Indication:Flu-like symptoms Start:04-Nov-2019 Instruction Type:Patient Education How to access health informa tion online - Detail Indication:Flu-like symptoms Start:04-Nov-2019 Instruction Type:Patient Education Patient Instructions Indication:Flu-like symptoms Start:04-Nov-2019 Instruction Type:Provider Instructions for Treatment How to access health informa tion online Indication:BPV (benign positional vertigo), unspecified laterality Start:07-May-2017 Instruction Type:Patient Education How to access health informa tion online - Detail Indication:BPV (benign positional vertigo), unspecified laterality Start:07-May-2017 Instruction Type:Patient Education Patient Instructions Indication:BPV (benign positional vertigo), unspecified laterality Start:07-May-2017 Instruction Type:Provider Instructions for Treatment [facility]; [facility] Work Phone: Instructions* Name Dates Details Patient Instructions Indication:BMI 26.0-26.9,adult Start:04-May-2022 Instruction Type:Provider Instructions for Treatment How to Access Health Informa tion Online using Patient Portal and [employer] Indication:BMI 26.0-26.9,adult Start:04-May-2022 Instruction Type:Patient Education Patient Instructions Indication:Preop examination Start:19-Jun-2021 Instruction Type:Provider Instructions for Treatment How to Access Health Informa tion Online using Patient Portal and [employer] Indication:Preop examination Start:19-Jun-2021 Instruction Type:Patient Education Patient Instructions Indication:Annual visit for general adult medical examination without abnormal findings Start:28-Mar-2021 Instruction Type:Provider Instructions for Treatment How to Access Health Informa tion Online using Patient Portal and [employer] Indication:Annual visit for general adult medical examination without abnormal findings Start:28-Mar-2021 Instruction Type:Patient Education Patient Instructions Indication:Degenerative disc disease, lumbar Start:24-Nov-2020 Instruction Type:Provider Instructions for Treatment How to Access Health Informa tion Online using Patient Portal and [employer] Apps Indication:Degenerative disc disease, lumbar Start:24-Nov-2020 Instruction Type:Patient Education How to access health informa tion online Indication:Current smoker (Renamed from Smoker) Start:26-May-2020 Instruction Type:Patient Education How to access health informa tion online - Detail Indication:Current smoker (Renamed from Smoker) Start:26-May-2020 Instruction Type:Patient Education Patient Instructions Indication:Current smoker (Renamed from Smoker) Start:26-May-2020 Instruction Type:Provider Instructions for Treatment How to access health informa tion online Indication:Annual visit for general adult medical examination without abnormal findings Start:22-Feb-2020 Instruction Type:Patient Education How to access health informa tion online - Detail Indication:Annual visit for general adult medical examination without abnormal findings Start:22-Feb-2020 Instruction Type:Patient Education Patient Instructions Indication:Annual visit for general adult medical examination without abnormal findings Start:22-Feb-2020 Instruction Type:Provider Instructions for Treatment How to access health informa tion online Indication:Hospital discharge follow-up Start:10-Nov-2019 Instruction Type:Patient Education How to access health informa tion online - Detail Indication:Hospital discharge follow-up Start:10-Nov-2019 Instruction Type:Patient Education Patient Instructions Indication:Hospital discharge follow-up Start:10-Nov-2019 Instruction Type:Provider Instructions for Treatment How to access health informa tion online Indication:Flu-like symptoms Start:04-Nov-2019 Instruction Type:Patient Education How to access health informa tion online - Detail Indication:Flu-like symptoms Start:04-Nov-2019 Instruction Type:Patient Education Patient Instructions Indication:Flu-like symptoms Start:04-Nov-2019 Instruction Type:Provider Instructions for Treatment How to access health informa tion online Indication:BPV (benign positional vertigo), unspecified laterality Start:07-May-2017 Instruction Type:Patient Education How to access health informa tion online - Detail Indication:BPV (benign positional vertigo), unspecified laterality Start:07-May-2017 Instruction Type:Patient Education Patient Instructions Indication:BPV (benign positional vertigo), unspecified laterality Start:07-May-2017 Instruction Type:Provider Instructions for Treatment [facility]; [facility] Work Phone: Instructions* Name Dates Details Patient Instructions Indication:BMI 26.0-26.9,adult Start:29-Oct-2022 Instruction Type:Provider Instructions for Treatment How to Access Health Informa tion Online using Patient Portal and [employer] Apps Indication:BMI 26.0-26.9,adult Start:29-Oct-2022 Instruction Type:Patient Education Patient Instructions Indication:BMI 26.0-26.9,adult Start:04-May-2022 Instruction Type:Provider Instructions for Treatment How to Access Health Informa tion Online using Patient Portal and [employer] Apps Indication:BMI 26.0-26.9,adult Start:04-May-2022 Instruction Type:Patient Education Patient Instructions Indication:Preop examination Start:19-Jun-2021 Instruction Type:Provider Instructions for Treatment How to Access Health Informa tion Online using Patient Portal and [employer] Indication:Preop examination Start:19-Jun-2021 Instruction Type:Patient Education Patient Instructions Indication:Annual visit for general adult medical examination without abnormal findings Start:28-Mar-2021 Instruction Type:Provider Instructions for Treatment How to Access Health Informa tion Online using Patient Portal and [employer] Apps Indication:Annual visit for general adult medical examination without abnormal findings Start:28-Mar-2021 Instruction Type:Patient Education Patient Instructions Indication:Degenerative disc disease, lumbar Start:24-Nov-2020 Instruction Type:Provider Instructions for Treatment How to Access Health Informa tion Online using Patient Portal and [employer] Apps Indication:Degenerative disc disease, lumbar Start:24-Nov-2020 Instruction Type:Patient Education How to access health informa tion online Indication:Current smoker (Renamed from Smoker) Start:26-May-2020 Instruction Type:Patient Education How to access health informa tion online - Detail Indication:Current smoker (Renamed from Smoker) Start:26-May-2020 Instruction Type:Patient Education Patient Instructions Indication:Current smoker (Renamed from Smoker) Start:26-May-2020 Instruction Type:Provider Instructions for Treatment How to access health informa tion online Indication:Annual visit for general adult medical examination without abnormal findings Start:22-Feb-2020 Instruction Type:Patient Education How to access health informa tion online - Detail Indication:Annual visit for general adult medical examination without abnormal findings Start:22-Feb-2020 Instruction Type:Patient Education Patient Instructions Indication:Annual visit for general adult medical examination without abnormal findings Start:22-Feb-2020 Instruction Type:Provider Instructions for Treatment How to access health informa tion online Indication:Hospital discharge follow-up Start:10-Nov-2019 Instruction Type:Patient Education How to access health informa tion online - Detail Indication:Hospital discharge follow-up Start:10-Nov-2019 Instruction Type:Patient Education Patient Instructions Indication:Hospital discharge follow-up Start:10-Nov-2019 Instruction Type:Provider Instructions for Treatment How to access health informa tion online Indication:Flu-like symptoms Start:04-Nov-2019 Instruction Type:Patient Education How to access health informa tion online - Detail Indication:Flu-like symptoms Start:04-Nov-2019 Instruction Type:Patient Education Patient Instructions Indication:Flu-like symptoms Start:04-Nov-2019 Instruction Type:Provider Instructions for Treatment How to access health informa tion online Indication:BPV (benign positional vertigo), unspecified laterality Start:07-May-2017 Instruction Type:Patient Education How to access health informa tion online - Detail Indication:BPV (benign positional vertigo), unspecified laterality Start:07-May-2017 Instruction Type:Patient Education Patient Instructions Indication:BPV (benign positional vertigo), unspecified laterality Start:07-May-2017 Instruction Type:Provider Instructions for Treatment [facility]; [facility] Work Phone: Instructions* Name Dates Details Patient Instructions Indication:BMI 26.0-26.9,adult Start:29-Oct-2022 Instruction Type:Provider Instructions for Treatment How to Access Health Informa tion Online using Patient Portal and [employer] Apps Indication:BMI 26.0-26.9,adult Start:29-Oct-2022 Instruction Type:Patient Education Patient Instructions Indication:BMI 26.0-26.9,adult Start:04-May-2022 Instruction Type:Provider Instructions for Treatment How to Access Health Informa tion Online using Patient Portal and [employer] Indication:BMI 26.0-26.9,adult Start:04-May-2022 Instruction Type:Patient Education Patient Instructions Indication:Preop examination Start:19-Jun-2021 Instruction Type:Provider Instructions for Treatment How to Access Health Informa tion Online using Patient Portal and [employer] Apps Indication:Preop examination Start:19-Jun-2021 Instruction Type:Patient Education Patient Instructions Indication:Annual visit for general adult medical examination without abnormal findings Start:28-Mar-2021 Instruction Type:Provider Instructions for Treatment How to Access Health Informa tion Online using Patient Portal and [employer] Apps Indication:Annual visit for general adult medical examination without abnormal findings Start:28-Mar-2021 Instruction Type:Patient Education Patient Instructions Indication:Degenerative disc disease, lumbar Start:24-Nov-2020 Instruction Type:Provider Instructions for Treatment How to Access Health Informa tion Online using Patient Portal and [employer] Indication:Degenerative disc disease, lumbar Start:24-Nov-2020 Instruction Type:Patient Education How to access health informa tion online Indication:Current smoker (Renamed from Smoker) Start:26-May-2020 Instruction Type:Patient Education How to access health informa tion online - Detail Indication:Current smoker (Renamed from Smoker) Start:26-May-2020 Instruction Type:Patient Education Patient Instructions Indication:Current smoker (Renamed from Smoker) Start:26-May-2020 Instruction Type:Provider Instructions for Treatment How to access health informa tion online Indication:Annual visit for general adult medical examination without abnormal findings Start:22-Feb-2020 Instruction Type:Patient Education How to access health informa tion online - Detail Indication:Annual visit for general adult medical examination without abnormal findings Start:22-Feb-2020 Instruction Type:Patient Education Patient Instructions Indication:Annual visit for general adult medical examination without abnormal findings Start:22-Feb-2020 Instruction Type:Provider Instructions for Treatment How to access health informa tion online Indication:Hospital discharge follow-up Start:10-Nov-2019 Instruction Type:Patient Education How to access health informa tion online - Detail Indication:Hospital discharge follow-up Start:10-Nov-2019 Instruction Type:Patient Education Patient Instructions Indication:Hospital discharge follow-up Start:10-Nov-2019 Instruction Type:Provider Instructions for Treatment How to access health informa tion online Indication:Flu-like symptoms Start:04-Nov-2019 Instruction Type:Patient Education How to access health informa tion online - Detail Indication:Flu-like symptoms Start:04-Nov-2019 Instruction Type:Patient Education Patient Instructions Indication:Flu-like symptoms Start:04-Nov-2019 Instruction Type:Provider Instructions for Treatment How to access health informa tion online Indication:BPV (benign positional vertigo), unspecified laterality Start:07-May-2017 Instruction Type:Patient Education How to access health informa tion online - Detail Indication:BPV (benign positional vertigo), unspecified laterality Start:07-May-2017 Instruction Type:Patient Education Patient Instructions Indication:BPV (benign positional vertigo), unspecified laterality Start:07-May-2017 Instruction Type:Provider Instructions for Treatment [facility]; [facility] Work Phone: reason for referral (narrative)[facility]: Instructions Name Dates Details How to access health informa tion online Indication:BPV (benign positional vertigo), unspecified laterality Start:07-May-2017 Instruction Type:Patient Edu cation How to access health informa tion online - Detail Indication:BPV (benign positional vertigo), unspecified laterality Start:07-May-2017 Instruction Type:Patient Edu cation Patient Instructions Indication:BPV (benign positional vertigo), unspecified laterality Start:07-May-2017 Instruction Type:Provider Instructions for Treatment Name Dates Details How to access health informa tion online Indication:Hospital discharge follow-up Start:10-Nov-2019 Instruction Type:Patient Edu cation How to access health informa tion online - Detail Indication:Hospital discharge follow-up Start:10-Nov-2019 Instruction Type:Patient Edu cation Patient Instructions Indication:Hospital discharge follow-up Start:10-Nov-2019 Instruction Type:Provider Instructions for Treatment How to access health informa tion online Indication:Flu-like symptoms Start:04-Nov-2019 Instruction Type:Patient Edu cation How to access health informa tion online - Detail Indication:Flu-like symptoms Start:04-Nov-2019 Instruction Type:Patient Edu cation Patient Instructions Indication:Flu-like symptoms Start:04-Nov-2019 Instruction Type:Provider Instructions for Treatment How to access health informa tion online Indication:BPV (benign positional vertigo), unspecified laterality Start:07-May-2017 Instruction Type:Patient Edu cation How to access health informa tion online - Detail Indication:BPV (benign positional vertigo), unspecified laterality Start:07-May-2017 Instruction Type:Patient Edu cation Patient Instructions Indication:BPV (benign positional vertigo), unspecified laterality Start:07-May-2017 Instruction Type:Provider Instructions for Treatment Name Dates Details How to access health informa tion online Indication:Annual visit for general adult medical examination without abnormal findings Start:22-Feb-2020 Instruction Type:Patient Education How to access health informa tion online - Detail Indication:Annual visit for general adult medical examination without abnormal findings Start:22-Feb-2020 Instruction Type:Patient Education Patient Instructions Indication:Annual visit for general adult medical examination without abnormal findings Start:22-Feb-2020 Instruction Type:Provider Instructions for Treatment How to access health informa tion online Indication:Hospital discharge follow-up Start:10-Nov-2019 Instruction Type:Patient Education How to access health informa tion online - Detail Indication:Hospital discharge follow-up Start:10-Nov-2019 Instruction Type:Patient Education Patient Instructions Indication:Hospital discharge follow-up Start:10-Nov-2019 Instruction Type:Provider Instructions for Treatment How to access health informa tion online Indication:Flu-like symptoms Start:04-Nov-2019 Instruction Type:Patient Education How to access health informa tion online - Detail Indication:Flu-like symptoms Start:04-Nov-2019 Instruction Type:Patient Education Patient Instructions Indication:Flu-like symptoms Start:04-Nov-2019 Instruction Type:Provider Instructions for Treatment How to access health informa tion online Indication:BPV (benign positional vertigo), unspecified laterality Start:07-May-2017 Instruction Type:Patient Education How to access health informa tion online - Detail Indication:BPV (benign positional vertigo), unspecified laterality Start:07-May-2017 Instruction Type:Patient Education Patient Instructions Indication:BPV (benign positional vertigo), unspecified laterality Start:07-May-2017 Instruction Type:Provider Instructions for Treatment Name Dates Details How to access health informa tion online Indication:Annual visit for general adult medical examination without abnormal findings Start:22-Feb-2020 Instruction Type:Patient Education How to access health informa tion online - Detail Indication:Annual visit for general adult medical examination without abnormal findings Start:22-Feb-2020 Instruction Type:Patient Education Patient Instructions Indication:Annual visit for general adult medical examination without abnormal findings Start:22-Feb-2020 Instruction Type:Provider Instructions for Treatment How to access health informa tion online Indication:Hospital discharge follow-up Start:10-Nov-2019 Instruction Type:Patient Education How to access health informa tion online - Detail Indication:Hospital discharge follow-up Start:10-Nov-2019 Instruction Type:Patient Education Patient Instructions Indication:Hospital discharge follow-up Start:10-Nov-2019 Instruction Type:Provider Instructions for Treatment How to access health informa tion online Indication:Flu-like symptoms Start:04-Nov-2019 Instruction Type:Patient Education How to access health informa tion online - Detail Indication:Flu-like symptoms Start:04-Nov-2019 Instruction Type:Patient Education Patient Instructions Indication:Flu-like symptoms Start:04-Nov-2019 Instruction Type:Provider Instructions for Treatment How to access health informa tion online Indication:BPV (benign positional vertigo), unspecified laterality Start:07-May-2017 Instruction Type:Patient Education How to access health informa tion online - Detail Indication:BPV (benign positional vertigo), unspecified laterality Start:07-May-2017 Instruction Type:Patient Education Patient Instructions Indication:BPV (benign positional vertigo), unspecified laterality Start:07-May-2017 Instruction Type:Provider Instructions for Treatment Name Dates Details How to access health informa tion online Indication:Annual visit for general adult medical examination without abnormal findings Start:22-Feb-2020 Instruction Type:Patient Education How to access health informa tion online - Detail Indication:Annual visit for general adult medical examination without abnormal findings Start:22-Feb-2020 Instruction Type:Patient Education Patient Instructions Indication:Annual visit for general adult medical examination without abnormal findings Start:22-Feb-2020 Instruction Type:Provider Instructions for Treatment How to access health informa tion online Indication:Hospital discharge follow-up Start:10-Nov-2019 Instruction Type:Patient Education How to access health informa tion online - Detail Indication:Hospital discharge follow-up Start:10-Nov-2019 Instruction Type:Patient Education Patient Instructions Indication:Hospital discharge follow-up Start:10-Nov-2019 Instruction Type:Provider Instructions for Treatment How to access health informa tion online Indication:Flu-like symptoms Start:04-Nov-2019 Instruction Type:Patient Education How to access health informa tion online - Detail Indication:Flu-like symptoms Start:04-Nov-2019 Instruction Type:Patient Education Patient Instructions Indication:Flu-like symptoms Start:04-Nov-2019 Instruction Type:Provider Instructions for Treatment How to access health informa tion online Indication:BPV (benign positional vertigo), unspecified laterality Start:07-May-2017 Instruction Type:Patient Education How to access health informa tion online - Detail Indication:BPV (benign positional vertigo), unspecified laterality Start:07-May-2017 Instruction Type:Patient Education Patient Instructions Indication:BPV (benign positional vertigo), unspecified laterality Start:07-May-2017 Instruction Type:Provider Instructions for Treatment Name Dates Details How to access health informa tion online Indication:Annual visit for general adult medical examination without abnormal findings Start:22-Feb-2020 Instruction Type:Patient Education How to access health informa tion online - Detail Indication:Annual visit for general adult medical examination without abnormal findings Start:22-Feb-2020 Instruction Type:Patient Education Patient Instructions Indication:Annual visit for general adult medical examination without abnormal findings Start:22-Feb-2020 Instruction Type:Provider Instructions for Treatment How to access health informa tion online Indication:Hospital discharge follow-up Start:10-Nov-2019 Instruction Type:Patient Education How to access health informa tion online - Detail Indication:Hospital discharge follow-up Start:10-Nov-2019 Instruction Type:Patient Education Patient Instructions Indication:Hospital discharge follow-up Start:10-Nov-2019 Instruction Type:Provider Instructions for Treatment How to access health informa tion online Indication:Flu-like symptoms Start:04-Nov-2019 Instruction Type:Patient Education How to access health informa tion online - Detail Indication:Flu-like symptoms Start:04-Nov-2019 Instruction Type:Patient Education Patient Instructions Indication:Flu-like symptoms Start:04-Nov-2019 Instruction Type:Provider Instructions for Treatment How to access health informa tion online Indication:BPV (benign positional vertigo), unspecified laterality Start:07-May-2017 Instruction Type:Patient Education How to access health informa tion online - Detail Indication:BPV (benign positional vertigo), unspecified laterality Start:07-May-2017 Instruction Type:Patient Education Patient Instructions Indication:BPV (benign positional vertigo), unspecified laterality Start:07-May-2017 Instruction Type:Provider Instructions for Treatment Name Dates Details How to access health informa tion online Indication:Annual visit for general adult medical examination without abnormal findings Start:22-Feb-2020 Instruction Type:Patient Education How to access health informa tion online - Detail Indication:Annual visit for general adult medical examination without abnormal findings Start:22-Feb-2020 Instruction Type:Patient Education Patient Instructions Indication:Annual visit for general adult medical examination without abnormal findings Start:22-Feb-2020 Instruction Type:Provider Instructions for Treatment How to access health informa tion online Indication:Hospital discharge follow-up Start:10-Nov-2019 Instruction Type:Patient Education How to access health informa tion online - Detail Indication:Hospital discharge follow-up Start:10-Nov-2019 Instruction Type:Patient Education Patient Instructions Indication:Hospital discharge follow-up Start:10-Nov-2019 Instruction Type:Provider Instructions for Treatment How to access health informa tion online Indication:Flu-like symptoms Start:04-Nov-2019 Instruction Type:Patient Education How to access health informa tion online - Detail Indication:Flu-like symptoms Start:04-Nov-2019 Instruction Type:Patient Education Patient Instructions Indication:Flu-like symptoms Start:04-Nov-2019 Instruction Type:Provider Instructions for Treatment How to access health informa tion online Indication:BPV (benign positional vertigo), unspecified laterality Start:07-May-2017 Instruction Type:Patient Education How to access health informa tion online - Detail Indication:BPV (benign positional vertigo), unspecified laterality Start:07-May-2017 Instruction Type:Patient Education Patient Instructions Indication:BPV (benign positional vertigo), unspecified laterality Start:07-May-2017 Instruction Type:Provider Instructions for Treatment Name Dates Details How to access health informa tion online Indication:Annual visit for general adult medical examination without abnormal findings Start:22-Feb-2020 Instruction Type:Patient Education How to access health informa tion online - Detail Indication:Annual visit for general adult medical examination without abnormal findings Start:22-Feb-2020 Instruction Type:Patient Education Patient Instructions Indication:Annual visit for general adult medical examination without abnormal findings Start:22-Feb-2020 Instruction Type:Provider Instructions for Treatment How to access health informa tion online Indication:Hospital discharge follow-up Start:10-Nov-2019 Instruction Type:Patient Education How to access health informa tion online - Detail Indication:Hospital discharge follow-up Start:10-Nov-2019 Instruction Type:Patient Education Patient Instructions Indication:Hospital discharge follow-up Start:10-Nov-2019 Instruction Type:Provider Instructions for Treatment How to access health informa tion online Indication:Flu-like symptoms Start:04-Nov-2019 Instruction Type:Patient Education How to access health informa tion online - Detail Indication:Flu-like symptoms Start:04-Nov-2019 Instruction Type:Patient Education Patient Instructions Indication:Flu-like symptoms Start:04-Nov-2019 Instruction Type:Provider Instructions for Treatment How to access health informa tion online Indication:BPV (benign positional vertigo), unspecified laterality Start:07-May-2017 Instruction Type:Patient Education How to access health informa tion online - Detail Indication:BPV (benign positional vertigo), unspecified laterality Start:07-May-2017 Instruction Type:Patient Education Patient Instructions Indication:BPV (benign positional vertigo), unspecified laterality Start:07-May-2017 Instruction Type:Provider Instructions for Treatment Name Dates Details How to access health informa tion online Indication:Current smoker (Renamed from Smoker) Start:26-May-2020 Instruction Type:Patient Education How to access health informa tion online - Detail Indication:Current smoker (Renamed from Smoker) Start:26-May-2020 Instruction Type:Patient Education Patient Instructions Indication:Current smoker (Renamed from Smoker) Start:26-May-2020 Instruction Type:Provider Instructions for Treatment How to access health informa tion online Indication:Annual visit for general adult medical examination without abnormal findings Start:22-Feb-2020 Instruction Type:Patient Education How to access health informa tion online - Detail Indication:Annual visit for general adult medical examination without abnormal findings Start:22-Feb-2020 Instruction Type:Patient Education Patient Instructions Indication:Annual visit for general adult medical examination without abnormal findings Start:22-Feb-2020 Instruction Type:Provider Instructions for Treatment How to access health informa tion online Indication:Hospital discharge follow-up Start:10-Nov-2019 Instruction Type:Patient Education How to access health informa tion online - Detail Indication:Hospital discharge follow-up Start:10-Nov-2019 Instruction Type:Patient Education Patient Instructions Indication:Hospital discharge follow-up Start:10-Nov-2019 Instruction Type:Provider Instructions for Treatment How to access health informa tion online Indication:Flu-like symptoms Start:04-Nov-2019 Instruction Type:Patient Education How to access health informa tion online - Detail Indication:Flu-like symptoms Start:04-Nov-2019 Instruction Type:Patient Education Patient Instructions Indication:Flu-like symptoms Start:04-Nov-2019 Instruction Type:Provider Instructions for Treatment How to access health informa tion online Indication:BPV (benign positional vertigo), unspecified laterality Start:07-May-2017 Instruction Type:Patient Education How to access health informa tion online - Detail Indication:BPV (benign positional vertigo), unspecified laterality Start:07-May-2017 Instruction Type:Patient Education Patient Instructions Indication:BPV (benign positional vertigo), unspecified laterality Start:07-May-2017 Instruction Type:Provider Instructions for Treatment Name Dates Details How to access health informa tion online Indication:Current smoker (Renamed from Smoker) Start:26-May-2020 Instruction Type:Patient Education How to access health informa tion online - Detail Indication:Current smoker (Renamed from Smoker) Start:26-May-2020 Instruction Type:Patient Education Patient Instructions Indication:Current smoker (Renamed from Smoker) Start:26-May-2020 Instruction Type:Provider Instructions for Treatment How to access health informa tion online Indication:Annual visit for general adult medical examination without abnormal findings Start:22-Feb-2020 Instruction Type:Patient Education How to access health informa tion online - Detail Indication:Annual visit for general adult medical examination without abnormal findings Start:22-Feb-2020 Instruction Type:Patient Education Patient Instructions Indication:Annual visit for general adult medical examination without abnormal findings Start:22-Feb-2020 Instruction Type:Provider Instructions for Treatment How to access health informa tion online Indication:Hospital discharge follow-up Start:10-Nov-2019 Instruction Type:Patient Education How to access health informa tion online - Detail Indication:Hospital discharge follow-up Start:10-Nov-2019 Instruction Type:Patient Education Patient Instructions Indication:Hospital discharge follow-up Start:10-Nov-2019 Instruction Type:Provider Instructions for Treatment How to access health informa tion online Indication:Flu-like symptoms Start:04-Nov-2019 Instruction Type:Patient Education How to access health informa tion online - Detail Indication:Flu-like symptoms Start:04-Nov-2019 Instruction Type:Patient Education Patient Instructions Indication:Flu-like symptoms Start:04-Nov-2019 Instruction Type:Provider Instructions for Treatment How to access health informa tion online Indication:BPV (benign positional vertigo), unspecified laterality Start:07-May-2017 Instruction Type:Patient Education How to access health informa tion online - Detail Indication:BPV (benign positional vertigo), unspecified laterality Start:07-May-2017 Instruction Type:Patient Education Patient Instructions Indication:BPV (benign positional vertigo), unspecified laterality Start:07-May-2017 Instruction Type:Provider Instructions for Treatment Name Dates Details How to access health informa tion online Indication:Current smoker (Renamed from Smoker) Start:26-May-2020 Instruction Type:Patient Education How to access health informa tion online - Detail Indication:Current smoker (Renamed from Smoker) Start:26-May-2020 Instruction Type:Patient Education Patient Instructions Indication:Current smoker (Renamed from Smoker) Start:26-May-2020 Instruction Type:Provider Instructions for Treatment How to access health informa tion online Indication:Annual visit for general adult medical examination without abnormal findings Start:22-Feb-2020 Instruction Type:Patient Education How to access health informa tion online - Detail Indication:Annual visit for general adult medical examination without abnormal findings Start:22-Feb-2020 Instruction Type:Patient Education Patient Instructions Indication:Annual visit for general adult medical examination without abnormal findings Start:22-Feb-2020 Instruction Type:Provider Instructions for Treatment How to access health informa tion online Indication:Hospital discharge follow-up Start:10-Nov-2019 Instruction Type:Patient Education How to access health informa tion online - Detail Indication:Hospital discharge follow-up Start:10-Nov-2019 Instruction Type:Patient Education Patient Instructions Indication:Hospital discharge follow-up Start:10-Nov-2019 Instruction Type:Provider Instructions for Treatment How to access health informa tion online Indication:Flu-like symptoms Start:04-Nov-2019 Instruction Type:Patient Education How to access health informa tion online - Detail Indication:Flu-like symptoms Start:04-Nov-2019 Instruction Type:Patient Education Patient Instructions Indication:Flu-like symptoms Start:04-Nov-2019 Instruction Type:Provider Instructions for Treatment How to access health informa tion online Indication:BPV (benign positional vertigo), unspecified laterality Start:07-May-2017 Instruction Type:Patient Education How to access health informa tion online - Detail Indication:BPV (benign positional vertigo), unspecified laterality Start:07-May-2017 Instruction Type:Patient Education Patient Instructions Indication:BPV (benign positional vertigo), unspecified laterality Start:07-May-2017 Instruction Type:Provider Instructions for Treatment Name Dates Details How to access health informa tion online Indication:Current smoker (Renamed from Smoker) Start:26-May-2020 Instruction Type:Patient Education How to access health informa tion online - Detail Indication:Current smoker (Renamed from Smoker) Start:26-May-2020 Instruction Type:Patient Education Patient Instructions Indication:Current smoker (Renamed from Smoker) Start:26-May-2020 Instruction Type:Provider Instructions for Treatment How to access health informa tion online Indication:Annual visit for general adult medical examination without abnormal findings Start:22-Feb-2020 Instruction Type:Patient Education How to access health informa tion online - Detail Indication:Annual visit for general adult medical examination without abnormal findings Start:22-Feb-2020 Instruction Type:Patient Education Patient Instructions Indication:Annual visit for general adult medical examination without abnormal findings Start:22-Feb-2020 Instruction Type:Provider Instructions for Treatment How to access health informa tion online Indication:Hospital discharge follow-up Start:10-Nov-2019 Instruction Type:Patient Education How to access health informa tion online - Detail Indication:Hospital discharge follow-up Start:10-Nov-2019 Instruction Type:Patient Education Patient Instructions Indication:Hospital discharge follow-up Start:10-Nov-2019 Instruction Type:Provider Instructions for Treatment How to access health informa tion online Indication:Flu-like symptoms Start:04-Nov-2019 Instruction Type:Patient Education How to access health informa tion online - Detail Indication:Flu-like symptoms Start:04-Nov-2019 Instruction Type:Patient Education Patient Instructions Indication:Flu-like symptoms Start:04-Nov-2019 Instruction Type:Provider Instructions for Treatment How to access health informa tion online Indication:BPV (benign positional vertigo), unspecified laterality Start:07-May-2017 Instruction Type:Patient Education How to access health informa tion online - Detail Indication:BPV (benign positional vertigo), unspecified laterality Start:07-May-2017 Instruction Type:Patient Education Patient Instructions Indication:BPV (benign positional vertigo), unspecified laterality Start:07-May-2017 Instruction Type:Provider Instructions for Treatment Name Dates Details How to access health informa tion online Indication:Current smoker (Renamed from Smoker) Start:26-May-2020 Instruction Type:Patient Education How to access health informa tion online - Detail Indication:Current smoker (Renamed from Smoker) Start:26-May-2020 Instruction Type:Patient Education Patient Instructions Indication:Current smoker (Renamed from Smoker) Start:26-May-2020 Instruction Type:Provider Instructions for Treatment How to access health informa tion online Indication:Annual visit for general adult medical examination without abnormal findings Start:22-Feb-2020 Instruction Type:Patient Education How to access health informa tion online - Detail Indication:Annual visit for general adult medical examination without abnormal findings Start:22-Feb-2020 Instruction Type:Patient Education Patient Instructions Indication:Annual visit for general adult medical examination without abnormal findings Start:22-Feb-2020 Instruction Type:Provider Instructions for Treatment How to access health informa tion online Indication:Hospital discharge follow-up Start:10-Nov-2019 Instruction Type:Patient Education How to access health informa tion online - Detail Indication:Hospital discharge follow-up Start:10-Nov-2019 Instruction Type:Patient Education Patient Instructions Indication:Hospital discharge follow-up Start:10-Nov-2019 Instruction Type:Provider Instructions for Treatment How to access health informa tion online Indication:Flu-like symptoms Start:04-Nov-2019 Instruction Type:Patient Education How to access health informa tion online - Detail Indication:Flu-like symptoms Start:04-Nov-2019 Instruction Type:Patient Education Patient Instructions Indication:Flu-like symptoms Start:04-Nov-2019 Instruction Type:Provider Instructions for Treatment How to access health informa tion online Indication:BPV (benign positional vertigo), unspecified laterality Start:07-May-2017 Instruction Type:Patient Education How to access health informa tion online - Detail Indication:BPV (benign positional vertigo), unspecified laterality Start:07-May-2017 Instruction Type:Patient Education Patient Instructions Indication:BPV (benign positional vertigo), unspecified laterality Start:07-May-2017 Instruction Type:Provider Instructions for Treatment Name Dates Details How to access health informa tion online Indication:Current smoker (Renamed from Smoker) Start:26-May-2020 Instruction Type:Patient Education How to access health informa tion online - Detail Indication:Current smoker (Renamed from Smoker) Start:26-May-2020 Instruction Type:Patient Education Patient Instructions Indication:Current smoker (Renamed from Smoker) Start:26-May-2020 Instruction Type:Provider Instructions for Treatment How to access health informa tion online Indication:Annual visit for general adult medical examination without abnormal findings Start:22-Feb-2020 Instruction Type:Patient Education How to access health informa tion online - Detail Indication:Annual visit for general adult medical examination without abnormal findings Start:22-Feb-2020 Instruction Type:Patient Education Patient Instructions Indication:Annual visit for general adult medical examination without abnormal findings Start:22-Feb-2020 Instruction Type:Provider Instructions for Treatment How to access health informa tion online Indication:Hospital discharge follow-up Start:10-Nov-2019 Instruction Type:Patient Education How to access health informa tion online - Detail Indication:Hospital discharge follow-up Start:10-Nov-2019 Instruction Type:Patient Education Patient Instructions Indication:Hospital discharge follow-up Start:10-Nov-2019 Instruction Type:Provider Instructions for Treatment How to access health informa tion online Indication:Flu-like symptoms Start:04-Nov-2019 Instruction Type:Patient Education How to access health informa tion online - Detail Indication:Flu-like symptoms Start:04-Nov-2019 Instruction Type:Patient Education Patient Instructions Indication:Flu-like symptoms Start:04-Nov-2019 Instruction Type:Provider Instructions for Treatment How to access health informa tion online Indication:BPV (benign positional vertigo), unspecified laterality Start:07-May-2017 Instruction Type:Patient Education How to access health informa tion online - Detail Indication:BPV (benign positional vertigo), unspecified laterality Start:07-May-2017 Instruction Type:Patient Education Patient Instructions Indication:BPV (benign positional vertigo), unspecified laterality Start:07-May-2017 Instruction Type:Provider Instructions for Treatment Name Dates Details How to access health informa tion online Indication:Current smoker (Renamed from Smoker) Start:26-May-2020 Instruction Type:Patient Education How to access health informa tion online - Detail Indication:Current smoker (Renamed from Smoker) Start:26-May-2020 Instruction Type:Patient Education Patient Instructions Indication:Current smoker (Renamed from Smoker) Start:26-May-2020 Instruction Type:Provider Instructions for Treatment How to access health informa tion online Indication:Annual visit for general adult medical examination without abnormal findings Start:22-Feb-2020 Instruction Type:Patient Education How to access health informa tion online - Detail Indication:Annual visit for general adult medical examination without abnormal findings Start:22-Feb-2020 Instruction Type:Patient Education Patient Instructions Indication:Annual visit for general adult medical examination without abnormal findings Start:22-Feb-2020 Instruction Type:Provider Instructions for Treatment How to access health informa tion online Indication:Hospital discharge follow-up Start:10-Nov-2019 Instruction Type:Patient Education How to access health informa tion online - Detail Indication:Hospital discharge follow-up Start:10-Nov-2019 Instruction Type:Patient Education Patient Instructions Indication:Hospital discharge follow-up Start:10-Nov-2019 Instruction Type:Provider Instructions for Treatment How to access health informa tion online Indication:Flu-like symptoms Start:04-Nov-2019 Instruction Type:Patient Education How to access health informa tion online - Detail Indication:Flu-like symptoms Start:04-Nov-2019 Instruction Type:Patient Education Patient Instructions Indication:Flu-like symptoms Start:04-Nov-2019 Instruction Type:Provider Instructions for Treatment How to access health informa tion online Indication:BPV (benign positional vertigo), unspecified laterality Start:07-May-2017 Instruction Type:Patient Education How to access health informa tion online - Detail Indication:BPV (benign positional vertigo), unspecified laterality Start:07-May-2017 Instruction Type:Patient Education Patient Instructions Indication:BPV (benign positional vertigo), unspecified laterality Start:07-May-2017 Instruction Type:Provider Instructions for Treatment Name Dates Details How to access health informa tion online Indication:Current smoker (Renamed from Smoker) Start:26-May-2020 Instruction Type:Patient Education How to access health informa tion online - Detail Indication:Current smoker (Renamed from Smoker) Start:26-May-2020 Instruction Type:Patient Education Patient Instructions Indication:Current smoker (Renamed from Smoker) Start:26-May-2020 Instruction Type:Provider Instructions for Treatment How to access health informa tion online Indication:Annual visit for general adult medical examination without abnormal findings Start:22-Feb-2020 Instruction Type:Patient Education How to access health informa tion online - Detail Indication:Annual visit for general adult medical examination without abnormal findings Start:22-Feb-2020 Instruction Type:Patient Education Patient Instructions Indication:Annual visit for general adult medical examination without abnormal findings Start:22-Feb-2020 Instruction Type:Provider Instructions for Treatment How to access health informa tion online Indication:Hospital discharge follow-up Start:10-Nov-2019 Instruction Type:Patient Education How to access health informa tion online - Detail Indication:Hospital discharge follow-up Start:10-Nov-2019 Instruction Type:Patient Education Patient Instructions Indication:Hospital discharge follow-up Start:10-Nov-2019 Instruction Type:Provider Instructions for Treatment How to access health informa tion online Indication:Flu-like symptoms Start:04-Nov-2019 Instruction Type:Patient Education How to access health informa tion online - Detail Indication:Flu-like symptoms Start:04-Nov-2019 Instruction Type:Patient Education Patient Instructions Indication:Flu-like symptoms Start:04-Nov-2019 Instruction Type:Provider Instructions for Treatment How to access health informa tion online Indication:BPV (benign positional vertigo), unspecified laterality Start:07-May-2017 Instruction Type:Patient Education How to access health informa tion online - Detail Indication:BPV (benign positional vertigo), unspecified laterality Start:07-May-2017 Instruction Type:Patient Education Patient Instructions Indication:BPV (benign positional vertigo), unspecified laterality Start:07-May-2017 Instruction Type:Provider Instructions for Treatment Name Dates Details How to access health informa tion online Indication:Current smoker (Renamed from Smoker) Start:26-May-2020 Instruction Type:Patient Education How to access health informa tion online - Detail Indication:Current smoker (Renamed from Smoker) Start:26-May-2020 Instruction Type:Patient Education Patient Instructions Indication:Current smoker (Renamed from Smoker) Start:26-May-2020 Instruction Type:Provider Instructions for Treatment How to access health informa tion online Indication:Annual visit for general adult medical examination without abnormal findings Start:22-Feb-2020 Instruction Type:Patient Education How to access health informa tion online - Detail Indication:Annual visit for general adult medical examination without abnormal findings Start:22-Feb-2020 Instruction Type:Patient Education Patient Instructions Indication:Annual visit for general adult medical examination without abnormal findings Start:22-Feb-2020 Instruction Type:Provider Instructions for Treatment How to access health informa tion online Indication:Hospital discharge follow-up Start:10-Nov-2019 Instruction Type:Patient Education How to access health informa tion online - Detail Indication:Hospital discharge follow-up Start:10-Nov-2019 Instruction Type:Patient Education Patient Instructions Indication:Hospital discharge follow-up Start:10-Nov-2019 Instruction Type:Provider Instructions for Treatment How to access health informa tion online Indication:Flu-like symptoms Start:04-Nov-2019 Instruction Type:Patient Education How to access health informa tion online - Detail Indication:Flu-like symptoms Start:04-Nov-2019 Instruction Type:Patient Education Patient Instructions Indication:Flu-like symptoms Start:04-Nov-2019 Instruction Type:Provider Instructions for Treatment How to access health informa tion online Indication:BPV (benign positional vertigo), unspecified laterality Start:07-May-2017 Instruction Type:Patient Education How to access health informa tion online - Detail Indication:BPV (benign positional vertigo), unspecified laterality Start:07-May-2017 Instruction Type:Patient Education Patient Instructions Indication:BPV (benign positional vertigo), unspecified laterality Start:07-May-2017 Instruction Type:Provider Instructions for Treatment Name Dates Details How to access health informa tion online Indication:Current smoker (Renamed from Smoker) Start:26-May-2020 Instruction Type:Patient Education How to access health informa tion online - Detail Indication:Current smoker (Renamed from Smoker) Start:26-May-2020 Instruction Type:Patient Education Patient Instructions Indication:Current smoker (Renamed from Smoker) Start:26-May-2020 Instruction Type:Provider Instructions for Treatment How to access health informa tion online Indication:Annual visit for general adult medical examination without abnormal findings Start:22-Feb-2020 Instruction Type:Patient Education How to access health informa tion online - Detail Indication:Annual visit for general adult medical examination without abnormal findings Start:22-Feb-2020 Instruction Type:Patient Education Patient Instructions Indication:Annual visit for general adult medical examination without abnormal findings Start:22-Feb-2020 Instruction Type:Provider Instructions for Treatment How to access health informa tion online Indication:Hospital discharge follow-up Start:10-Nov-2019 Instruction Type:Patient Education How to access health informa tion online - Detail Indication:Hospital discharge follow-up Start:10-Nov-2019 Instruction Type:Patient Education Patient Instructions Indication:Hospital discharge follow-up Start:10-Nov-2019 Instruction Type:Provider Instructions for Treatment How to access health informa tion online Indication:Flu-like symptoms Start:04-Nov-2019 Instruction Type:Patient Education How to access health informa tion online - Detail Indication:Flu-like symptoms Start:04-Nov-2019 Instruction Type:Patient Education Patient Instructions Indication:Flu-like symptoms Start:04-Nov-2019 Instruction Type:Provider Instructions for Treatment How to access health informa tion online Indication:BPV (benign positional vertigo), unspecified laterality Start:07-May-2017 Instruction Type:Patient Education How to access health informa tion online - Detail Indication:BPV (benign positional vertigo), unspecified laterality Start:07-May-2017 Instruction Type:Patient Education Patient Instructions Indication:BPV (benign positional vertigo), unspecified laterality Start:07-May-2017 Instruction Type:Provider Instructions for Treatment Name Dates Details How to access health informa tion online Indication:Current smoker (Renamed from Smoker) Start:26-May-2020 Instruction Type:Patient Education How to access health informa tion online - Detail Indication:Current smoker (Renamed from Smoker) Start:26-May-2020 Instruction Type:Patient Education Patient Instructions Indication:Current smoker (Renamed from Smoker) Start:26-May-2020 Instruction Type:Provider Instructions for Treatment How to access health informa tion online Indication:Annual visit for general adult medical examination without abnormal findings Start:22-Feb-2020 Instruction Type:Patient Education How to access health informa tion online - Detail Indication:Annual visit for general adult medical examination without abnormal findings Start:22-Feb-2020 Instruction Type:Patient Education Patient Instructions Indication:Annual visit for general adult medical examination without abnormal findings Start:22-Feb-2020 Instruction Type:Provider Instructions for Treatment How to access health informa tion online Indication:Hospital discharge follow-up Start:10-Nov-2019 Instruction Type:Patient Education How to access health informa tion online - Detail Indication:Hospital discharge follow-up Start:10-Nov-2019 Instruction Type:Patient Education Patient Instructions Indication:Hospital discharge follow-up Start:10-Nov-2019 Instruction Type:Provider Instructions for Treatment How to access health informa tion online Indication:Flu-like symptoms Start:04-Nov-2019 Instruction Type:Patient Education How to access health informa tion online - Detail Indication:Flu-like symptoms Start:04-Nov-2019 Instruction Type:Patient Education Patient Instructions Indication:Flu-like symptoms Start:04-Nov-2019 Instruction Type:Provider Instructions for Treatment How to access health informa tion online Indication:BPV (benign positional vertigo), unspecified laterality Start:07-May-2017 Instruction Type:Patient Education How to access health informa tion online - Detail Indication:BPV (benign positional vertigo), unspecified laterality Start:07-May-2017 Instruction Type:Patient Education Patient Instructions Indication:BPV (benign positional vertigo), unspecified laterality Start:07-May-2017 Instruction Type:Provider Instructions for Treatment Name Dates Details How to access health informa tion online Indication:Current smoker (Renamed from Smoker) Start:26-May-2020 Instruction Type:Patient Education How to access health informa tion online - Detail Indication:Current smoker (Renamed from Smoker) Start:26-May-2020 Instruction Type:Patient Education Patient Instructions Indication:Current smoker (Renamed from Smoker) Start:26-May-2020 Instruction Type:Provider Instructions for Treatment How to access health informa tion online Indication:Annual visit for general adult medical examination without abnormal findings Start:22-Feb-2020 Instruction Type:Patient Education How to access health informa tion online - Detail Indication:Annual visit for general adult medical examination without abnormal findings Start:22-Feb-2020 Instruction Type:Patient Education Patient Instructions Indication:Annual visit for general adult medical examination without abnormal findings Start:22-Feb-2020 Instruction Type:Provider Instructions for Treatment How to access health informa tion online Indication:Hospital discharge follow-up Start:10-Nov-2019 Instruction Type:Patient Education How to access health informa tion online - Detail Indication:Hospital discharge follow-up Start:10-Nov-2019 Instruction Type:Patient Education Patient Instructions Indication:Hospital discharge follow-up Start:10-Nov-2019 Instruction Type:Provider Instructions for Treatment How to access health informa tion online Indication:Flu-like symptoms Start:04-Nov-2019 Instruction Type:Patient Education How to access health informa tion online - Detail Indication:Flu-like symptoms Start:04-Nov-2019 Instruction Type:Patient Education Patient Instructions Indication:Flu-like symptoms Start:04-Nov-2019 Instruction Type:Provider Instructions for Treatment How to access health informa tion online Indication:BPV (benign positional vertigo), unspecified laterality Start:07-May-2017 Instruction Type:Patient Education How to access health informa tion online - Detail Indication:BPV (benign positional vertigo), unspecified laterality Start:07-May-2017 Instruction Type:Patient Education Patient Instructions Indication:BPV (benign positional vertigo), unspecified laterality Start:07-May-2017 Instruction Type:Provider Instructions for Treatment Family History No Family History Records FoundUnknown Family Member Name Dates Details Father Comments:DVT with travel, 90 's had neuropathy, circulation issues, mild HI in 80's during [place]. HTN Status:Active Mother Comments:diverticulitis, HTN Status:Active Sister 1 Status:Active Sister 2 Status:Active Sister 3 Status:Active Sister 4 Comments:RA Status:Active Unknown Family Member Name Dates Details Daughter 1 Comments:RA Status:Active Daughter 2 Status:Active Daughter 3 Status:Active Father Comments:DVT with travel, 90 's had neuropathy in lift chair, circulation issues, mild [place] in 80's during [place]. HTN Status:Active Mother Comments:diverticulitis, HTN , almost 90's Status:Active Sister 1 Status:Active Sister 2 Status:Active Sister 3 Status:Active Sister 4 Comments:RA Status:Active Unknown Family Member Name Dates Details Daughter 1 Comments:RA Status:Active Daughter 2 Status:Active Daughter 3 Status:Active Father Comments:DVT with travel, 90 's had neuropathy in lift chair, circulation issues, mild [place] in 80's during [place]. HTN Status:Active Mother Comments:diverticulitis, HTN , almost 90's Status:Active Sister 1 Status:Active Sister 2 Status:Active Sister 3 Status:Active Sister 4 Comments:RA Status:Active Unknown Family Member Name Dates Details Daughter 1 Comments:RA Status:Active Daughter 2 Status:Active Daughter 3 Status:Active Father Comments:DVT with travel, 90 's had neuropathy in lift chair, circulation issues, mild [place] in 80's during [place]. HTN Status:Active Mother Comments:diverticulitis, HTN , almost 90's Status:Active Sister 1 Status:Active Sister 2 Status:Active Sister 3 Status:Active Sister 4 Comments:RA Status:Active Unknown Family Member Name Dates Details Daughter 1 Comments:RA Status:Active Daughter 2 Status:Active Daughter 3 Status:Active Father Comments:DVT with travel, 90 's had neuropathy in lift chair, circulation issues, mild [place] in 80's during [place]. HTN Status:Active Mother Comments:diverticulitis, HTN , almost 90's Status:Active Sister 1 Status:Active Sister 2 Status:Active Sister 3 Status:Active Sister 4 Comments:RA Status:Active Unknown Family Member Name Dates Details Daughter 1 Comments:RA Status:Active Daughter 2 Status:Active Daughter 3 Status:Active Father Comments:DVT with travel, 90 's had neuropathy in lift chair, circulation issues, mild [place] in 80's during [place]. HTN Status:Active Mother Comments:diverticulitis, HTN , almost 90's Status:Active Sister 1 Status:Active Sister 2 Status:Active Sister 3 Status:Active Sister 4 Comments:RA Status:Active Unknown Family Member Name Dates Details Daughter 1 Comments:RA Status:Active Daughter 2 Status:Active Daughter 3 Status:Active Father Comments:DVT with travel, 90 's had neuropathy in lift chair, circulation issues, mild [place] in 80's during [place]. HTN Status:Active Mother Comments:diverticulitis, HTN , almost 90's Status:Active Sister 1 Status:Active Sister 2 Status:Active Sister 3 Status:Active Sister 4 Comments:RA Status:Active Unknown Family Member Name Dates Details Daughter 1 Comments:RA Status:Active Daughter 2 Status:Active Daughter 3 Status:Active Father Comments:DVT with travel, ne uropathy, circulation issues, mild [place] in 80's during [place]. HTN. 91 yo of old age. Status:Active Mother Comments:diverticulitis, HTN , almost 90's Status:Active Sister 1 Status:Active Sister 2 Status:Active Sister 3 Status:Active Sister 4 Comments:RA Status:Active Unknown Family Member Name Dates Details Daughter 1 Comments:RA Status:Active Daughter 2 Status:Active Daughter 3 Status:Active Father Comments:DVT with travel, ne uropathy, circulation issues, mild [place] in 80's during [place]. HTN. 91 yo of old age. Status:Active Mother Comments:diverticulitis, HTN , almost 90's Status:Active Sister 1 Status:Active Sister 2 Status:Active Sister 3 Status:Active Sister 4 Comments:RA Status:Active Unknown Family Member Name Dates Details Daughter 1 Comments:RA Status:Active Daughter 2 Status:Active Daughter 3 Status:Active Father Comments:DVT with travel, ne uropathy, circulation issues, mild [place] in 80's during [place]. HTN. 91 yo of old age. Status:Active Mother Comments:diverticulitis, HTN , almost 90's Status:Active Sister 1 Status:Active Sister 2 Status:Active Sister 3 Status:Active Sister 4 Comments:RA Status:Active Unknown Family Member Name Dates Details Daughter 1 Comments:RA Status:Active Daughter 2 Status:Active Daughter 3 Status:Active Father Comments:DVT with travel, ne uropathy, circulation issues, mild [place] in 80's during [place]. HTN. 91 yo of old age. Status:Active Mother Comments:diverticulitis, HTN , almost 90's Status:Active Sister 1 Status:Active Sister 2 Status:Active Sister 3 Status:Active Sister 4 Comments:RA Status:Active Unknown Family Member Name Dates Details Daughter 1 Comments:RA Status:Active Daughter 2 Status:Active Daughter 3 Status:Active Father Comments:DVT with travel, ne uropathy, circulation issues, mild [place] in 80's during [place]. HTN. 91 yo of old age. Status:Active Mother Comments:diverticulitis, HTN , almost 90's Status:Active Sister 1 Status:Active Sister 2 Status:Active Sister 3 Status:Active Sister 4 Comments:RA Status:Active Unknown Family Member Name Dates Details Daughter 1 Comments:RA Status:Active Daughter 2 Status:Active Daughter 3 Status:Active Father Comments:DVT with travel, ne uropathy, circulation issues, mild [place] in 80's during [place]. HTN. 91 yo of old age. Status:Active Mother Comments:diverticulitis, HTN , almost 90's Status:Active Sister 1 Status:Active Sister 2 Status:Active Sister 3 Status:Active Sister 4 Comments:RA Status:Active Unknown Family Member Name Dates Details Daughter 1 Comments:RA Status:Active Daughter 2 Status:Active Daughter 3 Status:Active Father Comments:DVT with travel, ne uropathy, circulation issues, mild [place] in 80's during [place]. HTN. 91 yo of old age. Status:Active Mother Comments:diverticulitis, HTN , almost 90's Status:Active Sister 1 Status:Active Sister 2 Status:Active Sister 3 Status:Active Sister 4 Comments:RA Status:Active Unknown Family Member Name Dates Details Daughter 1 Comments:RA Status:Active Daughter 2 Status:Active Daughter 3 Status:Active Father Comments:DVT with travel, ne uropathy, circulation issues, mild [place] in 80's during [place]. HTN. 91 yo of old age. Status:Active Mother Comments:diverticulitis, HTN , almost 90's Status:Active Sister 1 Status:Active Sister 2 Status:Active Sister 3 Status:Active Sister 4 Comments:RA Status:Active Unknown Family Member Name Dates Details Daughter 1 Comments:RA Status:Active Daughter 2 Status:Active Daughter 3 Status:Active Father Comments:DVT with travel, ne uropathy, circulation issues, mild [place] in 80's during [place]. HTN. 91 yo of old age. Status:Active Mother Comments:diverticulitis, HTN , almost 90's Status:Active Sister 1 Status:Active Sister 2 Status:Active Sister 3 Status:Active Sister 4 Comments:RA Status:Active Unknown Family Member Name Dates Details Daughter 1 Comments:RA Status:Active Daughter 2 Status:Active Daughter 3 Status:Active Father Comments:DVT with travel, ne uropathy, circulation issues, mild [place] in 80's during [place]. HTN. 91 yo of old age. Status:Active Mother Comments:diverticulitis, HTN , almost 90's Status:Active Sister 1 Status:Active Sister 2 Status:Active Sister 3 Status:Active Sister 4 Comments:RA Status:Active Unknown Family Member Name Dates Details Daughter 1 Comments:RA Status:Active Daughter 2 Status:Active Daughter 3 Status:Active Father Comments:DVT with travel, ne uropathy, circulation issues, mild [place] in 80's during [place]. HTN. 91 yo of old age. Status:Active Mother Comments:diverticulitis, HTN , almost 90's Status:Active Sister 1 Status:Active Sister 2 Status:Active Sister 3 Status:Active Sister 4 Comments:RA Status:Active Unknown Family Member Name Dates Details Daughter 1 Comments:RA Status:Active Daughter 2 Status:Active Daughter 3 Status:Active Father Comments:DVT with travel, ne uropathy, circulation issues, mild [place] in 80's during [place]. HTN. 91 yo of old age. Status:Active Mother Comments:diverticulitis, HTN , almost 90's Status:Active Sister 1 Status:Active Sister 2 Status:Active Sister 3 Status:Active Sister 4 Comments:RA Status:Active Unknown Family Member Name Dates Details Daughter 1 Comments:RA Status:Active Daughter 2 Status:Active Daughter 3 Status:Active Father Comments:DVT with travel, ne uropathy, circulation issues, mild [place] in 80's during [place]. HTN. 91 yo of old age. Status:Active Mother Comments:diverticulitis, HTN , almost 90's Status:Active Sister 1 Status:Active Sister 2 Status:Active Sister 3 Status:Active Sister 4 Comments:RA Status:Active Unknown Family Member Name Dates Details Daughter 1 Comments:RA Status:Active Daughter 2 Status:Active Daughter 3 Status:Active Father Comments:DVT with travel, ne uropathy, circulation issues, mild [place] in 80's during [place]. HTN. 91 yo of old age. Status:Active Mother Comments:diverticulitis, HTN , almost 90's Status:Active Sister 1 Status:Active Sister 2 Status:Active Sister 3 Status:Active Sister 4 Comments:RA Status:Active Unknown Family Member Name Dates Details Daughter 1 Comments:RA Status:Active Daughter 2 Status:Active Daughter 3 Status:Active Father Comments:DVT with travel, ne uropathy, circulation issues, mild [place] in 80's during [place]. HTN. 91 yo of old age. Status:Active Mother Comments:diverticulitis, HTN , almost 90's Status:Active Sister 1 Status:Active Sister 2 Status:Active Sister 3 Status:Active Sister 4 Comments:RA Status:Active Unknown Family Member Name Dates Details Daughter 1 Comments:RA Status:Active Daughter 2 Status:Active Daughter 3 Status:Active Father Comments:DVT with travel, ne uropathy, circulation issues, mild [place] in 80's during [place]. HTN. 91 yo of old age. Status:Active Mother Comments:diverticulitis, HTN , almost 90's Status:Active Sister 1 Status:Active Sister 2 Status:Active Sister 3 Status:Active Sister 4 Comments:RA Status:Active Unknown Family Member Name Dates Details Daughter 1 Comments:RA Status:Active Daughter 2 Status:Active Daughter 3 Status:Active Father Comments:DVT with travel, ne uropathy, circulation issues, mild [place] in 80's during [place]. HTN. 91 yo of old age. Status:Active Mother Comments:diverticulitis, HTN , almost 90's Status:Active Sister 1 Status:Active Sister 2 Status:Active Sister 3 Status:Active Sister 4 Comments:RA Status:Active Unknown Family Member Name Dates Details Daughter 1 Comments:RA Status:Active Daughter 2 Status:Active Daughter 3 Status:Active Father Comments:DVT with travel, ne uropathy, circulation issues, mild [place] in 80's during [place]. HTN. 91 yo of old age. Status:Active Mother Comments:diverticulitis, HTN , 90's Status:Active Sister 1 Status:Active Sister 2 Status:Active Sister 3 Status:Active Sister 4 Comments:RA Status:Active Unknown Family Member Name Dates Details Daughter 1 Comments:RA Status:Active Daughter 2 Status:Active Daughter 3 Status:Active Father Comments:DVT with travel, ne uropathy, circulation issues, mild [place] in 80's during [place]. HTN. 91 yo of old age. Status:Active Mother Comments:diverticulitis, HTN , 90's Status:Active Sister 1 Status:Active Sister 2 Status:Active Sister 3 Status:Active Sister 4 Comments:RA Status:Active Unknown Family Member Name Dates Details Daughter 1 Comments:RA Status:Active Daughter 2 Status:Active Daughter 3 Status:Active Father Comments:DVT with travel, ne uropathy, circulation issues, mild [place] in 80's during [place]. HTN. 91 yo of old age. Status:Active Mother Comments:diverticulitis, HTN , 90's Status:Active Sister 1 Status:Active Sister 2 Status:Active Sister 3 Status:Active Sister 4 Comments:RA Status:Active Unknown Family Member Name Dates Details Daughter 1 Comments:RA Status:Active Daughter 2 Status:Active Daughter 3 Status:Active Father Comments:DVT with travel, ne uropathy, circulation issues, mild [place] in 80's during [place]. HTN. 91 yo of old age. Status:Active Mother Comments:diverticulitis, HTN , 90's Status:Active Sister 1 Status:Active Sister 2 Status:Active Sister 3 Status:Active Sister 4 Comments:RA Status:Active Unknown Family Member Name Dates Details Daughter 1 Comments:RA Status:Active Daughter 2 Status:Active Daughter 3 Status:Active Father Comments:DVT with travel, ne uropathy, circulation issues, mild HI in 80's during [place]. HTN. 91 yo of old age. Status:Active Mother Comments:diverticulitis, HTN , 90's Status:Active Sister 1 Status:Active Sister 2 Status:Active Sister 3 Status:Active Sister 4 Comments:RA Status:Active Unknown Family Member Name Dates Details Daughter 1 Comments:RA Status:Active Daughter 2 Status:Active Daughter 3 Status:Active Father Comments:DVT with travel, ne uropathy, circulation issues, mild [place] in 80's during [place]. HTN. 91 yo of old age. Status:Active Mother Comments:diverticulitis, HTN , 90's Status:Active Sister 1 Status:Active Sister 2 Status:Active Sister 3 Status:Active Sister 4 Comments:RA Status:Active Relationship Condition Age at Onset Recorded Date/T zeina father Arthritis Unknown High blood cholesterol Unknown Hypertension Unknown mother Hypertension Unknown sister Arthritis Unknown daughter Arthritis Unknown Disorder of thyroid Unknown History of Present Illness * Cecil Lema - 05/17/2020 9:45 AM EDT NEUROSURGERY CONSULT NOTE Cecil Lema MD Date of visit: May 17, 2020 Patient Name: Mr.Joseph oIn Shelton Date of : 1960 Current Age: [age] year old Sex: male MRN/E# [id number] Chief Complaint: Patient presents with: New Patient HISTORY OF PRESENT ILLNESS : The patient is a 60 year old, right handed male who is referred by Dr. Hare for neurosurgical evaluation. Mr. Shelton presents to the office today as a new patient with imaging for evaluation of low back pain. He states that about 15 years ago he was diagnosed with a lumbar disc herniation and disc bulges, however, proceeded conservatively a did well until about 10 months ago. He states he began to experience worsening low back pain after caring for his father and helping to lift him. He describes low back pain into bilateral lower extremities, posteriorly to the mid calf, slightly worse on the left than the right. He states his pain is worse upon waking & bending, and improves with movement. Hehas completed a course of physical therapy without significant improvement of his symptoms. Of note, he states he is having his left knee replaced next month in [place]. He presents today for evaluation and plan of care. Symptoms: low back pain into bilateral lower extremities PREVIOUS CONSERVATIVE TREATMENTS: Physical therapy PREVIOUS SURGERY: None PAIN EVALUATION 05/17/2020 0849 Pain Level: 6 Pain Location: Back-Lower lower back and bilateral leg pain Description: Aching;Stabbing;Stabbing/Not Incision Duration Units: Months Frequency: Intermittent Intervention: Medication PAST MEDICAL HISTORY Diagnosis Date Blood clot in vein COVID-22 October 2019- fully recovered Pulmonary embolism (HCC) October 2019 PAST SURGICAL HISTORY Procedure Laterality Date APPENDECTOMY CARPAL TUNNEL HERNIA REPAIR HX FAMILY HISTORY Problem Relation Age of Onset Hypertension Mother Heart disease Father ALLERGIES No Known Allergies Current Outpatient Medications Medication Sig Dispense Refill ascorbic acid, vitamin C, (VITAMIN C) 500 mg tablet Take 500 mg by mouth once daily. calcium phosphate dibas/vit D3 (VITAMIN D, WITH CALCIUM, ORAL) Take by mouth. No current facility-administered medications for this visit. REVIEW OF SYSTEMS Review of Systems Constitutional: Negative for chills, diaphoresis and fever. HENT: Negative for congestion, ear pain and sinus pressure. Eyes: Negative for discharge and redness. Respiratory: Negative for cough, shortness of breath and wheezing. Cardiovascular: Negative for chest pain, palpitations and leg swelling. Gastrointestinal: Negative for constipation, diarrhea and nausea. Endocrine: Negative for cold intolerance and heat intolerance. Genitourinary: Negative for difficulty urinating, frequency and urgency. Musculoskeletal: Positive for back pain and gait problem. Negative for neck pain. Skin: Negative for rash and wound. Allergic/Immunologic: Negative for environmental allergies and food allergies. Neurological: Negative for dizziness, weakness and numbness. Hematological: Does not bruise/bleed easily. Psychiatric/Behavioral: Negative for agitation. The patient is not nervous/anxious. OBJECTIVE: BP 121/87 Pulse 64 Temp 98.1 Resp 16 Ht 6' 0 (1.83m) Wt 211 lb (95.7kg) SpO2 97% BMI28.61 kg/(m^2). Physical Exam Constitutional: He is oriented to person, place, and time and well-developed, well-nourished, and in no distress. HENT: Head: Normocephalic and atraumatic. Right Ear: External ear normal. Left Ear: External ear normal. Eyes: Conjunctivae are normal. Neck: Normal range of motion. Pulmonary/Chest: Effort normal. Musculoskeletal: Normal range of motion. Neurological: He is alert and oriented to person, place, and time. Gait normal. Skin: Skin is warm and dry. Psychiatric: Mood and affect normal. Neurological Exam Mental Status Alert. Gait Normal gait. Motor Normal muscle bulk throughout. Normal muscle tone. Right Left Hip flexion 5 5 Knee flexion 5 5 Knee extension 5 5 Plantarflexion 5 5 Dorsiflexion 5 5 Negative bilateral straight leg raise Sensory Sensation is intact to light touch, pinprick, vibration and proprioception in all four extremities. Data Review IMAGING STUDIES: MRI LUMBAR SPINE 04/06/2020 There is widespread degenerative disc disease causing moderate to severe stenosis starting at L2-3 and extending to L5-S1. Personal review of medical records: I reviewed with the patient, history, physical exam, the imagesand the chart. 1. Lumbar degenerative disc disease The patient is a very pleasant 60-year-old male who presents for evaluation of low back pain and bilateral lower extremity symptoms suggestive of neurogenic claudication. I reviewed a MRI of the lumbar spine and he has definite evidence of moderate to severe stenosis related to degenerative disc disease and spondylosis. I told him he will likely require surgical treatment. He needs to undergo plain radiographs of the lumbar spine with flexion and extension views. He will follow up with me upon completion of these imaging studies. There is also bit of a dilemma with regard to scheduling his surgery as he is also scheduled to have a replacement toward the end of June. I told him to check with his orthopedic surgeon regarding the timing of a second operation pertaining to his lumbar spine. I told him that from my standpoint, if he were to have surgery for his lumbar spine, he would need to wait approximately 6 weeks before he could proceed with a left total knee replacement. All of his questions been addressed in great detail. - XR LUMBAR MOTION 4V AP/LAT/ FLEX/EXT; Future Cecil Lema MD This note was partially generated using [employer] voice recognition system, and there may be some incorrect words, spellings, and punctuation that were not noted in checking the note before saving. documented in this encounter* Mary Key (Rt), Tech - 05/17/2020 9:30 AM EDT Radiology Service Progress Note PATIENT NAME: Paul Shelton DATE OF SERVICE: May 17, 2020 TIME: 9:39 AM PATIENT IDENTITY VERIFICATION COMPLETED USING TWO (2) IDENTIFIERS: Name and Date of confirmedby patient verbally. FALL SCREENING: Has the patient had 2 falls in the last year or 1 fall with injury or currently using an Ambulatory Assistive Device (Walker, Cane, Wheelchair, Crutches, etc.)? No PATIENT GENDER DATA: Male PATIENT RELEVANT IMPLANT DATA REVIEWED: Not Applicable RADIOLOGY DEPARTMENT: General X-ray: Exam(s) Completed: Spine X-Ray(s): Lumbar AP / LAT / L5-S1 / FLEX-EXT PERIPHERAL IV DATA: Not applicable SIGNED BY: RT Melissa May 17, 2020 9:39 AM documented in this encounter Assessments Diagnosis Lumbar degenerative disc disease- Primary Degeneration of lumbar or lumbosacral intervertebral disc Summary Purpose Advance Directives No Advanced Directives Records Found Name Dates Details Immunization Registry [place] - Effective on 11/24/2020. Expiration date unspecified Effective:24-Nov-2020 Name Dates Details Immunization Registry [place] - Effective on 11/24/2020. Expiration date unspecified Effective:24-Nov-2020 Name Dates Details Immunization Registry [place] - Effective on 11/24/2020. Expiration date unspecified Effective:24-Nov-2020 Name Dates Details Immunization Registry [place] - Effective on 11/24/2020. Expiration date unspecified Effective:24-Nov-2020 Name Dates Details Immunization Registry [place] - Effective on 11/24/2020. Expiration date unspecified Effective:24-Nov-2020 Name Dates Details Immunization Registry [place] - Effective on 11/24/2020. Expiration date unspecified Effective:24-Nov-2020 Name Dates Details Immunization Registry [place] - Effective on 11/24/2020. Expiration date unspecified Effective:24-Nov-2020 Name Dates Details Immunization Registry [place] - Effective on 11/24/2020. Expiration date unspecified Effective:24-Nov-2020 Name Dates Details Immunization Registry [place] - Effective on 11/24/2020. Expiration date unspecified Effective:24-Nov-2020 Chief Complaint and Reason for Visit Chief Complaint Admit Date ABN CXR, LUNG NODULE December 25, 2024 5:33 pm Additional Source Comments Source Comments (unrecognize d section and content) In the event this informatio n is protected by the Federal Confidentiality of Alcohol and Drug Abuse Patient Records regulations: The Federal rules restrict any use of the information to criminally investigate or prosecute any alcohol or drug abuse patient.[facility] the event this information is protected by the Federal Confidentiality of Alcohol and Drug Abuse Patient Records regulations: The Federal rules restrict any use of the information to criminally investigate or prosecute any alcohol or drug abuse patient.[facility] the event this information is protected by the Federal Confidentiality of Alcohol and Drug Abuse Patient Records regulations: The Federal rules restrict any use of the information to criminally investigate or prosecute any alcohol or drug abuse patient.[facility] Reason for Visit (unrecogniz ed section and content) Reason Comments New Patient Status Reason Specialty Diagnoses / Procedures Referred By Contact Referred To Contact Authorized Patient Cleared - INN Insurance Found Financial Clearance Not Required Neurosurgery / NEUROSURGERY Diagnoses Low back pain DDD (degenerative disc disease), lumbar DDD with lower back pain radiating bilaterally (Pt brings CD with MRI) Ref. in bin Procedures NEW PATIENT VISIT LEVEL 4 NEW PATIENT Kathy Hare Marlen [address] [place] [address] [facility] [address] [place] [address] Status Reason Specialty Diagnoses / Procedures Referred By Contact Referred To Contact Waiting for Response RAD GENERAL [place] NURSE EDUCATOR Diagnoses Other intervertebral disc degeneration, lumbar region lumbar xrays-GM Procedures X-RAY L-S SPINE COMPLETE W/OBLIQUE XR GENERAL DEPT USE Cecil Lema [facility] [address] [place] [address] [facility] [address] [address] (unrecognized sect ion and content) No Status Records FoundNo Status Records FoundNo Status Records FoundNo Status Records FoundNo Status Records FoundNo Status Records FoundNo Status Records FoundNo Status Records Found INFORMATION SOURCE (unrecogn ized section and content) DATE CREATED AUTHOR 05/17/2020 [facility] DATE CREATED AUTHOR AUTHOR'S ORGANIZ ATION 05/24/2020 [facility] DATE CREATED AUTHOR AUTHOR'S ORGANIZ ATION 09/07/2020 [facility] DATE CREATED AUTHOR AUTHOR'S ORGANIZ ATION 09/09/2021 [facility] DATE CREATED AUTHOR AUTHOR'S ORGANIZ ATION 10/17/2022 [facility] DATE CREATED AUTHOR AUTHOR'S ORGANIZ ATION 11/06/2022 [facility] DATE CREATED AUTHOR AUTHOR'S ORGANIZ ATION 12/31/2024 [facility] DATE CREATED AUTHOR AUTHOR'S ORGANIZ ATION 01/03/2025 [facility] Teams (unrecognized sec tion and content) Team Status: Active Member Role Status Dates Dr. Kathy Hare MD Primary Care Provider Active Team Status: Inactive Member Role Status Dates Dr. Kathy Hare MD Primary Care Provider Active Start: December 25, 2024 End: December 25, 2024 Dr. Kathy Hare MD Attending Provider Active Start: December 25, 2024 End: December 25, 2024 Dr. Kathy Hare MD Referring Provider Active Start: December 25, 2024 End: December 25, 2024 Goals (unrecognized section and content) Goals may be documented in a n alternate section FOR RECORDS PERTAINING TO PATIENTS WHO ARE OR HAVE BEEN ENROLLED IN A CHEMICAL DEPENDENCY/SUBSTANCEABUSE PROGRAM, SOME INFORMATION MAY BE OMITTED. This clinical summary was aggregated from multiple sources. Caution should be exercised in using it in the provision of clinical care. This summary normalizes information from multiple sources, and as a consequence, information in this document may materially change the coding, format and clinical context of patient data. In addition, data may be omitted in some cases. CLINICAL DECISIONS SHOULD BE BASED ON THE PRIMARY CLINICAL RECORDS. [employer] [facility]. provides no warranty or guarantee of the accuracy or completeness of information in this document.
--- NOTE | 2025-03-04 13:48 | CT_ITS ---
PROCEDURE: CTA CHEST W/WO CONTRAST 03/04/2025 REASON FOR EXAM: CTA CHEST WITH CONTRAST, PE PROTOCOL - STAT, R/O PE. HX OF PE, LO TECHNIQUE: CTA CHEST W/WO CONTRAST Multiplanar Sagittal and Coronal images were obtained. 3D post processing was performed CONTRAST: Isovue 3 7 VOLUME: 100 mL One or more dose reduction techniques were used (e.g., Automated exposure control, adjustment of the mA and/or kV according to patient size, use of iterative reconstruction technique). RADIATION DOSE SUMMARY: CTDlvol: 11.8 mGy DLP: 475.43 mGycm COMPARISON: Prior CT scan dated December 25, 2024. FINDINGS: Hardware: None Lymph nodes: Calcified right hilar lymph nodes. Heart: No coronary artery calcification is seen. Thoracic Aorta: Unremarkable Pulmonary Vessels: Nonocclusive intraluminal filling defects in branches of the left lower lobe pulmonary artery in keeping with pulmonary embolism. Lungs and Airways: Patchy bibasilar pulmonary infiltrates. Follow-up recommended. Scattered right calcified granulomas. Pleura: No significant pleural effusion is seen. Upper Abdomen: Unremarkable Bones: Bone windows are unremarkable. CT/CTA Chest W/WO Contrast IMPRESSION: Nonocclusive pulmonary emboli seen in branches of the left lower lobe pulmonary artery. Bibasilar infiltrates. Reading Location: [id number]
== END | disposition home or self-care (01) ==
PROVIDERS: PCP Internal Medicine; Referring Provider Internal Medicine; Visit Provider Internal Medicine
DX: R07.81 Pleurodynia (principal)
CPT/HCPCS: 71275; Q9967